=== PATIENT | male | born 1935 | race Caucasian/White ===

== ENCOUNTER 2016-12-05 08:15 | Observation (INO) | payer MEDICARE ==
[2016-12-05] MEDS ORDERED: ceFAZolin 2 GM in SODIUM CHLORIDE 0.9% 100 ML IVPB ONE (16:30)
[2016-12-05 16:47] LABS: INR 1.2 (<1.1); Prothrombin Time 11.8 sec (9.0-12.0)
[2016-12-05 17:03] LABS: Aty Lym Flag Slight; Basophils % (A) 0 %; CH 30.3; CHCM 33.4; Eosinophils # (A) 0.2 k/uL (0-0.7); Eosinophils % (A) 3 %; HCT 35.3 % (39.0-53.0); HDW 2.52; HGB 11.5 gm/dL (13.0-17.5); Luc # (Auto) 0.46; Luc % (Auto) 6; Lymphocytes # (A) 0.9 k/uL (1.0-4.8); Lymphocytes % (A) 12 %; MCH 29.8 pg (25.0-35.0); MCHC 32.6 g/dL (31.0-37.0); MCV 91.3 fL (80.0-100.0); Mean Platelet Volume 7.4; Monocytes # (A) 1.2 k/uL (0-1.0); Monocytes % (A) 16 %; Neutrophils # (A) 4.7 k/uL (1.3-7.7); Neutrophils % (A) 63 %; RBC 3.86 m/uL (4.30-5.90); RDW 13.5 % (11.5-15.5); WBC 7.4 k/uL (3.8-10.6); WBC (Perox) 7.64
[2016-12-05] MEDS ORDERED: IV FLUID CONTINUATION 950 ML IV ONE (17:07)
--- NOTE | 2016-12-05 17:28 | P.HPOR ---
History of Present Illness H&P Date: 12/05/16 The patient is an 81-year-old male with multiple medical problems including coronary artery disease, peripheral vascular disease, and neuropathy who presented to my office earlier today with been wounds under the fourth and fifth toes, cellulitis, and purulent discharge. 8 days ago the patient kicked a piece of furniture at home. Due to neuropathy he did not note the severity of the injury. He was seen in the office today by Dr. Parrish who noted open wounds under his fourth and fifth toe with exposed tendon. He was referred to my office and I saw him this afternoon. At the time of my examination the patient had obvious cellulitis involving the fourth and fifth toes, radial and drainage from open wounds and exposed tendon. Due to the injury occurring 8 days ago, extent of infection, and multiple medical problems as well as the patient's age my recommendation was to send him over to the hospital as direct admission to perform amputations of the fourth and fifth toe. Past Medical History Past Medical History: Heart Failure, CVA/TIA, Deep Vein Thrombosis (DVT), GI Bleed, Hyperlipidemia, Hypertension, Myocardial Infarction ([place]), Mitral Valve Prolapse (MVP), Musculoskeletal Disorder, Renal Disease Additional Past Medical History / Comment(s): per old hx cva in -2009 lt sided weakness( stated that improved but pt has balance issues and mild memory problems since),2014 had stroke that affected his rt side of mouth and speech.blistering to lle(sharif went to [facility] [place] don[place] hearing aid,peptic ulcer disease.gastritis, hx of hep C, chronic back pain, n/t donna shoulders, fx of left hand, mumps, ANEMIA, AORTIC STENOSIS, PSORIASIS.fx lt metatarsal.parkinsons , FALLS, constipation-last bm 12-04-16, per pmh-hx of afib Last Myocardial Infarction Date:: 03/2011 History of Any Multi-Drug Resistant Organisms: None Reported Past Surgical History: Bowel Resection, Heart Catheterization With Stent Additional Past Surgical History / Comment(s): hand sx right thumb partial amputation d/t work injury, cataract sx, hemorrhoidectomy x3, egd,colonoscopy 4- 5 years ago. Gastric surgery in 1965 for peptic ulcer disease, RT BRACHIAL ARTERIAL OCCLUSION HAD THROMBECTOMY, heart valve replacement/ (TVAR PROCEDURE), donna cataracts Past Anesthesia/Blood Transfusion Reactions: No Reported Reaction Date of Last Stent Placement:: 2010 Past Psychological History: No Psychological Hx Reported Additional Psychological History / Comment(s): PT LIVES WITH OF 56 YRS in single level home that has 2 steps to enter. no pets. no home care services recieved . HE USES A WALKER MOST TIMES. HE IS SOMEWHAT LIMITED IN HIS ACTIVITY -has balance issues and hx of falls.. HE NO LONGER DRIVES. in past served in the [employer]. 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 Pt states "I used to drink one beer a day, but I don't anymore." Past Drug Use History: None Reported - Past Family History Father History Unknown: Yes Family Medical History: Cancer Additional Family Medical History / Comment(s): FATHER AT AGE 60 OF COLON CANCER Mother History Unknown: Yes Family Medical History: Coronary Artery Disease (CAD), Hypertension Additional Family Medical History / Comment(s): Patient states "none that I know of" regarding family history Medications and Allergies Home Medications Medication Instructions Recorded Confirmed Type Lisinopril [Zestril] 5 mg PO DAILY 11/20/13 12/05/16 History Apixaban [Eliquis] 2.5 mg PO DAILY 11/02/15 12/05/16 History LORazepam [Ativan] 1 mg PO BID PRN 11/02/15 12/05/16 History Lidocaine HCl [Aspercreme] 1 applic TOPICAL DAILY 11/02/15 12/05/16 History Triamcinolone 0.1% Cream [Kenalog] 1 applic TOPICAL DAILY 11/02/15 12/05/16 History Atorvastatin [Lipitor] 40 mg PO DAILY 12/05/16 12/05/16 History Carbidopa-Levodopa 25-100 mg 1 tab PO QID 12/05/16 12/05/16 History [Sinemet 25-100] Divalproex Sodium [Depakote] 500 mg PO HS 12/05/16 12/05/16 History Furosemide [Lasix] 40 mg PO BID 12/05/16 12/05/16 History Latanoprost [Xalatan 0.005%] 1 drop BOTH EYES HS 12/05/16 12/05/16 History Metolazone [Zaroxolyn] 2.5 mg PO Q48H 12/05/16 12/05/16 History Metoprolol Tartrate [Lopressor] 50 mg PO QAM 12/05/16 12/05/16 History Metoprolol Tartrate [Lopressor] 100 mg PO HS 12/05/16 12/05/16 History Omeprazole 20 mg PO DAILY 12/05/16 12/05/16 History Allergies Allergy/AdvReac Type Severity Reaction Status Date / Time acetaminophen [From [place]] Allergy Confusion Verified 12/05/16 16:56 gentamicin [Gentamicin] Allergy numbness Verified 11/02/15 10:17 hydrocodone [From [place]] Allergy Confusion Verified 12/05/16 16:56 Physical Examination The patient is in no apparent distress and is alert and oriented. His head is normocephalic and atraumatic. He demonstrates nonlabored breathing with symmetric chest expansion. On examination of the lower extremities there is bilateral swelling and erythema throughout the pretibial area consistent with chronic cellulitis. A focused examination of the left foot was conducted. On inspection there is erythema and warmth over the fourth and fifth toe extending to the dorsal aspect of the lateral forefoot. There are open wounds under the plantar aspect of the fourth and fifth toe. The flexor tendons are visible under the fourth toe. The open wound at the base of the fifth toe has a large amount of malodorous, purulent drainage. Results - Labs Labs: Abnormal Lab Results - Last 24 Hours (Table) 12/05/16 Range/Units 16:15 RBC 3.86 L (4.30-5.90) m/uL Hgb 11.5 L (13.0-17.5) gm/dL Hct 35.3 L (39.0-53.0) % Plt Count 127 L (150-450) k/uL H & H 12/05/16 Range/Units 16:15 Hgb 11.5 L (13.0-17.5) gm/dL Hct 35.3 L (39.0-53.0) % Coagulation 12/05/16 Range/Units 16:15 INR 1.2 (<1.1) Result Diagrams: 12/05/16 16:15 Assessment and Plan (1) Cellulitis and abscess of foot Status: Acute Plan: Due to the patient's age, multiple medical problems, peripheral vascular disease , neuropathy and since his injury occurred 8 days ago my recommendation was to perform amputation of the fourth and fifth toe. The patient and his agree with this plan. The patient has been sent overs direct admission from my office. We'll plan on taking him to the operating room for amputation of the fourth and fifth toe. We discussed potential risks and complications of surgery including but not limited to risk of anesthesia, risk of superficial infection, risk of deep infection, risk of delayed wound healing, risk of need for further amputation, risk of need for below-knee amputation, and postoperative medical complication. The patient will be admitted overnight for IV antibiotics. We will consult Dr. Parrish for perioperative medical management. I would also like to consult Dr. Carballo for antibiotic recommendations including choice of antibiotic, route of administration, and duration of treatment.
[2016-12-05 17:30] LABS: Manual Review Performed
[2016-12-05] MEDS ORDERED: ePHEDrine 50 MG/ML 1 ML AMP ONE (17:47)
[2016-12-05] MEDS ORDERED: fentaNYL (PF) 50 MCG/ML 2 ML AMP ONE (17:47)
[2016-12-05] MEDS ORDERED: PROPOFOL 10 MG/ML 20 ML VIAL IV ONE (17:47)
[2016-12-05] MEDS ORDERED: LIDOCAINE 1% INJ 10MG/ML (20 ML MDV) ONE (17:47)
[2016-12-05] MEDS ORDERED: BUPIVACAINE (PF) 0.5% 30 ML VIAL SQ ONE (18:02)
[2016-12-05] MEDS ORDERED: ceFAZolin 1,000 MG in SODIUM CHLORIDE 0.9% 1,000 ML IRRIGATION ONE (18:07)
--- NOTE | 2016-12-05 18:52 | P.OP ---
Date of Procedure: 12/05/16 Preoperative Diagnosis: 1. Left fourth toe open wound with exposed flexor tendon, cellulitis and early wet gangrene 2. Left fifth toe open wound, cellulitis and early wet gangrene 3. Coronary artery disease 4. Peripheral neuropathy 5. Peripheral vascular disease Postoperative Diagnosis: 1. Left fourth toe open wound with exposed flexor tendon, cellulitis and early wet gangrene 2. Left fifth toe open PIP dislocation with exposed bone, cellulitis, purulence , and early wet gangrene 3. Coronary artery disease 4. Peripheral neuropathy 5. Peripheral vascular disease Procedure(s) Performed: 1. Left fourth toe amputation at the MTP joint 2. Left fifth toe amputation at the MTP joint Implants: [place] [facility] Surgeon: Holger Quiros Estimated Blood Loss (ml): 10 IV fluids (ml): 850 Pathology: other (Toes sent to microbiology and pathology) Condition: stable Disposition: PACU Indications for Procedure: The patient is an 81-year-old male smoker medical problems. 8 days ago he kicked his left foot Furniture resulting in open wounds to his left fourth and fifth toe. His family provided local wound care. He was seen by his primary care doctor, Dr. Parrish today in the office who noted open wounds with exposed tendons. He was sent over to my office. Upon my examination earlier today the patient had open wounds at the base of his fourth and fifth toe. There are exposed flexor tendons at the base of his fourth toe and an open wound with exposed bone at the fifth toe. There was purulence with a malodorous drainage from both wounds. Both toes were diffusely cellulitic and had signs of early wet gangrene. Due to the patient's age and multiple medical problems as well as his injury occurring 8 days ago with exposed tendon and bone I recommended amputation of the fourth and fifth toe. I discussed potential risks and complications with the patient and his including but not limited to risk of anesthesia, risk of superficial infection, risk of deep infection, risk of damage to local blood vessels or nerves, risk of delayed wound healing, risk of wound necrosis, risk of need for more proximal amputation including a transmetatarsal or [id number] amputation and possibly loss of life. The patient and his understand these risks and provided consent to go forward with surgery. Operative Findings: The wound under the plantar aspect of the fourth toe had exposed flexor tendons. The wound in the fourth webspace and base of the fifth toe communicated with the PIP joint and there was exposed proximal phalanx of the fifth toe. There was malodorous drainage and purulence from both wounds. Description of Procedure: The patient identified in preoperative holding and the correct left foot was marked with my initials. I reviewed the consent form with the patient and his and all their questions were answered. The patient was then brought back to the operating room. Preoperative antibiotics were administered. The patient was positioned on the operating room table and all bony prominences were well-padded. A tourniquet was applied to the proximal aspect of the left thigh. The patient's left leg was then prepped and draped in the standard sterile fashion. Prior to starting surgery timeout was performed identifying the correct patient, operative extremity, and procedure. The patient's leg was then elevated for 2 minutes and the tourniquet was inflated to 250 mmHg I began by outlining an incision at the base of the fourth and fifth toe, taking care to excise all nonviable skin while at the same time allowing flaps for closure. A 10 mL's of half percent Marcaine was injected at the base of the fourth and fifth toe Skin incision was made a 15 blade scalpel in both the fourth and fifth toe were circumferentially exposed and amputated at the MTP joint level. Both toes were passed off to the past table and sent to pathology and microbiology. The wound was then copiously irrigated with 1 L of sterile saline using cystoscopy tubing. The tourniquet was let down for total tourniquet time of 8 minutes. All bleeders were controlled with electrocautery. The deep subcu was reapproximated using 2-0 Vicryl. The skin was closed with 3-0 nylon horizontal mattress stitches. I verified that all instrument sponge and sharp counts were correct. A sterile dressing consisting of Betadine soaked Adaptic, 4 x 4, and web roll was applied. The drapes were taken down and an Ashwin wrap was placed. The patient was then brought to PACU having tolerated the procedure well. Plan: The patient will be admitted overnight for IV antibiotics. He can heel weight-bear in a cam boot. Dr. Parrish has been consulted for perioperative medical management. I would also like to consult Dr. Carballo for antibiotic recommendations as well as wound care going forward due to his high risk of having a wound complication.
[2016-12-05] MEDS ORDERED: METOLAZONE 2.5 MG TAB PO ONE (19:45)
[2016-12-05 19:48] LABS: Anion Gap 12 mmol/L; Blood Urea Nitrogen 29 mg/dL (9-20); Calcium 8.6 mg/dL (8.4-10.2); Carbon Dioxide 25 mmol/L (22-30); Chloride 105 mmol/L (98-107); Glucose 93 mg/dL (74-99); Non-African American GFR(MDRD) >60 (>60 ml/min/1.73 sqM); Sodium 142 mmol/L (137-145)
[2016-12-05] MEDS: FUROSEMIDE 40 MG TAB PO SCH (21:54)
[2016-12-05] MEDS: DIVALPROEX 500 MG TABLET.DR PO SCH (21:54)
[2016-12-05] MEDS: PANTOPRAZOLE 40 MG TABLET PO SCH (21:55)
[2016-12-05] MEDS: LATANOPROST 0.005% OPHTH DROPS 2.5 ML BTL BOTH EYES SCH (21:55)
[2016-12-05] MEDS: METOPROLOL TARTRATE 50 MG TAB PO SCH (21:55)
[2016-12-05] MEDS: ATORVASTATIN 40 MG TAB PO SCH (21:55)
[2016-12-05] MEDS: LISINOPRIL 5 MG TAB PO SCH (21:55)
[2016-12-05] MEDS: CARBIDOPA-LEVODOPA 25-100 MG 1 EACH TAB PO SCH (21:55)
[2016-12-05] MEDS: LORazepam 1 MG TAB PO PRN (22:01)
[2016-12-06] MEDS: Acetaminophen-Codeine 300-30mg TAB PO PRN ×3 (03:38→22:05)
[2016-12-06] MEDS ORDERED: HYDROcodone/APAP 7.5-325MG 1 EACH TAB PO PRN (05:13)
[2016-12-06] MEDS: PANTOPRAZOLE 40 MG TABLET PO SCH (07:39)
[2016-12-06] MEDS: FUROSEMIDE 40 MG TAB PO SCH ×2 (07:39→22:06)
[2016-12-06] MEDS: LISINOPRIL 5 MG TAB PO SCH (07:39)
[2016-12-06] MEDS: CARBIDOPA-LEVODOPA 25-100 MG 1 EACH TAB PO SCH ×4 (07:39→22:06)
[2016-12-06] MEDS: ATORVASTATIN 40 MG TAB PO SCH (07:40)
[2016-12-06] MEDS: METOPROLOL TARTRATE 50 MG TAB PO SCH ×2 (07:40→22:06)
[2016-12-06] MEDS ORDERED: ONDANSETRON 4 MG/2 ML VIAL IVP PRN (08:50)
[2016-12-06] MEDS ORDERED: HYDROmorphone 1 MG/ML 1 ML SYRINGE IVP PRN ×3 (08:50)
[2016-12-06] MEDS ORDERED: TEMAZEPAM 15 MG CAP PO PRN (08:50)
[2016-12-06] MEDS ORDERED: NALOXONE 0.4 MG/ML 1 ML VIAL IV PRN (08:50)
[2016-12-06] MEDS ORDERED: MAGNESIUM HYDROXIDE 2,400 MG/10 ML CUP PO PRN (08:50)
[2016-12-06] MEDS ORDERED: APIXABAN 2.5 MG TABLET PO SCH (09:00)
--- NOTE | 2016-12-06 09:21 | P.CONS ---
History of Present Illness - Reason for Consult Consult date: 12/06/16 Infected toes - History of Present Illness This is an 81-year-old male. He gives history that he was on his scooter within his home and he ended up turning a corner and fell out of his scooter. He apparently injured his left foot at that time but did not realize it due to peripheral neuropathy. This was at least 8 days ago. He then presented to Dr. Parrish and found to have open wounds to the fourth and fifth toes on the plantar surface with exposed tendon. Patient was then sent to Dr. Quiros and patient has subsequently undergone a fourth and fifth toe amputation at the [facility] done on December 05. Patient states he is expecting to go home today. Patient was on during the perioperative time period patient is complaining of significant pain to the left foot but otherwise no new complaints. He has difficulty with balance and gait dysfunction since his stroke. Physical therapy consult in place. He has been ordered for heel weightbearing on the left only with Cam boot to be ordered. Review of Systems All systems: negative Constitutional: Denies chills, Denies fever Eyes: denies blurred vision, denies pain Ears, nose, mouth and throat: Denies headache, Denies sore throat Cardiovascular: Reports decreased exercise tolerance, Reports dyspnea on exertion, Denies chest pain, Denies shortness of breath Respiratory: Denies cough Gastrointestinal: Denies abdominal pain, Denies diarrhea, Denies nausea, Denies vomiting Musculoskeletal: Reports gait dysfunction, Denies myalgias Musculoskeletal: right: foot pain Integumentary: Denies pruritus, Denies rash Neurological: Denies numbness, Denies weakness Psychiatric: Denies anxiety, Denies depression Endocrine: Denies fatigue, Denies weight change Past Medical History Past Medical History: Heart Failure, CVA/TIA, Deep Vein Thrombosis (DVT), GI Bleed, Hyperlipidemia, Hypertension, Myocardial Infarction ([place]), Mitral Valve Prolapse (MVP), Musculoskeletal Disorder, Renal Disease Additional Past Medical History / Comment(s): per old hx cva in 2-2009 lt sided weakness( stated that improved but pt has balance issues and mild memory problems since),2014 had stroke that affected his rt side of mouth and speech.blistering to lle(sharif went to [facility]) [place] donna hearing aid,peptic ulcer disease.gastritis, hx of hep C, chronic back pain, n/t donna shoulders, fx of left hand, mumps, ANEMIA, AORTIC STENOSIS, PSORIASIS.fx lt metatarsal.parkinsons , FALLS, constipation-last bm 5--17, per pmh-hx of afib Last Myocardial Infarction Date:: 03/2011 History of Any Multi-Drug Resistant Organisms: None Reported Past Surgical History: Bowel Resection, Heart Catheterization With Stent Additional Past Surgical History / Comment(s): hand sx right thumb partial amputation d/t work injury, cataract sx, hemorrhoidectomy x3, egd,colonoscopy 4- 5 years ago. Gastric surgery in 1965 for peptic ulcer disease, RT BRACHIAL ARTERIAL OCCLUSION HAD THROMBECTOMY, heart valve replacement/ (TVAR PROCEDURE), donna cataracts Past Anesthesia/Blood Transfusion Reactions: No Reported Reaction Date of Last Stent Placement:: 2010 Past Psychological History: No Psychological Hx Reported Additional Psychological History / Comment(s): PT LIVES WITH OF 56 YRS in single level home that has 2 steps to enter. no pets. no home care services recieved . HE USES A WALKER MOST TIMES. HE IS SOMEWHAT LIMITED IN HIS ACTIVITY -has balance issues and hx of falls.. HE NO LONGER DRIVES. 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 Pt states "I used to drink one beer a day, but I don't anymore." Past Drug Use History: None Reported - Past Family History Father History Unknown: Yes Family Medical History: Cancer Additional Family Medical History / Comment(s): FATHER AT AGE 60 OF COLON CANCER Mother History Unknown: Yes Family Medical History: Coronary Artery Disease (CAD), Hypertension Additional Family Medical History / Comment(s): Patient states "none that I know of" regarding family history Medications and Allergies Home Medications Medication Instructions Recorded Confirmed Type Lisinopril [Zestril] 5 mg PO DAILY 11/20/13 12/05/16 History Apixaban [Eliquis] 2.5 mg PO DAILY 11/02/15 12/05/16 History LORazepam [Ativan] 1 mg PO BID PRN 11/02/15 12/05/16 History Lidocaine HCl [Aspercreme] 1 applic TOPICAL DAILY 11/02/15 12/05/16 History Triamcinolone 0.1% Cream [Kenalog] 1 applic TOPICAL DAILY 11/02/15 12/05/16 History Atorvastatin [Lipitor] 40 mg PO DAILY 12/05/16 12/05/16 History Carbidopa-Levodopa 25-100 mg 1 tab PO QID 12/05/16 12/05/16 History [Sinemet 25-100 mg] Divalproex Sodium [Depakote] 500 mg PO HS 12/05/16 12/05/16 History Furosemide [Lasix] 40 mg PO BID 12/05/16 12/05/16 History Latanoprost [Xalatan 0.005%] 1 drop BOTH EYES HS 12/05/16 12/05/16 History Metolazone [Zaroxolyn] 2.5 mg PO Q48H 12/05/16 12/05/16 History Metoprolol Tartrate [Lopressor] 50 mg PO QAM 12/05/16 12/05/16 History Metoprolol Tartrate [Lopressor] 100 mg PO HS 12/05/16 12/05/16 History Omeprazole 20 mg PO DAILY 12/05/16 12/05/16 History Allergies Allergy/AdvReac Type Severity Reaction Status Date / Time gentamicin [Gentamicin] Allergy numbness Verified 11/02/15 10:17 hydrocodone [From [place]] Allergy Confusion Verified 12/05/16 16:56 Physical Exam Vitals: Vital Signs Temp Pulse Resp BP BP Pulse Ox 12/06/16 07:00 97.3 F L 80 16 142/76 97 12/06/16 00:00 18 12/05/16 23:00 97.9 F 89 18 94/65 98 12/05/16 19:40 97.3 F L 75 14 128/72 99 12/05/16 19:00 83 18 155/67 99 12/05/16 18:51 87 18 131/83 99 12/05/16 18:45 83 16 175/75 98 12/05/16 18:37 97.2 F L 76 20 167/80 98 12/05/16 17:14 98.1 F 81 18 133/72 100 12/05/16 16:28 97.4 F L 55 L 19 148/69 97 12/05/16 14:40 98.2 F 70 18 138/68 98 Intake and Output 12/05/16 12/06/16 12/06/16 22:59 06:59 14:59 Intake Total 1790 Output Total 10 Balance 1780 Intake: IV 1550 Oral 240 Output: Estimated Blood Loss 10 Other: Voiding Method Urinal # Voids 1 3 2 Weight 90.718 kg Gen: This is an 81-year-old male. He is sitting up in bed and appears to be in no acute distress. HEENT: Head is atraumatic, normocephalic. Pupils equal, round. Sclerae is anicteric. NECK: Supple. No JVD. No lymphadenopathy. No thyromegaly. LUNGS: Clear to auscultation. No wheezes or rhonchi. No intercostal retractions. HEART: Irregular rate and rhythm. Systolic murmur. ABDOMEN: Soft. Bowel sounds are present. No masses. No tenderness. EXTREMITIES: No pedal edema. Large dressing in place to the left foot and lower extremity which was not removed. NEUROLOGICAL: Patient is awake, alert and oriented x3. Cranial nerves 2 through 12 are grossly intact. Results Results: Laboratory Results WBC 7.4 k/uL (3.8-10.6) 12/05/16 16:15 RBC 3.86 m/uL (4.30-5.90) L 12/05/16 16:15 Hgb 11.5 gm/dL (13.0-17.5) L 12/05/16 16:15 Hct 35.3 % (39.0-53.0) L 12/05/16 16:15 MCV 91.3 fL (80.0-100.0) 12/05/16 16:15 MCH 29.8 pg (25.0-35.0) 12/05/16 16:15 MCHC 32.6 g/dL (31.0-37.0) 12/05/16 16:15 RDW 13.5 % (11.5-15.5) 12/05/16 16:15 Plt Count 127 k/uL (150-450) L 12/05/16 16:15 Neutrophils % 63 % 12/05/16 16:15 Lymphocytes % 12 % 12/05/16 16:15 Monocytes % 16 % 12/05/16 16:15 Eosinophils % 3 % 12/05/16 16:15 Basophils % 0 % 12/05/16 16:15 Neutrophils # 4.7 k/uL (1.3-7.7) 12/05/16 16:15 Lymphocytes # 0.9 k/uL (1.0-4.8) L 12/05/16 16:15 Monocytes # 1.2 k/uL (0-1.0) H 12/05/16 16:15 Eosinophils # 0.2 k/uL (0-0.7) 12/05/16 16:15 Basophils # 0.0 k/uL (0-0.2) 12/05/16 16:15 Manual Slide Review Performed 12/05/16 16:15 Poikilocytosis (manual Present 12/05/16 16:15 PT 11.8 sec (9.0-12.0) 12/05/16 16:15 INR 1.2 (<1.1) 12/05/16 16:15 Sodium 142 mmol/L (137-145) 12/05/16 19:30 Potassium 4.0 mmol/L (3.5-5.1) 12/05/16 19:30 Chloride 105 mmol/L (98-107) 12/05/16 19:30 Carbon Dioxide 25 mmol/L (22-30) 12/05/16 19:30 Anion Gap 12 mmol/L 12/05/16 19:30 BUN 29 mg/dL (9-20) H 12/05/16 19:30 Creatinine 0.96 mg/dL (0.66-1.25) 12/05/16 19:30 Est GFR (MDRD) Af Amer >60 (>60 ml/min/1.73 sqM) 12/05/16 19:30 Est GFR (MDRD) Non-Af >60 (>60 ml/min/1.73 sqM) 12/05/16 19:30 Glucose 93 mg/dL (74-99) 12/05/16 19:30 Calcium 8.6 mg/dL (8.4-10.2) 12/05/16 19:30 CBC & Chem 7: 12/08/16 08:28 12/05/16 19:30 Labs: Abnormal Lab Results - Last 24 Hours (Table) 12/05/16 12/05/16 Range/Units 16: 19:30 RBC 3.86 L (4.30-5.90) m/uL Hgb 11.5 L (13.0-17.5) gm/dL Hct 35.3 L (39.0-53.0) % Plt Count 127 L (150-450) k/uL Lymphocytes # 0.9 L (1.0-4.8) k/uL Monocytes # 1.2 H (0-1.0) k/uL BUN 29 H (9-20) mg/dL Assessment and Plan Plan: This is an 81-year-old male who presented to the hospital for amputation of the fourth and fifth toes on the left foot for infection and cellulitis with exposed tendon. He received Kefzol during the perioperative period. Antibiotics will be addressed. No need for long-term IV antibiotics. Continue local wound care Continue supportive care. Further recommendations as patient progresses. The above dictated assessment and findings were discussed with Dr. Carballo. The impression and plan of care have been directed as dictated. Basia Hill nurse practitioner acting as scribe for Dr. Carballo.
[2016-12-06] MEDS: ASPIRIN 325 MG TAB PO SCH ×2 (11:38→22:06)
[2016-12-06] MEDS: MULTIVITAMINS, THERA 1 EACH TAB PO SCH (11:38)
[2016-12-06 12:16] LABS: Aty Lym Flag Slight; CHCM 32.9; HCT 33.6 % (39.0-53.0); HGB 11.3 gm/dL (13.0-17.5); MCH 30.8 pg (25.0-35.0); MCHC 33.6 g/dL (31.0-37.0); MCV 91.5 fL (80.0-100.0); Mean Platelet Volume 7.3; RBC 3.67 m/uL (4.30-5.90); RDW 13.4 % (11.5-15.5); WBC 7.2 k/uL (3.8-10.6); WBC (Perox) 7.04
--- NOTE | 2016-12-06 12:21 | P.PN ---
Subjective Principal diagnosis: S/P Left 4th and 5th toe amputation Patient is POD#1 from left 4th and 5th toe amputation per Dr. Quiros. His pain is controlled this morning. He has no new complaints. He denies numbness or tingling. He has no calf pain. Objective - Vital Signs Vital signs: Vital Signs Temp 97.3 F L 12/06/16 07:00 Pulse 80 12/06/16 08:00 Resp 16 12/06/16 08:00 BP 142/76 12/06/16 07:00 Pulse Ox 97 12/06/16 07:00 Intake & Output 12/05/16 12/06/16 12/06/16 18:59 06:59 18:59 Intake Total 1550 240 Output Total 10 Balance 1540 240 Weight 90.718 kg Intake: IV 1550 Oral 0 240 Output: Estimated Blood Loss 10 Other: Voiding Method Urinal Urinal # Voids 3 2 - Exam GEN: NAD MAA Left lower extremity shows bandage in place and appropriate fit. There is no active bleeding or drainage. He has chronic peripheral neuropathy and loss of sensation to touch. Flexion and extension of the digits intact. Less than 2 sec cap refill present. Calf is soft and nontender - Constitutional General appearance: Present: no acute distress - Psychiatric Psychiatric: Present: A&O x's 3, appropriate affect, intact judgment & insight - Labs CBC & Chem 7: 12/05/16 16:15 12/05/16 19:30 Labs: Abnormal Lab Results - Last 24 Hours (Table) 12/05/16 12/05/16 Range/Units 16:15 19:30 RBC 3.86 L (4.30-5.90) m/uL Hgb 11.5 L (13.0-17.5) gm/dL Hct 35.3 L (39.0-53.0) % Plt Count 127 L (150-450) k/uL Lymphocytes # 0.9 L (1.0-4.8) k/uL Monocytes # 1.2 H (0-1.0) k/uL BUN 29 H (9-20) mg/dL Assessment and Plan (1) Cellulitis and abscess of foot Narrative/Plan: We will continue with pain management, wound care, elevation and empiric antibiotics. He is nonweightbearing or heel weightbearing with cam boot. ID and IM have been consulted. Will continue to monitor and await their recommendations as well. Status: Acute Time with Patient: Less than 30
[2016-12-06 13:29] LABS: Add Differential Manual Differential
[2016-12-06 13:32] LABS: Nucleated Red Blood Cells 0 /100 WBC (0-0); Total Cells Counted 100
[2016-12-06 14:26] VITALS: BMI 29.5
[2016-12-06] MEDS: ceFAZolin 2 GM in SODIUM CHLORIDE 0.9% 100 ML IVPB SCH (15:34)
--- NOTE | 2016-12-06 19:11 | CONS ---
DATE OF CONSULTATION: 12/06/2016 CHIEF COMPLAINT: Consultation regarding medical management. HISTORY OF PRESENT ILLNESS: This 81-year-old gentleman was seen in the office by me yesterday. The patient's had called saying that the patient had some drainage and bleeding from a cut on the left foot. He had gone to a physical therapist who suggested that the patient see a physician. We saw the patient in the morning. At the time of evaluation, the patient's story was that he does not know how he injured his left foot, but he did fall. The patient does have a history of repeated falls. He has a history of chronic ataxia. He has no features of Parkinson's but his Neurologist suspects that he may be coming down with that. The patient has been on Sinemet without much change. The patient at the time of my evaluation is noted to have significantly swollen left fourth and fifth finger. A slightly ( ) bluish and cool to touch. There is some foul odor, however, I could not extract any pus and it bled very easily. The cuts were in the fourth and fifth web at the crease where the toes attach to the foot. On the bottom of the fourth toe there was a clear exposure of the tendon but the tendon did not appear to be ruptured. At this point the wound was cleaned. Patient had no crepitus on his foot and no suggestion of an increased warmth or cellulitis of the foot and no lymphangitic streaks. The patient did not appear septic. The patient was afebrile. I contacted Dr. Quiros who was kind enough to see the patient right away and after his evaluation he did contact me and told me that the patient was going to be admitted to the hospital and undergo amputation of the fourth and fifth toe as he felt there was significant infection along the tendon and the foot. He was able to extract some purulent material. The patient is seen this morning. Past medical history is significant for the patient having chronic atrial fibrillation with previous embolic phenomenon including a stroke and ( ) to the right brachial artery. He has a history of coronary artery disease, ( ) this time I believe the ( ). The patient also has a history of chronic cardiac failure, which is improved. Previous history of dilated cardiomyopathy secondary to alcohol dependency as well as hypertension, coronary artery disease and chronic atrial fibrillation. 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 The patient has no history of any lung disease, liver disease, kidney disease. No history of any ulcers, TB, hepatitis, rheumatic fever. No history of myocardial infarction, previous history of CVA. He has chronic venostasis lower legs and chronic kidney disease stage III. He does have some peripheral arterial disease and peripheral neuropathy as mentioned above. Past surgical history included previous cardiac surgery, brachial artery surgery. PERSONAL HISTORY: Nonsmoker. Alcohol a couple of drinks a day. ALLERGIES: None known; however, he did have ataxia related to aminoglycosides. MEDICATIONS INCLUDE: 1. Lisinopril 5 mg daily. 2. Eliquis 2.5 mg daily. 3. Metalazone 2.5 mg q.48 hours. 4. Lasix 40 mg b.i.d. 5. Sinemet 10-100, 1 q.i.d. 6. Metoprolol tartrate 100 mg half tablet in the morning and one in the evening. 7. Lipitor 20 mg at bedtime. 8. Omeprazole 20 mg daily. 9. Lorazepam 1 mg b.i.d. SOCIAL HISTORY: Patient is and lives with her spouse. FAMILY MEDICAL HISTORY: Significant for one son with a pancreatic transplant for type 1 diabetes mellitus with multiple complications. REVIEW OF SYSTEMS: NEURO: Denies any headaches, dizziness. No double vision, blurred vision. No symptoms of TIA, syncope, seizures. He does have chronic ataxia. PSYCH: No anxiety, depression. CARDIAC: Denies chest pain, angina, palpitations, history of chronic atrial fibrillation. RESPIRATORY: Denies shortness of breath, cough, hemoptysis. GI: No nausea, vomiting, abdominal pain, diarrhea, constipation, hematochezia, melena. : No symptoms of dysuria or hematuria does have some frequency. EXTREMITIES: Present symptoms of left foot injury. Injury at least 8 to 9 days old. The patient is status post amputation of the fourth and fifth toe. SKIN: No rashes. HEMATOLOGICAL: Anticoagulated on Eliquis on 2.5 mg daily. PHYSICAL EXAMINATION: Pleasant gentleman in no distress. Vital signs revealed temperature 97.3, pulse 80, respirations 16, blood pressure 142/76, pulse ox 97% on room air. HEENT: Normocephalic. NECK: No JVD. Pupils are reactive. Nostrils are clear. Oral cavity is moist. Chest is clear to auscultation with mild generalized decreased air flow. CARDIAC: Distant heart sounds. S1, S2 with no gallops. Systolic murmur 2/6 left sternal border. Irregular rhythm. ABDOMEN: Soft. Bowel sounds positive. No organomegaly. No abdominal bruits. Extremities reveal no edema. Left foot has a dressing. Neurologically awake, alert, oriented to place and person. Moves both upper and lower extremities. The patient, however, has a known history of ataxia. Laboratory assessment: CBC showed a white count of 7.2, hemoglobin 11.3, platelets 114, INR was 1.2 yesterday. Electrolytes are normal. BUN 29, creatinine 0.96. ASSESSMENT: 1. Traumatic injury left fourth and fifth toe with vascular compromise and possible early infection. 2. History of mild peripheral arterial disease. 3. History of peripheral neuropathy. 4. Chronic atrial fibrillation. 5. Coronary artery disease. 6. History of mild chronic obstructive pulmonary disease. 7. Thrombocytopenia 8. Mild chronic anemia. PLAN: The patient is stable. Continue present medical regimen. The patient's Eliquis will be resumed. Patient's condition guarded. Prognosis guarded. The patient's condition discussed with the patient.
[2016-12-06] MEDS: SENNOSIDES-DOCUSATE SODIUM 1 EACH TAB PO SCH (22:05)
[2016-12-06] MEDS: LATANOPROST 0.005% OPHTH DROPS 2.5 ML BTL BOTH EYES SCH (22:06)
[2016-12-06] MEDS: DIVALPROEX 500 MG TABLET.DR PO SCH (22:06)
[2016-12-06] MEDS: SODIUM CHLORIDE 0.9% 1,000 ML IV SCH (22:07)
[2016-12-06] MEDS: LORazepam 1 MG TAB PO PRN (22:10)
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
[2016-12-07] MEDS ORDERED: ceFAZolin 2 GM in SODIUM CHLORIDE 0.9% 100 ML IVPB SCH ×2
[2016-12-07] MEDS: ceFAZolin 2 GM in SODIUM CHLORIDE 0.9% 100 ML IVPB SCH (00:35)
[2016-12-07] MEDS ORDERED: HALOPERIDOL 2 MG TAB PO STA (02:07)
[2016-12-07] MEDS: FUROSEMIDE 40 MG TAB PO SCH ×2 (08:10→21:35)
[2016-12-07] MEDS: ATORVASTATIN 40 MG TAB PO SCH (08:10)
[2016-12-07] MEDS: PANTOPRAZOLE 40 MG TABLET PO SCH (08:10)
[2016-12-07] MEDS: CARBIDOPA-LEVODOPA 25-100 MG 1 EACH TAB PO SCH ×4 (08:10→21:36)
[2016-12-07] MEDS: ASPIRIN 325 MG TAB PO SCH ×2 (08:10→21:35)
[2016-12-07] MEDS: LISINOPRIL 5 MG TAB PO SCH (08:11)
[2016-12-07] MEDS: METOPROLOL TARTRATE 50 MG TAB PO SCH ×2 (08:11→21:36)
[2016-12-07] MEDS ORDERED: METOLAZONE 2.5 MG TAB PO SCH (09:00)
[2016-12-07] MEDS: Acetaminophen-Codeine 300-30mg TAB PO PRN ×4 (09:31→21:35)
--- NOTE | 2016-12-07 09:35 | P.PN ---
Subjective Principal diagnosis: S/P Left 4th and 5th toe amputation Patient is POD#2 from left 4th and 5th toe amputation per Dr. Quiros. His pain is controlled this morning. He has no new complaints. He denies numbness or tingling. He has no calf pain. ROS is negative for fever, chills, chest pain or shortness of breath. Objective - Vital Signs Vital signs: Vital Signs Temp 98 F 12/07/16 08:10 Pulse 66 12/07/16 08:10 Resp 20 12/07/16 08:10 BP 119/70 12/07/16 08:10 Pulse Ox 100 12/07/16 08:10 Intake & Output 12/06/16 12/07/16 12/07/16 18:59 06:59 18:59 Intake Total 120 770 240 Output Total 400 Balance 120 370 240 Weight 90.718 kg 91 kg Intake: IV 180 Sodium Chloride 0.9% 1, 80 000 ml @ 20 mls/hr IV . Q24H JUAQUIN Rx#:[id number] ceFAZolin 2 gm In Sodium 100 Chloride 0.9% 100 ml @ 100 mls/hr IVPB Q8HR JUAQUIN Rx#:[id number] Oral 120 590 240 Output: Urine 400 Other: Voiding Method Urinal Bedside Commode Bedside Commode Urinal Urinal # Voids 3 4 - Exam GEN: NAD MAA Left lower extremity shows new bandage in place and appropriate fit. There is no active bleeding or drainage. He has chronic peripheral neuropathy and loss of sensation to touch. Flexion and extension of the digits intact. Less than 2 sec cap refill present. Calf is soft and nontender. No heel ulcer present - Constitutional General appearance: Present: no acute distress - Psychiatric Psychiatric: Present: A&O x's 3, appropriate affect, intact judgment & insight - Labs CBC & Chem 7: 12/06/16 10:36 12/05/16 19:30 Labs: Abnormal Lab Results - Last 24 Hours (Table) 12/06/16 Range/Units 10:36 RBC 3.67 L (4.30-5.90) m/uL Hgb 11.3 L (13.0-17.5) gm/dL Hct 33.6 L (39.0-53.0) % Plt Count 114 L (150-450) k/uL Assessment and Plan (1) Cellulitis and abscess of foot Narrative/Plan: We will continue with pain management, wound care, elevation and empiric antibiotics. He is heel weightbearing with cam boot. Dr. Parrish and Dr. Carballo are following as well. Awaiting CAM boot delivery. He may discharge to home with home health services after receiving boot and when ok with Dr Parrish And Dr. Carballo. Status: Acute Time with Patient: Less than 30
[2016-12-07] MEDS: MULTIVITAMINS, THERA 1 EACH TAB PO SCH (13:27)
--- NOTE | 2016-12-07 15:59 | XR ---
EXAMINATION TYPE: XR chest 2V DATE OF EXAM: 12/07/2016 12:18 PM COMPARISON: 03/04/2015 HISTORY: 81-year-old male ECF placement TECHNIQUE: Frontal and lateral views FINDINGS: Endovascular aortic valve replacement is noted. Lung volumes low with crowded vascular markings. Hear t is borderline to mildly enlarged. Diffuse interstitial prominence is chronic appearance. Some patch y right basilar opacity probably represents atelectasis. No pleural effusion. Old healed left-sided r ib fracture deformities. IMPRESSION: Borderline to mild cardiomegaly with chronic appearing changes. Some patchy right basilar opacity lik lilly represents atelectasis.
[2016-12-07] MEDS: LATANOPROST 0.005% OPHTH DROPS 2.5 ML BTL BOTH EYES SCH (21:35)
[2016-12-07] MEDS: DIVALPROEX 500 MG TABLET.DR PO SCH (21:36)
[2016-12-07] MEDS: SENNOSIDES-DOCUSATE SODIUM 1 EACH TAB PO SCH (21:36)
[2016-12-07 22:40] VITALS: TEMP 97.4
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
[2016-12-08] MEDS: SODIUM CHLORIDE 0.9% 1,000 ML IV SCH (03:27)
--- NOTE | 2016-12-08 06:08 | PN ---
CHIEF COMPLAINT: Re-evaluation. HISTORY OF PRESENT ILLNESS: This is an 81-year-old gentleman who is status post amputation of the left fourth and fifth toe had an injury to that area with exposure of tendons and suspected early infection. The patient also had early changes of ischemia in those toes. Patient otherwise is actually doing well. He did have some agitation during the night. The patient feels better this morning. He is basically alert and oriented. The patient was re-evaluated at lunch time too today. REVIEW OF SYSTEMS: NEURO: Denies any headaches, dizziness. PSYCH: No anxiety. CARDIAC: No chest pain, angina, palpitation. RESPIRATORY: Denies shortness of breath, cough. GI: No nausea, vomiting, abdominal pain, diarrhea. : No symptoms of dysuria, hematuria. EXTREMITIES: Denies any pain. CONSTITUTIONAL: No fever or chills. PHYSICAL EXAMINATION: Vital signs reveal temperature 98, pulse 66, respirations 20, blood pressure 119/70, pulse ox 100% on room air. HEENT: Normocephalic. NECK: No JVD. CHEST EXAMINATION: Mild generalized decreased air flow. CARDIAC: Distant heart sounds. S1, S2 with no gallops. Irregularly irregular rhythm. Systolic murmur 2/6 left sternal border. ABDOMEN: Soft. Bowel sounds present. Extremities reveal no edema. Good pulses upper extremities. Decreased pedal pulses. NEUROLOGIC: Awake, alert, oriented with well coordinated movements upper extremities. LABORATORY ASSESSMENT: None new. ASSESSMENT: 1. Chronic atrial fibrillation, controlled. 2. Status post left foot fourth and fifth toe amputation. 3. Stable coronary artery disease. 4. Previous history of aortic valve repair. 5. Peripheral neuritis. 6. Chronic ataxia. 7. Chronic anemia. 8. Chronic thrombocytopenia. PLAN: The patient is stable. Continue present medical regimen. The patient's condition discussed with the patient. Prognosis guarded. Patient has difficulty in ambulating. The patient is going to be referred to rehab. Prognosis guarded. Patient's condition discussed with the patient.
[2016-12-08 07:48] VITALS: BP 112/74; PULSE 78; RESP 16
[2016-12-08] MEDS: PANTOPRAZOLE 40 MG TABLET PO SCH (08:55)
[2016-12-08] MEDS: ASPIRIN 325 MG TAB PO SCH (08:55)
[2016-12-08] MEDS: ATORVASTATIN 40 MG TAB PO SCH (08:56)
[2016-12-08] MEDS: FUROSEMIDE 40 MG TAB PO SCH (08:56)
[2016-12-08] MEDS: METOPROLOL TARTRATE 50 MG TAB PO SCH (08:56)
[2016-12-08] MEDS: LISINOPRIL 5 MG TAB PO SCH (08:56)
[2016-12-08] MEDS: CARBIDOPA-LEVODOPA 25-100 MG 1 EACH TAB PO SCH ×2 (08:56→12:18)
[2016-12-08] MEDS: Acetaminophen-Codeine 300-30mg TAB PO PRN ×2 (09:05→13:02)
[2016-12-08 09:11] LABS: Aty Lym Flag Slight; CH 30.4; CHCM 34.6; HDW 2.67; HGB 11.8 gm/dL (13.0-17.5); MCH 30.6 pg (25.0-35.0); MCHC 34.7 g/dL (31.0-37.0); MCV 88.3 fL (80.0-100.0); Mean Platelet Volume 7.2; RBC 3.85 m/uL (4.30-5.90); RDW 13.1 % (11.5-15.5); WBC 6.2 k/uL (3.8-10.6); WBC (Perox) 5.79
[2016-12-08 10:20] LABS: Add Differential Manual Differential
[2016-12-08 10:30] LABS: Nucleated Red Blood Cells 0 /100 WBC (0-0); Total Cells Counted 100
[2016-12-08] MEDS: MULTIVITAMINS, THERA 1 EACH TAB PO SCH (12:17)
--- NOTE | 2016-12-08 14:28 | P.DS ---
Providers Date of admission: 12/05/16 15:59 Expected date of discharge: 12/08/16 Attending physician: Holger Quiros Consults: 12/05/16 14:41 Consult Physician Routine Consulting Provider: Ed Parrish Consult Reason/Comments: medical management Do you want consulting provider notified?: Yes 12/05/16 14:49 Consult Physician Routine Consulting Provider: Durga Carballo Consult Reason/Comments: infected left 4th and 5th toes Do you want consulting provider notified?: Yes Primary care physician: Stated None - Discharge Diagnosis(es) (1) Cellulitis and abscess of foot Patient is an 81-year-old male that was a direct admission from our office on for cellulitis, osteomyelitis and open wounds of the left foot, fourth and fifth digits. He underwent amputation of the fourth and fifth toes on 12/[address] Quiros. He tolerated the procedure well without complication. His postoperative hospital course has remained without complication. On day of discharge he is afebrile, vital signs stable, labs within acceptable ranges, wound is benign, neurovascular status is intact, calf is soft nontender. He is denying new complaints, pain is controlled, tolerating by mouth meds and diet, voiding without difficulty, positive flatus. Review of systems is negative for fever, chills, chest pain, shortness breath, nausea, vomiting, dizziness, headaches, slurred speech, new numbness or tingling, calf pain, abdominal pain or other. Current Visit: Yes Status: Acute Priority: Medium Procedures: Amputation left fourth and fifth toes Patient Condition at Discharge: Stable Plan - Discharge Summary Discharge Medication List Lisinopril [Zestril] 5 mg PO DAILY 11/20/13 [History] Acetaminophen-Codeine 300-30mg [Tylenol w/codeine #3] 1 tab PO Q4H PRN #15 tablet 11/02/15 [Rx] Apixaban [Eliquis] 2.5 mg PO DAILY 11/02/15 [History] LORazepam [Ativan] 1 mg PO BID PRN 11/02/15 [History] Lidocaine HCl [Aspercreme] 1 applic TOPICAL DAILY 11/02/15 [History] Triamcinolone 0.1% Cream [Kenalog] 1 applic TOPICAL DAILY 11/02/15 [History] Atorvastatin [Lipitor] 40 mg PO DAILY 12/05/16 [History] Carbidopa-Levodopa 25-100 mg [Sinemet 25-100 mg] 1 tab PO QID 12/05/16 [History] Divalproex Sodium [Depakote] 500 mg PO HS 12/05/16 [History] Furosemide [Lasix] 40 mg PO BID 12/05/16 [History] Latanoprost [Xalatan 0.005%] 1 drop BOTH EYES HS 12/05/16 [History] Metolazone [Zaroxolyn] 2.5 mg PO Q48H 12/05/16 [History] Metoprolol Tartrate [Lopressor] 50 mg PO QAM 12/05/16 [History] Metoprolol Tartrate [Lopressor] 100 mg PO HS 12/05/16 [History] Omeprazole 20 mg PO DAILY 12/05/16 [History] Follow up Appointment(s)/Referral(s): [facility], [NON-STAFF] - 1 Week Holger Quiros MD [Medical Doctor] - 1 Week Activity/Diet/Wound Care/Special Instructions: Heel weightbearing in cam boot Take meds as directed Follow-up with Dr. Quiros in office, [phone] Keep wound clean and dry Continue wound care with dressing changes. Discharge Disposition: TRANSFER TO SNF/ECF
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
--- NOTE | 2016-12-09 07:38 | PN ---
CHIEF COMPLAINT: Re-evaluation. HISTORY OF PRESENT ILLNESS: This gentleman is status post left foot fourth and fifth toe amputations because of injury and some infection and exposure of tendons. The patient does have some degree of peripheral arterial disease and peripheral neuritis. REVIEW OF SYSTEMS: NEURO: Denies any headaches, dizziness. PSYCH: No anxiety. CARDIAC: No chest pain, angina, palpitation. RESPIRATORY: No shortness of breath, cough, hemoptysis. GI: No nausea, vomiting, abdominal pain, diarrhea. : No symptoms of dysuria, hematuria. EXTREMITIES: Some pain, but controlled. CONSTITUTIONAL: No fever or chills. PHYSICAL EXAMINATION: Pleasant gentleman in no distress. Vital signs revealed temperature 97.4, pulse 78, respirations 16, blood pressure 112/74, pulse ox of 92% on room air. HEENT: Normocephalic. NECK: No JVD. Chest is clear to auscultation with mild generalized decreased air flow. CARDIAC: Distant heart sounds. S1, S2 with no gallops. Irregularly irregular rhythm. Systolic murmur 2/6 left sternal border. ABDOMEN: Soft, no palpable masses. Bowel sounds normal. EXTREMITIES: Reveal no edema left foot dressed. NEUROLOGICALLY: Awake, alert, oriented to place and person. Moves both upper extremities fairly well. LABORATORY ASSESSMENT: CBC which revealed a hemoglobin 11.8, platelet count 143. ASSESSMENT: 1. Chronic atrial fibrillation. 2. Coronary artery disease, stable. 3. History of chronic ataxia. 4. 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 5. History of peripheral neuritis. PLAN: The patient is stable. Continue present medical regimen. The patient's condition discussed with the patient. The patient is planned for transfer to a nursing facility for rehabilitation. Prognosis remains guarded.
== END 2016-12-08 15:56 ==
LOC: 5MS5E 15:59
PROVIDERS: ADMIT Orthopaedic Surgery; ATTEND Orthopaedic Surgery
DX: I70.262 Atherosclerosis of native arteries of extremities with gangrene, left leg (principal); L97.523 Non-pressure chronic ulcer of other part of left foot with necrosis of muscle; M86.172 Other acute osteomyelitis, left ankle and foot; I25.10 Atherosclerotic heart disease of native coronary artery without angina pectoris; G62.9 Polyneuropathy, unspecified; I50.9 Heart failure, unspecified; I13.0 Hypertensive heart and chronic kidney disease with heart failure and stage 1 through stage 4 chronic kidney disease, or unspecified chronic kidney disease; I25.2 Old myocardial infarction; N18.3 Chronic kidney disease, stage 3 (moderate); E78.5 Hyperlipidemia, unspecified; I69.354 Hemiplegia and hemiparesis following cerebral infarction affecting left non-dominant side; G20 Parkinson's disease; M54.9 Dorsalgia, unspecified; L40.9 Psoriasis, unspecified; G89.29 Other chronic pain; I69.393 Ataxia following cerebral infarction; I69.392 Facial weakness following cerebral infarction; I69.311 Memory deficit following cerebral infarction; I69.328 Other speech and language deficits following cerebral infarction; R29.6 Repeated falls; F10.21 Alcohol dependence, in remission; J44.9 Chronic obstructive pulmonary disease, unspecified; D64.9 Anemia, unspecified; D69.6 Thrombocytopenia, unspecified; I48.2 Chronic atrial fibrillation; F17.200 Nicotine dependence, unspecified, uncomplicated; Z87.11 Personal history of peptic ulcer disease; Z86.19 Personal history of other infectious and parasitic diseases; Z91.81 History of falling; Z95.5 Presence of coronary angioplasty implant and graft; Z82.49 Family history of ischemic heart disease and other diseases of the circulatory system; Z79.899 Other long term (current) drug therapy; Z79.01 Long term (current) use of anticoagulants; Z88.6 Allergy status to analgesic agent; Z88.1 Allergy status to other antibiotic agents; Z88.5 Allergy status to narcotic agent; L03.116 Cellulitis of left lower limb
CPT/HCPCS: 28820 ×2; 97161; 97166; 88305; 80048; 85025 ×3; 85610; 88311; 71020; G0378 ×4; G0379; J0690 ×4; J2001; J3010; J2704

== ENCOUNTER → 2017-01-26 | Outpatient (CLI) | payer MEDICARE ==
--- NOTE | 2017-01-26 11:26 | FL ---
MODIFIED SWALLOW / DEGLUTITION STUDY DATE OF EXAM: 01/26/2017 CLINICAL HISTORY: 81-year-old male with a dysphagia, history of multiple strokes, progressive trouble swallowing and food sticking. TECHNIQUE: Deglutition study is performed utilizing thin liquid barium, honey and nectar thick liqui d barium, barium thick applesauce, and barium coated cracker. Total fluoroscopy time: 1 minute 32 seconds. COMPARISON: None. FINDINGS: The oral and pharyngeal phases show satisfactory initiation and propagation with all modalities teste d. Normal mastication is seen with solid modalities tested though the patient is partially edentulou s. There is persistent penetration to the level of the false cords with thin liquids. This resolves w ith throat clearing. Otherwise, there is no evidence of penetration or aspiration with any other moda lity tested. There is some density seen along the posterior margin of the epiglottis probably some ca lcification or adherent debris. Additional calcifications projecting at the hypopharynx likely caroti d vessel calcifications. IMPRESSION: Penetration with thin liquids to the level of the false cords. The cough reflex is absent. The penetr ation resolves with prompted throat clearing. No aspiration seen. Please refer to speech therapist no lopez for further details if necessary.
== END | disposition home or self-care (01) ==
LOC: RADFLMAIN 10:29
PROVIDERS: ATTEND Internal Medicine Infectious Disease
DX: R13.10 Dysphagia, unspecified (principal)
CPT/HCPCS: 74230

== ENCOUNTER 2017-02-09 10:45 | Day surgery (SDC) | payer MEDICARE ==
[2017-02-08 08:53] VITALS: BMI 28.0
--- NOTE | 2017-02-08 10:40 | CONS ---
REASON FOR CONSULTATION: Preop evaluation. ATTENDING PHYSICIAN: Dr. Quiros. HISTORY OF PRESENT ILLNESS: This elderly gentleman 81 years of age is scheduled to undergo left foot third toe amputation. He has had previous fourth and fifth toe amputated about a couple of months ago. He has had a previous injury and subsequent infection. He has some peripheral neuropathy, decreased sensations. The patient has had significant non-healing ulcerations, infection and has been followed by orthopedic physician and ID physician Dr. Carballo. The patient has been advised to undergo this amputation. The patient does have history of peripheral arterial disease and has been evaluated and noted to have adequate blood flow for healing. PAST MEDICAL HISTORY: Significant for chronic atrial fibrillation with anticoagulation. He has had previous stroke. His anticoagulation is stopped due to significant GI bleeding. The patient does have previous history of major GI bleeding with triple anticoagulation which included Coumadin, Plavix and aspirin. The patient has had previous stents placed for coronary artery disease. He has had a history of chronic atrial fibrillation as mentioned above. He also has a history of peripheral arterial disease. He has had a history of aortic stenosis for which he had TAVR. History of BPH, history of degenerative arthritis and history of chronic ataxia following prolonged use of Gentamicin. No history of any TB, hepatitis, rheumatic fever, no history of any myocardial infarction. Did have CVA with no residual effects. Does have some mild chronic dysphagia for which he had a swallow evaluation but did not reveal any significant penetration. History of mild COPD. PAST SURGICAL HISTORY: Significant for amputation of the left fourth and fifth toe. Previous right brachial artery embolectomy. History of TAVR. PERSONAL HISTORY: Ex-smoker, alcohol, the patient used to have significant heavy consumption of alcohol in the past but none lately. SOCIAL HISTORY: The patient is and lives with the spouse. Medications include: 1. Metformin 1000 mg daily. 2. Vitamin E. 3. Vitamin B. 4. ( ). 5. Omeprazole 40 mg daily. 6. Levothyroxine 88 mcg daily. 7. Cinnamon. 8. Acromion. 9. Vitamin D3. 10. Calcium. 11. Magnesium. 12. Ascorbic acid. 13. ( ). FAMILY MEDICAL HISTORY: One son was a diabetic type 1, with history of pancreatic and renal transplant. REVIEW OF SYSTEMS: NEURO: Denies any headaches. Dizziness. No double vision, blurred vision, symptoms of TIA, syncope or seizures. PSYCH: No history of anxiety or depression. CARDIAC: Denies chest pain, angina or palpitations. RESPIRATORY: Denies shortness of breath. Does have some dyspnea on exertion with usual activity. No cough. No hemoptysis. GI: Denies any nausea, vomiting, abdominal pain or diarrhea. : No symptoms of dysuria or hematuria. Does have frequency and nocturia. EXTREMITIES: Denies pain or edema. CONSTITUTIONAL: No fever or chills. HEMATOLOGICAL: No anemia or bleeding disorder. ENDOCRINE: no history of diabetes mellitus. SKIN: Ulceration left third toe base. PHYSICAL EXAMINATION: Pleasant gentleman in no distress. Vital signs reveals blood pressure 110/60, pulse 76, with intermittent irregularity. The patient has a pacemaker. Afebrile. Respiratory rate 20. HEENT: Normocephalic. NECK: Supple. No JVD or carotid bruits. No thyromegaly. No supraclavicular lymph nodes. CHEST: Clear to auscultation and percussion with mild generalized weakness air flow. CARDIAC: Distant heart sounds, S1, S2 with no gallops. Regular rhythm. Systolic murmur 2/6 left sternal border. Regular rhythm with irregular beats. Abdomen is soft. No palpable masses. Bowel sounds normal. No organomegaly. No abdominal bruits. Extremities reveals trace edema. Left leg in immobilizer. Neurologically awake, alert and oriented to place and person. Moves both upper extremities and lower extremities adequately. He does walk with a walker. Laboratory assessment: Recent BMP which was in acceptable range. ASSESSMENT: 1. Chronic atrial fibrillation, rate controlled. 2. History of hypertension. 3. History of coronary artery disease, stable with no angina. 4. History of TAVR with improved cardiac function. 5. Peripheral neuropathy. 6. Ulcerated left third toe base. PLAN: The patient is stable. Continue present medical regimen. The patient's condition discussed with the patient. The patient is stable to undergo the planned surgical procedure. He has moderate risk due to multiple comorbid conditions. Prognosis remains guarded. MTDD
[~2017-02-09 10:45] MED LIST: ceFAZolin 2 GM in SODIUM CHLORIDE 0.9% 100 ML IVPB ONE
[2017-02-09] MEDS ORDERED: fentaNYL (PF) 50 MCG/ML 2 ML AMP IV PRN (10:56)
[2017-02-09] MEDS ORDERED: ONDANSETRON 4 MG/2 ML VIAL IVP ONE (10:56)
[2017-02-09] MEDS ORDERED: LIDOCAINE 1% 20 ML VIAL (10MG/ML) FOR IV START INTRADERMA PRN (10:56)
[2017-02-09] MEDS ORDERED: LACTATED RINGERS 1,000 ML IV SCH (11:00)
[2017-02-09] MEDS ORDERED: PROPOFOL 10 MG/ML 20 ML VIAL IV ONE (12:50)
[2017-02-09] MEDS ORDERED: fentaNYL (PF) 50 MCG/ML 2 ML AMP ONE (12:50)
[2017-02-09] MEDS ORDERED: BUPIVACAINE (PF) 0.25% 30 ML VIAL SQ ONE (13:14)
--- NOTE | 2017-02-09 13:34 | P.OP ---
Date of Procedure: 02/09/17 Preoperative Diagnosis: Nonhealing third toe wound with prior fourth and fifth toe amputations for acute gangrenous necrosis Postoperative Diagnosis: Same Procedure(s) Performed: Left third toe amputation Implants: Anesthesia: MAC Surgeon: Holger Quiros Audiovisual Lead Technician #1: Hosea Mejias Estimated Blood Loss (ml): 5 IV fluids (ml): 50 Pathology: other (left 3rd toe to pathology) Condition: stable Disposition: PACU Indications for Procedure: The patient is an 81-year-old male with multiple medical problems. Earlier this year he sustained an isolated injury to his left foot resulting in open wounds at the base of the fourth and fifth left toes. He did not seek medical treatment for 10 days following this injury. He was seen by his primary care physician who then sent him to my office with open, draining wounds at the base of the fourth and fifth toe. He was taken to the operating room acutely that day for hip rotations of the fourth and fifth toe. Following surgery he had delayed wound healing and superficial infection. He was sent to the wound center who helped resolve his wounds. He developed an open wound on the third toe. He had noninvasive vascular studies which showed good flow to his remaining forefoot. I spoke with Dr. Carballo from the wound care center who recommended a third toe amputation. I met with the patient and his in the office discussed options. They were adamant that they did not want a transmetatarsal or more proximal amputation and requested that I only removed the third toe. We discussed the potential risks and complications of the third toe indication including delayed wound healing, wound necrosis, superficial infection, deep infection, phantom toe pain, need for more proximal amputation, and possibly postoperative medical complications. They understand the possibility of wound healing problems and possibly the need for more proximal agitation. They provided their consent to go forward with surgery. Operative Findings: Description of Procedure: The patient was identified in preoperative holding and the correct left third toe was marked with my initials. I reviewed the consent form with the patient and his family. All their questions were answered. The patient was then brought back to the operating room. He was positioned on a gurney all bony prominences were well-padded. A Mac anesthetic was administered. The left leg had a tourniquet applied to the proximal aspect of the thigh. The left leg was then prepped and draped in the standard sterile fashion. Prior to starting surgery timeout was performed identifying the correct patient, operative extremity, and procedure. The leg was then elevated for 2 minutes and the tourniquet was inflated to 250 mmHg. I began by outlining equal dorsal and plantar fishmouth type incisions over the base of the third toe. Skin incision was made a 15 blade scalpel through the skin and skin cutaneous tissue down to the proximal phalanx. The proximal phalanx was circumferentially exposed and amputated at the [facility] joint. The toe was handed off to the back table to be sent as a specimen. The wound was copiously irrigated. The tourniquet was let down and there were no significant bleeders. The long flexor and extensor tendons were drawn up into the wound and sharply resected and allowed to retract proximally into the wound. The deep subcutaneous tissue was reapproximated using 3-0 Prolene. The skin was closed with interrupted 3-0 nylon horizontal mattress stitches. I verified that all instrument sponge and sharp counts were correct. The patient then had a sterile dressing consisting of Betadine to the Adaptic, 4 x 4, web roll and an Ashwin wrap applied. He was taken to the PACU without the procedure well. Hosea Mejias PA-C was required a skilled physician assistant certified for patient positioning, surgical exposure, wound closure, and application of dressing. Plan: The patient will discharge home as an outpatient. He can heel weight- bear in a postoperative shoe. He will resume wound care as prescribed by Dr. Carballo in the wound Center. We will plan on seeing him in the office in 1 week for a wound check.
[2017-02-09 13:44] VITALS: TEMP 97.1
[2017-02-09 14:01] VITALS: RESP 16
[2017-02-09 15:10] VITALS: BP 146/79; PULSE 67
== END 2017-02-09 15:25 | disposition home or self-care (01) ==
LOC: OR 10:45
PROVIDERS: ATTEND Orthopaedic Surgery
DX: L97.529 Non-pressure chronic ulcer of other part of left foot with unspecified severity (principal); L08.9 Local infection of the skin and subcutaneous tissue, unspecified; Z89.422 Acquired absence of other left toe(s); I48.2 Chronic atrial fibrillation; I25.10 Atherosclerotic heart disease of native coronary artery without angina pectoris; Z95.5 Presence of coronary angioplasty implant and graft; G62.9 Polyneuropathy, unspecified; I50.9 Heart failure, unspecified; I11.0 Hypertensive heart disease with heart failure; E78.5 Hyperlipidemia, unspecified; I35.0 Nonrheumatic aortic (valve) stenosis; Z79.84 Long term (current) use of oral hypoglycemic drugs; Z79.01 Long term (current) use of anticoagulants; Z79.899 Other long term (current) drug therapy; Z87.891 Personal history of nicotine dependence; Z88.1 Allergy status to other antibiotic agents; Z88.5 Allergy status to narcotic agent
CPT/HCPCS: 28820; 93005; 88305; 88311; J0690; J2405; J3010; J2704

== ENCOUNTER → 2017-07-09 | Outpatient (CLI) | payer MEDICARE ==
--- NOTE | 2017-07-09 16:34 | XR ---
EXAMINATION TYPE: XR chest 2V DATE OF EXAM: 07/09/2017 COMPARISON: 06/13/2017 HISTORY: 82-year-old male unspecified injury of the thorax, initial encounter. Lower left lateral rib pain after fall today TECHNIQUE: Frontal and lateral views FINDINGS: Heart is borderline enlarged. Endovascular aortic stent graft is present. Atherosclerotic arch calcif ications. No consolidation, pneumothorax, or pleural effusion seen. Old healed fracture deformities of the left lateral fourth, fifth, and sixth ribs. Left anterior chest wall pacemaker generator with right ventricular leads. IMPRESSION: Borderline cardiomegaly and chronic parenchymal changes. No acute process seen. Left rib series repor kailey separately.
--- NOTE | 2017-07-09 16:42 | XR ---
EXAMINATION TYPE: XR ribs LT DATE OF EXAM: 07/09/2017 COMPARISON: Chest radiograph same day HISTORY: 82-year-old male lower left lateral rib pain after fall today TECHNIQUE: 4 views FINDINGS: Old healed rib fracture deformities of the left lateral third through sixth ribs. Minimal cortical st ep-offs along the anterolateral left ninth and 10th ribs only on one image. IMPRESSION: 1. Suspect subtle nondisplaced fractures of the left anterolateral ninth and 10th ribs seen only on o ne image. 2. Old healed left lateral rib fracture deformities of the third through sixth ribs.
== END | disposition home or self-care (01) ==
LOC: RADXRMAIN 14:47
PROVIDERS: ATTEND Internal Medicine
DX: S29.9XXA Unspecified injury of thorax, initial encounter (principal); J98.4 Other disorders of lung; Z87.81 Personal history of (healed) traumatic fracture
CPT/HCPCS: 71020

== ENCOUNTER 2017-08-11 10:59 | Emergency (ER) | payer MEDICARE ==
[2017-08-11 11:41] VITALS: RESP 16; TEMP 98.2
--- NOTE | 2017-08-11 12:19 | XR ---
EXAMINATION TYPE: XR finger RT , 3 VIEWS DATE OF EXAM ORDERED: 08/11/2017 HISTORY: Pain. COMPARISON: None. FINDINGS: There is a linear lucency through the distal metaphysis of the proximal phalanx of the righ t long finger. This is seen in all 3 planes. I cannot exclude an undisplaced fracture.. IMPRESSION: I CANNOT EXCLUDE AN UNDISPLACED FRACTURE THROUGH THE DISTAL METAPHYSIS OF THE PROXIMAL PHALANX OF THE RIGHT LONG FINGER.
--- NOTE | 2017-08-11 12:37 | ED ---
Upper Extremity HPI - General Chief Complaint: Extremity Injury, Upper Stated Complaint: FALL, RT HAND INJURY Time Seen by Provider: 08/11/17 12:10 Source: patient, family Mode of arrival: wheelchair Limitations: no limitations - History of Present Illness Initial Comments: 82-year-old male patient presents to the emergency department today for evaluation of pain to the right middle finger. Patient states that he tripped and fell in the garage yesterday. States that he did hit his head however states that the blow was not that hard. He states he has some mild tenderness to the posterior scalp. Denies any loss of consciousness, headache, blurred vision, double vision, nausea, vomiting, dizziness, weakness, or confusion. also denies any altered mental status or confusion. Patient states that his main concern is his finger in that it kept him awake throughout the night last night. He denies any numbness or tingling to the hand. Denies any other injuries. Patient denies any neck pain, back pain, chest pain, shortness of breath, dizziness, weakness, abdominal pain, nausea, vomiting, or difficulties with bowel movements or urination. - Related Data Home Medications Medication Instructions Recorded Confirmed Apixaban [Eliquis] 2.5 mg PO BID 11/02/15 08/11/17 Divalproex Sodium [Depakote] 500 mg PO HS 12/05/16 08/11/17 Latanoprost [Xalatan 0.005%] 1 drop BOTH EYES HS 12/05/16 08/11/17 Omeprazole [PriLOSEC] 20 mg PO Q48H 02/08/17 08/11/17 Vitamin B Complex 1 cap PO DAILY@1700 02/08/17 08/11/17 Furosemide [Lasix] 80 mg PO QAM 07/05/17 08/11/17 Lisinopril [Zestril] 5 mg PO DAILY 07/05/17 08/11/17 Metoprolol Tartrate [Lopressor] 50 mg PO DAILY 07/05/17 08/11/17 Acetaminophen Tab [Tylenol] 650 mg PO Q8H PRN 08/11/17 08/11/17 Atorvastatin [Lipitor] 40 mg PO DAILY 08/11/17 08/11/17 Carbidopa/Levodopa 1 tab PO QID 01/20/18 01/20/18 [Carbidopa-Levodopa 10-100 Tab] Furosemide [Lasix] 40 mg PO HS 08/11/17 08/11/17 Metolazone [Zaroxolyn] 2.5 mg PO Q48H 08/11/17 08/11/17 Previous Rx's Medication Instructions Recorded LORazepam [Ativan] 1 mg PO HS #30 tab 06/15/17 Allergies Allergy/AdvReac Type Severity Reaction Status Date / Time gentamicin [Gentamicin] Allergy loss of Verified 08/11/17 12:55 balance/numbness hydrocodone [From [place]] Allergy Confusion Verified 08/11/17 12:55 Review of Systems ROS Statement: Those systems with pertinent positive or pertinent negative responses have been documented in the HPI. ROS Other: All systems not noted in ROS Statement are negative. Past Medical History Past Medical History: CVA/TIA, GI Bleed, Hyperlipidemia, Myocardial Infarction ( [place]), Prostate Disorder, Myocardial Infarction ([place]), Renal Disease Additional Past Medical History / Comment(s): early dementia, irregular heart beat, stroke per - wheelchair due to balance problems, swelling donna lower legs, poor circulation, fell November 2016 and injured toes on left foot-got gangrene in 3 toes, hx ulcers, parkinson's Last Myocardial Infarction Date:: 03/2011 History of Any Multi-Drug Resistant Organisms: None Reported Past Surgical History: Bowel Resection, Cardiac Valve Replacement, Heart Catheterization With Stent, Orthopedic Surgery Additional Past Surgical History / Comment(s): hand sx right thumb partial amputation d/t work injury, donna cataracts, hemorrhoidectomy x3, gastric surgery in 1965 for peptic ulcer disease, 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 amputation 3rd toe left foot Past Anesthesia/Blood Transfusion Reactions: No Reported Reaction Date of Last Stent Placement:: 2010 Past Psychological History: No Psychological Hx Reported Smoking Status: Never smoker Past Alcohol Use History: Occasional Past Drug Use History: None Reported - Past Family History Father History Unknown: Yes Family Medical History: Unable to Obtain Additional Family Medical History / Comment(s): FATHER AT AGE 60 OF COLON CANCER Mother History Unknown: Yes Family Medical History: Unable to Obtain Additional Family Medical History / Comment(s): Patient states "none that I know of" regarding family history General Exam Limitations: no limitations General appearance: alert, in no apparent distress, other (Physical well- developed, well-nourished elderly male patient in no acute distress. Vital signs upon presentation were temperature 98.2F, pulse 60, respirations 16, blood pressure 124/56, pulse ox 98% on room air.) Head exam: Present: atraumatic, normocephalic, normal inspection, other (Mild posterior scalp tenderness, no evidence of hematoma, abrasion, or laceration.) Eye exam: Present: normal appearance, PERRL, EOMI. Absent: scleral icterus, conjunctival injection, periorbital swelling ENT exam: Present: normal exam, mucous membranes moist Neck exam: Present: normal inspection, full ROM, other (Nontender, no step-off, no deformity to firm midline palpation of the posterior cervical spine. Full range of motion without pain or limitation.). Absent: tenderness, meningismus, lymphadenopathy Respiratory exam: Present: normal lung sounds bilaterally. Absent: respiratory distress, wheezes, rales, rhonchi, stridor Cardiovascular Exam: Present: regular rate, normal rhythm, normal heart sounds. Absent: systolic murmur, diastolic murmur, rubs, gallop, clicks GI/Abdominal exam: Present: soft, normal bowel sounds. Absent: distended, tenderness, guarding, rebound, rigid Extremities exam: Present: full ROM, tenderness (Tenderness over the third digit on the right hand), normal capillary refill, other (Swelling and ecchymosis noted over the third digit of the right hand. Patient does have full range of motion however reports increased pain with movement. Remainder of the hand is pink, warm, and dry. Cap refills less than 3 seconds.). Absent : normal inspection, pedal edema, joint swelling, calf tenderness Neurological exam: Present: alert, oriented X3, CN II-XII intact Psychiatric exam: Present: normal affect, normal mood Skin exam: Present: warm, dry, intact, normal color. Absent: rash Course Vital Signs 08/11/17 08/11/17 11:37 13:01 Temperature 98.2 F 98.2 F Pulse Rate 60 74 Respiratory 16 16 Rate Blood Pressure 124/56 169/72 O2 Sat by Pulse 98 98 Oximetry Medical Decision Making - Medical Decision Making 82-year-old male patient presents to the emergency department today with complaints of right middle finger pain and swelling. Physical examination did reveal swelling, ecchymosis to the right middle finger. X-ray was obtained and did show a linear lucency through the proximal phalanx were patient is having the most of his pain. This is consistent with a possible nondisplaced fracture. Patient was placed in a splint. His physical exam was otherwise unremarkable. No neck or back tenderness, neurologic status is intact. reports he is behaving normally. He does take a blood thinner and did strike his head however states that the blow was very minor, he denied any headache, vomiting, or dizziness. They are educated regarding signs or symptoms of worsening head injury. They're instructed to return here immediate admission anything change, worsening, or if he develops any new symptoms. They're instructed to follow-up with the primary care physician for recheck in 1-2 days. They verbalize understanding and agree with this plan. - Radiology Data Radiology results: report reviewed, image reviewed 3 views of the right finger shows linear lucency through the distal metaphysis of the proximal phalanx of the right long finger. This is seen in all 3 planes. I cannot exclude nondisplaced fracture. Impression by Dr. Briones shows possible nondisplaced fracture through the distal metaphysis of the proximal phalanx of the right long finger. Disposition Clinical Impression: Fracture of phalanx of right middle finger Disposition: HOME SELF-CARE Condition: Good Instructions: Finger Fracture (ED) Additional Instructions: Keep splint in place for comfort. Continue taking Tylenol for pain control. Keep the hand elevated. Follow-up with your primary care physician for recheck in 1-2 days. Return here immediately for any new, worsening, or concerning symptoms. Referrals: Ed Parrish MD [Primary Care Provider] - 1-2 days Time of Disposition: 12:39
[2017-08-11 13:02] VITALS: BP 169/72; PULSE 74
== END 2017-08-11 13:05 | disposition home or self-care (01) ==
LOC: EC 10:59
DX: S62.602A Fracture of unspecified phalanx of right middle finger, initial encounter for closed fracture (principal); E78.5 Hyperlipidemia, unspecified; G20 Parkinson's disease; N28.9 Disorder of kidney and ureter, unspecified; I25.2 Old myocardial infarction; Z79.01 Long term (current) use of anticoagulants; Z79.899 Other long term (current) drug therapy; Z88.1 Allergy status to other antibiotic agents; Z88.5 Allergy status to narcotic agent; Z86.79 Personal history of other diseases of the circulatory system; Z87.19 Personal history of other diseases of the digestive system; W01.10XA Fall on same level from slipping, tripping and stumbling with subsequent striking against unspecified object, initial encounter; Y92.59 Other trade areas as the place of occurrence of the external cause
CPT/HCPCS: 99283

== ENCOUNTER 2017-08-13 09:34 | Emergency (ER) | payer MEDICARE ==
[2017-08-13 09:53] VITALS: RESP 18
--- NOTE | 2017-08-13 10:27 | ED ---
Fall HPI - General Chief Complaint: Fall Stated Complaint: Fall Time Seen by Provider: 08/13/17 10:00 Source: patient, family Mode of arrival: wheelchair - History of Present Illness Initial Comments: This is a 82-year-old male history of Parkinson's disease CVA who fell this morning when he tripped over a rug in his bathroom. Thinks she's on the floor he had no head neck or back pain he complains some left anterior mid chest pain below his left breast that increases with movement and deep breathing also complains of some pain over his left middle finger. He had fallen several days ago and broke a finger on the right hand. He denied any dizziness palpitations loss of function to his upper or lower extremities. No other complaints MD Complaint: fall - Related Data Home Medications Medication Instructions Recorded Confirmed Apixaban [Eliquis] 2.5 mg PO BID 11/02/15 08/13/17 Divalproex Sodium [Depakote] 500 mg PO HS 12/05/16 08/13/17 Latanoprost [Xalatan 0.005%] 1 drop BOTH EYES HS 12/05/16 08/13/17 Omeprazole [PriLOSEC] 20 mg PO Q48H 02/08/17 08/13/17 Vitamin B Complex 1 cap PO DAILY@1700 02/08/17 08/13/17 Furosemide [Lasix] 80 mg PO QAM 07/05/17 08/13/17 Lisinopril [Zestril] 5 mg PO DAILY 07/05/17 08/13/17 Metoprolol Tartrate [Lopressor] 50 mg PO DAILY 07/05/17 08/13/17 Acetaminophen Tab [Tylenol] 650 mg PO Q8H PRN 08/11/17 08/13/17 Atorvastatin [Lipitor] 40 mg PO DAILY 08/11/17 08/13/17 Furosemide [Lasix] 40 mg PO HS 08/11/17 08/13/17 Metolazone [Zaroxolyn] 2.5 mg PO Q48H 08/11/17 08/13/17 Carbidopa-Levodopa 25-100 mg 1 tab PO QID 08/13/17 08/13/17 [Sinemet 25-100] Previous Rx's Medication Instructions Recorded LORazepam [Ativan] 1 mg PO HS #30 tab 06/15/17 Allergies Allergy/AdvReac Type Severity Reaction Status Date / Time gentamicin [Gentamicin] Allergy loss of Verified 08/13/17 10:06 balance/numbness hydrocodone [From [place]] Allergy Confusion Verified 08/13/17 10:06 Review of Systems ROS Statement: Those systems with pertinent positive or pertinent negative responses have been documented in the HPI. ROS Other: All systems not noted in ROS Statement are negative. Past Medical History Past Medical History: CVA/TIA, GI Bleed, Hyperlipidemia, Myocardial Infarction ( [place]), Prostate Disorder, Myocardial Infarction ([place]), Renal Disease Additional Past Medical History / Comment(s): early dementia, irregular heart beat, stroke per - wheelchair due to balance problems, swelling donna lower legs, poor circulation, fell November 2016 and injured toes on left foot-got gangrene in 3 toes, hx ulcers, parkinson's Last Myocardial Infarction Date:: 03/2011 History of Any Multi-Drug Resistant Organisms: None Reported Past Surgical History: Bowel Resection, Cardiac Valve Replacement, Heart Catheterization With Stent, Orthopedic Surgery Additional Past Surgical History / Comment(s): hand sx right thumb partial amputation d/t work injury, donna cataracts, hemorrhoidectomy x3, gastric surgery in 1964 for peptic ulcer disease, 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 amputation 3rd toe left foot Past Anesthesia/Blood Transfusion Reactions: No Reported Reaction Date of Last Stent Placement:: 2010 Past Psychological History: No Psychological Hx Reported Smoking Status: Never smoker Past Alcohol Use History: Occasional Past Drug Use History: None Reported - Past Family History Father History Unknown: Yes Family Medical History: Unable to Obtain Additional Family Medical History / Comment(s): FATHER AT AGE 60 OF COLON CANCER Mother History Unknown: Yes Family Medical History: Unable to Obtain Additional Family Medical History / Comment(s): Patient states "none that I know of" regarding family history General Exam - General Exam Comments Initial Comments: This is a well-developed well-nourished awake alert oriented 3 male he does demonstrate a [place] Coma Scale of 15 Limitations: no limitations General appearance: alert, in no apparent distress Head exam: Present: atraumatic, normocephalic, normal inspection Eye exam: Present: normal appearance, PERRL, EOMI. Absent: scleral icterus, conjunctival injection, periorbital swelling ENT exam: Present: normal exam, mucous membranes moist Neck exam: Present: normal inspection. Absent: tenderness, meningismus, lymphadenopathy Respiratory exam: Present: normal lung sounds bilaterally, chest wall tenderness , other (No bruising no step-off no crepitation). Absent: respiratory distress , wheezes, rales, rhonchi, stridor Cardiovascular Exam: Present: regular rate, normal rhythm, normal heart sounds. Absent: systolic murmur, diastolic murmur, rubs, gallop, clicks GI/Abdominal exam: Present: soft, normal bowel sounds. Absent: distended, tenderness, guarding, rebound, rigid Extremities exam: Present: full ROM, normal capillary refill, other (The finger splint was noted on the right middle finger). Absent: tenderness, pedal edema, joint swelling, calf tenderness Back exam: Present: normal inspection Neurological exam: Present: alert, oriented X3, CN II-XII intact Psychiatric exam: Present: normal affect, normal mood Skin exam: Present: warm, dry, intact, normal color. Absent: rash Course Vital Signs 08/13/17 09:47 Temperature 97.4 F L Pulse Rate 59 L Respiratory 18 Rate Blood Pressure 125/62 O2 Sat by Pulse 100 Oximetry Procedures - Orthopedic Splinting/Casting Injury #1 Side: left Upper Extremity Injury Location: hand Upper Extremity Immobilizer: volar splint (Volar splint on the left hand and keeping the thumb multiple pain-free. This is a short arm splint. There was good neurovascular examination after the application. The patient did tolerate it well.) Medical Decision Making - Radiology Data Radiology results: report reviewed (I did review the imaging and reports which demonstrated a closed mid left fourth metacarpal fracture.), image reviewed Disposition Clinical Impression: Fracture of metacarpal of left hand, closed, Fall Disposition: HOME SELF-CARE Condition: Good Instructions: Hand Fracture (ED), Fall Prevention for Older Adults (ED) Additional Instructions: Usual Tylenol for pain control, elevate the left hand, apply ice for 20 minutes 3-4 times a day when necessary. Referrals: Ed Parrish MD [Primary Care Provider] - 1-2 days Holger Quiros MD [Medical Doctor] - 1-2 days
--- NOTE | 2017-08-13 10:49 | XR ---
EXAMINATION TYPE: XR hand limited LT DATE OF EXAM: 08/13/2017 CLINICAL HISTORY: pain TECHNIQUE: Frontal, lateral images of the left hand are obtained. COMPARISON: 11/09/2013 FINDINGS: Fracture at the same location as prior study of 11/09/2013 with a mildly displaced fracture noted involving the middle one third of the left fourth metacarpal. Additional component overlying th e fourth metacarpal head is difficult to exclude. Moderate degenerative changes throughout various PI P and DIP joints. Severe degenerative narrowing first carpometacarpal joint with bony collapse. Vascu lar calcifications noted. Healed fracture first metacarpal. IMPRESSION: There appears to be a refracture involving the fourth metacarpal. Additional fracture involving the f ourth metacarpal head not excluded. ICD 10 closed FRACTURE, INITIAL EVALUATION
--- NOTE | 2017-08-13 10:50 | XR ---
EXAMINATION TYPE: XR ribs LT w pa chest xray DATE OF EXAM: 08/13/2017 COMPARISON: 07/09/2017 HISTORY: Pain TECHNIQUE: Single view of the chest four views of the ribs are submitted. FINDINGS: The lungs are clear. No Evidence for pneumothorax. No evidence for focal contusion. Cardi omegaly again noted. Scattered senescent parenchymal change. Mediastinal structures are midline. Jackie luation of the ribs fails to demonstrate evidence for acute displaced rib fracture or secondary sign of rib fracture. Multiple healed left-sided rib fracture seen. IMPRESSION: 1. No evidence for acute displaced left-sided rib fracture. Multiple healed fracture seen.
[2017-08-13 11:41] VITALS: BP 145/63; PULSE 62; TEMP 97
== END 2017-08-13 12:03 | disposition home or self-care (01) ==
LOC: EC 09:34
DX: S62.303A Unspecified fracture of third metacarpal bone, left hand, initial encounter for closed fracture (principal); R07.89 Other chest pain; E78.5 Hyperlipidemia, unspecified; I25.2 Old myocardial infarction; G20 Parkinson's disease; R40.2412 Glasgow coma scale score 13-15, at arrival to emergency department; Z86.73 Personal history of transient ischemic attack (TIA), and cerebral infarction without residual deficits; Z79.01 Long term (current) use of anticoagulants; Z79.899 Other long term (current) drug therapy; Z88.5 Allergy status to narcotic agent; Z88.0 Allergy status to penicillin; W18.09XA Striking against other object with subsequent fall, initial encounter; Y92.091 Bathroom in other non-institutional residence as the place of occurrence of the external cause
CPT/HCPCS: 29125; 99283

== ENCOUNTER 2017-09-01 05:06 | Emergency (ER) | payer MEDICARE ==
[2017-09-01 05:20] VITALS: TEMP 97
[2017-09-01] MEDS ORDERED: traMADol 50 MG TAB PO STA (05:48)
--- NOTE | 2017-09-01 06:21 | CT ---
EXAM: CT Head Without Intravenous Contrast CLINICAL HISTORY: Pain. Reason: Pain TECHNIQUE: Axial computed tomography images of the head/brain without intravenous contrast. CTDI is 60.3 mGy and DLP is 1199.0 mGy-cm. This CT exam was performed using one or more of the following dose reduction techniques: automated exposure control, adjustment of the mA and/or kV according to patient size, and/or use of iterative reconstruction technique. COMPARISON: CT head dated 12/20/2013. 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 Unchanged small chronic infarcts in both cerebellar hemispheres. Unchanged mild to moderate global volume loss. No evidence of acute intracranial hemorrhage. No mass effect or herniation. Ventricles: Unremarkable. No ventriculomegaly. Bones/joints: No acute fracture. Soft tissues: Unremarkable. Vasculature: Calcification of the distal internal carotid arteries and vertebrobasilar system. Sinuses: Unremarkable as visualized. Mastoid air cells: Unremarkable as visualized. IMPRESSION: No evidence of acute intra-hemorrhage or skull fracture. EXAM: CT Head Without Intravenous Contrast CLINICAL HISTORY: Pain. Reason: Pain TECHNIQUE: Axial computed tomography images of the cervical spine without intravenous contrast. CTDI is 20.2 mGy and DLP is 332.9 mGy-cm. This CT exam was performed using one or more of the following dose reduction techniques: automated exposure control, adjustment of the mA and/or kV according to patient size, and/or use of iterative reconstruction technique. COMPARISON: None. FINDINGS: Vertebrae: Os odontoideum. Moderate degenerative changes at the C5-C7 levels, with loss of disc height, and endplate sclerosis. No acute fracture. Normal alignment. Discs/spinal canal/neural foramina: No acute findings. No significant bony spinal canal stenosis. Soft tissues: Unremarkable. Vasculature: Marked calcification in both carotid bulbs, otherwise normal characterized on this non-dedicated exam. IMPRESSION: No acute findings.
--- NOTE | 2017-09-01 07:20 | ED ---
Back Pain HPI - General Source: food service associate Limitations: physical limitation - History of Present Illness Complaint: back pain, fall -: minutes(s) Place: home Radiation: none Severity: moderate Consistency: constant Improves With: none Worsens With: none Context: fall Associated Symptoms: denies other symptoms <Javon Dorsey - Last Filed: 09/01/17 07:18> <Po Duarte - Last Filed: 09/01/17 07:49> - General Chief Complaint: Back Pain/Injury Stated Complaint: Fall Time Seen by Provider: 09/01/17 05:26 - History of Present Illness Initial Comments: This patient is an 82-year-old man who reportedly had gotten up to use the bathroom and then had a fall at home. The patient is indicating low back pain. He also complained of some left knee pain but states that it is not severe as his back is. The patient denies head or neck injury. No loss of consciousness. He did not have a prolonged time on the floor. There was no syncopal episode. He is not having chest pain or dyspnea. (Javon Dorsey) - Related Data Home Medications Medication Instructions Recorded Confirmed Apixaban [Eliquis] 2.5 mg PO BID 11/02/15 08/13/17 Divalproex Sodium [Depakote] 500 mg PO HS 12/05/16 08/13/17 Latanoprost [Xalatan 0.005%] 1 drop BOTH EYES HS 12/05/16 08/13/17 Omeprazole [PriLOSEC] 20 mg PO Q48H 02/08/17 08/13/17 Vitamin B Complex 1 cap PO DAILY@1700 02/08/17 08/13/17 Furosemide [Lasix] 80 mg PO QAM 07/05/17 08/13/17 Lisinopril [Zestril] 5 mg PO DAILY 07/05/17 08/13/17 Metoprolol Tartrate [Lopressor] 50 mg PO DAILY 07/05/17 08/13/17 Acetaminophen Tab [Tylenol] 650 mg PO Q8H PRN 08/11/17 08/13/17 Atorvastatin [Lipitor] 40 mg PO DAILY 08/11/17 08/13/17 Furosemide [Lasix] 40 mg PO HS 08/11/17 08/13/17 Metolazone [Zaroxolyn] 2.5 mg PO Q48H 08/11/17 08/13/17 Carbidopa-Levodopa 25-100 mg 1 tab PO QID 08/13/17 08/13/17 [Sinemet 25-100] Previous Rx's Medication Instructions Recorded LORazepam [Ativan] 1 mg PO HS #30 tab 06/15/17 Allergies Allergy/AdvReac Type Severity Reaction Status Date / Time gentamicin [Gentamicin] Allergy loss of Verified 08/13/17 10:06 balance/numbness hydrocodone [From [place]] Allergy Confusion Verified 08/13/17 10:06 Review of Systems ROS Other: All systems not noted in ROS Statement are negative. Constitutional: Denies: fever, chills, weakness Respiratory: Denies: cough, dyspnea Cardiovascular: Denies: chest pain, palpitations, syncope Gastrointestinal: Denies: abdominal pain, vomiting, diarrhea Musculoskeletal: Reports: as per HPI, back pain Neurological: Denies: headache, weakness, numbness <Javon Dorsey - Last Filed: 09/01/17 07:18> ROS Other: All systems not noted in ROS Statement are negative. <Po Duarte - Last Filed: 09/01/17 07:49> ROS Statement: Those systems with pertinent positive or pertinent negative responses have been documented in the HPI. Past Medical History Past Medical History: CVA/TIA, GI Bleed, Hyperlipidemia, Myocardial Infarction ( [place]), Prostate Disorder, Myocardial Infarction ([place]), Renal Disease Additional Past Medical History / Comment(s): early dementia, irregular heart beat, stroke per - wheelchair due to balance problems, swelling donna lower legs, poor circulation, fell November 2016 and injured toes on left foot-got gangrene in 3 toes, hx ulcers, parkinson's Last Myocardial Infarction Date:: 03/2011 History of Any Multi-Drug Resistant Organisms: None Reported Past Surgical History: Bowel Resection, Cardiac Valve Replacement, Heart Catheterization With Stent, Orthopedic Surgery Additional Past Surgical History / Comment(s): hand sx right thumb partial amputation d/t work injury, donna cataracts, hemorrhoidectomy x3, gastric surgery in 1965 for peptic ulcer disease, 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 amputation 3rd toe left foot Past Anesthesia/Blood Transfusion Reactions: No Reported Reaction Date of Last Stent Placement:: 2010 Past Psychological History: No Psychological Hx Reported Smoking Status: Never smoker Past Alcohol Use History: Occasional Past Drug Use History: None Reported - Past Family History Father History Unknown: Yes Family Medical History: Unable to Obtain Additional Family Medical History / Comment(s): FATHER AT AGE 60 OF COLON CANCER Mother History Unknown: Yes Family Medical History: Unable to Obtain Additional Family Medical History / Comment(s): Patient states "none that I know of" regarding family history <SunitaJavon - Last Filed: 09/01/17 07:18> General Exam Limitations: physical limitation General appearance: alert, in no apparent distress Head exam: Present: atraumatic, normocephalic Eye exam: Present: normal appearance. Absent: scleral icterus, conjunctival injection Respiratory exam: Present: normal lung sounds bilaterally. Absent: respiratory distress, wheezes, rales, rhonchi, stridor Cardiovascular Exam: Present: regular rate, normal rhythm, normal heart sounds. Absent: systolic murmur, diastolic murmur, rubs, gallop GI/Abdominal exam: Present: soft. Absent: distended, tenderness, guarding, rebound, mass Extremities exam: Present: normal inspection, normal capillary refill. Absent: pedal edema, calf tenderness Back exam: Present: normal inspection, CVA tenderness (L). Absent: vertebral tenderness Neurological exam: Present: alert Skin exam: Present: warm, dry, intact, normal color. Absent: rash <SunitaJavon - Last Filed: 09/01/17 07:18> Vital Signs 09/01/17 05:11 Temperature 97.0 F L Pulse Rate 60 Respiratory 18 Rate Blood Pressure 165/77 O2 Sat by Pulse 99 Oximetry Medical Decision Making <FrankgregJavon - Last Filed: 09/01/17 07:18> - Radiology Data Radiology results: report reviewed (I did review the imaging and reports no acute findings evidence otherwise deformities at L1 and L3 age-indeterminate. No definite acute findings.), image reviewed <GeraldPo - Last Filed: 09/01/17 07:49> - Medical Decision Making The patient was endorsed to me by Dr. Dorsey at the end of his shift. X-ray show evidence of wedge deformities at L1 and L3 age undetermined Dr. Dorsey did discuss the findings the patient family patient was able ambulate without difficulty with his walker as usual will be discharged with a prescription supplied by Dr. Dorsey. (Po Duarte) Disposition <Javon Dorsey - Last Filed: 09/01/17 07:18> <Po Duarte - Last Filed: 09/01/17 07:49> Clinical Impression: Mechanical back pain, Fall Disposition: HOME SELF-CARE Condition: Good Instructions: Acute Low Back Pain (ED), Fall Prevention for Older Adults (ED) Additional Instructions: Tramadol as per Dr. Dorsey Referrals: Ed Parrish MD [Primary Care Provider] - 1-2 days
--- NOTE | 2017-09-01 07:24 | XR ---
EXAMINATION TYPE: XR lumbar spine 2 or 3V , 3 VIEWS DATE OF EXAM ORDERED: 09/01/2017 HISTORY: fall. COMPARISON: Previous study dated 11/02/2015. FINDINGS: There are multiple wedge compression fractures involving the L1 and L3 vertebral bodies. T he lesion at L1 is progressed. There is a superior endplate infraction of L2. There is minor wedging of T11 and T12. Alignment remains normal. The pedicles are intact. The bones are generally osteopenic. There is exten sive atheromatous calcification of the douglas aorta. IMPRESSION: MULTIPLE WEDGE COMPRESSION AND SUPERIOR ENDPLATE INFRACTIONS INVOLVING THE LOWER THORACIC AND LUMBAR SPINES. THE AGE OF THESE ARE NOT DETERMINED.
[2017-09-01 08:17] VITALS: BP 156/74; PULSE 82; RESP 16
== END 2017-09-01 08:00 | disposition home or self-care (01) ==
LOC: EC 05:06
DX: M54.5 Low back pain (principal); M25.562 Pain in left knee; E78.5 Hyperlipidemia, unspecified; I25.2 Old myocardial infarction; N42.9 Disorder of prostate, unspecified; G20 Parkinson's disease; F02.80 Dementia in other diseases classified elsewhere, unspecified severity, without behavioral disturbance, psychotic disturbance, mood disturbance, and anxiety; Z79.01 Long term (current) use of anticoagulants; Z86.73 Personal history of transient ischemic attack (TIA), and cerebral infarction without residual deficits; Z79.899 Other long term (current) drug therapy; Z88.0 Allergy status to penicillin; Z88.5 Allergy status to narcotic agent; W19.XXXA Unspecified fall, initial encounter; Y92.002 Bathroom of unspecified non-institutional (private) residence as the place of occurrence of the external cause; Z98.890 Other specified postprocedural states
CPT/HCPCS: 70450; 72100; 72125; 99284

== ENCOUNTER 2017-09-17 15:15 | Emergency (ER) | payer MEDICARE ==
[2017-09-17] MEDS ORDERED: SODIUM CHLORIDE 0.9% 500 ML IV ONE (15:35)
--- NOTE | 2017-09-17 15:41 | ED ---
General Adult HPI - General Chief complaint: Recheck/Abnormal Lab/Rx Stated complaint: poss infection-sent by Dr. Banks Time Seen by Provider: 09/17/17 15:24 Source: patient Mode of arrival: wheelchair Limitations: no limitations - History of Present Illness Initial comments: 82-year-old male patient with multiple medical problems presents to the emergency department today at the request of Dr. Banks his neurologist for evaluation for possible infection. provides history as patient does have dementia and Parkinson's disease and is a poor historian. reports that they were in to see Dr. Banks today who was concerned for possible infection as patient has been having increase in his shuffling gait and falls. reports that patient has not been eating as much, is complaining of shortness of breath , and has been coughing up a lot of phlegm. Patient states that whenever he performs activities he becomes short of breath. States he is having some chest discomfort and sharp pains in his upper abdomen. Patient reports that he has had some diarrhea. He denies any headache or dizziness. He denies any fever or chills. Denies any burning with urination. Patient does have frequency of urination but this is not unusual for him per . He denies any wounds or rashes. Patient denies any recent nausea, vomiting, constipation, back pain, numbness, tingling, hematuria, headache, visual changes, or any other complaints. - Related Data Home Medications Medication Instructions Recorded Confirmed Apixaban [Eliquis] 2.5 mg PO BID 11/02/15 09/17/17 Divalproex Sodium [Depakote] 500 mg PO HS 12/05/16 09/17/17 Omeprazole [PriLOSEC] 20 mg PO DAILY 02/08/17 09/17/17 Lisinopril [Zestril] 5 mg PO BID 07/05/17 09/17/17 Metoprolol Tartrate [Lopressor] 50 mg PO QAM 07/05/17 09/17/17 Acetaminophen Tab [Tylenol] 650 mg PO Q8H PRN 08/11/17 09/17/17 Furosemide [Lasix] 40 mg PO BID 08/11/17 09/17/17 Metolazone [Zaroxolyn] 2.5 mg PO Q48H 08/11/17 09/17/17 Atorvastatin Calcium [Lipitor] 20 mg PO DAILY 09/17/17 09/17/17 Carbidopa-Levodopa 10-100 mg 1 tab PO TID 09/17/17 09/17/17 [Sinemet 10-100] LORazepam [Ativan] 1 mg PO BID PRN 09/17/17 09/17/17 Metoprolol Tartrate [Lopressor] 100 mg PO HS 09/17/17 09/17/17 Triamcinolone 0.1% Ointment 1 applic TOPICAL DAILY 09/17/17 09/17/17 [Kenalog 0.1% Ointment] Allergies Allergy/AdvReac Type Severity Reaction Status Date / Time gentamicin [Gentamicin] AdvReac loss of Verified 09/17/17 16:25 balance/numbness hydrocodone [From [place]] AdvReac Confusion Verified 09/17/17 16:25 Review of Systems ROS Statement: Those systems with pertinent positive or pertinent negative responses have been documented in the HPI. ROS Other: All systems not noted in ROS Statement are negative. Past Medical History Past Medical History: CVA/TIA, GI Bleed, Hyperlipidemia, Myocardial Infarction ( [place]), Prostate Disorder, Myocardial Infarction ([place]), Renal Disease Additional Past Medical History / Comment(s): early dementia, irregular heart beat, stroke per - wheelchair due to balance problems, swelling donna lower legs, poor circulation, fell November 2016 and injured toes on left foot-got gangrene in 3 toes, hx ulcers, parkinson's Last Myocardial Infarction Date:: 03/2011 History of Any Multi-Drug Resistant Organisms: None Reported Past Surgical History: Bowel Resection, Cardiac Valve Replacement, Heart Catheterization With Stent, Orthopedic Surgery Additional Past Surgical History / Comment(s): hand sx right thumb partial amputation d/t work injury, donna cataracts, hemorrhoidectomy x3, gastric surgery in 1965 for peptic ulcer disease, 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 amputation 3rd toe left foot Past Anesthesia/Blood Transfusion Reactions: No Reported Reaction Date of Last Stent Placement:: 2010 Past Psychological History: No Psychological Hx Reported Smoking Status: Never smoker Past Alcohol Use History: Occasional Past Drug Use History: None Reported - Past Family History Father History Unknown: Yes Family Medical History: Unable to Obtain Additional Family Medical History / Comment(s): FATHER AT AGE 60 OF COLON CANCER Mother History Unknown: Yes Family Medical History: Unable to Obtain Additional Family Medical History / Comment(s): Patient states "none that I know of" regarding family history General Exam Limitations: no limitations General appearance: alert, in no apparent distress, other (This is a pleasant elderly male patient in no acute distress. Vital signs upon presentation are temperature 96.7F, pulse 62, respirations 17, blood pressure 120/56, pulse ox 94% on room air.) Head exam: Present: atraumatic, normocephalic, normal inspection Eye exam: Present: normal appearance, PERRL, EOMI. Absent: scleral icterus, conjunctival injection, periorbital swelling ENT exam: Present: normal exam, normal oropharynx, mucous membranes moist Respiratory exam: Present: normal lung sounds bilaterally. Absent: respiratory distress, wheezes, rales, rhonchi, stridor Cardiovascular Exam: Present: regular rate, normal rhythm, normal heart sounds. Absent: systolic murmur, diastolic murmur, rubs, gallop, clicks GI/Abdominal exam: Present: soft, normal bowel sounds. Absent: distended, tenderness, guarding, rebound, rigid Neurological exam: Present: alert, oriented X3, CN II-XII intact Psychiatric exam: Present: normal affect, normal mood Skin exam: Present: warm, dry, intact, normal color. Absent: rash Course Vital Signs 09/17/17 09/17/17 09/17/17 15:18 16:22 18:14 Temperature 96.7 F L 99.0 F Pulse Rate 62 59 L 60 Respiratory 17 18 18 Rate Blood Pressure 120/56 144/73 140/68 O2 Sat by Pulse 94 L 100 97 Oximetry Medical Decision Making - Medical Decision Making 82-year-old male patient percents to the emergency department today for complaints of soreness of breath, chest discomfort, shuffling gait, and decreased appetite. Physical examination was unremarkable. Labs reviewed and did reveal a hemoglobin of 12.1 which is improved from previous numbers. Patient also had a d-dimer of 1.12, sodium 146, BUN 65, creatinine 2.01, BNP of 3660. I did discuss the findings with my attending Dr. Jackson who spoke to the patient's primary care physician Dr. Parrish. There is decreased concerned for pulmonary embolism as patient does take Eliquis on a daily basis. Dr. Parrish gave instructions to hold the patient's Lasix for 2 days. He states that he will follow-up with him in the office in the next couple of days. I did discuss findings and results with the patient and his . I discussed the plan with them and they're in agreement. We will discharge at this time. They' re instructed to return here immediate for any new, worsening, or concerning symptoms. They verbalize understanding and agree with this plan. - Lab Data Result diagrams: 09/17/17 15:57 09/17/17 15:57 Lab Results 09/17/17 09/17/17 09/17/17 Range/Units 15:57 15:57 15:57 WBC 7.6 (3.8-10.6) k/uL RBC 4.25 L (4.30-5.90) m/uL Hgb 12.1 L (13.0-17.5) gm/dL Hct 38.4 L (39.0-53.0) % MCV 90.5 (80.0-100.0) fL MCH 28.5 (25.0-35.0) pg MCHC 31.5 (31.0-37.0) g/dL RDW 13.7 (11.5-15.5) % Plt Count 162 (150-450) k/uL Neutrophils % (Manual) 69 % Band Neutrophils % 1 % Lymphocytes % (Manual) 22 % Monocytes % (Manual) 3 % Eosinophils % (Manual) 5 % Metamyelocytes % 2 % Neutrophils # (Manual) 5.30 (1.3-7.7) k/uL Lymphocytes # (Manual) 1.67 (1.0-4.8) k/uL Monocytes # (Manual) 0.23 (0-1.0) k/uL Eosinophils # (Manual) 0.38 (0-0.7) k/uL Metamyelocytes # (Man) 0.15 H (0) k/uL Nucleated RBCs 0 (0-0) /100 WBC Manual Slide Review Performed Toxic Granulation Present Poikilocytosis (manual Present D-Dimer (<0.60) mg/L FEU Sodium 146 H (137-145) mmol/L Potassium 4.9 (3.5-5.1) mmol/L Chloride 104 (98-107) mmol/L Carbon Dioxide 26 (22-30) mmol/L Anion Gap 16 mmol/L BUN 65 H (9-20) mg/dL Creatinine 2.01 H (0.66-1.25) mg/dL Est GFR (MDRD) Af Amer 39 (>60 ml/min/1.73 sqM) Est GFR (MDRD) Non-Af 32 (>60 ml/min/1.73 sqM) Glucose 114 H (74-99) mg/dL Calcium 9.3 (8.4-10.2) mg/dL Total Bilirubin 0.4 (0.2-1.3) mg/dL AST 25 (17-59) U/L ALT 14 L (21-72) U/L Alkaline Phosphatase 151 H (38-126) U/L Total Creatine Kinase 29 L (55-170) U/L CK-MB (CK-2) 0.8 (0.0-2.4) ng/mL CK-MB (CK-2) Rel Index 2.8 Troponin I <0.012 (0.000-0.034) ng/mL NT-Pro-B Natriuret Pep pg/mL Total Protein 7.7 (6.3-8.2) g/dL Albumin 4.1 (3.5-5.0) g/dL Amylase 38 (30-110) U/L Lipase 61 (23-300) U/L Urine Color Urine Appearance (Clear) Urine pH (5.0-8.0) Ur Specific [place] (1.001-1.035) Urine Protein (Negative) Urine Glucose (UA) (Negative) Urine Ketones (Negative) Urine Blood (Negative) Urine Nitrite (Negative) Urine Bilirubin (Negative) Urine Urobilinogen (<2.0) mg/dL Ur Leukocyte Esterase (Negative) 09/17/17 09/17/17 09/17/17 Range/Units 15:57 15:57 17:17 WBC (3.8-10.6) k/uL RBC (4.30-5.90) m/uL Hgb (13.0-17.5) gm/dL Hct (39.0-53.0) % MCV (80.0-100.0) fL MCH (25.0-35.0) pg MCHC (31.0-37.0) g/dL RDW (11.5-15.5) % Plt Count (150-450) k/uL Neutrophils % (Manual) % Band Neutrophils % % Lymphocytes % (Manual) % Monocytes % (Manual) % Eosinophils % (Manual) % Metamyelocytes % % Neutrophils # (Manual) (1.3-7.7) k/uL Lymphocytes # (Manual) (1.0-4.8) k/uL Monocytes # (Manual) (0-1.0) k/uL Eosinophils # (Manual) (0-0.7) k/uL Metamyelocytes # (Man) (0) k/uL Nucleated RBCs (0-0) /100 WBC Manual Slide Review Toxic Granulation Poikilocytosis (manual D-Dimer 1.12 H (<0.60) mg/L FEU Sodium (137-145) mmol/L Potassium (3.5-5.1) mmol/L Chloride (98-107) mmol/L Carbon Dioxide (22-30) mmol/L Anion Gap mmol/L BUN (9-20) mg/dL Creatinine (0.66-1.25) mg/dL Est GFR (MDRD) Af Amer (>60 ml/min/1.73 sqM) Est GFR (MDRD) Non-Af (>60 ml/min/1.73 sqM) Glucose (74-99) mg/dL Calcium (8.4-10.2) mg/dL Total Bilirubin (0.2-1.3) mg/dL AST (17-59) U/L ALT (21-72) U/L Alkaline Phosphatase (38-126) U/L Total Creatine Kinase (55-170) U/L CK-MB (CK-2) (0.0-2.4) ng/mL CK-MB (CK-2) Rel Index Troponin I (0.000-0.034) ng/mL NT-Pro-B Natriuret Pep 3660 pg/mL Total Protein (6.3-8.2) g/dL Albumin (3.5-5.0) g/dL Amylase (30-110) U/L Lipase (23-300) U/L Urine Color Yellow Urine Appearance Clear (Clear) Urine pH 5.0 (5.0-8.0) Ur Specific [place] 1.010 (1.001-1.035) Urine Protein Negative (Negative) Urine Glucose (UA) Negative (Negative) Urine Ketones Negative (Negative) Urine Blood Negative (Negative) Urine Nitrite Negative (Negative) Urine Bilirubin Negative (Negative) Urine Urobilinogen <2.0 (<2.0) mg/dL Ur Leukocyte Esterase Negative (Negative) - Radiology Data Radiology results: report reviewed, image reviewed Two-view x-ray of the chest shows a heart is enlarged. There is aortic stent involving ascending aorta. Thoracic aorta is from this. There is no heart failure. There is mild linear density at the lung bases. There is no pleural effusion. Impression by Dr. Knight shows cardiomegaly. Mild scarring or subsegmental atelectasis at the lung bases. No gross heart failure. No significant change compared to last exam. Disposition Clinical Impression: Acute kidney injury, Shuffling gait, Shortness of breath Disposition: HOME SELF-CARE Condition: Good Instructions: Dyspnea (ED), Impaired Kidney Function (ED) Additional Instructions: Hold Lasix for [address] Parrish's office in the morning for a follow-up appointment. Return here immediately for any new, worsening, or concerning symptoms. Referrals: Ed Parrish MD [Primary Care Provider] - 1-2 days Time of Disposition: 17:57
[2017-09-17 16:05] LABS: HCT 38.4 % (39.0-53.0); HGB 12.1 gm/dL (13.0-17.5); MCH 28.5 pg (25.0-35.0); MCHC 31.5 g/dL (31.0-37.0); MCV 90.5 fL (80.0-100.0); Mean Platelet Volume 7.6; Platelet Count 162 k/uL (150-450); RBC 4.25 m/uL (4.30-5.90); RDW 13.7 % (11.5-15.5); WBC 7.6 k/uL (3.8-10.6)
[2017-09-17 16:30] LABS: Albumin 4.1 g/dL (3.5-5.0); Calcium 9.3 mg/dL (8.4-10.2); Potassium 4.9 mmol/L (3.5-5.1); Total Bilirubin 0.4 mg/dL (0.2-1.3); Total Protein 7.7 g/dL (6.3-8.2)
[2017-09-17 16:33] LABS: Creatine Kinase 29 U/L (55-170)
[2017-09-17 16:45] LABS: Creatine Kinase MB 0.8 ng/mL (0.0-2.4); Troponin I <0.012 ng/mL (0.000-0.034)
--- NOTE | 2017-09-17 16:46 | XR ---
EXAMINATION TYPE: XR chest 2V DATE OF EXAM: 09/17/2017 COMPARISON: 07/09/2017 HISTORY: Chest pain. Infection. TECHNIQUE: Frontal and lateral views of the chest are obtained. FINDINGS: Heart is enlarged. There is aortic stent involving ascending aorta. Thoracic aorta is athe romatous. There is no heart failure. There is mild linear density at the lung bases. There is no pleu ral effusion. IMPRESSION: Cardiomegaly. Mild scarring or subsegmental atelectasis at the lung bases. No gross hear t failure. No significant change compared to last exam.
[2017-09-17 16:49] LABS: Band Neutrophils % 1 %; Eosinophils # (M) 0.38 k/uL (0-0.7); Lymphocytes # (M) 1.67 k/uL (1.0-4.8); Metamyelocytes # (M) 0.15 k/uL (0); Metamyelocytes % 2 %; Monocytes # (M) 0.23 k/uL (0-1.0); Neutrophils % (M) 69 %; Nucleated Red Blood Cells 0 /100 WBC (0-0); Total Cells Counted 200
[2017-09-17 16:56] LABS: Poikilocytosis (M) Present; Toxic Granulation Present
[2017-09-17 17:01] VITALS: RESP 18
[2017-09-17 17:30] LABS: Appearance,Urine Clear (Clear); Bilirubin,Urine Negative (Negative); Blood,Urine Negative (Negative); Color,Urine Yellow; Glucose,Urine (UA) Negative (Negative); Ketones,Urine Negative (Negative); Leukocyte Esterase,Urine Negative (Negative); Nitrite,Urine Negative (Negative); Protein,Urine Negative (Negative); Urobilinogen,Urine <2.0 mg/dL (<2.0)
[2017-09-17 18:16] VITALS: BP 140/68; PULSE 60; TEMP 99
== END 2017-09-17 18:16 | disposition home or self-care (01) ==
LOC: EC 15:15
DX: N17.9 Acute kidney failure, unspecified (principal); R26.9 Unspecified abnormalities of gait and mobility; R06.02 Shortness of breath; E78.5 Hyperlipidemia, unspecified; I25.2 Old myocardial infarction; F03.90 Unspecified dementia, unspecified severity, without behavioral disturbance, psychotic disturbance, mood disturbance, and anxiety; Z95.4 Presence of other heart-valve replacement; Z95.5 Presence of coronary angioplasty implant and graft; Z86.73 Personal history of transient ischemic attack (TIA), and cerebral infarction without residual deficits; Z79.01 Long term (current) use of anticoagulants; Z79.899 Other long term (current) drug therapy; Z88.1 Allergy status to other antibiotic agents; Z88.5 Allergy status to narcotic agent
CPT/HCPCS: 36415; 71046; 80053; 81003; 82150; 82550; 82553; 83690; 83880; 84484; 85025; 85379; 93005; 96360; 99285

== ENCOUNTER 2017-09-29 10:30 | Emergency (ER) | payer MEDICARE ==
--- NOTE | 2017-09-29 11:01 | ED ---
General Adult HPI - General Chief complaint: Fall Stated complaint: Fall Time Seen by Provider: 09/29/17 10:53 Source: patient, family, RN notes reviewed Mode of arrival: wheelchair Limitations: no limitations - History of Present Illness Initial comments: Patient is a pleasant 82-year-old male presenting to the emergency department after fall last night. Incident occurred yesterday evening. Patient uses a walker and has poor balance. helps provide history. Patient was bending over and fell down. Patient landed on his right shoulder. Patient has discomfort of his right shoulder that increases with movement. Patient also has some mild discomfort right anterior chest. No dyspnea. No head injury or loss of consciousness. No abdominal pain. Patient is ambulatory this morning. - Related Data Home Medications Medication Instructions Recorded Confirmed Apixaban [Eliquis] 2.5 mg PO HS 11/02/15 09/29/17 Divalproex Sodium [Depakote] 500 mg PO HS 12/05/16 09/29/17 Omeprazole [PriLOSEC] 20 mg PO DAILY 02/08/17 09/29/17 Lisinopril [Zestril] 5 mg PO BID 07/05/17 09/29/17 Acetaminophen Tab [Tylenol] 650 mg PO Q8H PRN 08/11/17 09/29/17 Furosemide [Lasix] 40 mg PO BID 08/11/17 09/29/17 Metolazone [Zaroxolyn] 2.5 mg PO Q48H 08/11/17 09/29/17 Atorvastatin Calcium [Lipitor] 20 mg PO DAILY 09/17/17 09/29/17 Carbidopa-Levodopa 10-100 mg 1 tab PO QID 09/17/17 09/29/17 [Sinemet 10-100] LORazepam [Ativan] 1 mg PO HS PRN 09/17/17 09/29/17 Metoprolol Tartrate [Lopressor] 100 mg PO HS 09/17/17 09/29/17 Metoprolol Tartrate [Lopressor] 50 mg PO DAILY 09/29/17 09/29/17 Vitamin B Complex 1 cap PO DAILY 09/29/17 09/29/17 traMADol HCL [Ultram] 50 mg PO Q4HR PRN 09/29/17 09/29/17 Allergies Allergy/AdvReac Type Severity Reaction Status Date / Time gentamicin [Gentamicin] AdvReac loss of Verified 09/29/17 11:42 balance/numbness hydrocodone [From [place]] AdvReac Confusion Verified 09/29/17 11:42 Review of Systems ROS Statement: Those systems with pertinent positive or pertinent negative responses have been documented in the HPI. ROS Other: All systems not noted in ROS Statement are negative. Constitutional: Denies: fever Eyes: Denies: eye pain ENT: Denies: ear pain Respiratory: Denies: cough Cardiovascular: Denies: chest pain Endocrine: Denies: fatigue Gastrointestinal: Denies: abdominal pain Genitourinary: Denies: dysuria Musculoskeletal: Denies: back pain Skin: Denies: rash Neurological: Denies: headache, weakness Past Medical History Past Medical History: CVA/TIA, GI Bleed, Hyperlipidemia, Myocardial Infarction ( [place]), Prostate Disorder, Myocardial Infarction ([place]), Renal Disease Additional Past Medical History / Comment(s): early dementia, irregular heart beat, stroke per - wheelchair due to balance problems, swelling donna lower legs, poor circulation, fell November 2016 and injured toes on left foot-got gangrene in 3 toes, hx ulcers, parkinson's Last Myocardial Infarction Date:: 03/2011 History of Any Multi-Drug Resistant Organisms: None Reported Past Surgical History: Bowel Resection, Cardiac Valve Replacement, Heart Catheterization With Stent, Orthopedic Surgery Additional Past Surgical History / Comment(s): hand sx right thumb partial amputation d/t work injury, donna cataracts, hemorrhoidectomy x3, gastric surgery in 1965 for peptic ulcer disease, 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 amputation 3rd toe left foot Past Anesthesia/Blood Transfusion Reactions: No Reported Reaction Date of Last Stent Placement:: 2010 Past Psychological History: No Psychological Hx Reported Smoking Status: Never smoker Past Alcohol Use History: Occasional Past Drug Use History: None Reported - Past Family History Father History Unknown: Yes Family Medical History: Unable to Obtain Additional Family Medical History / Comment(s): FATHER AT AGE 60 OF COLON CANCER Mother History Unknown: Yes Family Medical History: Unable to Obtain Additional Family Medical History / Comment(s): Patient states "none that I know of" regarding family history General Exam Limitations: no limitations General appearance: alert, in no apparent distress Head exam: Present: atraumatic, normocephalic Eye exam: Present: normal appearance, PERRL ENT exam: Present: normal exam Neck exam: Present: normal inspection. Absent: tenderness Respiratory exam: Present: normal lung sounds bilaterally, chest wall tenderness (Right-sided) Cardiovascular Exam: Present: regular rate, normal rhythm Expanded Peripheral pulses: 2+: Radial (R) GI/Abdominal exam: Present: soft. Absent: distended, tenderness Extremities exam: Present: tenderness (Mild tenderness right shoulder. Distally his neurovascular intact.) Back exam: Present: normal inspection. Absent: tenderness, vertebral tenderness Neurological exam: Present: alert. Absent: motor sensory deficit Psychiatric exam: Present: normal affect, normal mood Skin exam: Present: normal color Course Vital Signs 09/29/17 10:36 Temperature 97.5 F L Pulse Rate 70 Respiratory 20 Rate Blood Pressure 117/70 O2 Sat by Pulse 92 L Oximetry Medical Decision Making - Medical Decision Making Patient reevaluated. Patient and family updated on results and need for follow- up. - Radiology Data Radiology results: image reviewed (Chest x-ray shows no acute process except clavicle fracture. X-ray right shoulder shows a distal clavicle fracture.) Disposition Clinical Impression: Fall, Clavicle fracture Disposition: HOME SELF-CARE Condition: Stable Instructions: Fall Prevention for Older Adults (ED), Clavicle Fracture (ED) Additional Instructions: Please follow-up with Dr. Parrish in the next day or 2 for recheck. Also consider orthopedic follow-up. Use sling or figure 8 device. Return for weakness, difficulty in breathing, unable to take care of self at home, worsening symptoms or other concerns. Referrals: Ed Parrish MD [Primary Care Provider] - 1-2 days Time of Disposition: 11:57
--- NOTE | 2017-09-29 11:20 | XR ---
EXAMINATION TYPE: XR chest 2V DATE OF EXAM: 09/29/2017 COMPARISON: Prior chest x-ray September 17, 2017 HISTORY: Chest pain. TECHNIQUE: Frontal and lateral views of the chest are obtained. FINDINGS: There is chronic parenchymal change without suspicious focal air space opacity, pleural ef fusion, or pneumothorax seen. The cardiac silhouette size remains enlarged with single lead pacemake r and atherosclerotic thoracic aorta. There is metallic stent graft aortic root level redemonstrated . Old bilateral rib fractures are again seen. There are mild compression type fracture deformities in the lower thoracic spine redemonstrated. New distal right clavicular fracture. IMPRESSION: Chronic changes and cardiomegaly without acute pulmonary process. New distal right clavic ular fracture noted.
--- NOTE | 2017-09-29 11:21 | XR ---
EXAMINATION TYPE: XR shoulder complete RT DATE OF EXAM: 09/29/2017 CLINICAL HISTORY: Fall injury with right shoulder pain. TECHNIQUE: Three views of the right shoulder are obtained. COMPARISON: None. FINDINGS: Osseous structures are demineralized. Acute minimally displaced or distracted fracture dist al right clavicle. Acromioclavicular joint is maintained. Glenohumeral joint shows joint space loss a nd mild spurring inferiorly. There are old posterior lateral right sixth and seventh rib fractures no kailey. IMPRESSION: There is acute minimally displaced fracture distal right clavicle. (Initial encounter closed type post traumatic fracture).
[2017-09-29] MEDS ORDERED: traMADol 50 MG TAB PO STA (11:57)
[2017-09-29 12:31] VITALS: BP 153/69; PULSE 60; RESP 18; TEMP 97.6
== END 2017-09-29 12:30 | disposition home or self-care (01) ==
LOC: EC 10:30
DX: S42.031A Displaced fracture of lateral end of right clavicle, initial encounter for closed fracture (principal); E78.5 Hyperlipidemia, unspecified; G20 Parkinson's disease; I25.2 Old myocardial infarction; Z79.01 Long term (current) use of anticoagulants; Z79.899 Other long term (current) drug therapy; Z88.1 Allergy status to other antibiotic agents; Z88.5 Allergy status to narcotic agent; Z86.73 Personal history of transient ischemic attack (TIA), and cerebral infarction without residual deficits; Z87.19 Personal history of other diseases of the digestive system; W01.0XXA Fall on same level from slipping, tripping and stumbling without subsequent striking against object, initial encounter; Y93.01 Activity, walking, marching and hiking; Y92.008 Other place in unspecified non-institutional (private) residence as the place of occurrence of the external cause
CPT/HCPCS: 71046; 99283

== ENCOUNTER 2017-10-24 04:20 | Emergency (ER) | payer MEDICARE ==
--- NOTE | 2017-10-24 04:45 | ED ---
General Adult HPI - General Chief complaint: Fall Stated complaint: Fall Time Seen by Provider: 10/24/17 04:40 Source: patient, family, RN notes reviewed, old records reviewed Mode of arrival: wheelchair Limitations: no limitations - History of Present Illness Initial comments: This is an 82-year-old male the ER for evaluation. Presents today for evaluation regards to fall. Patient is standing. Fell backwards hitting head. No loss. Patient is on blood thinners, [place]. Patient denies headache complaining of some neck pain and shoulder pain and some back pain. No difficulty breathing, follows mechanical in nature, patient was ambulatory after fall - Related Data Home Medications Medication Instructions Recorded Confirmed Apixaban [Eliquis] 2.5 mg PO HS 11/02/15 09/29/17 Divalproex Sodium [Depakote] 500 mg PO HS 12/05/16 09/29/17 Omeprazole [PriLOSEC] 20 mg PO DAILY 02/08/17 09/29/17 Lisinopril [Zestril] 5 mg PO BID 07/05/17 09/29/17 Acetaminophen Tab [Tylenol] 650 mg PO Q8H PRN 08/11/17 09/29/17 Furosemide [Lasix] 40 mg PO BID 08/11/17 09/29/17 Metolazone [Zaroxolyn] 2.5 mg PO Q48H 08/11/17 09/29/17 Atorvastatin Calcium [Lipitor] 20 mg PO DAILY 09/17/17 09/29/17 Carbidopa-Levodopa 10-100 mg 1 tab PO QID 09/17/17 09/29/17 [Sinemet 10-100] LORazepam [Ativan] 1 mg PO HS PRN 09/17/17 09/29/17 Metoprolol Tartrate [Lopressor] 100 mg PO HS 09/17/17 09/29/17 Metoprolol Tartrate [Lopressor] 50 mg PO DAILY 09/29/17 09/29/17 Vitamin B Complex 1 cap PO DAILY 09/29/17 09/29/17 traMADol HCL [Ultram] 50 mg PO Q4HR PRN 09/29/17 09/29/17 Allergies Allergy/AdvReac Type Severity Reaction Status Date / Time gentamicin [Gentamicin] AdvReac loss of Verified 09/29/17 11:42 balance/numbness hydrocodone [From [place]] AdvReac Confusion Verified 09/29/17 11:42 Review of Systems ROS Statement: Those systems with pertinent positive or pertinent negative responses have been documented in the HPI. ROS Other: All systems not noted in ROS Statement are negative. Past Medical History Past Medical History: CVA/TIA, GI Bleed, Hyperlipidemia, Myocardial Infarction ( [place]), Prostate Disorder, Myocardial Infarction ([place]), Renal Disease Additional Past Medical History / Comment(s): early dementia, irregular heart beat, stroke per - wheelchair due to balance problems, slurred speech, swelling donna lower legs, poor circulation, fell November 2016 and injured toes on left foot-got gangrene in 3 toes, hx ulcers, parkinson's Last Myocardial Infarction Date:: 03/2011 History of Any Multi-Drug Resistant Organisms: None Reported Past Surgical History: Bowel Resection, Cardiac Valve Replacement, Heart Catheterization With Stent, Orthopedic Surgery Additional Past Surgical History / Comment(s): hand sx right thumb partial amputation d/t work injury, donna cataracts, hemorrhoidectomy x3, gastric surgery in 1965 for peptic ulcer disease, 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 amputation 3rd toe left foot Past Anesthesia/Blood Transfusion Reactions: No Reported Reaction Date of Last Stent Placement:: 2010 Past Psychological History: No Psychological Hx Reported Smoking Status: Never smoker Past Alcohol Use History: Occasional Past Drug Use History: None Reported - Past Family History Father History Unknown: Yes Family Medical History: Unable to Obtain Additional Family Medical History / Comment(s): FATHER AT AGE 60 OF COLON CANCER Mother History Unknown: Yes Family Medical History: Unable to Obtain Additional Family Medical History / Comment(s): Patient states "none that I know of" regarding family history General Exam Limitations: no limitations General appearance: alert, in no apparent distress Head exam: Present: atraumatic, normocephalic, normal inspection Eye exam: Present: normal appearance, PERRL, EOMI. Absent: scleral icterus, conjunctival injection, periorbital swelling ENT exam: Present: normal exam, mucous membranes moist Neck exam: Present: normal inspection. Absent: tenderness, meningismus, lymphadenopathy Respiratory exam: Present: normal lung sounds bilaterally. Absent: respiratory distress, wheezes, rales, rhonchi, stridor Cardiovascular Exam: Present: regular rate, normal rhythm, normal heart sounds. Absent: systolic murmur, diastolic murmur, rubs, gallop, clicks GI/Abdominal exam: Present: soft, normal bowel sounds. Absent: distended, tenderness, guarding, rebound, rigid Extremities exam: Present: normal inspection, full ROM, normal capillary refill. Absent: tenderness, pedal edema, joint swelling, calf tenderness Back exam: Present: normal inspection Neurological exam: Present: alert, oriented X3, CN II-XII intact Psychiatric exam: Present: normal affect, normal mood Skin exam: Present: warm, dry, intact, normal color. Absent: rash Course Vital Signs 10/24/17 04:23 Temperature 98.0 F Pulse Rate 61 Respiratory 16 Rate Blood Pressure 153/68 O2 Sat by Pulse 97 Oximetry - Reevaluation(s) Reevaluation #1: 10/24/17 06:58 Patient's no acute distress EKG Findings - EKG Comments: EKG Findings:: EKG shows paced rhythm rate of 60, QRS 174, QTC 500 Medical Decision Making - Medical Decision Making 79 female the ER for evaluation status post fall. No traumatic injury noted. Patient can be discharged home - Radiology Data Radiology results: report reviewed (CT brain C-spine, chest x-ray spine x-ray negative for traumatic injury, pelvis x-rays negative), image reviewed Disposition Clinical Impression: Fall, Back contusion Disposition: HOME SELF-CARE Condition: Good Instructions: Fall Prevention for Older Adults (ED) Referrals: Ed Parrish MD [Primary Care Provider] - 1-2 days
--- NOTE | 2017-10-24 05:39 | XR ---
EXAM: XR Pelvis, 1 or 2 Views CLINICAL HISTORY: Status post trauma with pain. TECHNIQUE: Frontal view of the pelvis. COMPARISON: No relevant prior studies available. FINDINGS: Bones/joints: Mild/moderate osteoarthropathy involving both hips. Osteopenia is suggested. No acute fracture. No dislocation. Soft tissues: Unremarkable. Vasculature: Vascular calcifications are seen. IMPRESSION: 1. No radiographic evidence of acute osseous injury. 2. Mild/moderate osteoarthropathy of both hips.
--- NOTE | 2017-10-24 05:44 | XR ---
EXAM: XR Chest, 1 View CLINICAL HISTORY: Pain TECHNIQUE: Frontal view of the chest. COMPARISON: 09/29/2017. FINDINGS: Lungs: The heart is again noted to be enlarged, mild interval worsening since prior study, with evidence of pulmonary vascular congestion/pulmonary edema, interval worsening since prior study. Superimposed infection cannot be definitively excluded. Pleural space: No definitive pleural effusions. No pneumothorax. Heart: As above. Mediastinum: See below. Bones/joints: No definitive evidence of an acute displaced rib fracture on this single frontal view. Vasculature: Aortic metallic stent graft is again seen. Calcified aortic arch again noted. The mediastinum is unchanged. Tubes, lines and devices: Left-sided pacemaker is again seen with single lead tip over the right ventricle. IMPRESSION: 1. Cardiomegaly again noted, mild interval worsening since prior study, with evidence of pulmonary vascular congestion/pulmonary edema, interval worsening since prior study. Superimposed infection cannot be definitively excluded. 2. No definitive evidence of an acute displaced rib fracture on this single frontal view. Dedicated rib series recommended if rib fracture is suspected.
--- NOTE | 2017-10-24 05:56 | CT ---
EXAM: CT Head Without Intravenous Contrast CLINICAL HISTORY: Status post posterior head trauma with pain. TECHNIQUE: Axial computed tomography images of the head/brain without intravenous contrast. DLP is 1301.70 mGy-cm. This CT exam was performed using one or more of the following dose reduction techniques: automated exposure control, adjustment of the mA and/or kV according to patient size, and/or use of iterative reconstruction technique. COMPARISON: 09/01/2017 FINDINGS: Brain: Moderately sized chronic right HAND ALTERATIONS SEAMSTRESS distribution infarct. Unchanged small chronic infarcts in both cerebellar hemispheres. Unchanged mild to moderate global volume loss. No evidence of acute intracranial hemorrhage. No evidence of acute transcortical infarct. Ventricles: Unremarkable. No ventriculomegaly. Bones/joints: Unremarkable. No acute fracture. Soft tissues: Unremarkable. Vasculature: Calcification of the distal internal carotid arteries and vertebrobasilar system is again seen. Sinuses: Minimal mucosal thickening is seen involving the bilateral ethmoid air cells, similar to prior study. Mastoid air cells: Unremarkable as visualized. No mastoid effusion. IMPRESSION: No ICH, mass effect or edema. No skull fracture. No significant interval change, as above. EXAM: CT Cervical Spine Without Intravenous Contrast CLINICAL HISTORY: As above. TECHNIQUE: Axial computed tomography images of the cervical spine without intravenous contrast. DLP is 454.30 mGy-cm. This CT exam was performed using one or more of the following dose reduction techniques: automated exposure control, adjustment of the mA and/or kV according to patient size, and/or use of iterative reconstruction technique. COMPARISON: 09/01/2017 FINDINGS: Vertebrae: Note is made of multilevel cervical spondylosis with varying degrees of central canal and foramina stenoses, most notable at C5-C7 levels. Os odontoideum. No acute fracture. Discs/spinal canal/neural foramina: See above. Soft tissues: No evidence of prevertebral soft tissue swelling.. Vasculature: Marked calcification in both carotid bulbs. Lung apices: Unremarkable as visualized. IMPRESSION: 1. No evidence of acute fracture or traumatic malalignment. 2. Cervical spondylosis with varying degrees of central canal and foramina stenoses, most notable at C5-C7. [employer] 10/24/17 05:37 Call Doctor Regarding Trauma, called Dr. Davis on 10/24 05:36 (-04:00)
--- NOTE | 2017-10-24 06:13 | XR ---
EXAM: XR Cervical Spine, 2 or 3 Views CLINICAL HISTORY: Pain post trauma TECHNIQUE: Frontal and lateral views of the cervical spine. COMPARISON: Cervical CT performed the same day FINDINGS: Vertebrae: Unremarkable. No definite fracture. Normal alignment. Disc spaces: Multilevel degenerative changes are again seen, better evaluated on the comparison study performed the same day. Soft tissues: Unremarkable. IMPRESSION: Multilevel degenerative changes are again seen, better evaluated on the comparison study performed the same day. No evidence of acute fracture or traumatic malalignment. EXAM: XR Thoracic Spine, 3 Views CLINICAL HISTORY: Pain post trauma TECHNIQUE: Frontal, lateral and swimmer's views of the thoracic spine. COMPARISON: 09/14/2015 FINDINGS: Vertebrae: Osteopenia suggested, limiting evaluation. Compression fracture involving a mid/lower thoracic vertebral body, not definitively seen on the prior study. This may be acute. Correlate clinically. Normal alignment. Disc spaces: No acute findings. No significant narrowing. Soft tissues: Unremarkable. IMPRESSION: Compression fracture involving a mid/lower thoracic vertebral body, not definitively seen on the prior study. Finding may be acute. Correlate with point tenderness. MRI versus CT of the thoracic spine be obtained for further evaluation. EXAM: XR Lumbar Spine, 2 or 3 Views CLINICAL HISTORY: Pain post trauma TECHNIQUE: Frontal and lateral views of the lumbar spine. COMPARISON: 09/01/2017 FINDINGS: Vertebrae: Osteopenia suggested, limiting evaluation. Compression fractures are again seen involving L1, L3, and L5, slightly more conspicuous on this study than the prior. . Minimal dextroscoliosis of the lumbar spine Normal alignment. Disc spaces: No acute findings. Soft tissues: Unremarkable. Vasculature: Severe vascular calcifications of the aorta are again seen. IMPRESSION: Compression fractures are again seen involving L1, L3, and L5, slightly more conspicuous on this study than the prior. CT versus MRI of the lumbar spine may be obtained for further evaluation, if clinically indicated.
[2017-10-24 07:24] VITALS: RESP 18
[2017-10-24 07:26] VITALS: BP 148/65; PULSE 60; TEMP 97.2
== END 2017-10-24 07:25 | disposition home or self-care (01) ==
LOC: EC 04:20
DX: S30.0XXA Contusion of lower back and pelvis, initial encounter (principal); M54.2 Cervicalgia; M25.519 Pain in unspecified shoulder; E78.5 Hyperlipidemia, unspecified; I25.2 Old myocardial infarction; F03.90 Unspecified dementia, unspecified severity, without behavioral disturbance, psychotic disturbance, mood disturbance, and anxiety; G20 Parkinson's disease; Z86.73 Personal history of transient ischemic attack (TIA), and cerebral infarction without residual deficits; Z79.01 Long term (current) use of anticoagulants; Z79.899 Other long term (current) drug therapy; Z88.0 Allergy status to penicillin; Z88.5 Allergy status to narcotic agent; W18.00XA Striking against unspecified object with subsequent fall, initial encounter; Y92.009 Unspecified place in unspecified non-institutional (private) residence as the place of occurrence of the external cause
CPT/HCPCS: 70450; 71045; 72082; 72125; 72170; 99284

== ENCOUNTER 2017-10-28 13:47 | Emergency (ER) | payer MEDICARE ==
[2017-10-28] MEDS ORDERED: GLUCAGON 1 MG/ML VIAL IVP STA (14:03)
[2017-10-28] MEDS ORDERED: NITROGLYCERIN SL TABS 0.4 MG TAB SUBLINGUAL STA (14:03)
[2017-10-28] MEDS ORDERED: METOCLOPRAMIDE 5 MG/ML 2 ML VIAL IVP STA (14:03)
--- NOTE | 2017-10-28 14:07 | ED ---
General Adult HPI - General Source: patient, RN notes reviewed Mode of arrival: ambulatory Limitations: no limitations <Zeus Vasques - Last Filed: 10/28/17 15:15> <Po Mason - Last Filed: 10/28/17 18:07> - General Chief complaint: ENT Stated complaint: choking on food Time Seen by Provider: 10/28/17 13:57 - History of Present Illness Initial comments: Patient is a pleasant 82-year-old male presenting in the emergency department for difficulty swallowing his food. Patient was eating a ham sandwich around 12 :30. Patient states it does not feel like it is passing. Patient has had similar symptoms previously however usually is able to clear it himself. Patient is unable to tolerate his secretions without vomiting afterwards. Symptoms have been persistent. No dyspnea. (Zeus Vasques) - Related Data Home Medications Medication Instructions Recorded Confirmed Apixaban [Eliquis] 2.5 mg PO HS 11/02/15 09/29/17 Divalproex Sodium [Depakote] 500 mg PO HS 12/05/16 09/29/17 Omeprazole [PriLOSEC] 20 mg PO DAILY 02/08/17 09/29/17 Lisinopril [Zestril] 5 mg PO BID 07/05/17 09/29/17 Acetaminophen Tab [Tylenol] 650 mg PO Q8H PRN 08/11/17 09/29/17 Furosemide [Lasix] 40 mg PO BID 08/11/17 09/29/17 Metolazone [Zaroxolyn] 2.5 mg PO Q48H 08/11/17 09/29/17 Atorvastatin Calcium [Lipitor] 20 mg PO DAILY 09/17/17 09/29/17 Carbidopa-Levodopa 10-100 mg 1 tab PO QID 09/17/17 09/29/17 [Sinemet 10-100] LORazepam [Ativan] 1 mg PO HS PRN 09/17/17 09/29/17 Metoprolol Tartrate [Lopressor] 100 mg PO HS 09/17/17 09/29/17 Metoprolol Tartrate [Lopressor] 50 mg PO DAILY 09/29/17 09/29/17 Vitamin B Complex 1 cap PO DAILY 09/29/17 09/29/17 traMADol HCL [Ultram] 50 mg PO Q4HR PRN 09/29/17 09/29/17 Allergies Allergy/AdvReac Type Severity Reaction Status Date / Time gentamicin [Gentamicin] AdvReac loss of Verified 10/28/17 13:52 balance/numbness hydrocodone [From [place]] AdvReac Confusion Verified 10/28/17 13:52 Review of Systems ROS Other: All systems not noted in ROS Statement are negative. Constitutional: Denies: fever Eyes: Denies: eye pain ENT: Denies: ear pain Respiratory: Denies: cough, dyspnea Cardiovascular: Denies: chest pain Endocrine: Denies: fatigue Gastrointestinal: Denies: abdominal pain Genitourinary: Denies: dysuria Musculoskeletal: Denies: back pain Skin: Denies: rash Neurological: Denies: weakness <Zeus Vasques - Last Filed: 10/28/17 15:15> ROS Other: All systems not noted in ROS Statement are negative. <Po Mason - Last Filed: 10/28/17 18:07> ROS Statement: Those systems with pertinent positive or pertinent negative responses have been documented in the HPI. Past Medical History Past Medical History: CVA/TIA, GI Bleed, Hyperlipidemia, Myocardial Infarction ( [place]), Prostate Disorder, Myocardial Infarction ([place]), Renal Disease Additional Past Medical History / Comment(s): early dementia, irregular heart beat, stroke per - wheelchair due to balance problems, slurred speech, swelling donna lower legs, poor circulation, fell November 2016 and injured toes on left foot-got gangrene in 3 toes, hx ulcers, parkinson's Last Myocardial Infarction Date:: 03/2011 History of Any Multi-Drug Resistant Organisms: None Reported Past Surgical History: Bowel Resection, Cardiac Valve Replacement, Heart Catheterization With Stent, Orthopedic Surgery Additional Past Surgical History / Comment(s): hand sx right thumb partial amputation d/t work injury, donna cataracts, hemorrhoidectomy x3, gastric surgery in 1965 for peptic ulcer disease, 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 amputation 3rd toe left foot Past Anesthesia/Blood Transfusion Reactions: No Reported Reaction Date of Last Stent Placement:: 2010 Past Psychological History: No Psychological Hx Reported Smoking Status: Never smoker Past Alcohol Use History: Occasional Past Drug Use History: None Reported - Past Family History Father History Unknown: Yes Family Medical History: Unable to Obtain Additional Family Medical History / Comment(s): FATHER AT AGE 60 OF COLON CANCER Mother History Unknown: Yes Family Medical History: Unable to Obtain Additional Family Medical History / Comment(s): Patient states "none that I know of" regarding family history <Zeus Vasques - Last Filed: 10/28/17 15:15> General Exam Limitations: no limitations General appearance: alert, in no apparent distress Head exam: Present: atraumatic Eye exam: Present: normal appearance, PERRL ENT exam: Present: normal oropharynx Neck exam: Present: normal inspection Respiratory exam: Present: normal lung sounds bilaterally Cardiovascular Exam: Present: regular rate, normal rhythm GI/Abdominal exam: Present: soft. Absent: distended, tenderness Extremities exam: Present: normal inspection Neurological exam: Present: alert Psychiatric exam: Present: normal affect, normal mood Skin exam: Present: normal color <Zeus Vasques - Last Filed: 10/28/17 15:15> Course <Zeus Vasques - Last Filed: 10/28/17 15:15> <Po Mason N - Last Filed: 10/28/17 18:07> Vital Signs 10/28/17 10/28/17 10/28/17 13:49 14:27 15:35 Temperature 97.6 F Pulse Rate 57 L 62 66 Respiratory 20 24 18 Rate Blood Pressure 135/60 131/62 102/63 O2 Sat by Pulse 96 94 L 95 Oximetry - Reevaluation(s) Reevaluation #1: 10/28/17 15:15 Patient unable to tolerate fluids following glucagon. Case was discussed with Dr. Manrique, who will come and for endoscopy. (Zeus Vasques) Medical Decision Making <Zeus Vasques - Last Filed: 10/28/17 15:15> <Po Mason N - Last Filed: 10/28/17 18:07> - Medical Decision Making Patient's care signed out awaiting endoscopy by gastroenterology. Patient is seen by Dr. Sigala, scope reveals no esophageal foreign body. Patient's symptoms likely related to Parkinson's and some degree of dysphagia. Recommends discharge home. Patient was observed after conscious sedation. On reevaluation, he states his symptoms have completely resolved. He is feeling quite well. He is awake and alert. Symptoms were likely related to esophageal foreign body detected passed spontaneously prior to endoscopy. (Po Mason) Disposition <Zeus Vasques - Last Filed: 10/28/17 15:15> Time of Disposition: 17:07 <Po Mason - Last Filed: 10/28/17 18:07> Clinical Impression: Esophageal dysmotility, Esophageal foreign body Disposition: HOME SELF-CARE Condition: Fair Instructions: Esophageal Foreign Body (ED), Dysphagia (ED) Referrals: Ed Parrish MD [Primary Care Provider] - 1-2 days Janet Sigala MD [STAFF PHYSICIAN] - 1-2 days
[2017-10-28 15:36] VITALS: RESP 18
[2017-10-28] MEDS ORDERED: IV FLUID CONTINUATION 1,000 ML IV ONE (16:35)
[2017-10-28] MEDS ORDERED: PROPOFOL 10 MG/ML 20 ML VIAL IV ONE (16:35)
--- NOTE | 2017-10-28 17:28 | PCN ---
PROCEDURE NOTE DATE OF SERVICE: 10/28/17 REQUESTING PHYSICIAN: Dr. Parirsh. BRIEF HISTORY: The patient is an 82-year-old pleasant white male with history of Parkinson disease, came to the emergency room with acute food dysphagia. He was eating ham sandwich this afternoon and could not swallow any further. His brought him the emergency room. He is scheduled for an emergency upper endoscopy at the bedside in the emergency room. PROCEDURE PERFORMED: EGD. PREOPERATIVE DIAGNOSIS: Acute food dysphagia. SEDATION: IV sedation by anesthesia. DESCRIPTION OF PROCEDURE: After informed consent was obtained from the patient, the procedure was done in the emergency room. The Olympus CF 190 video endoscope was inserted into the mouth and esophagus intubated without any difficulty and was gradually advanced to the distal esophagus. There was no evidence of esophageal foreign body noted. The scope was advanced in the stomach and duodenum. The bulb and the 2nd part of the duodenum appeared normal. The scope was then withdrawn to the stomach, adequately insufflated with air and upon careful examination, there was mild gastritis in the antrum, body of the stomach appeared normal and on retroflexion cardia and fundus appeared normal. The scope was then withdrawn into the esophagus. The GE junction was located at 43 cm from the incisors. It appeared regular. There was no evidence of esophagitis or esophageal stricture. The entire length of the esophagus appeared normal. The patient tolerated the procedure well. IMPRESSION: 1. Normal-appearing esophagus with no evidence of esophagitis or esophageal stricture. 2. No evidence of esophageal foreign body. 3. Mild gastritis. RECOMMENDATION: Findings of this examination were discussed with the patient as well as his family. According to his , he has been having dysphagia for the last couple of months, which probably could be related to oropharyngeal dysphagia and if he continues to remain symptomatic, modified barium swallow on an outpatient basis may be indicated. He was advised to follow up with Dr. Parrish in 1-2 weeks. MMODL / IJN: [id number] /
[2017-10-28 18:24] VITALS: BP 163/70; PULSE 60; TEMP 97.2
== END 2017-10-28 18:30 | disposition home or self-care (01) ==
LOC: EC 13:47
DX: T18.128A Food in esophagus causing other injury, initial encounter (principal); K22.4 Dyskinesia of esophagus; E78.5 Hyperlipidemia, unspecified; I25.2 Old myocardial infarction; G31.83 Neurocognitive disorder with Lewy bodies; Z86.73 Personal history of transient ischemic attack (TIA), and cerebral infarction without residual deficits; Z95.2 Presence of prosthetic heart valve; Z95.5 Presence of coronary angioplasty implant and graft; Z79.01 Long term (current) use of anticoagulants; Z79.899 Other long term (current) drug therapy; Z88.1 Allergy status to other antibiotic agents; Z88.5 Allergy status to narcotic agent
CPT/HCPCS: 43235; 99284; 96374; 96375; J1610; J2765; J2704; 96360

== ENCOUNTER 2017-11-08 22:19 | Emergency (ER) | payer MEDICARE ==
[2017-11-08 22:30] VITALS: BP 138/73; PULSE 79; RESP 18; TEMP 97
--- NOTE | 2017-11-08 22:53 | ED ---
General Adult HPI - General Source: patient, RN notes reviewed, old records reviewed Mode of arrival: wheelchair Limitations: no limitations <Storm Donnelly - Last Filed: 11/08/17 23:37> <Zeus Vasques - Last Filed: 11/09/17 00:32> - General Chief complaint: Fall Stated complaint: fall/head lac Time Seen by Provider: 11/08/17 22:37 - History of Present Illness Initial comments: 82-year-old male presents to the emergency department for a chief complaint of head injury about one hour ago. Patient states he was just discharged from this emergency department and walking through the garage when she slipped and fell backwards and hit his head on the concrete floor. Patient denies any loss of consciousness. Patient denies any headache, confusion, nausea or vomiting, or visual changes. Family members state he is acting like his normal self. Patient admits to being on blood thinners. Patient also admits to tenderness in his right elbow. Patient states he hit his right elbow in the fall as well. Patient denies any other injuries at this time or pain in any other areas of his body. Patient states his breathing has improved since he was discharged from the emergency department as well. He denies shortness of breath at this time. Patient denies any other complaints such as chest pain or abdominal pain. (Storm Donnelly) - Related Data Home Medications Medication Instructions Recorded Confirmed Apixaban [Eliquis] 2.5 mg PO HS 11/02/15 11/08/17 Omeprazole [PriLOSEC] 20 mg PO DAILY 02/08/17 11/08/17 Lisinopril [Zestril] 5 mg PO BID 07/05/17 11/08/17 Furosemide [Lasix] 20 mg PO DAILY 08/11/17 11/08/17 Metolazone [Zaroxolyn] 2.5 mg PO Q48H 08/11/17 11/08/17 Atorvastatin Calcium [Lipitor] 20 mg PO DAILY 09/17/17 11/08/17 LORazepam [Ativan] 1 mg PO BID PRN 09/17/17 11/08/17 Metoprolol Tartrate [Lopressor] 100 mg PO HS 09/17/17 11/08/17 Metoprolol Tartrate [Lopressor] 50 mg PO DAILY 09/29/17 11/08/17 traMADol HCL [Ultram] 50 mg PO Q4HR PRN 09/29/17 11/08/17 Carbidopa-Levodopa 25-100 mg 1 tab PO TID 11/08/17 11/08/17 [Sinemet 25-100] Mirabegron [Myrbetriq] 50 mg PO DAILY 11/08/17 11/08/17 Tamsulosin HCl [Flomax] 0.4 mg PO DAILY 11/08/17 11/08/17 Triamcinolone 0.1% Cream [Kenalog] 1 applic TOPICAL DAILY 11/08/17 11/08/17 Allergies Allergy/AdvReac Type Severity Reaction Status Date / Time gentamicin [Gentamicin] AdvReac loss of Verified 11/08/17 22:47 balance/numbness hydrocodone [From [place]] AdvReac Confusion Verified 11/08/17 22:47 Review of Systems ROS Other: All systems not noted in ROS Statement are negative. <Storm Donnelly - Last Filed: 11/08/17 23:37> ROS Other: All systems not noted in ROS Statement are negative. <Zeus Vasques - Last Filed: 11/09/17 00:32> ROS Statement: Those systems with pertinent positive or pertinent negative responses have been documented in the HPI. Past Medical History Past Medical History: CVA/TIA, GI Bleed, Hyperlipidemia, Myocardial Infarction ( [place]), Prostate Disorder, Myocardial Infarction ([place]), Renal Disease Additional Past Medical History / Comment(s): early dementia, irregular heart beat, stroke per - wheelchair due to balance problems, slurred speech, swelling donna lower legs, poor circulation, fell November 2016 and injured toes on left foot-got gangrene in 3 toes, hx ulcers, parkinson's Last Myocardial Infarction Date:: 03/2011 History of Any Multi-Drug Resistant Organisms: None Reported Past Surgical History: Bowel Resection, Cardiac Valve Replacement, Heart Catheterization With Stent, Orthopedic Surgery Additional Past Surgical History / Comment(s): hand sx right thumb partial amputation d/t work injury, donna cataracts, hemorrhoidectomy x3, gastric surgery in 1965 for peptic ulcer disease, 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 amputation 3rd toe left foot Past Anesthesia/Blood Transfusion Reactions: No Reported Reaction Date of Last Stent Placement:: 2010 Past Psychological History: No Psychological Hx Reported Smoking Status: Never smoker Past Alcohol Use History: Occasional Past Drug Use History: None Reported - Past Family History Father History Unknown: Yes Family Medical History: Unable to Obtain Additional Family Medical History / Comment(s): FATHER AT AGE 60 OF COLON CANCER Mother History Unknown: Yes Family Medical History: Unable to Obtain Additional Family Medical History / Comment(s): Patient states "none that I know of" regarding family history <tSorm Donnelly P - Last Filed: 11/08/17 23:37> General Exam Limitations: no limitations General appearance: alert, in no apparent distress Head exam: Present: normocephalic, other (There is a 3 cm laceration on the right parietal bone. No occult fractures palpated.) Eye exam: Present: normal appearance, PERRL, EOMI. Absent: scleral icterus, conjunctival injection, periorbital swelling ENT exam: Present: normal exam, normal oropharynx, mucous membranes moist, TM's normal bilaterally Neck exam: Present: normal inspection, full ROM. Absent: tenderness, meningismus, lymphadenopathy Respiratory exam: Present: normal lung sounds bilaterally. Absent: respiratory distress, wheezes, rales, rhonchi, stridor Cardiovascular Exam: Present: regular rate, normal rhythm, normal heart sounds. Absent: systolic murmur, diastolic murmur, rubs, gallop, clicks GI/Abdominal exam: Present: soft, normal bowel sounds. Absent: distended, tenderness, guarding, rebound, rigid Extremities exam: Present: other (Patient has some ecchymosis on the right elbow. Patient has full range of motion of the right elbow. Patient has some tenderness to the olecranon of the right elbow. No pain in the wrist and hand or shoulder of the right upper extremity. Patient has full range of motion of the right wrist. Cap refill less than 2 seconds and radial pulse 2+ in the right upper extremity. Patient also complains of pain in his left lower leg. Patient is tender to palpation of the left anterior lower leg. He has full range of motion of the left knee and left ankle. There is a small 1 cm x 1 cm hematoma of the left tibia as well. Capillary refill less than 2 seconds in the left lower extremity. ) Back exam: Present: normal inspection. Absent: tenderness Neurological exam: Present: alert, oriented X3, CN II-XII intact, other (GCS 15) <Storm Donnelly - Last Filed: 11/08/17 23:37> Vital Signs 11/08/17 22:25 Temperature 97.0 F L Pulse Rate 79 Respiratory 18 Rate Blood Pressure 138/73 O2 Sat by Pulse 99 Oximetry Procedures <Storm Donnelly - Last Filed: 11/08/17 23:37> <Zeus Vasques - Last Filed: 11/09/17 00:32> - Procedures Initial comment: Body area: Right parietal scalp Laceration length: 3 cm Foreign bodies: no foreign bodies Tendon involvement: none Nerve involvement: none Vascular damage: none Anesthesia: local infiltration Local anesthetic: 1% lidocaine Anesthetic total: 3 ml Preparation: Patient was prepped and draped in the usual sterile fashion. Irrigation solution: Saline Irrigation method: Saline jet lavage Skin closure: [place] Number of yola: 7 Technique: simple Approximation: close Approximation difficulty: simple Dressing: antibiotic ointment and gauze Patient tolerance: Patient tolerated the procedure well with no immediate complications. (Storm Donnelly) Medical Decision Making <Storm Donnelly - Last Filed: 11/08/17 23:37> - Radiology Data Radiology results: report reviewed (Computed tomography scan of the brain cervical spine reveal no acute process), image reviewed (X-ray of the right elbow and left tib-fib show no acute fracture.) <Zeus Vasques - Last Filed: 11/09/17 00:32> - Medical Decision Making 82-year-old male presents the emergency department for a chief complaint of fall and head injury about one hour ago. Patient states he was just discharged from this hospital for phlegm in the throat and shortness of breath. He states he was getting out of the car and walking into his house when he slipped in his garage and fell backwards hitting his head and right elbow on the concrete. Patient does take blood thinners. On exam there is a 3 cm laceration to the right parietal bone. No focal neuro deficits. GCS 15. Patient is acting his normal self according to his and son who are in the room with him. Right elbow is slightly tender although patient has full range of motion. He states he did hit his right elbow on the concrete floor as well. Neurovascular intact in the right upper extremity. The rest of exam was unremarkable. CT noncontrast brain and C-spine were ordered along with x-ray of the right elbow. Patient's head wound was cleaned and stapled. Upon reexamination patient complained of left sharif pain. On exam is a small 1 x 1 cm hematoma of the left tibia. Neurovascular intact in the left lower leg. X-rays were ordered of the left tib-fib. Pain medication was offered and patient declined. (Storm Donnelly) reevaluated and resting comfortably in bed. Patient and family are updated on results and need for follow-up. Unclear last tetanus and therefore this will be ordered. They're advised to hold Eliquis for the next 2 days. ( Zeus Vasques) Disposition <Storm Donnelly - Last Filed: 11/08/17 23:37> Is patient prescribed a controlled substance at d/c from ED?: No Time of Disposition: 00:32 <Zeus Vasques - Last Filed: 11/09/17 00:32> Clinical Impression: Fall, Laceration of scalp Disposition: HOME SELF-CARE Condition: Stable Instructions: Fall Prevention for Older Adults (ED), Head Injury (ED), Laceration (ED) Additional Instructions: Please hold eliquis for the next 2-3 days. Following that to be determined by primary care physician. Please follow-up with primary care physician in the next day or 2 for recheck. Please also discuss with primary care physician regarding frequent falls and possible need for assisted living. Staple removal in 7-10 days. [id number] Tylenol if needed. Return for increased falls, weakness, confusion, worsening or change in symptoms or other concerns. Referrals: Ed Parrish MD [Primary Care Provider] - 1-2 days
--- NOTE | 2017-11-08 23:34 | CT ---
EXAMINATION TYPE: CT brain [facility] DATE OF EXAM: 11/08/2017 COMPARISON: 10/24/2017 HISTORY: fall headache. Neck pain. CT DLP: 1481.80 mGycm Automated exposure control for dose reduction was used. TECHNIQUE: CT scan of the head and cervical spine are performed without contrast. FINDINGS: There is diffuse cerebral cortical atrophy. There is enlargement of the ventricles. There is old right occipital lobe cortical infarct. There is no mass effect nor midline shift. There is no sign of intracranial hemorrhage. The calvarium is intact. Cervical vertebra have normal alignment. There is narrowing at C5-6 C6-7 disc spaces with some spur f ormation. Facet joints are intact. There is mild hypertrophic facet arthropathy. Skull base is intact . There is no sign of a fracture. There is some ankylotic change at C5-6 C6-7. IMPRESSION: Cerebral atrophy. 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 No acute intracranial abnormality. No ch adenike. Spondylosis in the lower cervical spine. No fracture. No change.
--- NOTE | 2017-11-08 23:41 | XR ---
EXAMINATION TYPE: XR elbow complete RT DATE OF EXAM: 11/08/2017 COMPARISON: NONE HISTORY: Elbow pain TECHNIQUE: 3 views FINDINGS: I see no fracture nor dislocation. There is vascular calcification. There is no sign of elb ow joint effusion. IMPRESSION: No acute abnormality of the right elbow.
--- NOTE | 2017-11-09 00:15 | XR ---
EXAMINATION TYPE: XR tibia fibula LT DATE OF EXAM: 11/08/2017 COMPARISON: NONE HISTORY: Pain TECHNIQUE: 4 views FINDINGS: There is vascular calcification. The knee joint and ankle joint appear intact. I see no fra cture nor dislocation. IMPRESSION: No acute abnormality of the left tibia and fibula.
[2017-11-09] MEDS ORDERED: DIPH,PERTUS(ACELL)TETVAC-LF 0.5 ML VIAL IM ONE (00:30)
== END 2017-11-09 01:17 | disposition home or self-care (01) ==
LOC: EC 22:19
DX: S01.01XA Laceration without foreign body of scalp, initial encounter (principal); R40.2410 Glasgow coma scale score 13-15, unspecified time; E78.5 Hyperlipidemia, unspecified; I25.2 Old myocardial infarction; F03.90 Unspecified dementia, unspecified severity, without behavioral disturbance, psychotic disturbance, mood disturbance, and anxiety; G20 Parkinson's disease; N42.9 Disorder of prostate, unspecified; Z23 Encounter for immunization; Z86.73 Personal history of transient ischemic attack (TIA), and cerebral infarction without residual deficits; Z79.01 Long term (current) use of anticoagulants; Z79.899 Other long term (current) drug therapy; Z88.1 Allergy status to other antibiotic agents; Z88.5 Allergy status to narcotic agent; W01.10XA Fall on same level from slipping, tripping and stumbling with subsequent striking against unspecified object, initial encounter
CPT/HCPCS: 12002; 36415; 70450; 72125; 80053; 82550; 82553; 83880; 84484; 85025; 85610; 85730; 90471; 90715; 93005; 99284; 99285

== ENCOUNTER 2018-01-12 09:12 | Observation (INO) | payer MEDICARE ==
--- NOTE | 2018-01-12 09:34 | ED ---
General Adult HPI - General Chief complaint: Chest Pain Stated complaint: Fall Time Seen by Provider: 01/12/18 09:25 Source: patient, family, RN notes reviewed, old records reviewed Mode of arrival: wheelchair Limitations: no limitations - History of Present Illness Initial comments: 82-year-old male presents emergency Department chief complaint fall yesterday at 12:30 in the morning. He thought it was time to get up and get ready. Does have history of dementia and stroke. Patient fell and landed on his left ribs and is complaining of left rib pain with taking a deep breath. Denies any head injury or other injury related to this fall. He did sleep last night and the ground this morning was complaining of increased pain so his brought him here.Patient denies any recent fever, chills, shortness of breath, chest pain, back pain, abdominal pain, nausea vomiting, numbness or tingling, dysuria or hematuria, constipation or diarrhea, headaches or visual changes, or any other current symptoms - Related Data Home Medications Medication Instructions Recorded Confirmed Apixaban [Eliquis] 2.5 mg PO HS 11/02/15 01/12/18 Omeprazole [PriLOSEC] 20 mg PO DAILY 02/08/17 01/12/18 Lisinopril [Zestril] 5 mg PO BID 07/05/17 01/12/18 Furosemide [Lasix] 20 mg PO DAILY 08/11/17 01/12/18 Metolazone [Zaroxolyn] 2.5 mg PO Q48H 08/11/17 01/12/18 Atorvastatin Calcium [Lipitor] 20 mg PO DAILY 09/17/17 01/12/18 LORazepam [Ativan] 1 mg PO BID PRN 09/17/17 01/12/18 Metoprolol Tartrate [Lopressor] 100 mg PO HS 09/17/17 01/12/18 Metoprolol Tartrate [Lopressor] 50 mg PO DAILY 09/29/17 01/12/18 traMADol HCL [Ultram] 50 mg PO Q4HR PRN 09/29/17 01/12/18 Carbidopa-Levodopa 25-100 mg 1 tab PO TID 11/08/17 01/12/18 [Sinemet 25-100] Mirabegron [Myrbetriq] 50 mg PO DAILY 11/08/17 01/12/18 Tamsulosin HCl [Flomax] 0.4 mg PO DAILY 11/08/17 01/12/18 Triamcinolone 0.1% Cream [Kenalog] 1 applic TOPICAL DAILY 11/08/17 01/12/18 Allergies Allergy/AdvReac Type Severity Reaction Status Date / Time gentamicin [Gentamicin] AdvReac loss of Verified 01/12/18 09:22 balance/numbness hydrocodone [From [place]] AdvReac Confusion Verified 01/12/18 09:22 Review of Systems ROS Statement: Those systems with pertinent positive or pertinent negative responses have been documented in the HPI. ROS Other: All systems not noted in ROS Statement are negative. Past Medical History Past Medical History: CVA/TIA, GI Bleed, Hyperlipidemia, Myocardial Infarction ( [place]), Prostate Disorder, Myocardial Infarction ([place]), Renal Disease Additional Past Medical History / Comment(s): early dementia, irregular heart beat, stroke per - wheelchair due to balance problems, slurred speech, swelling donna lower legs, poor circulation, fell November 2016 and injured toes on left foot-got gangrene in 3 toes, hx ulcers, parkinson's Last Myocardial Infarction Date:: 03/2011 History of Any Multi-Drug Resistant Organisms: None Reported Past Surgical History: Bowel Resection, Cardiac Valve Replacement, Heart Catheterization With Stent, Orthopedic Surgery Additional Past Surgical History / Comment(s): hand sx right thumb partial amputation d/t work injury, donna cataracts, hemorrhoidectomy x3, gastric surgery in 1965 for peptic ulcer disease, 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 amputation 3rd toe left foot Past Anesthesia/Blood Transfusion Reactions: No Reported Reaction Date of Last Stent Placement:: 2010 Past Psychological History: No Psychological Hx Reported Smoking Status: Never smoker Past Alcohol Use History: Occasional Past Drug Use History: None Reported - Past Family History Father History Unknown: Yes Family Medical History: Unable to Obtain Additional Family Medical History / Comment(s): FATHER AT AGE 60 OF COLON CANCER Mother History Unknown: Yes Family Medical History: Unable to Obtain Additional Family Medical History / Comment(s): Patient states "none that I know of" regarding family history General Exam - General Exam Comments Initial Comments: 82-year-old male. Alert and oriented. No significant distress. Limitations: no limitations General appearance: alert, in no apparent distress Head exam: Present: atraumatic, normocephalic, normal inspection Eye exam: Present: normal appearance, PERRL, EOMI. Absent: scleral icterus, conjunctival injection, periorbital swelling ENT exam: Present: normal exam, mucous membranes moist Neck exam: Present: normal inspection. Absent: tenderness, meningismus, lymphadenopathy Respiratory exam: Present: normal lung sounds bilaterally, chest wall tenderness (Patient has tenderness over the left ribs.), other (No bruising noted.). Absent: respiratory distress, wheezes, rales, rhonchi, stridor Cardiovascular Exam: Present: regular rate, normal rhythm, normal heart sounds. Absent: systolic murmur, diastolic murmur, rubs, gallop, clicks GI/Abdominal exam: Present: soft, normal bowel sounds. Absent: distended, tenderness, guarding, rebound, rigid Back exam: Present: normal inspection Neurological exam: Present: alert, oriented X3, CN II-XII intact Psychiatric exam: Present: normal affect, normal mood Skin exam: Present: warm, dry, intact, normal color. Absent: rash Course Vital Signs 01/12/18 01/12/18 09:19 11:38 Temperature 97.6 F Pulse Rate 67 66 Respiratory 18 16 Rate Blood Pressure 133/81 121/86 O2 Sat by Pulse 99 100 Oximetry - Reevaluation(s) Reevaluation #1: 01/12/18 09:54 At this time I did speak with the while the Patient was getting x-ray. I discussed that I signed has a history of frequent falls. She does report these been having progressive dementia. I discussed if she is searching for help for taking care of him. She states that she feels like she is managing well although it is difficult. She states that she wants to bring the Patient home. I discussed that that is appropriate and after x-ray and findings taken discharge the Patient from there. Patient agrees. I did discuss with her that he has any severe dementia or worsening symptoms she is welcome to bring him here for further evaluation and possibility of placement to an extended care facility. She does not want to go that route at this time. Reevaluation #2: 01/12/18 13:22 In approximately 11:00 I discussed the findings of multiple rib fractures. Discussed the concerns with this and wanting to make sure the Patient does not develop a pneumonia 10 spirometry and further evaluation. Patient actually agrees to be admitted at this time. The does agree to. With the trauma of the fall Patient will be admitted to trauma. Dr. Wise was informed of this at this time and accepts admission with consult to Dr. Parrish. EKG Findings - EKG Comments: EKG Findings:: EKG shows A. fib with frequent ventricular paced complexes.) A branch block. Abnormal EKG noted. Ventricular rate of 65 bpm. Detected. QRS duration 146 most seconds. QT QTc is 450/476 ms. Medical Decision Making - Medical Decision Making 82-year-old male presents emergency Department with a chief complaint of a fall this morning at 12:30 AM in the bathroom. He fell and his left ribs hit the edge of the bathtub. He has no other complaints. No head injuries. He arrives here with his . 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 The takes care of him by herself. Patient x-ray shows evidence of rib fractures 7 through 10. I discussed the concern for developing a pneumonia. Patient then agrees that he seems as if his is having a difficult time probably taking care of him and he has an increased risk for falls. He's been to the emergency department multiple times within the past few months for history of falls. I discussed case with Dr. Gramajo and we feel more comfortable making the Patient. We'll admit the Patient to trauma services due to the rib fracture and a history of fall. Consult the patient's primary care physician for the frequent falls, weakness. Does show an elevated BUN/creatinine. Patient's given IV hydration. Patient does not complain of any major pain at this time. We'll put the Patient on IV pain medication as needed. - Lab Data Result diagrams: 01/12/18 11:45 01/12/18 11:45 Lab Results 01/12/18 01/12/18 01/12/18 Range/Units 11:45 11:45 11:45 WBC 6.6 (3.8-10.6) k/uL RBC 3.65 L (4.30-5.90) m/uL Hgb 11.1 L (13.0-17.5) gm/dL Hct 33.5 L (39.0-53.0) % MCV 91.8 (80.0-100.0) fL MCH 30.3 (25.0-35.0) pg MCHC 33.0 (31.0-37.0) g/dL RDW 13.6 (11.5-15.5) % Plt Count 101 L (150-450) k/uL Neutrophils % (Manual) 70 % Lymphocytes % (Manual) 21 % Monocytes % (Manual) 6 % Eosinophils % (Manual) 3 % Neutrophils # (Manual) 4.62 (1.3-7.7) k/uL Lymphocytes # (Manual) 1.39 (1.0-4.8) k/uL Monocytes # (Manual) 0.40 (0-1.0) k/uL Eosinophils # (Manual) 0.20 (0-0.7) k/uL Nucleated RBCs 0 (0-0) /100 WBC Polychromasia Present PT (9.0-12.0) sec INR (<1.2) APTT (22.0-30.0) sec Sodium 139 (137-145) mmol/L Potassium 5.4 H (3.5-5.1) mmol/L Chloride 103 (98-107) mmol/L Carbon Dioxide 27 (22-30) mmol/L Anion Gap 9 mmol/L BUN 48 H (9-20) mg/dL Creatinine 1.30 H (0.66-1.25) mg/dL Est GFR (CKD-EPI)AfAm 59 (>60 ml/min/1.73 sqM) Est GFR (CKD-EPI)NonAf 51 (>60 ml/min/1.73 sqM) Glucose 90 (74-99) mg/dL Calcium 8.9 (8.4-10.2) mg/dL Magnesium 2.7 H (1.6-2.3) mg/dL Total Bilirubin 0.6 (0.2-1.3) mg/dL AST 34 (17-59) U/L ALT 16 L (21-72) U/L Alkaline Phosphatase 72 (38-126) U/L Total Creatine Kinase 78 (55-170) U/L CK-MB (CK-2) 1.2 (0.0-2.4) ng/mL CK-MB (CK-2) Rel Index 1.5 Troponin I <0.012 (0.000-0.034) ng/mL Total Protein 7.0 (6.3-8.2) g/dL Albumin 3.9 (3.5-5.0) g/dL Urine Color Urine Appearance (Clear) Urine pH (5.0-8.0) Ur Specific [place] (1.001-1.035) Urine Protein (Negative) Urine Glucose (UA) (Negative) Urine Ketones (Negative) Urine Blood (Negative) Urine Nitrite (Negative) Urine Bilirubin (Negative) Urine Urobilinogen (<2.0) mg/dL Ur Leukocyte Esterase (Negative) 01/12/18 01/12/18 Range/Units 11:45 11:45 WBC (3.8-10.6) k/uL RBC (4.30-5.90) m/uL Hgb (13.0-17.5) gm/dL Hct (39.0-53.0) % MCV (80.0-100.0) fL MCH (25.0-35.0) pg MCHC (31.0-37.0) g/dL RDW (11.5-15.5) % Plt Count (150-450) k/uL Neutrophils % (Manual) % Lymphocytes % (Manual) % Monocytes % (Manual) % Eosinophils % (Manual) % Neutrophils # (Manual) (1.3-7.7) k/uL Lymphocytes # (Manual) (1.0-4.8) k/uL Monocytes # (Manual) (0-1.0) k/uL Eosinophils # (Manual) (0-0.7) k/uL Nucleated RBCs (0-0) /100 WBC Polychromasia PT 11.2 (9.0-12.0) sec INR 1.2 H (<1.2) APTT 22.6 (22.0-30.0) sec Sodium (137-145) mmol/L Potassium (3.5-5.1) mmol/L Chloride (98-107) mmol/L Carbon Dioxide (22-30) mmol/L Anion Gap mmol/L BUN (9-20) mg/dL Creatinine (0.66-1.25) mg/dL Est GFR (CKD-EPI)AfAm (>60 ml/min/1.73 sqM) Est GFR (CKD-EPI)NonAf (>60 ml/min/1.73 sqM) Glucose (74-99) mg/dL Calcium (8.4-10.2) mg/dL Magnesium (1.6-2.3) mg/dL Total Bilirubin (0.2-1.3) mg/dL AST (17-59) U/L ALT (21-72) U/L Alkaline Phosphatase (38-126) U/L Total Creatine Kinase (55-170) U/L CK-MB (CK-2) (0.0-2.4) ng/mL CK-MB (CK-2) Rel Index Troponin I (0.000-0.034) ng/mL Total Protein (6.3-8.2) g/dL Albumin (3.5-5.0) g/dL Urine Color Yellow Urine Appearance Clear (Clear) Urine pH 5.0 (5.0-8.0) Ur Specific [place] 1.012 (1.001-1.035) Urine Protein Negative (Negative) Urine Glucose (UA) Negative (Negative) Urine Ketones Negative (Negative) Urine Blood Negative (Negative) Urine Nitrite Negative (Negative) Urine Bilirubin Negative (Negative) Urine Urobilinogen <2.0 (<2.0) mg/dL Ur Leukocyte Esterase Negative (Negative) - Radiology Data Radiology results: report reviewed Minimally displaced fractures of the left anterior lateral seventh through 10th ribs are suggested old healed rib fracture the left lateral second ribs through 6 ribs. Chronic changes in the chest without acute process. Disposition Clinical Impression: Ribs, multiple fractures, Weakness, Frequent falls Disposition: ADMITTED IP TO THIS [facility] Condition: Stable Is patient prescribed a controlled substance at d/c from ED?: No When asked, does pt state using other controlled substances?: No If prescribed controlled substance>3 days was MAPS reviewed?: No If opioid is for acute pain is fill amount 7 days or less?: No If Rx opioid, was Start Talking consent form obtained?: No Referrals: Ed Parrish MD [Primary Care Provider] - 1-2 days Time of Disposition: 13:25
--- NOTE | 2018-01-12 10:13 | XR ---
EXAMINATION TYPE: PA chest and left rib series DATE OF EXAM: 01/12/2018 COMPARISON: 11/08/2017 HISTORY: 82-year-old male left-sided rib pain from fall TECHNIQUE: 5 views FINDINGS: Left anterior chest wall pacemaker generator with right ventricular lead. Endovascular aortic valve r eplacement. Heart upper limits of normal in size. Atherosclerotic arch calcifications. Mild diffuse i nterstitial prominence of the chronic appearance. No consolidation, pneumothorax, or pleural effusion . Old healed rib fracture deformities of the left lateral second through sixth ribs. However, there are acute mildly displaced rib fractures involving the a left anterolateral seventh through 10th ribs jean baptiste ggested. IMPRESSION: Minimally displaced fractures of the left anterolateral seventh through 10th ribs are suggested. Old healed rib fractures left lateral second through sixth ribs. Chronic changes in the chest without acute process seen.
[2018-01-12] MEDS ORDERED: SODIUM CHLORIDE 0.9% 1,000 ML IV STA ×2 (10:59)
[2018-01-12 12:07] LABS: HCT 33.5 % (39.0-53.0); HGB 11.1 gm/dL (13.0-17.5); MCH 30.3 pg (25.0-35.0); MCV 91.8 fL (80.0-100.0); Mean Platelet Volume 7.1; Platelet Count 101 k/uL (150-450); RBC 3.65 m/uL (4.30-5.90); RDW 13.6 % (11.5-15.5); WBC 6.6 k/uL (3.8-10.6)
[2018-01-12 12:09] LABS: Appearance,Urine Clear (Clear); Bilirubin,Urine Negative (Negative); Blood,Urine Negative (Negative); Color,Urine Yellow; Glucose,Urine (UA) Negative (Negative); Ketones,Urine Negative (Negative); Leukocyte Esterase,Urine Negative (Negative); Nitrite,Urine Negative (Negative); Protein,Urine Negative (Negative); Specific Gravity,Urine 1.012 (1.001-1.035); Urobilinogen,Urine <2.0 mg/dL (<2.0)
[2018-01-12 12:16] LABS: Albumin 3.9 g/dL (3.5-5.0); Calcium 8.9 mg/dL (8.4-10.2); Total Bilirubin 0.6 mg/dL (0.2-1.3)
[2018-01-12 12:21] LABS: INR 1.2 (<1.2); Partial Thromboplastin Time 22.6 sec (22.0-30.0); Prothrombin Time 11.2 sec (9.0-12.0)
[2018-01-12 12:24] LABS: Potassium 5.4 mmol/L (3.5-5.1)
[2018-01-12 12:25] LABS: Magnesium 2.7 mg/dL (1.6-2.3)
[2018-01-12 12:29] LABS: Lymphocytes # (M) 1.39 k/uL (1.0-4.8); Neutrophils # (M) 4.62 k/uL (1.3-7.7); Neutrophils % (M) 70 %; Nucleated Red Blood Cells 0 /100 WBC (0-0); Polychromasia Present; Total Cells Counted 100
[2018-01-12 12:30] LABS: Creatine Kinase 78 U/L (55-170)
[2018-01-12 12:43] LABS: Creatine Kinase MB 1.2 ng/mL (0.0-2.4); Troponin I <0.012 ng/mL (0.000-0.034)
[2018-01-12] MEDS ORDERED: Acetaminophen-Codeine 300-30mg TAB PO PRN (13:26)
[2018-01-12] MEDS ORDERED: ACETAMINOPHEN TAB 325 MG TAB PO PRN (13:26)
[2018-01-12] MEDS ORDERED: MORPHINE SULFATE 2 MG/ML SYRINGE IV PRN ×2 (13:26→17:34)
[2018-01-12] MEDS ORDERED: ONDANSETRON 4 MG/2 ML VIAL IVP PRN (13:26)
[2018-01-12] MEDS ORDERED: ALPRAZolam 0.25 MG TAB PO PRN (13:26)
[2018-01-12] MEDS ORDERED: IBUPROFEN 400 MG TAB PO PRN (13:26)
[2018-01-12] MEDS ORDERED: NALOXONE 0.4 MG/ML 1 ML VIAL IV PRN (13:26)
[2018-01-12] MEDS ORDERED: LORazepam 1 MG TAB PO PRN (13:29)
[2018-01-12] MEDS ORDERED: traMADol 50 MG TAB PO PRN (13:29)
[2018-01-12] MEDS ORDERED: SODIUM CHLORIDE 0.9% 1,000 ML IV SCH (13:30)
[2018-01-12 15:47] VITALS: RESP 16
[2018-01-12 17:37] VITALS: BMI 25.2
--- NOTE | 2018-01-12 17:43 | P.GSHP ---
History of Present Illness H&P Date: 01/12/18 82-year-old male presents to the emergency department after a recent fall. He has a history of baseline dementia and his states that he woke up at 12:30 in the morning and was attempting to get ready for the day in the bathroom. She states that he does wake up occasionally throughout the night and is unaware of what he is doing. He apparently fell outside of his bathtub and hit the left side of his chest. He was having pain at that site and was unable to return to sleep. He denied any nausea vomiting. He denies hitting his head. He does not have any obvious trauma to his head. He states that he does have chest pain with coughing along the site of trauma. Chest and rib x-rays were performed in the emergency department and findings of left-sided rib fractures were noted from ribs 7 through 10. He denies any shortness of breath or difficulty with breathing. He has no additional complaints at this time. His is with him at bedside. - Review of Systems All systems: negative Past Medical History Past Medical History: CVA/TIA, GI Bleed, Hyperlipidemia, Myocardial Infarction ( [place]), Prostate Disorder, Myocardial Infarction ([place]), Renal Disease Additional Past Medical History / Comment(s): early dementia, irregular heart beat, stroke per - wheelchair due to balance problems, slurred speech, swelling donna lower legs, poor circulation, fell November 2016 and injured toes on left foot-got gangrene in 3 toes, hx ulcers, parkinson's Last Myocardial Infarction Date:: 03/2011 History of Any Multi-Drug Resistant Organisms: None Reported Past Surgical History: Bowel Resection, Cardiac Valve Replacement, Heart Catheterization With Stent, Orthopedic Surgery Additional Past Surgical History / Comment(s): hand sx right thumb partial amputation d/t work injury, donna cataracts, hemorrhoidectomy x3, gastric surgery in 1965 for peptic ulcer disease, 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 amputation 3rd toe left foot Past Anesthesia/Blood Transfusion Reactions: No Reported Reaction Date of Last Stent Placement:: 2010 Past Psychological History: No Psychological Hx Reported Smoking Status: Never smoker Past Alcohol Use History: Occasional Past Drug Use History: None Reported - Past Family History Father History Unknown: Yes Family Medical History: Unable to Obtain Additional Family Medical History / Comment(s): FATHER AT AGE 60 OF COLON CANCER Mother History Unknown: Yes Family Medical History: Unable to Obtain Additional Family Medical History / Comment(s): Patient states "none that I know of" regarding family history Medications and Allergies Home Medications Medication Instructions Recorded Confirmed Type Apixaban [Eliquis] 2.5 mg PO HS 11/02/15 01/12/18 History Omeprazole [PriLOSEC] 20 mg PO Q48H 02/08/17 01/12/18 History Lisinopril [Zestril] 5 mg PO BID 07/05/17 01/12/18 History Metolazone [Zaroxolyn] 2.5 mg PO Q48H 08/11/17 01/12/18 History Atorvastatin Calcium [Lipitor] 20 mg PO DAILY 09/17/17 01/12/18 History LORazepam [Ativan] 1 mg PO HS PRN 09/17/17 01/12/18 History Metoprolol Tartrate [Lopressor] 100 mg PO HS 09/17/17 01/12/18 History Metoprolol Tartrate [Lopressor] 50 mg PO DAILY 09/29/17 01/12/18 History Acetaminophen Tab [Tylenol Tab] 650 mg PO Q8HR PRN 01/12/18 01/12/18 History Carbidopa-Levodopa 10-100 mg 1 tab PO QID 01/12/18 01/12/18 History [Sinemet 10-100] Divalproex Sodium [Depakote] 500 mg PO HS 01/12/18 01/12/18 History Furosemide [Lasix] 40 mg PO BID 01/12/18 01/12/18 History Vitamin B Complex 1 cap PO DAILY 01/12/18 01/12/18 History Allergies Allergy/AdvReac Type Severity Reaction Status Date / Time gentamicin [Gentamicin] AdvReac loss of Verified 01/12/18 14:16 balance/numbness hydrocodone [From [place]] AdvReac Confusion Verified 01/12/18 14:16 Surgical - Exam Osteopathic Statement: *. No significant issues noted on an osteopathic structural exam other than those noted in the History and Physical/Consult. Vital Signs Temp Pulse Resp BP Pulse Ox 97.6 F 67 18 133/81 99 01/12/18 09:19 01/12/18 09:19 01/12/18 09:19 01/12/18 09:19 01/12/18 09:19 - General no distress - Eyes normal ocular movement - ENT normal mucosa, decreased hearing - Neck trachea midline - Respiratory Normal expansion, no difficulty with respiration - Abdomen Soft, nontender, nondistended, no rebound, no guarding - Neurologic Generalized weakness - Psychiatric oriented to person, oriented to place Results - Labs 01/12/18 11:45 01/12/18 11:45 Abnormal Lab Results - Last 24 Hours (Table) 01/12/18 01/12/18 01/12/18 Range/Units 11:45 11:45 11:45 RBC 3.65 L (4.30-5.90) m/uL Hgb 11.1 L (13.0-17.5) gm/dL Hct 33.5 L (39.0-53.0) % Plt Count 101 L (150-450) k/uL INR 1.2 H (<1.2) Potassium 5.4 H (3.5-5.1) mmol/L BUN 48 H (9-20) mg/dL Creatinine 1.30 H (0.66-1.25) mg/dL Magnesium 2.7 H (1.6-2.3) mg/dL ALT 16 L (21-72) U/L Diabetes panel 01/12/18 Range/Units 11:45 Sodium 139 (137-145) mmol/L Potassium 5.4 H (3.5-5.1) mmol/L Chloride 103 (98-107) mmol/L Carbon Dioxide 27 (22-30) mmol/L BUN 48 H (9-20) mg/dL Creatinine 1.30 H (0.66-1.25) mg/dL Glucose 90 (74-99) mg/dL Calcium 8.9 (8.4-10.2) mg/dL AST 34 (17-59) U/L ALT 16 L (21-72) U/L Alkaline Phosphatase 72 (38-126) U/L Total Protein 7.0 (6.3-8.2) g/dL Albumin 3.9 (3.5-5.0) g/dL Calcium panel 01/12/18 Range/Units 11:45 Calcium 8.9 (8.4-10.2) mg/dL Albumin 3.9 (3.5-5.0) g/dL Pituitary panel 01/12/18 Range/Units 11:45 Sodium 139 (137-145) mmol/L Potassium 5.4 H (3.5-5.1) mmol/L Chloride 103 (98-107) mmol/L Carbon Dioxide 27 (22-30) mmol/L BUN 48 H (9-20) mg/dL Creatinine 1.30 H (0.66-1.25) mg/dL Glucose 90 (74-99) mg/dL Calcium 8.9 (8.4-10.2) mg/dL Adrenal panel 01/12/18 Range/Units 11:45 Sodium 139 (137-145) mmol/L Potassium 5.4 H (3.5-5.1) mmol/L Chloride 103 (98-107) mmol/L Carbon Dioxide 27 (22-30) mmol/L BUN 48 H (9-20) mg/dL Creatinine 1.30 H (0.66-1.25) mg/dL Glucose 90 (74-99) mg/dL Calcium 8.9 (8.4-10.2) mg/dL Total Bilirubin 0.6 (0.2-1.3) mg/dL AST 34 (17-59) U/L ALT 16 L (21-72) U/L Alkaline Phosphatase 72 (38-126) U/L Total Protein 7.0 (6.3-8.2) g/dL Albumin 3.9 (3.5-5.0) g/dL Assessment and Plan (1) Ribs, multiple fractures Narrative/Plan: 82-year-old male status post fall from standing, multiple left-sided rib fracture - Aggressive pulmonary toilet, incentive spirometer is at bedside, I did explain used to the patient and nursing is aware to have patient perform every hour. The patient and the patient's are aware that this is to prevent any pneumonia. - Pain control with Lidoderm patch to the affected area, muscle relaxer, narcotic pain medication - Regular diet - Medical consultation is placed, appreciate recommendations for patient's chronic comorbidities - Will discuss with medical team about placement due to patient's ongoing dementia and possible inability for to take care of patient at home. Current Visit: Yes Status: Acute Code(s): S22.49XA - MULTIPLE FRACTURES OF RIBS, UNSP SIDE, INIT FOR CLOS FX SNOMED Code(s): 1937819
[2018-01-12] MEDS: METHOCARBAMOL 500 MG TAB PO SCH ×2 (19:12→23:55)
[2018-01-12] MEDS: CARBIDOPA-LEVODOPA 25-100 MG 1 EACH TAB PO SCH ×2 (19:12→23:55)
[2018-01-12] MEDS: LIDOCAINE 5% PATCH TOPICAL SCH (19:14)
[2018-01-12] MEDS: LISINOPRIL 5 MG TAB PO SCH (20:19)
[2018-01-12] MEDS ORDERED: APIXABAN 2.5 MG TABLET PO SCH (21:00)
[2018-01-12] MEDS ORDERED: METOPROLOL TARTRATE 50 MG TAB PO SCH (21:00)
[2018-01-13] MEDS ORDERED: PANTOPRAZOLE 40 MG TABLET PO SCH (07:30)
[2018-01-13] MEDS ORDERED: PANTOPRAZOLE 40 MG/10 ML VIAL IV SCH (09:00)
[2018-01-13] MEDS ORDERED: TAMSULOSIN 0.4 MG CAP.ER.24H PO SCH (09:00)
[2018-01-13] MEDS ORDERED: METOPROLOL TARTRATE 50 MG TAB PO SCH (09:00)
[2018-01-13] MEDS ORDERED: FUROSEMIDE 20 MG TAB PO SCH (09:00)
[2018-01-13] MEDS ORDERED: ATORVASTATIN 20 MG TAB PO SCH (09:00)
[2018-01-13 09:39] VITALS: BP 170/87; PULSE 100; TEMP 98.3
[2018-01-13] MEDS: LISINOPRIL 5 MG TAB PO SCH (09:49)
[2018-01-13] MEDS: CARBIDOPA-LEVODOPA 25-100 MG 1 EACH TAB PO SCH (09:50)
[2018-01-13] MEDS: METHOCARBAMOL 500 MG TAB PO SCH (09:51)
--- NOTE | 2018-01-13 10:36 | P.DS ---
Providers Date of admission: 01/12/18 13:26 Attending physician: Jovanny Wise DO Consults: 01/12/18 13:26 Consult Physician Stat Consulting Provider: Ed Parrish Reason/Comments: Frequent falls, rib fracture Do you want consulting provider notified?: Yes Primary care physician: Ed Parrish - Discharge Diagnosis(es) (1) Ribs, multiple fractures Current Visit: Yes Status: Acute Hospital Course: 81-year-old male presented to the emergency department due to a recent fall. He was having left-sided chest pain and on workup was found to have multiple rib fractures. He was admitted as a trauma evaluation and for observation due to weakness after fall. On admission, the patient was started on aggressive pulmonary toilet with incentive spirometry. He continued to perform with the incentive spirometry multiple times every hour. He states that his first day after admission that his pain is improved. He is continued on Lidoderm patches and Robaxin as necessary. I did discuss the case with the patient's primary care physician and the family is not interested in any nursing facility at this time. He is to be discharged home with . If any additional falls occur, the patient is to return to the emergency department. Patient Condition at Discharge: Stable Plan - Discharge Summary New Discharge Prescriptions: New Ibuprofen [Motrin] 400 mg PO Q6HR PRN #20 tab PRN Reason: Pain Lidocaine 5% Patch [Lidoderm 5% Patch] 1 patch TOPICAL DAILY #5 patch Methocarbamol [Robaxin] 500 mg PO QID #20 tab Continue Apixaban [Eliquis] 2.5 mg PO HS Omeprazole [PriLOSEC] 20 mg PO Q48H Lisinopril [Zestril] 5 mg PO BID Metolazone [Zaroxolyn] 2.5 mg PO Q48H Atorvastatin Calcium [Lipitor] 20 mg PO DAILY Metoprolol Tartrate [Lopressor] 100 mg PO HS LORazepam [Ativan] 1 mg PO HS PRN PRN Reason: Anxiety Metoprolol Tartrate [Lopressor] 50 mg PO DAILY Vitamin B Complex 1 cap PO DAILY Furosemide [Lasix] 40 mg PO BID Divalproex Sodium [Depakote] 500 mg PO HS Carbidopa-Levodopa 10-100 mg [Sinemet 10-100 mg] 1 tab PO QID Acetaminophen Tab [Tylenol] 650 mg PO Q8HR PRN PRN Reason: Pain Discharge Medication List Apixaban [Eliquis] 2.5 mg PO HS 11/02/15 [History] Omeprazole [PriLOSEC] 20 mg PO Q48H 02/08/17 [History] Lisinopril [Zestril] 5 mg PO BID 07/05/17 [History] Metolazone [Zaroxolyn] 2.5 mg PO Q48H 08/11/17 [History] Atorvastatin Calcium [Lipitor] 20 mg PO DAILY 09/17/17 [History] LORazepam [Ativan] 1 mg PO HS PRN 09/17/17 [History] Metoprolol Tartrate [Lopressor] 100 mg PO HS 09/17/17 [History] Metoprolol Tartrate [Lopressor] 50 mg PO DAILY 09/29/17 [History] Acetaminophen Tab [Tylenol] 650 mg PO Q8HR PRN 01/12/18 [History] Carbidopa-Levodopa 10-100 mg [Sinemet 10-100 mg] 1 tab PO QID 01/12/18 [History] Divalproex Sodium [Depakote] 500 mg PO HS 01/12/18 [History] Furosemide [Lasix] 40 mg PO BID 01/12/18 [History] Vitamin B Complex 1 cap PO DAILY 01/12/18 [History] Ibuprofen [Motrin] 400 mg PO Q6HR PRN #20 tab 01/13/18 [Rx] Lidocaine 5% Patch [Lidoderm 5% Patch] 1 patch TOPICAL DAILY #5 patch 01/13/18 [ Rx] Methocarbamol [Robaxin] 500 mg PO QID #20 tab 01/13/18 [Rx] Follow up Appointment(s)/Referral(s): Ed Parrish MD [Primary Care Provider] - 1-2 days Activity/Diet/Wound Care/Special Instructions: Continue regular activity Continue with incentive spirometry every hour Take pain medication as necessary. Place lidocaine patches over the affected area as necessary If patient has continued episodes of falling, please return to the emergency department Discharge Disposition: HOME SELF-CARE
--- NOTE | 2018-01-13 11:49 | CONS ---
CONSULTATION DATE OF SERVICE: 01/12/2018. CHIEF COMPLAINT: Consultation requested by Dr. Wise for medical management. HISTORY OF PRESENT ILLNESS: This is an 82-year-old gentleman was admitted to the hospital after being brought to the emergency room for having some chest pain. The pain is on the left lower anterior chest. The patient apparently fell about 12:30 in the night. He got up to get ready for breakfast. He did not realize it was 12:30 in the night. He tripped and fell. The patient hurt his chest area. Denied any hitting of the head. The patient was evaluated in the emergency room including x-rays of the chest. The patient has a history of multiple falls. He has a chronic ataxia. He has had numerous falls over the past couple years. He has been advised to not do any walking and to use an electrified mobile wheelchair. However, he declines using any of those. He does use a walker at home. The patient has some degree of dementia. He has ataxia related to previous significant vestibular damage from aminoglycosides many years ago. The patient has a history of chronic atrial fibrillation on anticoagulation. He has had previous strokes. He has had congestive cardiac failure. He has had a previous aortic valve replacement by TAVR. The patient has a history of episodes of congestive cardiac failure. None at present. He is doing fairly well at this time. He is his usual mental status. PAST MEDICAL HISTORY: Significant for as mentioned above. History of chronic atrial fibrillation. Coronary artery disease. Aortic stenosis post surgery. 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 History of BPH with urinary frequency. Degenerative arthritis, chronic ataxia, mild COPD, oropharyngeal dysphagia, previous CVA. Also had an infection of the left foot. PAST SURGICAL HISTORY: Significant for amputation of the left 3rd, 4th toes and metatarsal area. Right brachial artery embolectomy, TAVR. PERSONAL HISTORY: Ex-smoker. Alcohol heavy in the past. ALLERGIES: SENSITIVE TO [place], CAUSES HIM TO FEEL CONFUSED. MEDICATIONS: Medications at home include metoprolol tartrate 100 mg at bedtime. Vitamin B complex 1 daily. Omeprazole 20 mg daily. Metoprolol 50 mg in the morning. Zaroxolyn 2.5 mg every other day, Zestril 5 mg b.i.d., Lasix 40 mg b.i.d., q.h.s., carbidopa levodopa 1 q.i.d., atorvastatin 20 mg daily, Eliquis 2.5 mg daily, Tylenol p.r.n., Flomax 0.4 daily, Myrbetriq 50 mg daily. SOCIAL HISTORY: Patient is , lives with his spouse. FAMILY MEDICAL HISTORY: One son who has a history of type 1 diabetes mellitus and has had pancreatic transplant. REVIEW OF SYSTEMS: NEURO: Denies any headaches, dizziness. No double vision or blurred vision. No symptoms of TIA, syncope or seizures. Does have a history of chronic ataxia. PSYCH: Cognitive impairment. CARDIAC: No chest pain, angina, palpitations. RESPIRATORY: Denies shortness of breath, cough. Present complaint of chest pain left chest with coughing. GI no nausea, vomiting, abdominal pain, diarrhea, constipation, hematochezia, melena. no symptoms of dysuria, hematuria. Does have frequency, urgency. EXTREMITIES no pain. Does have mild chronic edema. CONSTITUTIONAL: No fever or chills. SKIN: Chronic venous stasis changes lower extremities. MUSCULOSKELETAL: No significant arthritic symptoms. PHYSICAL EXAMINATION: GENERAL: Elderly gentleman who appears in no distress. VITAL SIGNS: Vital signs revealed: Temperature 97.6 6, pulse 70, respirations 18, blood pressure 120/56, pulse ox 96% 2 L. HEENT: Normocephalic. Neck no JVD. Pupils are reactive. Nostrils clear. Oral cavity is moist. NECK: Supple. Chest examination is clear to auscultation percussion. Mild generalized decreased air flow. Tenderness in the left lower ribs. CARDIAC: Normal S1, S2 with no gallops. Irregularly, irregular rhythm. Systolic murmur 2/6 left sternal border. ABDOMEN: Soft. No palpable masses. Bowel sounds normal. No organomegaly. No abdominal bruits. EXTREMITIES: Mild trace chronic edema with chronic venous stasis changes both lower extremities. NEUROLOGIC: Awake, alert, oriented to place, person. Moves both upper and lower extremities. However, has generalized increased bradykinesia, increased tone. No tremors. LABORATORY ASSESSMENT: CBC revealed a hemoglobin of 11.1, INR is 1.2. Potassium was 5.4, BUN 48, creatinine 1.3, magnesium 2.7. Electrolytes are normal. Urinalysis is unremarkable. ASSESSMENT: 1. Fall at home with left rib fractures. 2. Chronic atrial fibrillation. 3. Chronic ataxia. 4. Possible Parkinson's. 5. Coronary artery disease, stable. 6. History of aortic valve replacement. 7. Chronic kidney disease stage 3. PLAN: Continue present medical regimen. Patient's condition discussed with the patient and spouse. The patient is going to be admitted under the trauma surgeon. The patient has been pretty much stable. Continue home medications. MMODL / IJN: [id number] /
[2018-01-13] MEDS: TRIAMCINOLONE 0.1% CREAM 80 GM TUBE TOPICAL SCH ×2 (12:07→13:31)
[2018-01-13 12:13] LABS: Calcium 8.6 mg/dL (8.4-10.2); Magnesium 2.2 mg/dL (1.6-2.3)
--- NOTE | 2018-01-13 12:46 | P.PN ---
Subjective Progress Note Date: 01/13/18 Chief complaint reevaluation. History present illness: This 82-year-old gentleman was admitted to the hospital with 3 to fractures nondisplaced on the left side. The patient was admitted to the trauma physician. He has underlying history of chronic ataxia and frequent falls. The patient also has some mention. At the time of admission patient was in no distress. There was no evidence of any pneumothorax or hemothorax. The patient's pain is adequately controlled and is planned for discharge. His laboratory evaluation did reveal some dehydration with mild hyperkalemia and elevated magnesium. This morning they've been rechecked and the upper back into normal range. Patient is feeling fairly well. He is able to sit up in the bed without any pain. Patient patient has been using the inspiratory spirometer. REVIEW OF SYSTEMS: Neuro: Denies any headaches dizziness. Psych: History of mild cognitive impairment Cardiac: Denies any angina or palpitations. Has a history of chronic atrial fibrillation. Patient also has a history of pain from the chest injury controlled Respiratory: Denies shortness of breath cough. GI: Denies nausea vomiting or abdominal pain. No diarrhea or constipation, no bowel movement yet. : Positive frequency no dysuria Extremities: Denies pain. No edema Constitutional: No fever, chills. Objective - Vital Signs Vital signs: Vital Signs Temp 98.3 F 01/13/18 07:00 Pulse 100 01/13/18 07:00 Resp 16 01/13/18 07:00 BP 170/87 01/13/18 07:00 Pulse Ox 100 01/13/18 07:00 Intake & Output 01/12/18 01/13/18 01/13/18 18:59 06:59 18:59 Intake Total 120 700 Output Total 200 Balance 120 700 -200 Weight 77.564 kg Intake: Intake, IV Titration 200 Amount Sodium Chloride 0.9% 1, 200 000 ml @ 100 mls/hr IV . Q10H STA Rx#:[id number] Oral 120 500 Output: Urine 200 Other: # Voids 1 1 PHYSICAL EXAMINATION: Cooperative, at present in no acute distress. HEENT: [Neck supple. No JVD.] Chest: Clear to auscultation with generalized decreased airflow symmetrical percussion note bilaterally. Tenderness left lower ribs Cardiac: Irregularly irregular heart rate controlled [no gallops] systolic murmur 2/6 left sternal border. Abdomen:[ Soft ][bowel sounds present.] Extremities: [No edema] [no tenderness ] Neurologically: [Awake, alert, oriented to person and place with well- coordinated movements. Has generalized increase instiffness] - Labs CBC & Chem 7: 01/12/18 11:45 01/13/18 11:40 Labs: Abnormal Lab Results - Last 24 Hours (Table) 01/13/18 Range/Units 11:40 BUN 33 H (9-20) mg/dL Assessment and Plan Assessment: ASSESSMENT: 1. Chronic atrial fibrillation stable. 2. Hyperkalemia resolved. 3. Hypermagnesemia resolved. 4. Dehydration improved. 5. Acute on chronic renal failure. 6. CKD2. 7. Chronic ataxia. 8. History of frequent falls. PLAN: Continue present medical regimen patient's condition is discussed with the patient and spouse. Patient will be discharged home on Tylenol with codeine. Cautioned regarding risk of constipation. Patient will not take Motrin as is on eliquis. Patient is stable to be discharged home have discussed with the patient spouse regarding the risks of fall and prevention of falls. Had discussed with Dr. Wise regarding okay to discharge.
[2018-01-13] MEDS: LIDOCAINE 5% PATCH TOPICAL SCH (13:31)
[2018-01-14] MEDS ORDERED: METOLAZONE 2.5 MG TAB PO SCH (09:00)
== END 2018-01-13 13:29 | disposition home or self-care (01) ==
LOC: EC 09:12 → 3SUR 13:26
PROVIDERS: ADMIT Surgery; ATTEND Surgery
DX: S22.42XA Multiple fractures of ribs, left side, initial encounter for closed fracture (principal); E86.0 Dehydration; E87.5 Hyperkalemia; R29.6 Repeated falls; I48.2 Chronic atrial fibrillation; E83.41 Hypermagnesemia; N18.3 Chronic kidney disease, stage 3 (moderate); N17.9 Acute kidney failure, unspecified; F03.90 Unspecified dementia, unspecified severity, without behavioral disturbance, psychotic disturbance, mood disturbance, and anxiety; E78.5 Hyperlipidemia, unspecified; I25.2 Old myocardial infarction; G20 Parkinson's disease; F02.80 Dementia in other diseases classified elsewhere, unspecified severity, without behavioral disturbance, psychotic disturbance, mood disturbance, and anxiety; R27.0 Ataxia, unspecified; I50.9 Heart failure, unspecified; I35.0 Nonrheumatic aortic (valve) stenosis; M19.90 Unspecified osteoarthritis, unspecified site; R35.0 Frequency of micturition; J44.9 Chronic obstructive pulmonary disease, unspecified; Z87.891 Personal history of nicotine dependence; R13.12 Dysphagia, oropharyngeal phase; N40.0 Benign prostatic hyperplasia without lower urinary tract symptoms; Z91.81 History of falling; Y92.002 Bathroom of unspecified non-institutional (private) residence as the place of occurrence of the external cause; I25.10 Atherosclerotic heart disease of native coronary artery without angina pectoris; Z79.01 Long term (current) use of anticoagulants; Z86.73 Personal history of transient ischemic attack (TIA), and cerebral infarction without residual deficits; Z87.11 Personal history of peptic ulcer disease; Z88.1 Allergy status to other antibiotic agents; Z79.899 Other long term (current) drug therapy; Z88.5 Allergy status to narcotic agent; Z98.0 Intestinal bypass and anastomosis status; Z89.422 Acquired absence of other left toe(s); Z89.011 Acquired absence of right thumb; Z95.2 Presence of prosthetic heart valve; Z95.5 Presence of coronary angioplasty implant and graft; Z83.3 Family history of diabetes mellitus; Z80.0 Family history of malignant neoplasm of digestive organs; W01.0XXA Fall on same level from slipping, tripping and stumbling without subsequent striking against object, initial encounter
CPT/HCPCS: 99285 ×2; 96360 ×2; 96361 ×2; 36415; 93005; 80053; 80048; 82550; 82553; 83735 ×2; 84484; 85025; 85610; 85730; 81003; 71101; G0378 ×2

== ENCOUNTER 2018-01-24 11:35 | Inpatient (IN) | payer MEDICARE ==
[2018-01-24] MEDS ORDERED: NALOXONE 0.4 MG/ML 1 ML VIAL IV PRN (12:28)
[2018-01-24] MEDS ORDERED: NA PHOS,M-B/NA PHOS,DI-BA 133 ML ENEMA RECTAL PRN (12:40)
[2018-01-24] MEDS ORDERED: MAGNESIUM HYDROXIDE 2,400 MG/10 ML CUP PO PRN (12:40)
[2018-01-24] MEDS ORDERED: ONDANSETRON 4 MG/2 ML VIAL IVP PRN (12:40)
[2018-01-24] MEDS ORDERED: LACTATED RINGERS 1,000 ML IV SCH (12:45)
[2018-01-24 14:43] LABS: Calcium 8.6 mg/dL (8.4-10.2); Potassium 5.7 mmol/L (3.5-5.1)
[2018-01-24 14:46] LABS: HCT 33.6 % (39.0-53.0); HGB 10.6 gm/dL (13.0-17.5); MCH 29.6 pg (25.0-35.0); MCHC 31.7 g/dL (31.0-37.0); MCV 93.5 fL (80.0-100.0); Mean Platelet Volume 6.8; RBC 3.59 m/uL (4.30-5.90); RDW 13.5 % (11.5-15.5); WBC 6.8 k/uL (3.8-10.6)
[2018-01-24 14:49] LABS: Platelet Count 189 k/uL (150-450)
[2018-01-24 14:51] LABS: INR 1.2 (<1.2); Prothrombin Time 11.4 sec (9.0-12.0)
[2018-01-24 15:10] LABS: Eosinophils # (M) 0.14 k/uL (0-0.7); Lymphocytes # (M) 1.09 k/uL (1.0-4.8); Neutrophils # (M) 5.37 k/uL (1.3-7.7); Neutrophils % (M) 79 %; Nucleated Red Blood Cells 0 /100 WBC (0-0); Total Cells Counted 100
[2018-01-24] MEDS ORDERED: IV FLUID CONTINUATION 1,000 ML IV ONE (17:01)
--- NOTE | 2018-01-24 17:01 | P.HPOR ---
History of Present Illness H&P Date: 01/24/18 The patient is an 82-year-old male with multiple medical problems who is had ongoing problems with bilateral lower extremity infections. He is previously had amputations of the left third through fifth toes. The patient has been managed previously by myself and Dr. Carballo in the wound Center. The patient presented to see me over a week ago with worsening cellulitis in both of his legs and swelling and an open wound over the left second toe. I recommended oral antibiotics and follow-up in the wound Center. The patient returned to my office today for follow-up. The left toe had open drainage and surrounding erythema. Past Medical History Past Medical History: CVA/TIA, GI Bleed, Hyperlipidemia, Myocardial Infarction ( [place]), Prostate Disorder, Myocardial Infarction ([place]), Renal Disease Additional Past Medical History / Comment(s): early dementia, irregular heart beat, stroke per - wheelchair due to balance problems, slurred speech, swelling donna lower legs, poor circulation, fell November 2016 and injured toes on left foot-got gangrene in 3 toes, hx ulcers, parkinson's Last Myocardial Infarction Date:: 03/2011 History of Any Multi-Drug Resistant Organisms: None Reported Past Surgical History: Bowel Resection, Cardiac Valve Replacement, Heart Catheterization With Stent, Orthopedic Surgery Additional Past Surgical History / Comment(s): hand sx right thumb partial amputation d/t work injury, donna cataracts, hemorrhoidectomy x3, gastric surgery in 1964 for peptic ulcer disease, 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 amputation 3rd toe left foot Past Anesthesia/Blood Transfusion Reactions: No Reported Reaction Date of Last Stent Placement:: 2010 Past Psychological History: No Psychological Hx Reported Additional Psychological History / Comment(s): severe dementia Smoking Status: Never smoker Past Alcohol Use History: Occasional Additional Past Alcohol Use History / Comment(s): 2 beers daily Past Drug Use History: None Reported - Past Family History Father History Unknown: Yes Family Medical History: Unable to Obtain Additional Family Medical History / Comment(s): FATHER AT AGE 60 OF COLON CANCER Mother History Unknown: Yes Family Medical History: Unable to Obtain Additional Family Medical History / Comment(s): Patient states "none that I know of" regarding family history Medications and Allergies Home Medications Medication Instructions Recorded Confirmed Type Apixaban [Eliquis] 2.5 mg PO HS 11/02/15 01/24/18 History Omeprazole [PriLOSEC] 20 mg PO Q48H 02/08/17 01/24/18 History Lisinopril [Zestril] 5 mg PO BID 07/05/17 01/24/18 History Metolazone [Zaroxolyn] 2.5 mg PO Q48H 08/11/17 01/24/18 History Atorvastatin Calcium [Lipitor] 20 mg PO DAILY 09/17/17 01/24/18 History Metoprolol Tartrate [Lopressor] 100 mg PO HS 09/17/17 01/24/18 History Metoprolol Tartrate [Lopressor] 50 mg PO DAILY 09/29/17 01/24/18 History Acetaminophen Tab [Tylenol] 650 mg PO Q8HR PRN 01/12/18 01/24/18 History Divalproex Sodium [Depakote] 500 mg PO HS 01/12/18 01/24/18 History Vitamin B Complex 1 cap PO DAILY 01/12/18 01/24/18 History Furosemide [Lasix] 20 mg PO DAILY tab 01/13/18 01/24/18 Rx Lidocaine 5% Patch [Lidoderm 5% 1 patch TOPICAL DAILY #5 patch 01/13/18 Rx Patch] Mirabegron [Myrbetriq] 50 mg PO DAILY 01/13/18 01/24/18 Rx Tamsulosin [Flomax] 0.4 mg PO DAILY cap.er.24h 01/13/18 01/24/18 Rx Acetaminophen-Codeine 300-30mg 1 tab PO Q4HR PRN 01/24/18 01/24/18 History [Tylenol w/codeine #3] Carbidopa-Levodopa 25-100 mg 1 tab PO TID 01/24/18 01/24/18 History [Sinemet 25-100 mg] Allergies Allergy/AdvReac Type Severity Reaction Status Date / Time gentamicin [Gentamicin] AdvReac loss of Verified 01/24/18 14:25 balance/numbness hydrocodone [From [place]] AdvReac Confusion Verified 01/24/18 14:25 Physical Examination Focused exam of the lower extremities show bilateral chronic cellulitis in both legs and a diffusely swollen and erythematous left second toe with purulent drainage. Amputation sites have otherwise healed. Results - Labs Labs: Abnormal Lab Results - Last 24 Hours (Table) 01/24/18 01/24/18 01/24/18 Range/Units 13:56 13:56 13:56 RBC 3.59 L (4.30-5.90) m/uL Hgb 10.6 L (13.0-17.5) gm/dL Hct 33.6 L (39.0-53.0) % INR 1.2 H (<1.2) Sodium 148 H (137-145) mmol/L Potassium 5.7 H (3.5-5.1) mmol/L Chloride 113 H (98-107) mmol/L BUN 74 H (9-20) mg/dL Creatinine 1.52 H (0.66-1.25) mg/dL H & H 01/24/18 Range/Units 13:56 Hgb 10.6 L (13.0-17.5) gm/dL Hct 33.6 L (39.0-53.0) % Coagulation 01/24/18 Range/Units 13:56 INR 1.2 H (<1.2) Result Diagrams: 01/24/18 13:56 01/24/18 13:56 Assessment and Plan (1) Cellulitis and abscess of foot Current Visit: No Status: Acute Priority: Medium Code(s): L03.119 - CELLULITIS OF UNSPECIFIED PART OF LIMB; L02.619 - CUTANEOUS ABSCESS OF UNSPECIFIED FOOT SNOMED Code(s): 632630597 Plan: The patient is an 82-year-old male presenting with bilateral lower extremity cellulitis and an infected left second toe with purulent drainage. I recommended amputation of the second toe and admission to the hospital for IV antibiotics and follow-up with Dr. Carballo and the wound care team. Having previously undergone amputations the patient and his family understand the potential risks and complications of surgery. They provided their consent to go forward with a left second toe amputation.
--- NOTE | 2018-01-24 17:11 | P.PN ---
Progress Note - Text I spoke with Estelle Gonzales the patient's at approximately 1500 hrs. in the [facility] postop area. She understands that Mr. Gonzales will be considered a full code for the immediate perioperative period since most of the maneuvers we might undertake during anesthesia are very similar to those taken during CPR and that most of the reasons for taking those measures are readily reversible in the perioperative period.
[2018-01-24] MEDS ORDERED: PROPOFOL 10 MG/ML 20 ML VIAL IV ONE (17:28)
[2018-01-24] MEDS ORDERED: PHENYLEPHRINE-0.9% NACL SYG 1 MG/10 ML SYRINGE ONE (17:28)
[2018-01-24] MEDS ORDERED: ceFAZolin IN SWFI 2 GM/20 ML SYRINGE IVP ONE (17:30)
[2018-01-24] MEDS ORDERED: BUPIVACAINE (PF) 0.5% 30 ML VIAL SQ ONE ×2 (17:46)
--- NOTE | 2018-01-24 18:07 | P.OP ---
Date of Procedure: 01/24/18 Preoperative Diagnosis: Left second toe cellulitis and gangrenous necrosis Postoperative Diagnosis: Same Procedure(s) Performed: Left second toe invitation Anesthesia: MAC Surgeon: Holger Quiros Estimated Blood Loss (ml): 2 IV fluids (ml): 300 Pathology: none sent (left 2nd toe) Condition: stable Disposition: PACU Indications for Procedure: The patient is an 82-year-old male multiple medical problems. His previous undergone amputations for necrotic left toes. He has developed bilateral lower extremity cellulitis and gangrenous necrosis and cellulitis the left second toe. He failed to respond to oral antibiotics and I recommended an amputation of the left second toe. Having previously undergone toe amputations the family is well aware of the potential risks and complication. They provided their consent to go forward with surgery. Description of Procedure: The patient was identified and prepped holding and the correct left leg was marked with my initials. I reviewed the consent form with the patient's family and all their questions were answered. The patient was then brought back to the operating room. He was left on his gurney and a right sedation was provided. A tourniquet was applied to the proximal aspect the left leg. The left leg was then prepped and draped in standard sterile fashion. Prior to starting surgery timeout was performed identifying the correct patient, operative extremity, and procedure. The patient's leg was then elevated for 2 minutes and the tourniquet was inflated to 250 mmHg. [place] incision was marked out over the base the second toe. Skin incision was made sharply down to the skin and subcu tennis tissue. The flexor and extensor tendons were cut. The base of the proximal phalanx was circumferentially released and the toe was amputated the level of the MTP joint. The tendons were retracted, cut and allowed to retract within the wound. The wound appeared clean. The wound was copiously irrigated. The deep subcu was reapproximated using 3-0 Monocryl. The skin was closed using 3-0 nylon horizontal mattress stitches. The tourniquet was let down for total tourniquet time of 3 minutes. A sterile dressing consisting of Betadine soaked Adaptic, 4 x 4, and web roll was applied. The patient was then awoken from his sedation and brought to PACU having to the procedure well. Plan: The patient is going to be admitted overnight for IV antibiotics, infectious disease and wound consultation, and discharge planning. In the morning the patient will be transferred to internal medicine service. He can have a dressing change on postoperative day #1. Wound care and antibiotics going forward will be under the direction of Dr. Carballo and the wound care team.
[2018-01-24] MEDS ORDERED: ACETAMINOPHEN TAB 325 MG TAB PO PRN (18:51)
[2018-01-24] MEDS: SODIUM CHLORIDE 0.9% 1,000 ML IV SCH (19:14)
[2018-01-24] MEDS: KETOROLAC 30 MG/ML 1 ML VIAL IVP SCH (20:18)
[2018-01-24] MEDS: APIXABAN 2.5 MG TABLET PO SCH (20:21)
[2018-01-25] MEDS ORDERED: ceFAZolin IN SWFI 2 GM/20 ML SYRINGE IVP SCH
[2018-01-25] MEDS ORDERED: ceFAZolin 1,000 MG in DEXTROSE/WATER 1 50ML.BAG IVPB SCH
[2018-01-25] MEDS ORDERED: ceFAZolin 2,000 MG in DEXTROSE/WATER 1 50ML.BAG IVPB SCH
[2018-01-25] MEDS: KETOROLAC 30 MG/ML 1 ML VIAL IVP SCH ×4 (00:46→18:08)
--- NOTE | 2018-01-25 07:00 | CONS ---
CONSULTATION DATE OF SERVICE: 01/24/2018. REASON FOR CONSULTATION: Left second toe infection. HISTORY OF PRESENT ILLNESS: The patient is an 82 -year-old male who apparently did have a problem with his left 2nd toe wound cellulitis in a patient who did have a previous history of amputation of his left 3rd, 4th and 5th toe. There is no clear history of any trauma. The patient has been managed in outpatient setting by Dr. Quiros and Dr. Carballo in the wound care center and was seen by Dr. Quiros in his office about a week ago with worsening cellulitis in the legs and wound to the second toe. Apparently the patient has been treated with oral antibiotic therapy. However the patient as well as his were not sure about the name of the antibiotics. The patient was seen in the office today and he was noticed to have worsening with open end drainage. The patient was advised amputation of his left second toe. Subsequently the patient has been admitted to the hospital. Infectious disease was consulted for further recommendation regarding antibiotic therapy. The patient is currently afebrile. He denies significant pain to the left foot area with minimal drainage. Denies any chest pain or shortness of breath, cough, abdominal pain, diarrhea. REVIEW OF SYSTEMS: CONSTITUTIONAL: Positive for weakness. No high-grade fever. Eyes: No complaint. ENT no complaint. Respiratory no complaint. Cardiovascular no complaint. Genitourinary no complaint. Gastrointestinal: No complaint. Musculoskeletal as per HPI. Integumentary as per HPI. PSYCHOLOGICAL: No complaint. Endocrine: No complaint. Neurologic no complaint. 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 PAST SURGICAL HISTORY: Bowel resection, heart catheterization with stent. He did have amputation of his left 3rd, 4th and 5th toes. SOCIAL HISTORY: No history of smoking. Occasionally drinks. No drug use. FAMILY HISTORY: Father of colon cancer. ALLERGIES: CLINDAMYCIN, HYDROCODONE. MEDICATIONS: The patient is currently on Tylenol, Eliquis, Lipitor, cefazolin 1 g q.8 hours, folic acid, Lasix, Toradol, Lopressor, Narcan, Zofran, Protonix, Flomax. EXAMINATION: Blood pressure is 113/61 with a pulse of 90, temperature 97. He is 97% on room air. General description is an elderly male lying in bed in no distress. No tachypnea or accessory muscle of respiration use. HEENT: Shows slight pallor. No scleral icterus. Oral mucosal membranes are dry. No significant erythema or thrush. Neck trachea central. No thyromegaly. Lungs unlabored breathing, clear to auscultation anteriorly. No wheeze or crackles. Heart S1, S2. Regular rate and rhythm. ABDOMEN: Soft, no tenderness. No rigidity. Extremities: legs with minimal swelling and did have some erythema mostly in the left leg 2nd toe with swelling. No open wound. No significant drainage. Neurological: The patient is awake, alert, and oriented times three. Mood and affect normal. LABS: Hemoglobin is 10.2, white count 6.8 with a BUN of 74, creatinine 1.52. DIAGNOSTIC IMPRESSION AND PLAN: 1. Patient with left 2nd toe wound with significant cellulitis involving the left leg area failing outpatient oral antibiotic therapy. However the patient is not clear about the antibiotic he was taking at home now with worsening cellulitis, being admitted to the hospital for left second toe amputation. Will need to cover for the gram-positive skin thelma with likely pathogen responsible for this infection. 2. Patient who does have a venous insufficiency high risk of nephrotoxicity from medications such as vancomycin. PLAN: 1. Recommending OR cultures at the time of the patient's surgical debridement both aerobic and anaerobic. 2. Cefazolin dose to be adjusted up to 2 g q.8 hours. 3. Depending upon his clinical response as well as cultures to adjust the medication further if needed. Thank you for this consultation. We will follow this patient along with you. MMODL / IJN: [id number] /
[2018-01-25] MEDS: ceFAZolin IN SWFI 2 GM/20 ML SYRINGE IVP SCH ×2 (08:23→15:09)
[2018-01-25] MEDS: CYANOCOBALAMIN-FA-PYRIDOXINE 1 EACH TAB PO SCH (08:24)
[2018-01-25] MEDS: SODIUM CHLORIDE 0.9% 1,000 ML IV SCH (08:24)
[2018-01-25] MEDS: METOPROLOL TARTRATE 50 MG TAB PO SCH ×2 (08:24→20:49)
[2018-01-25] MEDS: ATORVASTATIN 20 MG TAB PO SCH (08:24)
[2018-01-25] MEDS: TAMSULOSIN 0.4 MG CAP.ER.24H PO SCH (08:24)
[2018-01-25] MEDS: PANTOPRAZOLE 40 MG TABLET PO SCH (08:24)
[2018-01-25] MEDS: FUROSEMIDE 40 MG TAB PO SCH (08:24)
[2018-01-25 10:56] VITALS: BMI 22.8
[2018-01-25] MEDS ORDERED: traMADol 50 MG TAB PO PRN ×2 (11:33)
[2018-01-25] MEDS: DOCUSATE 100 MG CAP PO SCH ×2 (11:38→20:03)
[2018-01-25 11:51] LABS: HGB 9.2 gm/dL (13.0-17.5); MCH 29.8 pg (25.0-35.0); MCHC 31.8 g/dL (31.0-37.0); MCV 93.7 fL (80.0-100.0); Platelet Count 154 k/uL (150-450); RBC 3.09 m/uL (4.30-5.90); RDW 13.6 % (11.5-15.5); WBC 5.2 k/uL (3.8-10.6)
[2018-01-25 11:56] LABS: Albumin 2.8 g/dL (3.5-5.0); Calcium 8.4 mg/dL (8.4-10.2); Potassium 5.3 mmol/L (3.5-5.1); Total Bilirubin 0.2 mg/dL (0.2-1.3); Total Protein 5.5 g/dL (6.3-8.2)
[2018-01-25 12:21] LABS: Eosinophils # (M) 0.26 k/uL (0-0.7); Lymphocytes # (M) 0.42 k/uL (1.0-4.8); Monocytes # (M) 0.47 k/uL (0-1.0); Neutrophils # (M) 4.06 k/uL (1.3-7.7); Neutrophils % (M) 78 %; Nucleated Red Blood Cells 0 /100 WBC (0-0); Total Cells Counted 100
[2018-01-25 12:22] LABS: Poikilocytosis (M) Present
[2018-01-25] MEDS: Acetaminophen-Codeine 300-30mg TAB PO PRN (14:20)
[2018-01-25] MEDS: APIXABAN 2.5 MG TABLET PO SCH (20:49)
--- NOTE | 2018-01-25 21:14 | PN ---
PROGRESS NOTE DATE OF SERVICE: 01/25/2018. REASON FOR FOLLOWUP: Left second toe cellulitis, gangrene. INTERVAL HISTORY: The patient is status post left second toe amputation by Dr. Quiros. Patient tolerated the procedure. The patient has been afebrile. The patient denies significant pain to the left foot area. No chest pain, shortness of breath or cough. No abdominal pain. EXAMINATION: Blood pressure 102/62 with a pulse of 80, temperature 97.1. He is 100% on room air. General description is an elderly male up in the chair in no distress. RESPIRATORY SYSTEM: Unlabored breathing. Clear to auscultation anteriorly. HEART: S1, S2. Regular rate and rhythm. ABDOMEN: Soft. No tenderness. LEFT LEG: Swelling, tenderness slightly decreased. LABS: Hemoglobin 9.8, white count 5.2. BUN of 50, creatinine is 1.41. Blood culture has been positive for gram-positive cocci in chains. DIAGNOSTIC IMPRESSION AND PLAN: Patient with left second toe cellulitis and gangrene, now with gram-positive cocci in chains in the blood. Unfortunately, no blood cultures were done. Likely representing a Staphylococcal infection. The patient will be continued on the cefazolin 2 g q.8h. Blood cultures will be repeated to document clearance of his bacteremia. Continue supportive care. MMODL / IJN: [id number] /
--- NOTE | 2018-01-26 00:03 | PN ---
PROGRESS NOTE ATTENDING PHYSICIAN: Dr. Quiros. CHIEF COMPLAINT: Re-evaluation. CONSULTING PHYSICIAN: Dr. Gerard Parrish. HISTORY OF PRESENT ILLNESS: An 82-year-old was admitted to the hospital and underwent a left foot 2nd toe amputation. He has had previous 3rd, 4th and 5th toe amputations, left leg. The patient had some infection. REVIEW OF SYSTEMS: NEURO: Denies any headaches, dizziness. PSYCH: No anxiety. CARDIAC: No chest pain, angina, palpitations. RESPIRATORY: Denies shortness of breath. Does have some cough. No hemoptysis. GI: No nausea, vomiting, abdominal pain, diarrhea. : No symptoms of dysuria, hematuria. Does have frequency. Has an external catheter. EXTREMITIES: Pain in the left foot. CONSTITUTIONAL: No fever, chills. PHYSICAL EXAMINATION: Pleasant gentleman in no distress. VITAL SIGNS: Temperature 97.9, pulse 84, respirations 20, blood pressure 140/74, pulse ox 97% on room air. HEENT: Normocephalic. NECK: Decreased range of motion. No JVD. CHEST: Generalized mild decreased air flow. CARDIAC: Distant heart sounds. S1, S2 with no gallop. Systolic murmur 2/6 left sternal border. ABDOMEN: Soft. Bowel sounds present. Extremities reveal trace edema. Right leg: The patient has superficial ulcerations. Left leg at present has a dressing at the site of the amputation. Neurologically, awake, alert, oriented to person, place. Moves both upper and lower extremities with a restricted range of motion. In general has increased muscle tone. LABORATORY ASSESSMENT: CBC which revealed hemoglobin 9.2. Sodium 149, potassium 5.3, chloride 114, BUN 60, creatinine 1.41. ASSESSMENT: 1. Hypertensive cardiovascular disease. 2. Chronic atrial fibrillation. 3. Status post amputation 2nd toe secondary to infection. 4. History of frequent falls. 5. Anemia of chronic disease and acute blood loss. PLAN: The patient is stable. Continue present medical regimen. Patient's condition discussed with the patient. Prognosis guarded. The patient will be placed on some Tylenol No. 3 to control pain. He is going to require transfer to rehab. I will change the patient's IV fluids from normal saline to D5 and a half. Prognosis remains guarded. MMODL / IJN: [id number] /
[2018-01-26] MEDS: SODIUM CHLORIDE 0.9% 1,000 ML IV SCH (00:10)
[2018-01-26] MEDS: DEXTROSE 5%-0.45% NACL 1,000 ML IV SCH ×2 (00:16→13:06)
[2018-01-26] MEDS: ceFAZolin IN SWFI 2 GM/20 ML SYRINGE IVP SCH ×3 (00:45→17:12)
[2018-01-26] MEDS: KETOROLAC 30 MG/ML 1 ML VIAL IVP SCH ×4 (00:45→18:29)
--- NOTE | 2018-01-26 01:27 | CONS ---
CONSULTATION ATTENDING PHYSICIAN: Dr. Quiros. CONSULTING PHYSICIAN: Dr. Paulette Parrish. CONSULTATION DATE: 01/24/2018. DATE OF SERVICE: 01/24/2018. CHIEF COMPLAINT: Left foot infection. HISTORY OF PRESENT ILLNESS: This is an 82-year-old gentleman who was admitted to the hospital by Dr. Quiros and the patient was taken immediately for amputation of toe on his left foot. The patient has had previous 3rd, 4th and 5th toe amputated, at the present time 2nd toe was amputated. I have seen the patient in the recovery room postoperatively. The patient does have a history of trauma to the left foot. The patient has had history of falls and at other times he bangs his legs around while walking. The patient has chronic ataxia. The patient had a small superficial ulceration about a week ago, which was evaluated by Dr. Quiros. I had also seen the patient for other medical issues. The patient had recently been discharged from the hospital with fractured ribs. The patient's respiratory status has remained stable. The patient, however, BUN was elevated at 70 range and recommended increased fluid intake and decrease in diuretics. PAST MEDICAL HISTORY: Past medical history significant for coronary artery disease. Chronic atrial fibrillation. Previous TAVR. History of congestive cardiac failure. The patient also has a history of hypertension. The patient has a history of chronic ataxia with history of multiple falls, mild dementia, chronic kidney disease stage 2 and history of degenerative arthritis. He also has had a previous stroke from embolization. PAST SURGICAL HISTORY: Surgical history significant for right brachial artery thrombectomy and TAVR. PERSONAL HISTORY: Nonsmoker. Alcohol ex heavy drinker. SOCIAL HISTORY: The patient is , patient lives with family. FAMILY MEDICAL HISTORY: 2 sons, 1 son has had a history of diabetes mellitus type 1 with pancreatic transplant. He has some other consequent sequelae. REVIEW OF SYSTEMS: The patient review of systems: Neuro: Denies any headaches, dizziness. No double vision, blurred vision. No symptoms of TIA, syncope or seizures. Psych: No anxiety. Cardiac: No chest pain, angina or palpitations. Respiratory: Denies shortness of breath. Does have some cough. No hemoptysis. GI: No nausea, vomiting, chronic mild oropharyngeal dysphagia. No aspirations. No nausea, vomiting, abdominal pain, diarrhea, constipation, hematochezia, melena. : No symptoms of dysuria, hematuria. Does have frequency, urgency. Extremities: Present left foot symptoms. No symptoms of pain and infection. Constitutional: No fever or chills. PHYSICAL EXAMINATION: Pleasant gentleman at present in no distress. VITAL SIGNS: Blood pressure 110/70, heart rate of 70 and regular, afebrile, respiratory rate 20. HEENT: Normocephalic. Neck: Decreased range of motion. Pupils reactive. Nostrils are clear. Oral cavity is dry. Ears reveal no drainage. Neck reveals no JVD, carotid bruits or thyromegaly. CHEST: Clear to auscultation. Cardiac: Normal S1, S2 with no gallops. Irregular rhythm. Systolic murmur 2/6 left sternal border. ABDOMEN: Soft. Bowel sounds present. Extremities reveal chronic edema. The patient does have chronic venous stasis changes to the skin. Superficial ulcerations right lower leg. Left leg status post amputation 2nd toe, wound not inspected. NEUROLOGIC: Awake, alert, oriented to place, person. Moves both upper and lower extremities. Has some generalized stiffness. LABORATORY ASSESSMENT: CBC which revealed a hemoglobin of 10.6, white count 6.8, INR 1.2. Sodium 148, potassium 5.7, chloride 113, CO2 content 25, BUN 74, creatinine 1.52. ASSESSMENT: 1. Chronic atrial fibrillation. 2. Chronic congestive cardiac failure secondary to systolic dysfunction. 3. History of TAVR. 4. Acute on chronic renal failure. 5. Hyperkalemia. 6. Left foot infection. 7. Status post amputation 2nd toe. PLAN: The patient is stable. Continue present medical regimen. Patient's condition is discussed with the patient. Medications reviewed and reconciled. The patient's lisinopril was discontinued in view of the hyperkalemia. The patient will be continued on pain medication only if the patient needed with some Toradol. Meanwhile use some Tylenol with codeine. Patient's prognosis remains guarded. He is going to require placement at least temporarily. MMODL / IJN: [id number] /
[2018-01-26 06:25] LABS: HCT 31.1 % (39.0-53.0); HGB 10.1 gm/dL (13.0-17.5); MCH 30.1 pg (25.0-35.0); MCHC 32.5 g/dL (31.0-37.0); MCV 92.7 fL (80.0-100.0); Mean Platelet Volume 7.2; Platelet Count 162 k/uL (150-450); RBC 3.35 m/uL (4.30-5.90); RDW 13.4 % (11.5-15.5); WBC 5.8 k/uL (3.8-10.6)
[2018-01-26 06:36] LABS: Albumin 2.9 g/dL (3.5-5.0); Calcium 8.5 mg/dL (8.4-10.2); Total Bilirubin 0.2 mg/dL (0.2-1.3); Total Protein 5.9 g/dL (6.3-8.2)
[2018-01-26 06:48] LABS: Nucleated Red Blood Cells 0 /100 WBC (0-0)
[2018-01-26 06:50] LABS: Eosinophils # (M) 0.12 k/uL (0-0.7); Lymphocytes # (M) 0.87 k/uL (1.0-4.8); Monocytes # (M) 0.35 k/uL (0-1.0); Neutrophils # (M) 4.52 k/uL (1.3-7.7); Neutrophils % (M) 78 %; Total Cells Counted 200
[2018-01-26] MEDS: CYANOCOBALAMIN-FA-PYRIDOXINE 1 EACH TAB PO SCH (09:09)
[2018-01-26] MEDS: ATORVASTATIN 20 MG TAB PO SCH (09:09)
[2018-01-26] MEDS: TAMSULOSIN 0.4 MG CAP.ER.24H PO SCH (09:10)
[2018-01-26] MEDS: DOCUSATE 100 MG CAP PO SCH ×2 (09:10→21:20)
[2018-01-26] MEDS: METOPROLOL TARTRATE 50 MG TAB PO SCH ×2 (09:11→21:22)
[2018-01-26] MEDS: FUROSEMIDE 40 MG TAB PO SCH (09:11)
[2018-01-26] MEDS: Acetaminophen-Codeine 300-30mg TAB PO PRN (09:28)
--- NOTE | 2018-01-26 11:36 | P.PN ---
Subjective Progress Note Date: 01/26/18 Principal diagnosis: Infection left second toe. Status post amputation left second toe. This is an 82-year-old male who is status post amputation of the left second toe. He is stable from an orthopedic standpoint. He has no new complaints or concerns today. Vital signs are stable. Objective - Vital Signs Vital signs: Vital Signs Temp 97.0 F L 01/26/18 06:08 Pulse 95 01/26/18 06:08 Resp 16 01/26/18 06:08 BP 138/74 01/26/18 06:08 Pulse Ox 100 01/26/18 06:08 Intake & Output 01/25/18 01/26/18 01/26/18 18:59 06:59 18:59 Intake Total 240 Balance 240 Weight 70 kg Intake: Oral 240 Other: Voiding Method Incontinent Incontinent # Voids 2 2 # Bowel Movements 4 1 - Exam This is a pleasant 82-year-old male in no acute distress. His is present at bedside. Exam of the left lower extremity reveals that his incision looks good. There is no erythema. There is mild ecchymosis. There is minimal drainage on the dressing and no active drainage. New sterile dressing is applied. - Labs CBC & Chem 7: 01/26/18 06:03 01/26/18 06:03 Labs: Abnormal Lab Results - Last 24 Hours (Table) 01/25/18 01/25/18 01/26/18 Range/Units 10:57 10:57 06:03 RBC 3.09 L 3.35 L (4.30-5.90) m/uL Hgb 9.2 L 10.1 L (13.0-17.5) gm/dL Hct 29.0 L 31.1 L (39.0-53.0) % Lymphocytes # (Manual) 0.42 L 0.87 L (1.0-4.8) k/uL Sodium 149 H (137-145) mmol/L Potassium 5.3 H (3.5-5.1) mmol/L Chloride 114 H (98-107) mmol/L BUN 60 H (9-20) mg/dL Creatinine 1.41 H (0.66-1.25) mg/dL Glucose 115 H (74-99) mg/dL Total Protein 5.5 L (6.3-8.2) g/dL Albumin 2.8 L (3.5-5.0) g/dL 01/26/18 Range/Units 06:03 RBC (4.30-5.90) m/uL Hgb (13.0-17.5) gm/dL Hct (39.0-53.0) % Lymphocytes # (Manual) (1.0-4.8) k/uL Sodium 148 H (137-145) mmol/L Potassium (3.5-5.1) mmol/L Chloride 114 H (98-107) mmol/L BUN 59 H (9-20) mg/dL Creatinine 1.40 H (0.66-1.25) mg/dL Glucose (74-99) mg/dL Total Protein 5.9 L (6.3-8.2) g/dL Albumin 2.9 L (3.5-5.0) g/dL Microbiology - Last 24 Hours (Table) 01/24/18 15:35 Blood Culture Gram Stain - Preliminary Blood Blood Culture - Preliminary Alpha Hemolytic Streptococcus Assessment and Plan (1) Status post amputation of toe of left foot Current Visit: Yes Status: Acute Code(s): Z89.422 - ACQUIRED ABSENCE OF OTHER LEFT TOE(S) SNOMED Code(s): 764510764 (2) Left foot infection Current Visit: Yes Status: Acute Code(s): L08.9 - LOCAL INFECTION OF THE SKIN AND SUBCUTANEOUS TISSUE, UNSP SNOMED Code(s): 167093909 Plan: The clinical findings are discussed the patient and his . New dressing is applied today. We will transfer tending to internal medicine. We'll continue to follow peripherally.
--- NOTE | 2018-01-26 21:10 | PN ---
PROGRESS NOTE ATTENDING PHYSICIAN: Dr. Quiros. CONSULTING PHYSICIAN: Dr. Paulette Parrish. HISTORY OF PRESENT ILLNESS: This 82-year-old gentleman was admitted to the hospital with generalized debility and infection left foot. He has undergone an emergent left 2nd toe amputation. The patient is feeling better. Today is more alert. There has been no fever or chills. REVIEW OF SYSTEMS: Neuro denies any headaches or dizziness. Psych no anxiety. Cardiovascular: No chest pain, angina, palpitations. Respiratory: Denies shortness of breath, cough. GI no nausea, vomiting, abdominal pain, diarrhea. no symptoms of dysuria or hematuria. Extremities denies pain except in the left foot. The pain is better controlled. Constitutional: No fever chills. PHYSICAL EXAMINATION: Pleasant gentleman in no distress. Vital signs reveals temperature 97, pulse 95, respirations 16, blood pressure 138/74, pulse ox 100% on room air. HEENT: Normocephalic. NECK: Supple. No JVD. Decreased range of motion. CHEST: Clear to auscultation. Cardiac: Normal S1, S2 with no gallop. Irregular rhythm. Systolic murmur 2/6 at apex. ABDOMEN: Soft. Bowel sounds present. Extremities reveal no edema. Superficial ulcerations, right lower leg, left leg status post amputation of the 2nd toe and previous amputation of the 3rd, 4th, and 5th toe. Neurologically: Awake, alert, oriented to place, person. Moves both upper extremities adequately. LABORATORY ASSESSMENT: CBC which reveals hemoglobin 10.1, white count is normal. Sodium 148, chloride 114, BUN 59, creatinine 1.4 0.9. ASSESSMENT: 1. Anemia, chronic and secondary to acute blood loss. 2. Acute on chronic renal failure. 3. Chronic kidney disease 2. 4. Status post amputation left 2nd toe secondary to recent infection. 5. Chronic atrial fibrillation. 6. ASHD. 7. Previous history of TAVR. PLAN: The patient is stable. Continue present medical regimen. Patient's condition is discussed with the patient. Prognosis remains guarded. Condition discussed with the spouse. The patient is going to require nursing facility rehab. MMODL / IJN: [id number] /
[2018-01-26] MEDS: APIXABAN 2.5 MG TABLET PO SCH (21:21)
[2018-01-27] MEDS: ceFAZolin IN SWFI 2 GM/20 ML SYRINGE IVP SCH ×2 (00:20→09:19)
[2018-01-27] MEDS: KETOROLAC 30 MG/ML 1 ML VIAL IVP SCH ×4 (00:20→18:42)
[2018-01-27] MEDS: DEXTROSE 5%-0.45% NACL 1,000 ML IV SCH ×2 (03:06→10:31)
--- NOTE | 2018-01-27 03:34 | PN ---
PROGRESS NOTE DATE OF SERVICE: 01/26/2018. REASON FOR FOLLOWUP: Left second toe wound cellulitis. INTERVAL HISTORY: The patient is afebrile, has been breathing comfortably. Denies having any chest pain or cough. No abdominal pain and no diarrhea. EXAMINATION: Blood pressure 101/58 with a pulse of 78, temperature 97.5. He is 97% on room air. General description is an elderly male lying in bed in no distress. Respiratory system: Unlabored breathing, clear to auscultation anteriorly. Heart S1, S2. Regular rate and rhythm. Abdomen soft, no tenderness. LABS: Hemoglobin is 10.1, white count 5.8, BUN 15 and creatinine 1.40. Blood culture with Enterococcus. DIAGNOSTIC IMPRESSION AND PLAN: Patient with left second toe wound with cellulitis status post amputation. Blood culture with currently covered with Cefazolin. Follow up blood culture has been ordered. Continue supportive care. MMODL / IJN: [id number] /
[2018-01-27] MEDS: DOCUSATE 100 MG CAP PO SCH ×2 (09:20→23:14)
[2018-01-27] MEDS: PANTOPRAZOLE 40 MG TABLET PO SCH (09:20)
[2018-01-27] MEDS: METOPROLOL TARTRATE 50 MG TAB PO SCH ×2 (09:20→23:12)
[2018-01-27] MEDS: FUROSEMIDE 40 MG TAB PO SCH (09:20)
[2018-01-27] MEDS: ATORVASTATIN 20 MG TAB PO SCH (09:20)
[2018-01-27] MEDS: TAMSULOSIN 0.4 MG CAP.ER.24H PO SCH (09:21)
[2018-01-27] MEDS: CYANOCOBALAMIN-FA-PYRIDOXINE 1 EACH TAB PO SCH (09:21)
--- NOTE | 2018-01-27 10:48 | P.PN ---
Subjective Progress Note Date: 01/27/18 Principal diagnosis: Infection left second toe. Status post amputation left second toe. This is an 82-year-old male who is status post amputation of the left second toe. He is stable from an orthopedic standpoint. He has no new complaints or concerns today. Vital signs are stable. Objective - Vital Signs Vital signs: Vital Signs Temp 98.2 F 01/27/18 05:56 Pulse 85 01/27/18 05:56 Resp 14 01/27/18 05:56 BP 134/79 01/27/18 05:56 Pulse Ox 99 01/27/18 05:56 Intake & Output 01/26/18 01/27/18 01/27/18 18:59 06:59 18:59 Intake Total 240 Output Total 100 Balance 140 Intake: Oral 240 Output: Urine 100 Other: Voiding Method Incontinent Incontinent # Voids 2 # Bowel Movements 2 - Exam This is a pleasant 82-year-old male in no acute distress. Exam of the left lower extremity reveals that his dressing is intact. No drainage noted on the dressing. He is able to wiggle his great toe without difficulty. - Labs CBC & Chem 7: 01/26/18 06:03 01/26/18 06:03 Labs: Microbiology - Last 24 Hours (Table) 01/25/18 20:52 Blood Culture - Preliminary Blood No Growth after 24 hours 01/24/18 15:35 Blood Culture Gram Stain - Final Blood Blood Culture - Final Viridans streptococcus group Assessment and Plan (1) Status post amputation of toe of left foot Current Visit: Yes Status: Acute Code(s): Z89.422 - ACQUIRED ABSENCE OF OTHER LEFT TOE(S) SNOMED Code(s): 588009047 (2) Left foot infection Current Visit: Yes Status: Acute Code(s): L08.9 - LOCAL INFECTION OF THE SKIN AND SUBCUTANEOUS TISSUE, UNSP SNOMED Code(s): 074684073 Plan: The clinical findings are discussed the patient. Attending has been transferred to internal medicine. We'll continue to follow peripherally.
[2018-01-27 11:01] LABS: Calcium 8.4 mg/dL (8.4-10.2); Potassium 5.1 mmol/L (3.5-5.1)
[2018-01-27] MEDS ORDERED: VANCOMYCIN IV PER PHARMACY 1 EACH MISC MISCELLANE PRN (13:46)
[2018-01-27] MEDS: VANCOMYCIN 1,250 MG in SODIUM CHLORIDE 0.9% 250 ML IVPB SCH (15:14)
--- NOTE | 2018-01-27 18:29 | PN ---
PROGRESS NOTE DATE OF SERVICE: 01/27/2018. REASON FOR FOLLOWUP: 1. Left second toe gangrene cellulitis and leg cellulitis. 2. Positive blood culture. INTERVAL HISTORY: The patient is afebrile, has been breathing comfortably. Denies having any chest pain. No cough. No abdominal pain or any pain to the left foot or leg area. Overall, redness has improved. EXAMINATION: Blood pressure 134/79 with a pulse of 85, temperature 98.2. He is 99% on room air. General description is an elderly male lying in bed in no distress. RESPIRATORY SYSTEM: Unlabored breathing. Clear to auscultation anteriorly. HEART: S1, S2. Regular rate and rhythm. ABDOMEN: Soft. No tenderness. Left leg redness is improved. The amputated site is currently dressed, no drainage. LABS: BUN of 53, creatinine 1.30. Blood culture finalized with strep viridans. DIAGNOSTIC IMPRESSION AND PLAN: Patient with left second toe cellulitis and nonhealing wound status post amputation of the same toe. Unfortunately no local cultures were done and the patient has shown clinical improvement on cefazolin with resolution of his cellulitis. The patient is afebrile. White count normal and repeat blood cultures 01/25 has been negative so far. The patient now showing strep viridans in the blood, which is showing resistant pattern, which I think is more likely a contamination rather than true infection. Blood cultures will be repeated again and was started on vancomycin pharmacy to dose watching kidney function closely. As the patient is known to Dr. Carballo, he will resume the care as of tomorrow. MMODL / IJN: [id number] /
--- NOTE | 2018-01-27 22:17 | PN ---
PROGRESS NOTE DATE OF SERVICE: 01/27/2018. CHIEF COMPLAINT: Re-evaluation. HISTORY OF PRESENT ILLNESS: This is an 82-year-old who was admitted to the hospital under Dr. Quiros service, has undergone amputation of the left second toe. he patient had no evidence of infection. REVIEW OF SYSTEMS: NEURO: Denies any headaches dizziness. PSYCH: No anxiety. CARDIAC: No chest pain, angina, palpitations. RESPIRATORY: No shortness of breath, cough, hemoptysis. GI: No nausea, vomiting, abdominal pain, diarrhea. : No symptoms of dysuria or hematuria. EXTREMITIES: No pain of the left foot CONSTITUTIONAL: No fevers or chills. PHYSICAL EXAMINATION: Pleasant gentleman at present, in no distress. Vital signs reveals temperature 97, pulse 95, respirations 16, blood pressure 138/74, pulse ox 100% on room air. HEENT: Normocephalic. NECK: No JVD. Decreased range of motion. CHEST: Clear to auscultation and percussion with mild generalized decreased air flow. CARDIAC: Distant heart sounds. S1, S2 with no gallop. Systolic murmur 2/6 left sternal border. Irregular rhythm. ABDOMEN: Soft. Bowel sounds present. EXTREMITIES: No edema. Drying up superficial ulcerations of the right leg. Left foot dressing, post amputation 2nd toe. He has had a previous 3rd, 4th and 5th toe amputation. NEUROLOGIC: Awake, alert, oriented to place, person. Moves both upper and lower extremities, but no tremors. Does have generalized stiffness. LABS: Sodium 147, potassium 5.1, chloride 114, BUN 53, creatinine 1.3. ASSESSMENT: 1. Infection, left foot status post amputation 2nd toe. 2. Coronary artery disease. 3. Chronic atrial fibrillation. 4. Mild dementia. 5. Acute on chronic renal failure, improving. PLAN: Continue present medical regimen. Patient's condition discussed with the patient. Prognosis remains guarded. The patient does have some chronic issues with dysphagia and decreased oral intake. The patient does exhibit mild water dehydration. Continue with IV with D5 and half to get rate up to 75. MMODL / IJN: [id number] /
[2018-01-27] MEDS: APIXABAN 2.5 MG TABLET PO SCH (23:13)
[2018-01-28] MEDS: KETOROLAC 30 MG/ML 1 ML VIAL IVP SCH ×4 (00:25→18:40)
[2018-01-28] MEDS: VANCOMYCIN 1,250 MG in SODIUM CHLORIDE 0.9% 250 ML IVPB SCH ×2 (05:17→21:33)
[2018-01-28] MEDS: DEXTROSE 5%-0.45% NACL 1,000 ML IV SCH (05:33)
[2018-01-28] MEDS: METOPROLOL TARTRATE 50 MG TAB PO SCH ×2 (08:52→21:34)
[2018-01-28] MEDS: TAMSULOSIN 0.4 MG CAP.ER.24H PO SCH (08:53)
[2018-01-28] MEDS: ATORVASTATIN 20 MG TAB PO SCH (08:53)
[2018-01-28] MEDS: DOCUSATE 100 MG CAP PO SCH ×3 (08:53→22:29)
[2018-01-28] MEDS: CYANOCOBALAMIN-FA-PYRIDOXINE 1 EACH TAB PO SCH (08:53)
--- NOTE | 2018-01-28 09:44 | P.PN ---
Subjective Progress Note Date: 01/25/18 Principal diagnosis: S/P left second toe amputation Patient is post op Day #1 from left second toe amputation. He has pain at the surgical site as expected but denies any new complaints. He denies new numbness , tingling or calf pain. Review of systems is negative for fever, chills, chest pain, shortness of breath or other Objective - Vital Signs Vital signs: Vital Signs Temp 97.8 F 01/28/18 06:05 Pulse 73 01/28/18 06:05 Resp 17 01/28/18 06:05 BP 152/93 01/28/18 06:05 Pulse Ox 98 01/28/18 06:05 Intake & Output 01/27/18 01/28/18 01/28/18 18:59 06:59 18:59 Intake Total 1080 Output Total 0 Balance 1080 0 Intake: Oral 1080 Output: Urine 0 Other: Voiding Method Diaper Diaper # Voids 1 2 # Bowel Movements 2 0 - Exam Inspection reveals a benign surgical wound. There is no active bleeding or drainage. Neurovascular status is intact throughout the lower extremity with motor and sensation. Calf is soft and nontender. 1+ dorsalis pedis pulse and less than 2 second cap refill is present - Constitutional General appearance: Present: no acute distress - Labs CBC & Chem 7: 01/26/18 06:03 01/27/18 10:27 Labs: Abnormal Lab Results - Last 24 Hours (Table) 01/27/18 Range/Units 10:27 Sodium 147 H (137-145) mmol/L Chloride 114 H (98-107) mmol/L BUN 53 H (9-20) mg/dL Creatinine 1.30 H (0.66-1.25) mg/dL Glucose 128 H (74-99) mg/dL Microbiology - Last 24 Hours (Table) 01/25/18 20:52 Blood Culture - Preliminary Blood No Growth after 48 hours Assessment and Plan (1) Left foot infection Narrative/Plan: He will continue with routine postop orthopedic protocol including pain management, wound care, physical therapy, DVT prophylaxis and medical management. His care may be transferred to IM/ID at this point and we will continue to follow peripherally. Current Visit: Yes Status: Acute Code(s): L08.9 - LOCAL INFECTION OF THE SKIN AND SUBCUTANEOUS TISSUE, UNSP SNOMED Code(s): 860123521 (2) Status post amputation of toe of left foot Current Visit: Yes Status: Acute Code(s): Z89.422 - ACQUIRED ABSENCE OF OTHER LEFT TOE(S) SNOMED Code(s): 780987889 Time with Patient: Less than 30
[2018-01-28 10:01] LABS: Calcium 8.4 mg/dL (8.4-10.2); Potassium 5.2 mmol/L (3.5-5.1)
[2018-01-28] MEDS: APIXABAN 2.5 MG TABLET PO SCH (21:34)
[2018-01-28 21:42] LABS: Glucose,Whole Blood 121 mg/dL (75-99)
--- NOTE | 2018-01-29 00:33 | PN ---
PROGRESS NOTE ATTENDING PHYSICIAN: Dr. Quiros. CONSULTING PHYSICIAN: Dr. Paulette Parrish CHIEF COMPLAINT: Reevaluation. HISTORY OF PRESENT ILLNESS: This is an 82-year-old who was admitted to the hospital with infection, left foot. The patient has undergone left foot amputation of the 2nd toe. The patient has had previous 3rd, 4th and 5th toe amputation, left foot. The patient is actually doing fairly well. REVIEW OF SYSTEMS: Neuro: Denies any headaches, dizziness. Psych: No anxiety. Cardiac: No chest pain, angina, palpitation. Respiratory: Denies shortness of breath, cough. GI no nausea, vomiting, abdominal pain, diarrhea. no symptoms of dysuria or hematuria. Extremities: Denies pain, edema. Constitutional: No fever or chills. PHYSICAL EXAMINATION: Pleasant gentleman in no distress. Vitals reveal temperature 97.8, pulse 73, respirations 17, blood pressure 152/93, pulse ox 98% on room air. HEENT: Normocephalic. Neck: No JVD. Decreased range of motion of the neck. CHEST: Clear to auscultation. Cardiac: Normal S1, S2 with no gallops. Systolic murmur 2/6 left sternal border. Irregular rhythm. ABDOMEN: Soft. Bowel sounds active. Extremities: Reveal no edema: Neurological awake, alert, oriented with well-coordinated movements. LABORATORY ASSESSMENT: Sodium 145, potassium 5.2, chloride 113, CO2 content 25, anion gap 7, BUN 45, creatinine 1.2. ASSESSMENT: 1. Left foot infection with strep viridans resistant to penicillin. 2. Acute on chronic renal failure. 3. Chronic kidney disease, stage III. 4. Chronic atrial fibrillation. 5. Coronary artery disease. 6. Mild dementia. 7. Chronic venous stasis with ulcer ulcerations right superficial ulcerations, right lower leg. PLAN: The patient is stable. Continue present medical regimen. Patient's condition discussed with the patient. Prognosis guarded. The patient potentially will be discharged to a nursing facility for rehab. MMODL / IJN: [id number] /
[2018-01-29] MEDS: DEXTROSE 5%-0.45% NACL 1,000 ML IV SCH ×2 (04:43→21:27)
[2018-01-29] MEDS: TAMSULOSIN 0.4 MG CAP.ER.24H PO SCH (08:09)
[2018-01-29] MEDS: PANTOPRAZOLE 40 MG TABLET PO SCH (08:09)
[2018-01-29] MEDS: CYANOCOBALAMIN-FA-PYRIDOXINE 1 EACH TAB PO SCH (08:09)
[2018-01-29] MEDS: ATORVASTATIN 20 MG TAB PO SCH (08:09)
[2018-01-29] MEDS: METOPROLOL TARTRATE 50 MG TAB PO SCH ×2 (08:09→21:26)
[2018-01-29] MEDS: DOCUSATE 100 MG CAP PO SCH ×2 (08:09→21:27)
--- NOTE | 2018-01-29 09:57 | P.PN ---
Subjective Progress Note Date: 01/29/18 Principal diagnosis: S/P left second toe amputation Patient is post op Day #5 from left second toe amputation. His pain at the surgical site is improved. He denies any new complaints. He denies new numbness , tingling or calf pain. Review of systems is negative for fever, chills, chest pain, shortness of breath or other Objective - Vital Signs Vital signs: Vital Signs Temp 97.2 F L 01/29/18 05:35 Pulse 72 01/29/18 05:35 Resp 15 01/29/18 05:35 BP 122/82 01/29/18 05:35 Pulse Ox 97 01/29/18 05:35 Intake & Output 01/28/18 01/29/18 01/29/18 18:59 06:59 18:59 Intake Total 1320 160 Output Total 300 Balance 1320 -140 Intake: Oral 1320 160 Output: Urine 300 Other: Voiding Method Diaper Diaper # Voids 3 1 1 # Bowel Movements 0 1 - Exam Inspection reveals a benign surgical wound. There is no active bleeding or drainage. Neurovascular status is intact throughout the lower extremity with motor and sensation. Calf is soft and nontender. 1+ dorsalis pedis pulse and less than 2 second cap refill is present. - Constitutional General appearance: Present: no acute distress - Labs CBC & Chem 7: 01/26/18 06:03 01/28/18 09:10 Labs: Abnormal Lab Results - Last 24 Hours (Table) 01/28/18 01/28/18 Range/Units 09:10 21:19 Potassium 5.2 H (3.5-5.1) mmol/L Chloride 113 H (98-107) mmol/L BUN 45 H (9-20) mg/dL Glucose 103 H (74-99) mg/dL POC Glucose (mg/dL) 121 H (75-99) mg/dL Microbiology - Last 24 Hours (Table) 01/25/18 20:52 Blood Culture - Preliminary Blood No Growth after 72 hours 01/27/18 14:27 Blood Culture - Preliminary Blood No Growth after 24 hours Assessment and Plan (1) Left foot infection Narrative/Plan: He will continue with routine postop orthopedic protocol including pain management, wound care, physical therapy, DVT prophylaxis and medical management. Cultures were positive for strep viridians. Antibiotics and wound care per ID. He may discharged from an orthopedic standpoint and can follow up with us in office. Current Visit: Yes Status: Acute Priority: Medium Code(s): L08.9 - LOCAL INFECTION OF THE SKIN AND SUBCUTANEOUS TISSUE, UNSP SNOMED Code(s): 705675941 (2) Status post amputation of toe of left foot Current Visit: Yes Status: Acute Code(s): Z89.422 - ACQUIRED ABSENCE OF OTHER LEFT TOE(S) SNOMED Code(s): 701162767
[2018-01-29] MEDS: LINEZOLID 600 MG TAB PO SCH (21:27)
[2018-01-29] MEDS: APIXABAN 2.5 MG TABLET PO SCH (21:27)
--- NOTE | 2018-01-29 22:16 | PN ---
PROGRESS NOTE ATTENDING PHYSICIAN: Dr. Quiros. CONSULTING PHYSICIAN: Dr. Gerard Parrish CHIEF COMPLAINT: Re-evaluation. HISTORY OF PRESENT ILLNESS: This is a gentleman who was admitted to the hospital with an infection of the left foot. The patient's toe was amputated. The patient had Strep viridans and is on vancomycin. He is actually doing fairly well. The patient also had chronic renal failure. His renal status has improved. Patient's intake is poor due to some dysphagia and he does tend to get mildly dehydrated. REVIEW OF SYSTEMS: NEURO: Denies any headaches, dizziness. PSYCH: No anxiety. Does have mild dementia. CARDIAC: No chest pain, angina, palpitation. RESPIRATORY: Denies shortness of breath, cough, hemoptysis. GI: No nausea, vomiting, abdominal pain, diarrhea. : No symptoms of dysuria or hematuria. EXTREMITIES: Denies any pain except for minimal in the left foot. CONSTITUTIONAL: No fever, chills. PHYSICAL EXAMINATION: Pleasant gentleman, at present in no distress. Vital signs reveal temperature was 97.2, pulse 72, respirations 15, blood pressure 122/82, pulse ox of 96% on room air. HEENT: Normocephalic. NECK: No JVD. CHEST: Clear to auscultation and percussion. CARDIAC: Normal S1, S2 with no gallops. Irregular rhythm. Systolic murmur 2/6, left sternal border. ABDOMEN: Soft. Bowel sounds present. Extremities reveal no edema. He has chronic superficial ulcerations, right lower leg, which seem to be healing. The left foot has a dressing, status post amputation of left toe. Previous third, fourth and fifth toe amputations. LABORATORY ASSESSMENT: None new. ASSESSMENT: 1. Infection in left foot, status post amputation of second toe. 2. Chronic atrial fibrillation. 3. Coronary artery disease, stable. 4. Dementia. 5. Anemia. 6. History of hypertension. 7. Acute on chronic renal failure. 8. Chronic kidney disease, stage III. PLAN: Continue present medical regimen. Patient's condition was discussed with the patient. Prognosis guarded. Patient hopefully in 24 hours might be able to be discharged to a nursing facility. MMODL / IJN: [id number] /
--- NOTE | 2018-01-29 22:52 | P.PN ---
Subjective Progress Note Date: 01/29/18 82-year-old male whose modality by the infectious disease service in the past presented hospital with complaints of increasing gangrenous changes of the left foot second toe. The patient has progressive dementia and is cared for by the and the home setting. His multiple injuries to the lower extremities and many healing abrasions are seen. He apparently cause severe trauma to that second toe became gangrenous and constantly was admitted to hospital and this has now been amputated. There was evidence of a gangrenous change and admission blood cultures were obtained and viridans strep has been isolated. Ongoing infectious disease evaluation was requested. Patient has profound dementia and really does not add anything to the current history, patient's relates that he seems to be comfortable. There is no evidence of any fevers or chills no other new acute complaints. Objective - Vital Signs Vital signs: Vital Signs Temp 97.5 F L 01/29/18 15:00 Pulse 60 01/29/18 15:00 Resp 17 01/29/18 15:00 BP 133/58 01/29/18 15:00 Pulse Ox 99 01/29/18 15:00 Intake & Output 01/29/18 01/29/18 01/30/18 06:59 18:59 06:59 Intake Total 160 250 Output Total 300 Balance -140 250 Intake: Intake, IV Titration 250 Amount Vancomycin 1,250 mg In 250 Sodium Chloride 0.9% 250 ml @ 125 mls/hr IVPB Q16H [facility] Rx#:[id number] Oral 160 Output: Urine 300 Other: Voiding Method Diaper Diaper Diaper # Voids 1 1 # Bowel Movements 1 - Exam 82-year-old male who has profound dementia seems to be comfortable at this time HEENT: Anicteric conjunctiva are pink and moist nasal mucosa grossly intact without significant lesions, there is no thrush. Dentures in place Neck: The neck is supple without significant lymphadenopathy or thyromegaly. Lungs: Good bilateral air entry without significant crackles or wheezing. There is no significant bronchial sounds. There is no egophony or dullness. Heart: Regular rate and rhythm with an audible S1-S2, no S3 no S4. There is no significant murmur click or rub, PMI was nondisplaced. Abdomen: Positive bowel sounds soft and nontender without palpable masses or organomegaly. There was no guarding or rebound. Extremities: The upper extremities have excellent pulses they are symmetric, no significant petechiae or telangiectasia. No splinter hemorrhages were noted. Right lower extremity without acute abnormalities except he has multiple healing abrasions which the relates comes from him navigating through the house and banging into objects. The left foot shows evidence the recent amputation to the second toe and has a well-healing amputation site. There is no expressible purulence or erythema. Neuro: The patient is arousable he is oriented only to person, unclear if he recognizes he was is. Is not able to follow any commands. - Labs CBC & Chem 7: 01/26/18 06:03 01/28/18 09:10 Labs: Microbiology - Last 24 Hours (Table) 01/27/18 14:27 Blood Culture - Preliminary Blood No Growth after 48 hours 01/25/18 20:52 Blood Culture - Preliminary Blood No Growth after 72 hours Laboratory Results WBC 5.8 k/uL (3.8-10.6) 01/26/18 06:03 RBC 3.35 m/uL (4.30-5.90) L 01/26/18 06:03 Hgb 10.1 gm/dL (13.0-17.5) L 01/26/18 06:03 Hct 31.1 % (39.0-53.0) L 01/26/18 06:03 MCV 92.7 fL (80.0-100.0) 01/26/18 06:03 MCH 30.1 pg (25.0-35.0) 01/26/18 06:03 MCHC 32.5 g/dL (31.0-37.0) 01/26/18 06:03 RDW 13.4 % (11.5-15.5) 01/26/18 06:03 Plt Count 162 k/uL (150-450) 01/26/18 06:03 Neutrophils % (Manual) 78 % 01/26/18 06:03 Lymphocytes % (Manual) 15 % 01/26/18 06:03 Monocytes % (Manual) 6 % 01/26/18 06:03 Eosinophils % (Manual) 2 % 01/26/18 06:03 Neutrophils # (Manual) 4.52 k/uL (1.3-7.7) 01/26/18 06:03 Lymphocytes # (Manual) 0.87 k/uL (1.0-4.8) L 01/26/18 06:03 Monocytes # (Manual) 0.35 k/uL (0-1.0) 01/26/18 06:03 Eosinophils # (Manual) 0.12 k/uL (0-0.7) 01/26/18 06:03 Nucleated RBCs 0 /100 WBC (0-0) 01/26/18 06:03 Manual Slide Review Performed 01/26/18 06:03 Poikilocytosis (manual Present 01/25/18 10:57 PT 11.4 sec (9.0-12.0) 01/24/18 13:56 INR 1.2 (<1.2) H 01/24/18 13:56 Sodium 145 mmol/L (137-145) 01/28/18 09:10 Potassium 5.2 mmol/L (3.5-5.1) H 01/28/18 09:10 Chloride 113 mmol/L (98-107) H 01/28/18 09:10 Carbon Dioxide 25 mmol/L (22-30) 01/28/18 09:10 Anion Gap 7 mmol/L 01/28/18 09:10 BUN 45 mg/dL (9-20) H 01/28/18 09:10 Creatinine 1.20 mg/dL (0.66-1.25) 01/28/18 09:10 Est GFR (CKD-EPI)AfAm 64 (>60 ml/min/1.73 sqM) 01/28/18 09:10 Est GFR (CKD-EPI)NonAf 56 (>60 ml/min/1.73 sqM) 01/28/18 09:10 Glucose 103 mg/dL (74-99) H 01/28/18 09:10 POC Glucose (mg/dL) 121 mg/dL (75-99) H 01/28/18 21:19 POC Glu Lead Assistant Manager Tamara Lara 01/28/18 21:19 Calcium 8.4 mg/dL (8.4-10.2) 01/28/18 09:10 Total Bilirubin 0.2 mg/dL (0.2-1.3) 01/26/18 06:03 AST 27 U/L (17-59) 01/26/18 06:03 ALT 23 U/L (21-72) 01/26/18 06:03 Alkaline Phosphatase 90 U/L (38-126) 01/26/18 06:03 Total Protein 5.9 g/dL (6.3-8.2) L 01/26/18 06:03 Albumin 2.9 g/dL (3.5-5.0) L 01/26/18 06:03 Microbiology 01/27/18 14:27 Blood Blood Culture - Preliminary No Growth after 48 hours 01/25/18 20:52 Blood Blood Culture - Preliminary No Growth after 72 hours 01/24/18 15:35 Blood Blood Culture Gram Stain - Final 01/24/18 15:35 Blood Blood Culture - Final Viridans streptococcus group 01/24/18 15:35 Blood Blood Culture - Final Assessment and Plan (1) Status post amputation of toe of left foot Current Visit: Yes Status: Acute Code(s): Z89.422 - ACQUIRED ABSENCE OF OTHER LEFT TOE(S) SNOMED Code(s): 544533529 (2) Viridans streptococci infection Narrative/Plan: 82 year old male with advanced dementia presents to Hospital of gangrenous changes to his left foot second toe. This has now been amputated and he had some improvements, however blood culture shows evidence of the Streptococcus viridans in both cultures from admission. Given the active infection to the foot with gangrene the positive blood culture is more likely than not the real infection and would plan on treatment. The patient has been vancomycin therapy and would plan on 10 further days of oral linezolide. This is communicated to the case managers to help with the plans for discharge to the extended care facility. The wound is healing well and should be monitored for any drainage when he is at the extended care facility receiving therapy. Current Visit: Yes Status: Acute Code(s): A49.1 - STREPTOCOCCAL INFECTION, UNSPECIFIED SITE SNOMED Code(s): 01954966
[2018-01-30] MEDS ORDERED: VANCOMYCIN TROUGH DUE 1 EACH MISC MISCELLANE ONE (05:00)
[2018-01-30 06:03] LABS: Calcium 8.1 mg/dL (8.4-10.2); Potassium 5.1 mmol/L (3.5-5.1)
[2018-01-30 06:22] VITALS: RESP 18
[2018-01-30] MEDS: DOCUSATE 100 MG CAP PO SCH (07:33)
[2018-01-30] MEDS: CYANOCOBALAMIN-FA-PYRIDOXINE 1 EACH TAB PO SCH (07:43)
[2018-01-30] MEDS: METOPROLOL TARTRATE 50 MG TAB PO SCH (07:43)
[2018-01-30] MEDS: TAMSULOSIN 0.4 MG CAP.ER.24H PO SCH (07:43)
[2018-01-30] MEDS: ATORVASTATIN 20 MG TAB PO SCH (07:43)
[2018-01-30] MEDS: LINEZOLID 600 MG TAB PO SCH (07:43)
--- NOTE | 2018-01-30 08:20 | P.DS ---
Providers Date of admission: 01/24/18 12:15 Expected date of discharge: 01/30/18 Attending physician: Ed Parrish Consults: 01/24/18 12:42 Consult Physician Routine Consulting Provider: Ed Parrish Consult Reason/Comments: Medical management Do you want consulting provider notified?: Yes Consult Physician Routine Consulting Provider: Tejinder Manuel Consult Reason/Comments: infectious disease management left foot Do you want consulting provider notified?: Yes 01/29/18 10:46 Consult Physician Routine Consulting Provider: Durga Carballo Consult Reason/Comments: antibiotic treatment, positive blood culture x1 Do you want consulting provider notified?: Yes Primary care physician: Holger Ramos [facility] Course: This 82-year-old gentleman was admitted to the orthopedic service directly from the office and and the surgeon did an emergent left second toe amputation. He said a previous third fourth and fifth toe amputation. The patient is foot was not inspected by me at the time of admission. Patient's management medically for his multiple medical ailments subsequently. The patient's switched over to my service without my knowledge or any communication from the orthopedic service. 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 Her damage from gentamicin use. The patient also has had history of multiple falls previous CVA embolization secondary to atrial fibrillation. Episodes of GI bleed in significant bleeding from use of anticoagulants. The patient is only on a small dose of Eliquis with adequate help. Patient has no other symptoms of bleeding. He did have significant acute on chronic renal failure. The patient's renal status is improved. His fluid intake is limited due to his oropharyngeal dysphagia related to her previous stroke. The patient otherwise has history of hypertension adequately controlled history of chronic congestive cardiac failure secondary to systolic and diastolic dysfunction adequately controlled. The patient had strep viridans resistant to usual medicines and cephalosporins. Agent was given vancomycin and is being discharged on oral antibiotics for 12 days. Patient's general condition is guarded prognosis guarded. He has chronic superficial ulcerations right lower leg secondary to chronic venous stasis and venous hypertension. Diet regular with pured meals or chopped meals and thickened liquids. The dietitian/speech therapist to evaluate and the nursing facility. Patient received physical therapy for ambulation and safety. Final diagnosis to include 1. Cellulitis left foot 2. Amputation left second toe 3. Previous amputation third fourth and fifth toe left foot 4. Chronic atrial fibrillation rate controlled 5. Coronary artery disease stable. 6. 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 History of aortic valve replacement 8. Acute on chronic renal failure 9. Chronic kidney disease stage III 10. Chronic ataxia 11. Mild dementia 13. Chronic venous stasis with chronic venous ulcerations right lower leg, subcutaneous tissue exposure 14. Debility 15. Essential hypertension 16. Anemia chronic disease Plan - Discharge Summary New Discharge Prescriptions: New Linezolid [Zyvox] 600 mg PO Q12H #20 tab Docusate [Colace] 100 mg PO BID cap Linezolid [Zyvox] 600 mg PO Q12HR tab Continue Apixaban [Eliquis] 2.5 mg PO HS Omeprazole [PriLOSEC] 20 mg PO Q48H Atorvastatin Calcium [Lipitor] 20 mg PO DAILY Metoprolol Tartrate [Lopressor] 100 mg PO HS Metoprolol Tartrate [Lopressor] 50 mg PO DAILY Vitamin B Complex 1 cap PO DAILY Acetaminophen Tab [Tylenol] 650 mg PO Q8HR PRN PRN Reason: Pain Furosemide [Lasix] 20 mg PO DAILY tab Mirabegron [Myrbetriq] 50 mg PO DAILY Tamsulosin [Flomax] 0.4 mg PO DAILY cap.er.24h Discontinued Lisinopril [Zestril] 5 mg PO BID Metolazone [Zaroxolyn] 2.5 mg PO Q48H Divalproex Sodium [Depakote] 500 mg PO HS Lidocaine 5% Patch [Lidoderm 5% Patch] 1 patch TOPICAL DAILY #5 patch Carbidopa-Levodopa 25-100 mg [Sinemet 25-100 mg] 1 tab PO TID No Action Acetaminophen-Codeine 300-30mg [Tylenol w/codeine #3] 1 tab PO Q4HR PRN PRN Reason: Moderate Pain Discharge Medication List Apixaban [Eliquis] 2.5 mg PO HS 11/02/15 [History] Omeprazole [PriLOSEC] 20 mg PO Q48H 02/08/17 [History] Atorvastatin Calcium [Lipitor] 20 mg PO DAILY 09/17/17 [History] Metoprolol Tartrate [Lopressor] 100 mg PO HS 09/17/17 [History] Metoprolol Tartrate [Lopressor] 50 mg PO DAILY 09/29/17 [History] Acetaminophen Tab [Tylenol] 650 mg PO Q8HR PRN 01/12/18 [History] Vitamin B Complex 1 cap PO DAILY 01/12/18 [History] Furosemide [Lasix] 20 mg PO DAILY tab 01/13/18 [Rx] Mirabegron [Myrbetriq] 50 mg PO DAILY 01/13/18 [Rx] Tamsulosin [Flomax] 0.4 mg PO DAILY cap.er.24h 01/13/18 [Rx] Acetaminophen-Codeine 300-30mg [Tylenol w/codeine #3] 1 tab PO Q4HR PRN [History] Linezolid [Zyvox] 600 mg PO Q12H #20 tab 01/29/18 [Rx] Docusate [Colace] 100 mg PO BID cap 01/30/18 [Rx] Linezolid [Zyvox] 600 mg PO Q12HR tab 01/30/18 [Rx] Follow up Appointment(s)/Referral(s): Ed Parrish MD [STAFF PHYSICIAN] - 1 Week Holger Quiros MD [Primary Care Provider] - 1 Week Patient Instructions/Handouts: Toe Amputation (DC) Activity/Diet/Wound Care/Special Instructions: Non weight bearing to left toe. Fall precautions. Elevate foot at rest. Cardiac diet. Discharge Disposition: TRANSFER TO SNF/ECF
[2018-01-30] MEDS: DEXTROSE 5%-0.45% NACL 1,000 ML IV SCH (13:35)
[2018-01-30 15:56] VITALS: BP 119/60; PULSE 62; TEMP 97.8
== END 2018-01-30 17:08 | disposition home health service (06) | DRG 580 ==
LOC: 2ORMAIN 12:10 → UNDOADMIN 12:10 → 4MS4W 12:15
PROVIDERS: ADMIT Internal Medicine; ATTEND Internal Medicine
PROC: 0Y6S0Z1 Detachment at Left 2nd Toe, High, Open Approach (ICD-10-PCS; principal; 2018-01-24 14:20)
DX: L03.032 Cellulitis of left toe (principal); L03.116 Cellulitis of left lower limb; I96 Gangrene, not elsewhere classified; D62 Acute posthemorrhagic anemia; I13.0 Hypertensive heart and chronic kidney disease with heart failure and stage 1 through stage 4 chronic kidney disease, or unspecified chronic kidney disease; I50.22 Chronic systolic (congestive) heart failure; L02.612 Cutaneous abscess of left foot; L97.919 Non-pressure chronic ulcer of unspecified part of right lower leg with unspecified severity; N17.9 Acute kidney failure, unspecified; R78.81 Bacteremia; L03.115 Cellulitis of right lower limb; I87.2 Venous insufficiency (chronic) (peripheral); L97.529 Non-pressure chronic ulcer of other part of left foot with unspecified severity; D63.8 Anemia in other chronic diseases classified elsewhere; E78.5 Hyperlipidemia, unspecified; E86.0 Dehydration; E87.5 Hyperkalemia; F03.90 Unspecified dementia, unspecified severity, without behavioral disturbance, psychotic disturbance, mood disturbance, and anxiety; G20 Parkinson's disease; I25.10 Atherosclerotic heart disease of native coronary artery without angina pectoris; I25.2 Old myocardial infarction; I48.2 Chronic atrial fibrillation; N18.3 Chronic kidney disease, stage 3 (moderate); M19.90 Unspecified osteoarthritis, unspecified site; N42.9 Disorder of prostate, unspecified; R27.0 Ataxia, unspecified; R32 Unspecified urinary incontinence; I69.891 Dysphagia following other cerebrovascular disease; I69.828 Other speech and language deficits following other cerebrovascular disease; I69.898 Other sequelae of other cerebrovascular disease; R13.12 Dysphagia, oropharyngeal phase; Z79.01 Long term (current) use of anticoagulants; Z79.899 Other long term (current) drug therapy; Z95.5 Presence of coronary angioplasty implant and graft; Z95.2 Presence of prosthetic heart valve; Z91.81 History of falling; Z89.422 Acquired absence of other left toe(s); Z89.011 Acquired absence of right thumb; Z87.11 Personal history of peptic ulcer disease; Z98.42 Cataract extraction status, left eye; Z98.41 Cataract extraction status, right eye; Z96.1 Presence of intraocular lens; Z83.3 Family history of diabetes mellitus; Z80.0 Family history of malignant neoplasm of digestive organs
CPT/HCPCS: 80048; 80053; 80202; 85025; 85610; 87040; 87077; 87186; 88305; 88311; 93005

== ENCOUNTER 2018-02-15 10:14 | Day surgery (SDC) | payer MEDICARE ==
[2018-02-13 16:10] VITALS: BMI 27.4
--- NOTE | 2018-02-15 10:13 | P.GSHP ---
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 - Review of Systems Comment: Please see recent H&P from the wound center Past Medical History Past Medical History: CVA/TIA, GI Bleed, Hyperlipidemia, Myocardial Infarction ( [place]), Prostate Disorder, Myocardial Infarction ([place]), Renal Disease Additional Past Medical History / Comment(s): early dementia, irregular heart beat, stroke per - wheelchair due to balance problems, slurred speech, swelling donna lower legs, poor circulation, fell November 2016 and injured toes on left foot-got gangrene in 4 toes, hx ulcers, parkinson's Last Myocardial Infarction Date:: 03/2011 History of Any Multi-Drug Resistant Organisms: None Reported Past Surgical History: Bowel Resection, Cardiac Valve Replacement, Heart Catheterization With Stent, Orthopedic Surgery Additional Past Surgical History / Comment(s): hand sx right thumb partial amputation d/t work injury, donna cataracts, hemorrhoidectomy x3, gastric surgery in 1965 for peptic ulcer disease, 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 amputation 3rd toe left foot Past Anesthesia/Blood Transfusion Reactions: No Reported Reaction Date of Last Stent Placement:: 2010 Smoking Status: Never smoker - Past Family History Father History Unknown: Yes Family Medical History: No Reported History Additional Family Medical History / Comment(s): FATHER AT AGE 60 OF COLON CANCER Mother History Unknown: Yes Family Medical History: No Reported History Additional Family Medical History / Comment(s): Patient states "none that I know of" regarding family history Medications and Allergies Home Medications Medication Instructions Recorded Confirmed Type Apixaban [Eliquis] 2.5 mg PO HS 11/02/15 02/13/18 History Omeprazole [PriLOSEC] 20 mg PO Q48H 02/08/17 02/13/18 History Atorvastatin Calcium [Lipitor] 20 mg PO DAILY 09/17/17 02/13/18 History Metoprolol Tartrate [Lopressor] 100 mg PO QAM 09/17/17 02/13/18 History Vitamin B Complex 1 cap PO DAILY 01/12/18 02/13/18 History Tamsulosin [Flomax] 0.4 mg PO DAILY cap.er.24h 01/13/18 02/13/18 Rx Acetaminophen-Codeine 300-30mg 1 tab PO Q8H PRN 01/24/18 02/13/18 History [Tylenol w/codeine #3] Furosemide [Lasix] 20 mg PO BID 02/04/18 02/13/18 History Acetaminophen [Tylenol] 325 mg PO Q4H PRN 02/13/18 02/13/18 History Mirabegron [Myrbetriq] 50 mg PO QAM 02/13/18 02/13/18 History Allergies Allergy/AdvReac Type Severity Reaction Status Date / Time gentamicin [Gentamicin] AdvReac loss of Verified 02/13/18 15:13 balance/numbness hydrocodone [From [place]] AdvReac Confusion Verified 02/13/18 15:13 Surgical - Exam Osteopathic Statement: *. No significant issues noted on an osteopathic structural exam other than those noted in the History and Physical/Consult. - General well developed, well nourished, no distress - Eyes normal ocular movement, no icteric - ENT no hearing loss, no congestion - Neck no masses, no bruits, trachea midline - Respiratory normal expansion, normal respiratory effort, clear to auscultation - Cardiovascular Rhythm: regular - Abdomen Abdomen: soft, non tender, no guarding, no rigid, no rebound - Integumentary no rash, no abnormal pigmentation - Neurologic no disoriented, no combative - Musculoskeletal Patient is rather frail and weak in his gait and requires assistance There is a small ulcer on the dorsum of the right second toe from which extrudes a cheesy like material consistent with chronic bony involvement and the bone is palpable through this opening. - Psychiatric oriented to time, oriented to person, oriented to place, speech is normal, memory intact Assessment and Plan (1) Ulcer of right foot with necrosis of bone Status: Acute Code(s): L97.514 - NON-PRS CHRONIC ULCER OTH PRT RIGHT FOOT W NECROSIS OF BONE SNOMED Code(s): 40073331 Plan: The patient is admitted for amputation of the right second toe. We discussed the risks and options. HEENT his family appear to understand and agree.
[~2018-02-15 10:14] MED LIST changes: +DEXAMETHASONE SOD PHOSPHATE 10 MG/ML 1 ML VIAL IV ONE; +LACTATED RINGERS 1,000 ML IV SCH; +LIDOCAINE 1% 20 ML VIAL (10MG/ML) FOR IV START INTRADERMA PRN; +MIDAZOLAM 2 MG/2 ML VIAL IV PRN; +ONDANSETRON 4 MG/2 ML VIAL IVP ONE; -ceFAZolin 2 GM in SODIUM CHLORIDE 0.9% 100 ML IVPB ONE; +ceFAZolin IN SWFI 2 GM/20 ML SYRINGE IVP ONE; +fentaNYL (PF) 50 MCG/ML 2 ML AMP IV PRN
[2018-02-15 10:53] LABS: Glucose,Whole Blood 89 mg/dL (75-99)
[2018-02-15] MEDS ORDERED: diphenhydrAMINE 50 MG/ML 1 ML VIAL ONE (11:41)
[2018-02-15] MEDS ORDERED: LIDOCAINE 1% INJ 10MG/ML (20 ML MDV) ONE (11:41)
[2018-02-15] MEDS ORDERED: PROPOFOL 10 MG/ML 20 ML VIAL IV ONE (11:41)
[2018-02-15] MEDS ORDERED: fentaNYL (PF) 50 MCG/ML 2 ML AMP ONE (11:41)
--- NOTE | 2018-02-15 12:12 | P.PCN ---
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 Operative Findings: Proximal tissues appeared healthy. Bleeding from skin edges was only fair Description of Procedure: With the patient spine position, under benefit of IV anesthesia, we prepped and draped in standard fashion. We made a fishmouth incision about the level of the proximal interphalangeal joint. We removed the distal aspect of the toe sharply at this point. We then took the bone down to above the soft tissue With the rongeur. We irrigated with saline and closed with interrupted nylon. Sterile dressings were applied. The patient tolerated the procedure well and was taken recovery area in stable condition.
[2018-02-15 12:19] VITALS: RESP 18; TEMP 97.5
[2018-02-15 14:54] VITALS: BP 121/65; PULSE 60
== END 2018-02-15 15:37 | disposition home or self-care (01) ==
LOC: OR 10:14
PROVIDERS: ATTEND Thoracic Surgery (Cardiothoracic Vascular Surgery)
DX: E11.621 Type 2 diabetes mellitus with foot ulcer (principal); L97.514 Non-pressure chronic ulcer of other part of right foot with necrosis of bone; E78.5 Hyperlipidemia, unspecified; I69.322 Dysarthria following cerebral infarction; I69.398 Other sequelae of cerebral infarction; I25.2 Old myocardial infarction; G20 Parkinson's disease; Z95.2 Presence of prosthetic heart valve; Z79.01 Long term (current) use of anticoagulants; Z79.899 Other long term (current) drug therapy; Z95.5 Presence of coronary angioplasty implant and graft; Z88.1 Allergy status to other antibiotic agents; Z88.5 Allergy status to narcotic agent
CPT/HCPCS: 28160; J1200; J1100; J2405; J2001; J3010; J2704; J0690

== ENCOUNTER → 2018-02-27 | Outpatient (CLI) | payer MEDICARE ==
[~2018-02-27] MED LIST changes: -DEXAMETHASONE SOD PHOSPHATE 10 MG/ML 1 ML VIAL IV ONE; -LACTATED RINGERS 1,000 ML IV SCH; -LIDOCAINE 1% 20 ML VIAL (10MG/ML) FOR IV START INTRADERMA PRN; -MIDAZOLAM 2 MG/2 ML VIAL IV PRN; -ONDANSETRON 4 MG/2 ML VIAL IVP ONE; +ONDANSETRON 4 MG/2 ML VIAL ONE; -ceFAZolin IN SWFI 2 GM/20 ML SYRINGE IVP ONE; -fentaNYL (PF) 50 MCG/ML 2 ML AMP IV PRN
--- NOTE | 2018-03-06 09:17 | P.ARTDOP ---
Arterial Doppler LOWER EXTREMITY ARTERIAL DOPPLER: DATE OF SERVICE: 02/27/2018 Reason for study: Right foot ulcers. Doppler waveforms: Multiphasic at both femorals and the left popliteal. Atypical at the right popliteal and below and the left popliteal and posterior tibial. Monophasic at the left dorsalis pedis and digital.. Pulse volume recording: []. Pressure gradients: None registered. Ankle-brachial indices: Cannot be accurately assessed due to nonoccluded ability. Toe pressures: [] on the right, [] on the left Impression: At least moderate right fem-pop disease. Suspect distal disease on the left. Digital waveforms on the right appear adequate. Limitations of the study make it difficult to assess wound healing capacity. Clinical correlation recommended..
== END | disposition home or self-care (01) ==
LOC: RADUSWWP 02-20 12:47
PROVIDERS: ATTEND Thoracic Surgery (Cardiothoracic Vascular Surgery)
DX: I77.89 Other specified disorders of arteries and arterioles (principal)
CPT/HCPCS: 93922

== ENCOUNTER 2018-04-15 22:27 | Inpatient (IN) | payer MEDICARE ==
[2018-04-15] MEDS ORDERED: SODIUM CHLORIDE 0.9% 1,000 ML IV STA (22:49)
--- NOTE | 2018-04-15 22:51 | ED ---
General Adult HPI - General Chief complaint: Fall Stated complaint: Fall Time Seen by Provider: 04/15/18 22:49 Source: patient, EMS Mode of arrival: EMS Limitations: altered mental status - History of Present Illness Initial comments: Ricardo is an 82-year-old gentleman who presents the emergency department today for evaluation of altered mental status and a fall at home. reports that he was in his usual state of health earlier in the day, she took them on a drive this afternoon and upon getting home she was attempting to help him out of the vehicle when he fell backwards landing on his buttocks and striking his head on a trashcan. The neighbor was able to come over and help get him into the home. reports that since that time she's noticed that he is become progressively more somnolent and confused, she noticed some weakness that was worse on his right side than his usual baseline which prompted her to call 911 for transport to the hospital. - Related Data Home Medications Medication Instructions Recorded Confirmed Apixaban [Eliquis] 2.5 mg PO HS 11/02/15 04/15/18 Omeprazole [PriLOSEC] 20 mg PO Q48H 02/08/17 04/15/18 Atorvastatin Calcium [Lipitor] 20 mg PO DAILY 09/17/17 04/15/18 Metoprolol Tartrate [Lopressor] 100 mg PO QAM 09/17/17 04/15/18 Vitamin B Complex 1 cap PO DAILY 01/12/18 04/15/18 Acetaminophen-Codeine 300-30mg 1 tab PO Q8H PRN 01/24/18 04/15/18 [Tylenol w/codeine #3] Furosemide [Lasix] 20 mg PO BID 02/04/18 04/15/18 Acetaminophen [Tylenol] 325 mg PO Q4H PRN 02/13/18 04/15/18 Metoprolol Tartrate [Lopressor] 50 mg PO HS 04/15/18 04/15/18 Mirabegron [Myrbetriq] 50 mg PO DAILY 04/15/18 04/15/18 Previous Rx's Medication Instructions Recorded Tamsulosin [Flomax] 0.4 mg PO DAILY cap.er.24h 01/13/18 Allergies Allergy/AdvReac Type Severity Reaction Status Date / Time gentamicin [Gentamicin] AdvReac loss of Verified 04/15/18 23:06 balance/numbness hydrocodone [From [place]] AdvReac Confusion Verified 04/15/18 23:06 Review of Systems ROS Statement: Those systems with pertinent positive or pertinent negative responses have been documented in the HPI. ROS Other: All systems not noted in ROS Statement are negative. Limitations: ROS unobtainable due to patients medical condition Past Medical History Past Medical History: CVA/TIA, GI Bleed, Hyperlipidemia, Myocardial Infarction ( [place]), Prostate Disorder, Myocardial Infarction ([place]), Renal Disease Additional Past Medical History / Comment(s): early dementia, irregular heart beat, stroke per - wheelchair due to balance problems, slurred speech, swelling donna lower legs, poor circulation, fell November 2016 and injured toes on left foot-got gangrene in 4 toes, hx ulcers, parkinson's Last Myocardial Infarction Date:: 03/2011 History of Any Multi-Drug Resistant Organisms: None Reported Past Surgical History: Bowel Resection, Cardiac Valve Replacement, Heart Catheterization With Stent, Orthopedic Surgery Additional Past Surgical History / Comment(s): hand sx right thumb partial amputation d/t work injury, donna cataracts, hemorrhoidectomy x3, gastric surgery in 1965 for peptic ulcer disease, 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 amputation 3rd toe left foot Past Anesthesia/Blood Transfusion Reactions: No Reported Reaction Date of Last Stent Placement:: 2010 Past Psychological History: No Psychological Hx Reported Smoking Status: Never smoker Past Alcohol Use History: Occasional Past Drug Use History: None Reported - Past Family History Father History Unknown: Yes Family Medical History: No Reported History Additional Family Medical History / Comment(s): FATHER AT AGE 60 OF COLON CANCER Mother History Unknown: Yes Family Medical History: No Reported History Additional Family Medical History / Comment(s): Patient states "none that I know of" regarding family history General Exam - General Exam Comments Initial Comments: GENERAL: Chronically ill-appearing HENT: No obvious head trauma Normocephalic, Atraumatic. No cervical spine tenderness EYES: The sclera were anicteric and conjunctiva were pink and moist. Extraocular movements were intact and pupils were equal round and reactive to light. Eyelids were unremarkable. PULMONARY: Unlabored respirations. Good breath sounds bilaterally. No audible rales rhonchi or wheezing was noted. CARDIOVASCULAR: There is a regular rate and rhythm without any murmurs gallops or rubs. ABDOMEN: Soft and nontender with normal bowel sounds. SKIN: Skin is clear with no lesions or rashes and otherwise unremarkable. NEUROLOGIC: Patient is minimally verbal Weakness Right Greater Than Left MUSCULOSKELETAL: Generalized atrophy LYMPHATICS: No significant lymphadenopathy is noted PSYCHIATRIC: Minimally verbal Limitations: no limitations Limitations: altered mental status Course Vital Signs 04/15/18 04/15/18 04/15/18 22:32 22:55 23:10 Temperature 99.1 F Pulse Rate 60 60 60 Respiratory 18 22 22 Rate Blood Pressure 144/67 130/63 132/58 O2 Sat by Pulse 100 97 Oximetry 04/16/18 00:00 Temperature Pulse Rate 60 Respiratory 16 Rate Blood Pressure 131/65 O2 Sat by Pulse 96 Oximetry EKG Findings - EKG Comments: EKG Findings:: EKG obtained at 2234, rate is 60, ventricularly paced, no acute ST elevations or depressions no evidence of acute ischemia or infarction Medical Decision Making - Medical Decision Making Level II trauma activation - fall from standing, struck head on trashcan, now has mental status changes, on L Maria Guadalupe Patient noted to have right-sided deficits, believes these are worse than baseline Confused, mumbling speech Labs and imaging were ordered Imaging with no acute findings Labs with leukocytosis with neutrophilia Multiple times were made for a straight cath urine, was a delay in obtaining urinalysis however it was finally obtained and noted to have very tract infection Urine culture, blood culture and IV Rocephin were ordered Patient care was discussed with the patient's primary care physician Dr. Parrish who is very familiar with the patient. He accepts the admission for UTI with confusion he is aware that the patient has worsening neuro deficits with right- sided weakness in association with this UTI. Uncertain of the time of onset of the symptoms. Not a candidate for TPA. - Lab Data Result diagrams: 04/15/18 22:54 04/15/18 22:54 Lab Results 04/15/18 04/15/18 04/15/18 Range/Units 22:54 22:54 22:54 WBC 14.1 H (3.8-10.6) k/uL RBC 4.07 L (4.30-5.90) m/uL Hgb 11.5 L (13.0-17.5) gm/dL Hct 35.9 L (39.0-53.0) % MCV 88.1 (80.0-100.0) fL MCH 28.3 (25.0-35.0) pg MCHC 32.1 (31.0-37.0) g/dL RDW 14.8 (11.5-15.5) % Plt Count 123 L (150-450) k/uL Neutrophils % (Manual) 85 % Band Neutrophils % 2 % Lymphocytes % (Manual) 5 % Monocytes % (Manual) 8 % Neutrophils # (Manual) 12.20 H (1.3-7.7) k/uL Lymphocytes # (Manual) 0.71 L (1.0-4.8) k/uL Monocytes # (Manual) 1.13 H (0-1.0) k/uL Nucleated RBCs 0 (0-0) /100 WBC Manual Slide Review Performed Poikilocytosis (manual Present Anisocytosis (manual) Present PT (9.0-12.0) sec INR (<1.2) APTT (22.0-30.0) sec Sodium 140 (137-145) mmol/L Potassium 4.3 (3.5-5.1) mmol/L Chloride 102 (98-107) mmol/L Carbon Dioxide 27 (22-30) mmol/L Anion Gap 11 mmol/L BUN 45 H (9-20) mg/dL Creatinine 1.20 (0.66-1.25) mg/dL Est GFR (CKD-EPI)AfAm 64 (>60 ml/min/1.73 sqM) Est GFR (CKD-EPI)NonAf 56 (>60 ml/min/1.73 sqM) Glucose 108 H (74-99) mg/dL POC Glucose (mg/dL) (75-99) mg/dL POC Glu Advocacy Director ID Plasma Lactic Acid Isma (0.7-2.0) mmol/L Calcium 9.1 (8.4-10.2) mg/dL Total Bilirubin 0.9 (0.2-1.3) mg/dL AST 40 (17-59) U/L ALT 37 (21-72) U/L Alkaline Phosphatase 109 (38-126) U/L Total Creatine Kinase 162 (55-170) U/L CK-MB (CK-2) 1.9 (0.0-2.4) ng/mL CK-MB (CK-2) Rel Index 1.2 Troponin I 0.029 (0.000-0.034) ng/mL Total Protein 7.1 (6.3-8.2) g/dL Albumin 3.7 (3.5-5.0) g/dL Amylase 33 (30-110) U/L Lipase 23 (23-300) U/L Urine Color Urine Appearance (Clear) Urine pH (5.0-8.0) Ur Specific [place] (1.001-1.035) Urine Protein (Negative) Urine Glucose (UA) (Negative) Urine Ketones (Negative) Urine Blood (Negative) Urine Nitrite (Negative) Urine Bilirubin (Negative) Urine Urobilinogen (<2.0) mg/dL Ur Leukocyte Esterase (Negative) Urine RBC (0-5) /hpf Urine WBC (0-5) /hpf Urine WBC Clumps (None) /hpf Ur Squamous Epith Cells (0-4) /hpf Urine Bacteria (None) /hpf Urine Mucus (None) /hpf Serum Alcohol <10 mg/dL Blood Type Blood Type Recheck Antibody Screen Spec Expiration Date 04/15/18 04/15/18 04/15/18 Range/Units 22:54 22:54 22:54 WBC (3.8-10.6) k/uL RBC (4.30-5.90) m/uL Hgb (13.0-17.5) gm/dL Hct (39.0-53.0) % MCV (80.0-100.0) fL MCH (25.0-35.0) pg MCHC (31.0-37.0) g/dL RDW (11.5-15.5) % Plt Count (150-450) k/uL Neutrophils % (Manual) % Band Neutrophils % % Lymphocytes % (Manual) % Monocytes % (Manual) % Neutrophils # (Manual) (1.3-7.7) k/uL Lymphocytes # (Manual) (1.0-4.8) k/uL Monocytes # (Manual) (0-1.0) k/uL Nucleated RBCs (0-0) /100 WBC Manual Slide Review Poikilocytosis (manual Anisocytosis (manual) PT 11.4 (9.0-12.0) sec INR 1.2 H (<1.2) APTT 25.9 (22.0-30.0) sec Sodium (137-145) mmol/L Potassium (3.5-5.1) mmol/L Chloride (98-107) mmol/L Carbon Dioxide (22-30) mmol/L Anion Gap mmol/L BUN (9-20) mg/dL Creatinine (0.66-1.25) mg/dL Est GFR (CKD-EPI)AfAm (>60 ml/min/1.73 sqM) Est GFR (CKD-EPI)NonAf (>60 ml/min/1.73 sqM) Glucose (74-99) mg/dL POC Glucose (mg/dL) (75-99) mg/dL POC Glu Advocacy Director ID Plasma Lactic Acid Isma 1.2 (0.7-2.0) mmol/L Calcium (8.4-10.2) mg/dL Total Bilirubin (0.2-1.3) mg/dL AST (17-59) U/L ALT (21-72) U/L Alkaline Phosphatase (38-126) U/L Total Creatine Kinase (55-170) U/L CK-MB (CK-2) (0.0-2.4) ng/mL CK-MB (CK-2) Rel Index Troponin I (0.000-0.034) ng/mL Total Protein (6.3-8.2) g/dL Albumin (3.5-5.0) g/dL Amylase (30-110) U/L Lipase (23-300) U/L Urine Color Urine Appearance (Clear) Urine pH (5.0-8.0) Ur Specific [place] (1.001-1.035) Urine Protein (Negative) Urine Glucose (UA) (Negative) Urine Ketones (Negative) Urine Blood (Negative) Urine Nitrite (Negative) Urine Bilirubin (Negative) Urine Urobilinogen (<2.0) mg/dL Ur Leukocyte Esterase (Negative) Urine RBC (0-5) /hpf Urine WBC (0-5) /hpf Urine WBC Clumps (None) /hpf Ur Squamous Epith Cells (0-4) /hpf Urine Bacteria (None) /hpf Urine Mucus (None) /hpf Serum Alcohol mg/dL Blood Type O Negative Blood Type Recheck No Antibody Screen NEGATIVE Spec Expiration Date 04/18/2018 - 235304/15/18 04/16/18 Range/Units 23:18 01:27 WBC (3.8-10.6) k/uL RBC (4.30-5.90) m/uL Hgb (13.0-17.5) gm/dL Hct (39.0-53.0) % MCV (80.0-100.0) fL MCH (25.0-35.0) pg MCHC (31.0-37.0) g/dL RDW (11.5-15.5) % Plt Count (150-450) k/uL Neutrophils % (Manual) % Band Neutrophils % % Lymphocytes % (Manual) % Monocytes % (Manual) % Neutrophils # (Manual) (1.3-7.7) k/uL Lymphocytes # (Manual) (1.0-4.8) k/uL Monocytes # (Manual) (0-1.0) k/uL Nucleated RBCs (0-0) /100 WBC Manual Slide Review Poikilocytosis (manual Anisocytosis (manual) PT (9.0-12.0) sec INR (<1.2) APTT (22.0-30.0) sec Sodium (137-145) mmol/L Potassium (3.5-5.1) mmol/L Chloride (98-107) mmol/L Carbon Dioxide (22-30) mmol/L Anion Gap mmol/L BUN (9-20) mg/dL Creatinine (0.66-1.25) mg/dL Est GFR (CKD-EPI)AfAm (>60 ml/min/1.73 sqM) Est GFR (CKD-EPI)NonAf (>60 ml/min/1.73 sqM) Glucose (74-99) mg/dL POC Glucose (mg/dL) 121 H (75-99) mg/dL POC Glu Advocacy Director ID Shweta Haynes Plasma Lactic Acid Isma (0.7-2.0) mmol/L Calcium (8.4-10.2) mg/dL Total Bilirubin (0.2-1.3) mg/dL AST (17-59) U/L ALT (21-72) U/L Alkaline Phosphatase (38-126) U/L Total Creatine Kinase (55-170) U/L CK-MB (CK-2) (0.0-2.4) ng/mL CK-MB (CK-2) Rel Index Troponin I (0.000-0.034) ng/mL Total Protein (6.3-8.2) g/dL Albumin (3.5-5.0) g/dL Amylase (30-110) U/L Lipase (23-300) U/L Urine Color Yellow Urine Appearance Cloudy (Clear) Urine pH 8.0 (5.0-8.0) Ur Specific [place] 1.017 (1.001-1.035) Urine Protein 3+ H (Negative) Urine Glucose (UA) Negative (Negative) Urine Ketones Negative (Negative) Urine Blood Large H (Negative) Urine Nitrite Positive (Negative) Urine Bilirubin Negative (Negative) Urine Urobilinogen <2.0 (<2.0) mg/dL Ur Leukocyte Esterase Large H (Negative) Urine RBC 28 H (0-5) /hpf Urine WBC >182 H (0-5) /hpf Urine WBC Clumps Few H (None) /hpf Ur Squamous Epith Cells 1 (0-4) /hpf Urine Bacteria Few H (None) /hpf Urine Mucus Rare H (None) /hpf Serum Alcohol mg/dL Blood Type Blood Type Recheck Antibody Screen Spec Expiration Date Disposition Clinical Impression: Fall, Urinary tract infection, Change in mental status, Confusion, Right sided weakness Disposition: ADMITTED IP TO THIS HOSP Referrals: Ed Parrish MD [Primary Care Provider] - 1-2 days
[2018-04-15 23:08] LABS: HCT 35.9 % (39.0-53.0); HGB 11.5 gm/dL (13.0-17.5); MCH 28.3 pg (25.0-35.0); MCHC 32.1 g/dL (31.0-37.0); MCV 88.1 fL (80.0-100.0); Mean Platelet Volume 7.4; Platelet Count 123 k/uL (150-450); RBC 4.07 m/uL (4.30-5.90); RDW 14.8 % (11.5-15.5); WBC 14.1 k/uL (3.8-10.6)
[2018-04-15 23:10] LABS: ALT 37 U/L (21-72); AST 40 U/L (17-59); Albumin 3.7 g/dL (3.5-5.0); Alcohol <10 mg/dL; Alkaline Phosphatase 109 U/L (38-126); Amylase 33 U/L (30-110); Anion Gap 11 mmol/L; Blood Urea Nitrogen 45 mg/dL (9-20); Calcium 9.1 mg/dL (8.4-10.2); Carbon Dioxide 27 mmol/L (22-30); Chloride 102 mmol/L (98-107); Glucose 108 mg/dL (74-99); Lipase 23 U/L (23-300); Potassium 4.3 mmol/L (3.5-5.1); Sodium 140 mmol/L (137-145); Total Bilirubin 0.9 mg/dL (0.2-1.3); Total Protein 7.1 g/dL (6.3-8.2)
[2018-04-15 23:13] LABS: INR 1.2 (<1.2); Partial Thromboplastin Time 25.9 sec (22.0-30.0); Prothrombin Time 11.4 sec (9.0-12.0)
[2018-04-15] MEDS ORDERED: SODIUM CHLORIDE 0.9% 500 ML IV ONE (23:14)
[2018-04-15 23:21] LABS: Creatine Kinase MB 1.9 ng/mL (0.0-2.4); Troponin I 0.029 ng/mL (0.000-0.034)
[2018-04-15 23:22] LABS: Glucose,Whole Blood 121 mg/dL (75-99)
--- NOTE | 2018-04-15 23:42 | CT ---
EXAMINATION TYPE: CT brain ministerio walton DATE OF EXAM: 04/15/2018 COMPARISON: 11/08/2017 HISTORY: Prior on synapse, AMS after fall at 3pm today headache. Neck pain. CT DLP: 1417 mGycm Automated exposure control for dose reduction was used. TECHNIQUE: CT scan of the head and cervical spine are performed without contrast. FINDINGS: There is cerebral cortical atrophy. There is no mass effect nor midline shift. There is n o sign of intracranial hemorrhage. The calvarium is intact. There is incomplete pneumatization of the mastoid sinuses. There is some hypodensity in the right occipital lobe cortex. Cervical vertebra have normal alignment. There is some narrowing of disc spaces from C5 to T1. Bicycle [employer]i [employer] ior elements are intact. Skull base is intact. There is mild hypertrophic facet arthropathy. There is no evidence of cervical spine fracture. IMPRESSION: Mild spondylosis in the lower cervical spine. No fracture. No change. Cerebral atrophy. Mild hydrocephalus. Small old right occipital cortical infarct. Changes of chronic mastoiditis. No acute intracranial abnormality and no change compared to old exam.
--- NOTE | 2018-04-15 23:54 | XR ---
EXAMINATION TYPE: XR chest 1V portable DATE OF EXAM: 04/15/2018 COMPARISON: 10/24/2017 HISTORY: Dementia TECHNIQUE: Single frontal view of the chest is obtained. FINDINGS: There is some coarsening of interstitial pulmonary markings. There is no heart failure. Th ere is left axillary pacemaker with the lead tip in the right ventricle. There are old right and left healed rib fractures. Thoracic aorta is atheromatous. Costophrenic angles are clear. IMPRESSION: Mild pulmonary fibrotic changes. Cardiomegaly. No heart failure seen there is clearing o f mild pulmonary congestion compared to old exam.
--- NOTE | 2018-04-15 23:55 | XR ---
EXAMINATION TYPE: XR pelvis AP view DATE OF EXAM: 04/15/2018 COMPARISON: NONE HISTORY: Fall. TECHNIQUE: Single view FINDINGS: Pelvic ring is intact. Proximal femurs are intact. There is atherosclerotic vascular calcif ication. Sacroiliac joints appear intact. IMPRESSION: No acute abnormality of the pelvis. No fracture.
[2018-04-16 02:35] LABS: Band Neutrophils % 2 %; Lymphocytes # (M) 0.71 k/uL (1.0-4.8); Monocytes # (M) 1.13 k/uL (0-1.0); Neutrophils % (M) 85 %; Nucleated Red Blood Cells 0 /100 WBC (0-0); Total Cells Counted 100
[2018-04-16 02:38] LABS: Anisocytosis (M) Present; Poikilocytosis (M) Present
[2018-04-16 04:43] LABS: Appearance,Urine Cloudy (Clear); Bacteria,Urine Few /hpf; Bilirubin,Urine Negative (Negative); Blood,Urine Large (Negative); Color,Urine Yellow; Glucose,Urine (UA) Negative (Negative); Ketones,Urine Negative (Negative); Leukocyte Esterase,Urine Large (Negative); Mucus,Urine Rare /hpf; Nitrite,Urine Positive (Negative); Protein,Urine 3+ (Negative); RBC,Urine 28 /hpf (0-5); Specific Gravity,Urine 1.017 (1.001-1.035); Squamous Epithelial Cell,Urine 1 /hpf (0-4); Urobilinogen,Urine <2.0 mg/dL (<2.0); WBC,Urine >182 /hpf (0-5)
[2018-04-16] MEDS ORDERED: NALOXONE 0.4 MG/ML 1 ML VIAL IV PRN (05:37)
[2018-04-16] MEDS: SODIUM CHLORIDE 0.9% 1,000 ML IV SCH ×3 (08:48→23:49)
[2018-04-16] MEDS ORDERED: ACETAMINOPHEN TAB 325 MG TAB PO PRN (09:38)
[2018-04-16] MEDS: ATORVASTATIN 20 MG TAB PO SCH (10:54)
[2018-04-16] MEDS: PIPERACILLIN-TAZOBACTAM 3.375 GM in DEXTROSE/WATER 1 50ML.BAG IVPB SCH ×3 (10:54→23:48)
[2018-04-16] MEDS: FUROSEMIDE 20 MG TAB PO SCH ×2 (10:54→15:55)
--- NOTE | 2018-04-16 13:50 | FL ---
EXAMINATION TYPE: FL barium swallow w video DATE OF EXAM: 04/16/2018 MODIFIED SWALLOW / DEGLUTITION STUDY CLINICAL HISTORY: Aspiration pneumonia, abnormal bedside swallow. TECHNIQUE: Deglutition study is performed utilizing thin liquid barium with chin tuck, honey and nec tar thick liquid barium, barium thick applesauce, and barium coated cracker. A total of 3.25 minutes of fluoroscopic time was utilized. Serial spot images are saved to PACS. COMPARISON: None. FINDINGS: The oral and pharyngeal phases show satisfactory initiation with mild delay in propagation with all modalities tested. Satisfactory mastication is seen with solid modalities tested. There is silent aspiration which does not initiate cough reflex with nectar thick liquid barium. Repeat attemp ts with thin liquid barium with chin tuck procedure show no penetration or aspiration. Other more vis cous modalities show no aspiration . No significant pharyngeal residue was appreciated. IMPRESSION: Silent aspiration confirmed with nectar thick liquid barium, improvement with chin tuck p rocedure noted. Please refer to speech therapist notes for further details if necessary.
[2018-04-16 16:02] LABS: Amphetamine Screen,Urine Not Detected (NotDetected); Barbiturate Screen,Urine Not Detected (NotDetected); Benzodiazepines Screen,Urine Detected (NotDetected); Cocaine Screen,Urine Not Detected (NotDetected); Methadone Screen, Urine Not Detected (NotDetected); Opiate Screen,Urine Not Detected (NotDetected); Oxycodone Screen, Urine Not Detected (NotDetected); Phencyclidine Screen,Urine Not Detected (NotDetected); Tricyclic Antidepressant,Urine Not Detected (NotDetected); Urn Cannabinoid Scrn Not Detected (NotDetected)
--- NOTE | 2018-04-16 18:17 | HP ---
HISTORY AND PHYSICAL DATE OF SERVICE: 04/16/2018 DATA: FULL CODE. Height 5 feet 9 inches. Weight 73.028 kg, BSA 1.88 m2, BMI 23.8 kg/m2. ALLERGIES: 1. GENTAMICIN. Adverse reaction loss of balance and numbness. 2. HYDROCODONE. Adverse reaction confusion. The patient presented to the emergency room for evaluation of altered mental status and fall at home. His reported to the ER (I could not get hold of her) that he was in his usual state of health earlier today and she took him for a drive in the afternoon and upon getting home she was attempting to help him out of the vehicle. He fell backward, landing on his buttocks and striking his head on a trash can. A neighbor came over and was able to help him get up into the home. His reported that since that time she noticed that he was becoming progressively sleepy, somnolent, confused, and she noticed some weakness that was worse on his right side than his usual baseline. So she called 911 and transported the patient to the hospital. CURRENT MEDICATION: 1. Apixaban, "Eliquis" 2.5 mg at bedtime. 2. Omeprazole 20 mg every 48 hours. 3. Atorvastatin 20 mg daily. 4. Metoprolol tartrate, Lopressor, 100 mg in the morning. 5. Vitamin B complex 1 capsule daily. 6. Lasix 20 mg twice a day. 7. Tylenol. 8. Metoprolol tartrate 50 mg at bedtime. 9. Myrbetriq 50 mg daily; probably used for incontinence. 10.Flomax 0.4 mg once daily. PAST HISTORY: The patient is . He follows with Dr. Parrish. 1. History of chronic atrial fibrillation. 2. Previous stroke. 3. History of gastrointestinal bleeding with anticoagulation Coumadin, Plavix and aspirin in the past. 4. Previous stenting of the coronary artery. 5. Lower extremity peripheral vascular disease and he had stenting. 6. Aortic stenosis with transarterial valve placement. 7. Benign prostatic hypertrophy. 8. Degenerative joint disease. 9. 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 10.Mild COPD. 11.Chronic dysphagia from old CVA. 12.History of renal disease. SURGICAL HISTORY: 1. Amputation of the left third, fourth and fifth toes from the left foot. 2. Right brachial artery embolectomy. 3. TAVR. He used to be taking other medication, and that is in the previous admission; however, that has been changed. REVIEW OF SYSTEMS: The patient is able to communicate; however, he is confused, disoriented. No clear history can be obtained. He denied any headache or nausea or vomiting or diarrhea or shortness of breath at the time of presence in the hospital. However, he said he is short of breath all the time. He has a history of chronic leg edema, intermittent constipation; no blood. FAMILY HISTORY: His family history from the record indicates that his father at age 60 with colon cancer. He has one son with type 1 diabetes. He had a pancreatic and renal transplant. The patient is and lives with his spouse. Previous history of smoking. Previous history of alcohol intake. PHYSICAL EXAMINATION: VITAL SIGNS: His blood pressure on admission was 147/67, mean arterial pressure was 93. Subsequently it dropped to 113/60. Temperature between 97.7 and 98.9 orally. Pulse rate 74 to 61. Respiratory rate 16. His pulse ox on room air was 99. On the examination, he is conscious and alert but confused and could not answer the straight question. HEENT: The head was normocephalic, atraumatic. Pupils reactive. Oropharynx negative. Neck was supple. The chest was clear to auscultation and percussion. HEART: PMI in the fifth intercostal space. Normal S1, S2 and no gallop appreciated. He has irregular irregularities with atrial fibrillation. He is not in sinus rhythm; he is in atrial fibrillation. He is on apixaban for that. Abdomen is soft. Positive bowel sounds. EXTREMITIES: He has a history of multiple amputations of the toes with peripheral vascular disease and decreased pulses. He has a diaper and pull-ups. He has a history of increased anteroposterior diameter. He has a history of pacemaker and is not symptomatic of bradycardia at this time. He has a history of renal failure with chronic kidney disease, stage III, in the past with glomerular filtration rate of 31. He has a history of hypermagnesemia, old CVA and coronary artery disease and previous stenting and previous transarterial aortic valve replacement for aortic stenosis. Currently in the emergency room he an evaluation that started with the CT scan. Chest x-ray showed mild pulmonary fibrotic changes, cardiomegaly, and no evidence of heart failure. There is a clearing of pulmonary congestion with the underlying history of dementia. The pelvic x-ray because of his fall showed no acute abnormalities and the femur was intact and the pelvis was intact. CT scan of the head and neck showed mild spondylosis in the lower cervical spine and also cerebral atrophy, mild hydrocephalus, small old right occipital cortical infarction and changes of chronic mastoiditis. No acute intracranial abnormalities. He had also at that time an EKG because of the pacemaker. He had ventricular paced rhythm, occasionally premature, with the underlying atrial fibrillation base. He had some swallowing difficulties and had video fluoroscopic that showed the impression of silent aspiration, confirmed with nectar- thick liquid barium; improvement with chin tuck procedure; refer to Speech. We did also an abdominal ultrasound; the report has not been read yet. LABORATORY: Leukocytosis with white count 14.1 and hemoglobin 11.5 with mild anemia. His PT and INR were 11.4 and INR 1.2. His chemistry showed sodium 140, potassium 4.3, BUN of 45 and creatinine 1.2 with the estimated glomerular filtration rate for non- 56 with the indicator that he has underlying chronic kidney disease, stage IIIA. His blood sugar was 108. His plasma lactic acid was 1.2. His liver enzymes are normal. Calcium is normal at 9.1. Alkaline phosphatase is normal. His troponin is 0.029. Amylase and lipase are normal. His urine analysis showed large leukocyte esterase and clumps of WBCs with the RBCs 28 and WBC more than 182 and large blood and 3+ protein. With there findings, the patient received diagnosis of acute urinary tract infection with possible cystitis versus pyelonephritis. We obtained the ultrasound of the kidneys, bladder and ureters and started him on antibiotic. We see if he has any improvement. He continues on the anticoagulation with the apixaban and his home medication added to the antibiotic that was started; he received Rocephin in the ER. However, because of the significant infection, we will start him on Zosyn IV piggyback, Pharmacy to dose. He continues with the underlying history of benign prostatic hypertrophy on the tamsulosin. We are obtaining laboratories in the morning. MMODL / IJN: [id number] /
[2018-04-16] MEDS: METOPROLOL TARTRATE 50 MG TAB PO SCH (22:02)
[2018-04-16] MEDS: APIXABAN 2.5 MG TABLET PO SCH (22:02)
[2018-04-17] MEDS: ATORVASTATIN 20 MG TAB PO SCH (07:17)
[2018-04-17] MEDS: PANTOPRAZOLE 40 MG TABLET PO SCH (07:17)
[2018-04-17] MEDS: SODIUM CHLORIDE 0.9% 1,000 ML IV SCH ×3 (07:17→23:49)
[2018-04-17] MEDS: PIPERACILLIN-TAZOBACTAM 3.375 GM in DEXTROSE/WATER 1 50ML.BAG IVPB SCH ×2 (07:17→15:42)
[2018-04-17] MEDS: METOPROLOL TARTRATE 50 MG TAB PO SCH ×2 (07:18→19:51)
[2018-04-17] MEDS: FUROSEMIDE 20 MG TAB PO SCH ×2 (07:18→15:42)
[2018-04-17] MEDS: TAMSULOSIN 0.4 MG CAP.ER.24H PO SCH (07:18)
[2018-04-17] MEDS: PATIENT'S OWN MED (Mirabegron [Myrbetriq] 50 MG) PO SCH (07:19)
[2018-04-17] MEDS ORDERED: NON-FORMULARY DRUG (Vitamin B Complex [Vitamin B Complex] 1 CAP) PO SCH (09:00)
[2018-04-17 09:12] LABS: HCT 32.5 % (39.0-53.0); HGB 10.6 gm/dL (13.0-17.5); MCHC 32.6 g/dL (31.0-37.0); Mean Platelet Volume 7.7; Platelet Count 104 k/uL (150-450); RBC 3.65 m/uL (4.30-5.90); RDW 14.8 % (11.5-15.5); WBC 6.8 k/uL (3.8-10.6)
[2018-04-17 09:22] LABS: Calcium 8.7 mg/dL (8.4-10.2); Potassium 3.5 mmol/L (3.5-5.1)
[2018-04-17 10:20] LABS: Basophils # (M) 0.07 k/uL (0-0.2); Lymphocytes # (M) 0.27 k/uL (1.0-4.8); Monocytes # (M) 0.27 k/uL (0-1.0); Neutrophils # (M) 6.19 k/uL (1.3-7.7); Neutrophils % (M) 91 %; Nucleated Red Blood Cells 0 /100 WBC (0-0); Total Cells Counted 100
[2018-04-17 10:21] LABS: Poikilocytosis (M) Present
--- NOTE | 2018-04-17 12:32 | CDI ---
Last Revision, June 2017 Documentation Clarification Form Date: 04/17/18 From: La Nena Izaguirre RN, CCDS Admit Date: 04/16/2018 5:37:00 AM Patient Name: Ricardo Gonzales Visit Number: [id number] Discharge Date: ATTENTION: The Clinical Documentation Specialists (CDI) and [facility] Coding Staff appreciate your assistance in clarifying documentation. Please respond to the clarification below the line at the bottom and electronically sign. The CDI & [facility] Coding staff will review the response and follow-up if needed. Please note: Queries are made part of the Legal Health Record. If you have any questions, please contact the author of this message via ITS. Jose Elias Quiles MD Altered mental status was documented in the Emergency department evaluation and in your H/P. Patient history/risk factors: Early Dementia, CVA, CKD Stage 3, Chronic Atrial Fibrillation Clinical Indicators: Present for evaluation of altered mental status and a fall at home. reports that he has become progressively more somnolent and confused; she noticed some weakness that was worse on his right side than his usual baseline. Neurological exam find him minimally verbal. Labs: WBC 14.1, UA: Leukocyte Esterase-Large, WBC >182, Chest x ray: mold pulmonary fibrotic changes. No heart failure, clearing of mild pulmonary congestion compared to old exam. CT Head: Mild hydrocephalus. Small old right occipital cortical infarct. No acute intracranial abnormality. Treatment: Neuro checks per protocol Monitor labs Zosyn IV IV Fluids In your professional opinion, please clarify the etiology of the altered mental status, if known. Encephalopathy (specify Type: Metabolic, Other (specify) and Underlying Medical Illness) Other condition (please specify) Unable to determine Please continue to document in your progress notes and discharge summary in order to capture severity of illness and risk of mortality. Include clinical findings that support your diagnosis. MTDD
--- NOTE | 2018-04-17 15:24 | US ---
EXAMINATION TYPE: US kidneys/renal and bladder DATE OF EXAM: 04/16/2018 COMPARISON: NONE CLINICAL HISTORY: nephrolith,CKD,pyelneph,recurrent uti. Recurrent UTI, CKD EXAM MEASUREMENTS: Right Kidney: 9.8 x 5.7 x 4.9 cm Left Kidney: 10.8 x 5.0 x 3.9 cm Technical limitations due to large amount of overlying bowel content Right Kidney: no evidence of hydronephrosis as visualized Left Kidney: somewhat lobulated, no evidence of hydronephrosis as visualized Bladder: not fully distended, thickened wall = 0.8cm Bilateral Jets seen: no There is no ascites. Kidneys show normal cortical medullary differentiation. IMPRESSION: Thickening of the urinary bladder wall is nonspecific and could be due to lack of distention, correla te for possible chronic bladder outlet obstruction or cystitis. Some limitations to the exam.
[2018-04-17 16:36] LABS: Appearance,Urine Clear (Clear); Bacteria,Urine Rare /hpf; Bilirubin,Urine Negative (Negative); Blood,Urine Negative (Negative); Color,Urine Yellow; Glucose,Urine (UA) Negative (Negative); Hyaline Casts,Urine 3 /lpf (0-2); Ketones,Urine Negative (Negative); Leukocyte Esterase,Urine Moderate (Negative); Mucus,Urine Rare /hpf; Nitrite,Urine Negative (Negative); Protein,Urine Negative (Negative); RBC,Urine 3 /hpf (0-5); Specific Gravity,Urine 1.016 (1.001-1.035); Urobilinogen,Urine <2.0 mg/dL (<2.0)
--- NOTE | 2018-04-17 17:03 | PN ---
PROGRESS NOTE DATE OF SERVICE: 04/17/2018. DATA: FULL CODE. Height is 5 feet 9 inches, weight 73.028 kg, BSA 1.88 m2, BMI 23.8 kg/m2. ALLERGIES: GENTAMICIN and HYDROCODONE. The patient is seen today and evaluated face to face. We discussed his case in detail with his . Patient was admitted initially with urinary tract infection and started on IV antibiotic in the emergency room. However, the emergency room did not order a culture of the urine, and that was new to my knowledge, as the patient started to see them after the emergency room started the antibiotic. I did call today because I found the culture was not received yet. I called the lab and the lab indicated they did not receive a culture order. The patient has already been on antibiotic for the last 2 days, and any culture now would be useless to be done. He has been on Rocephin followed by M[facility]. He has an ALLERGY to GENTAMICIN with loss of balance and numbness and with HYDROCODONE he had confusion. I spoke with his , who stated that he fell at home as he missed a step and and fell backward and hit his back and back of his head. I showed her, as he had a CT scan of the head and cervical spine which showed mild spondylosis of the lower cervical spine. Otherwise, cerebral atrophy and mild hydrocephalus, and there is also a small old right occipital cortical infarct and no acute changes. Subsequently he also had video fluoroscopy for swallowing, and that indicated that he had silent aspiration, confirmed with nectar-thick liquid barium and improved with tucking his neck. He had an abdominal ultrasound showing his right kidney has normal size at 9.8 x 5.7 x 4.9 with the underlying history of chronic kidney disease and UTI and ruling out pyelonephritis. His left kidney measures 10.8 x 5 x 3.9. In the right kidney, no evidence of hydronephrosis. The left kidney is somewhat lobulated, but no evidence of hydronephrosis. The visualized bladder is not fully distended and it has a thickened wall. The jet was not seen and there is no ascites. The kidneys show normal cortical medullary differentiation with the conclusion: thickening of the urinary bladder wall is nonspecific, could be due to lack of distention and correlate for possible chronic bladder outlet obstruction or cystitis. The patient is incontinent of urine. He has no history of prostate check. We will be obtaining the PSA for him. His white count is markedly improved, from WBC 14.1 to WBC to 6.8. Subsequently once we have a bed available in [facility], we will be transferring him to [facility]. I did discuss with his and she stated that he had several strokes in the past and he needs rehabilitation, and that is what the progression is if they accept or not. LABORATORY: Platelet count low 104 with the mild thrombocytopenia but no bleeding. His white count is 6.8, normal. Hemoglobin is 10.6 with mild anemia and mild thrombocytopenia. That does not cause bleeding and he did not have symptoms of bleeding. His chemistry was indicating BUN of 35 and creatinine 1.28 and that is chronic kidney disease, stage IIIA, with the estimated glomerular filtration rate for non- 51. His calcium is 8.7 and was 9.1 prior to that. His urine analysis was extremely infected. However, the culture was not requested by the ER when they did the urine to know exactly what organism was involved. With this information, we will continue the antibiotic IV until we have a bed available, and patient will be subsequently transferred to [facility]. They will let me know when the bed is available. Meanwhile, we will obtain UA tomorrow as well as the PSA. The patient is incontinent and continues to be incontinent. We discussed today the possibility of using the [place] catheter. We are trying to avoid [place] catheter and using bedside commode or urinary bottle. PHYSICAL EXAMINATION: Patient is conscious and alert. No change of mental status at this time. His able to talk to his . His chest was clear with no wheezes or rhonchi. HEART: Regular sinus rhythm. ABDOMEN: Soft. Positive bowel sounds. EXTREMITIES: No edema. Stable general condition and able to ambulate but with assistance. MMODL / IJN: [id number] /
[2018-04-17] MEDS ORDERED: LORazepam 1 MG TAB PO PRN (19:28)
[2018-04-17] MEDS: APIXABAN 2.5 MG TABLET PO SCH (19:51)
[2018-04-18] MEDS: PIPERACILLIN-TAZOBACTAM 3.375 GM in DEXTROSE/WATER 1 50ML.BAG IVPB SCH ×4 (00:07→23:26)
[2018-04-18] MEDS: METOPROLOL TARTRATE 50 MG TAB PO SCH ×2 (09:36→21:01)
[2018-04-18] MEDS: ATORVASTATIN 20 MG TAB PO SCH (09:38)
[2018-04-18] MEDS: FUROSEMIDE 20 MG TAB PO SCH ×2 (09:38→16:14)
[2018-04-18] MEDS: TAMSULOSIN 0.4 MG CAP.ER.24H PO SCH (09:39)
[2018-04-18] MEDS: PATIENT'S OWN MED (Mirabegron [Myrbetriq] 50 MG) PO SCH (09:39)
[2018-04-18] MEDS: SODIUM CHLORIDE 0.9% 1,000 ML IV SCH ×2 (11:29→18:31)
--- NOTE | 2018-04-18 19:46 | PN ---
PROGRESS NOTE DATE OF SERVICE: 04/18/2018. DATA: FULL CODE. Height 5 feet 9 inches. Weight 73.028 kg. BSA 1.88 m2. BMI 23.8 kg/m2. ALLERGIES: GENTAMICIN and HYDROCODONE with gentamicin causing loss of balance and numbness and hydrocodone caused confusion. The patient was seen today on 04/18/2018 with his at bedside. I discussed with the patient and his . Currently on examination his vital signs indicate temperature 99, but he was eating, and his pulse is 71, respiratory rate 17, blood pressure 141/86, pulse rate 100. LABORATORY: The last white count was done on 04/17/2018 and that was normal at 6.8. Hemoglobin was 10.6, hematocrit 32.5. His chemistry on 04/17/2018, yesterday, showed [id number], potassium 3.5, BUN 35 and creatinine 1.28, and his estimated glomerular filtration rate for non- was 51 with the underlying chronic kidney disease. His calcium was 8.7. Liver enzymes on admission were normal and were not repeated. The PSA was 0.94. Troponin was normal on admission. His urine analysis on the 04/17/2018 was a repeat after patient was found to have moderate leukocytic esterase. His white cells went down to 13, which was significant improvement with the current antibiotic. Patient otherwise is stable. Conscious, alert, confused, with underlying history of 3 strokes. His wants to go for rehabilitation at [facility]. He has been taking benzodiazepine at home for comfort and sleep. At this time we will be continuing his current medication. I was called last night because of agitation. His stated that he has taking at home anticoagulation apixaban as well as Ativan, and we started him on his Ativan and apparently there was significant improvement for the patient. The patient is also on Myrbetriq for his incontinent, and he has been taking tamsulosin. He is currently on Zosyn IV piggyback q.8 hours, with significant improvement of that. On the examination, as mentioned, he is able to feed himself and is able to eat. His was at bedside beside him. She was eating as well. CHEST: Clear. No wheezes. No rhonchi. HEART: Regular sinus rhythm. Abdomen was soft, nontender. Positive bowel sounds. EXTREMITIES: No edema and positive pulses. NEUROLOGICAL: No neuro deficit. He has lorazepam 1 mg every 6 hours p.r.n. and he is calm as well with that. ASSESSMENT: The patient is currently in stable general condition. His vital signs are stable. His IV will be decreased. We will continue with antibiotic until tomorrow and subsequently we will be changing it to an oral antibiotic for the custodial. The disposition probably tomorrow if they have the bed and the authorization; we will move him to the [facility]. ADELA / ERIKA: [id number] /
[2018-04-18] MEDS: APIXABAN 2.5 MG TABLET PO SCH (21:01)
[2018-04-19 00:39] VITALS: RESP 18
[2018-04-19 06:07] VITALS: BP 121/63; PULSE 71; TEMP 97.8
[2018-04-19] MEDS: PIPERACILLIN-TAZOBACTAM 3.375 GM in DEXTROSE/WATER 1 50ML.BAG IVPB SCH (08:20)
[2018-04-19] MEDS: ATORVASTATIN 20 MG TAB PO SCH (08:21)
[2018-04-19] MEDS: METOPROLOL TARTRATE 50 MG TAB PO SCH (08:21)
[2018-04-19] MEDS: PANTOPRAZOLE 40 MG TABLET PO SCH (08:21)
[2018-04-19] MEDS: FUROSEMIDE 20 MG TAB PO SCH (08:21)
[2018-04-19] MEDS: TAMSULOSIN 0.4 MG CAP.ER.24H PO SCH (08:22)
[2018-04-19] MEDS: PATIENT'S OWN MED (Mirabegron [Myrbetriq] 50 MG) PO SCH (08:28)
[2018-04-19 08:45] LABS: Calcium 8.4 mg/dL (8.4-10.2); Potassium 3.2 mmol/L (3.5-5.1)
[2018-04-19 08:54] LABS: HCT 32.3 % (39.0-53.0); HGB 10.5 gm/dL (13.0-17.5); MCH 28.5 pg (25.0-35.0); MCHC 32.5 g/dL (31.0-37.0); MCV 87.8 fL (80.0-100.0); Platelet Count 116 k/uL (150-450); RBC 3.68 m/uL (4.30-5.90); RDW 14.2 % (11.5-15.5); WBC 5.2 k/uL (3.8-10.6)
[2018-04-19] MEDS ORDERED: Potassium Replacement Protocol 1 EACH MISC MISCELLANE PRN (10:37)
[2018-04-19 11:14] LABS: Eosinophils # (M) 0.26 k/uL (0-0.7); Lymphocytes # (M) 1.35 k/uL (1.0-4.8); Monocytes # (M) 0.21 k/uL (0-1.0); Neutrophils # (M) 3.38 k/uL (1.3-7.7); Neutrophils % (M) 65 %; Nucleated Red Blood Cells 0 /100 WBC (0-0); Total Cells Counted 100
[2018-04-19] MEDS: POTASSIUM CHLORIDE ER 20 MEQ TAB.ER PO SCH ×2 (12:34→12:35)
--- NOTE | 2018-04-19 14:09 | DS ---
DISCHARGE SUMMARY DATE OF SERVICE: 04/19/2018 ATTENDING PHYSICIAN: Dr. Parrish. Dictating discharge summary by Dr. Malagon. Patient he has an underlying history of admission diagnoses: 1. Acute urinary tract infection. 2. Dementia with a history of cerebrovascular accident in the past x3. 3. Debilitation and need for further rehabilitation. 4. Metabolic acidosis secondary to urinary tract infection and sepsis could not be excluded; however, the culture was not done in the ER before the antibiotic was started. He is also on anticoagulation with the apixaban "Eliquis". Discharged on ciprofloxacin 250 mg twice a day for a total of 7 days. HOSPITAL COURSE: Patient presented to the emergency room on the date of April 15, date of admission and with the change of mental status and patient also has underlying frequent fall with history of previous CVA. He has history of myocardial infarction and CVA, TIA, DC and renal disease with chronic kidney disease. He had history of cardiac valve replacement and cardiac catheterization and a bowel resection in the past and surgical orthopedic. He had also a swallow study and was positive for silent aspiration and the Speech Pathology started him on nectar thick liquid barium and tucked his neck when the chin and neck during the feeding process. He is eating fine at this time and no choking. On the hospital course, patient treated with the IV antibiotic and further laboratory was obtained. In the hospital course, his white count 5.2 at the time of discharge, his hemoglobin 10.5 with underlying anemia. His platelet count 116. His electrolytes indicating sodium 141, potassium 3.2, and he is on potassium supplementation and his estimated glomerular filtration rate was 59 with the chronic kidney disease, stage IIIA. His PSA was normal 0.94, calcium was ranging between 8.4 and 8.6. His repeat urinalysis on 04/17 showed moderate leukocyte esterase and his white count of the urine was more than 182 and currently 13 and the need for further antibiotic orally and we gave him the Cipro 250 mg twice a day. Patient has rehabilitation needed further at the detention. Patient will be stable general condition to be discharged home today. His vital sign on discharge, stable 97.8 temperature and pulse 71, respiratory rate 18, blood pressure 121/64, and pulse ox 96%. HEENT was negative. Neck was supple. Able to eat and swallow without choking. The chest was clear to auscultation and percussion and the heart was compensated and no edema and abdomen is soft, positive bowel sound and no organ enlargement, extremities no edema. ASSESSMENT: Stable and will be transferred to [facility] on the facility for rehabilitation. The patient will be admitted under care Dr. Parrish. At this time if there is any need for contacting, they can contact Dr. Malagon temporary until Dr. Parrish is back. MMODL / IJN: [id number] /
[2018-04-19] MEDS ORDERED: CIPROFLOXACIN HCL 250 MG TAB PO SCH (21:00)
== END 2018-04-19 13:43 | DRG 872 ==
LOC: EC 22:27 → 4MS4W 04-16 05:37
PROVIDERS: ADMIT Internal Medicine; ATTEND Internal Medicine
DX: A41.9 Sepsis, unspecified organism (principal); N39.0 Urinary tract infection, site not specified; G91.9 Hydrocephalus, unspecified; E87.2 Acidosis; G20 Parkinson's disease; I48.2 Chronic atrial fibrillation; D69.6 Thrombocytopenia, unspecified; R13.10 Dysphagia, unspecified; N18.3 Chronic kidney disease, stage 3 (moderate); J44.9 Chronic obstructive pulmonary disease, unspecified; I69.391 Dysphagia following cerebral infarction; F03.90 Unspecified dementia, unspecified severity, without behavioral disturbance, psychotic disturbance, mood disturbance, and anxiety; D64.9 Anemia, unspecified; G31.9 Degenerative disease of nervous system, unspecified; E78.5 Hyperlipidemia, unspecified; N40.1 Benign prostatic hyperplasia with lower urinary tract symptoms; N39.498 Other specified urinary incontinence; M47.812 Spondylosis without myelopathy or radiculopathy, cervical region; I25.2 Old myocardial infarction; Z79.01 Long term (current) use of anticoagulants; Z79.899 Other long term (current) drug therapy; Z95.828 Presence of other vascular implants and grafts; Z95.5 Presence of coronary angioplasty implant and graft; Z95.2 Presence of prosthetic heart valve; Z95.0 Presence of cardiac pacemaker; Z87.11 Personal history of peptic ulcer disease; Z89.422 Acquired absence of other left toe(s); Z89.011 Acquired absence of right thumb; Z98.42 Cataract extraction status, left eye; Z98.41 Cataract extraction status, right eye; Z88.1 Allergy status to other antibiotic agents; Z88.5 Allergy status to narcotic agent; Z80.0 Family history of malignant neoplasm of digestive organs; W18.30XA Fall on same level, unspecified, initial encounter; Y92.009 Unspecified place in unspecified non-institutional (private) residence as the place of occurrence of the external cause
CPT/HCPCS: 36415; 70450; 71045; 72125; 72170; 74230; 76770; 80048; 80053; 80306; 80320; 81001; 82150; 82550; 82553; 83605; 83690; 84484; 85025; 85610; 85730; 86850; 86900; 86901; 87040; 87086; 93005; 96360; 96361; 99285

== ENCOUNTER 2018-10-04 13:50 | Inpatient (IN) | payer MEDICARE ==
[2018-10-04] MEDS ORDERED: FUROSEMIDE 10 MG/ML 4 ML VIAL IV STA (14:51)
--- NOTE | 2018-10-04 15:00 | ED ---
General Adult HPI - General Chief complaint: Shortness of Breath Stated complaint: needs fluid off of his legs-dr mccoy Time Seen by Provider: 10/04/18 14:00 Source: patient, RN notes reviewed Mode of arrival: wheelchair Limitations: no limitations - History of Present Illness Initial comments: This is an 83-year-old male who presents emergency Department complaining of increased swelling to his legs all up to his groin. Patient also does complain of some increased shortness of breath this is occurred over the last week. Patient went to see Dr. Francois Parrish wanted the patient admitted. Patient denies any fever chills or cough per patient denies any palpitations or chest pain. There is been no history of any abdominal pain there's been no history of any vomiting or diarrhea. Patient is not complaining of any syncope or near syncopal episodes. Patient denies any headache. - Related Data Home Medications Medication Instructions Recorded Confirmed Apixaban [Eliquis] 2.5 mg PO HS 11/02/15 10/04/18 Omeprazole [PriLOSEC] 20 mg PO DAILY 02/08/17 10/04/18 Metoprolol Tartrate [Lopressor] 100 mg PO HS 09/17/17 10/04/18 Furosemide [Lasix] 20 mg PO DAILY@1500 02/04/18 10/04/18 Metoprolol Tartrate [Lopressor] 50 mg PO QAM 04/15/18 10/04/18 Mirabegron [Myrbetriq] 50 mg PO DAILY 04/15/18 10/04/18 Atorvastatin [Lipitor] 40 mg PO DAILY 10/04/18 10/04/18 Furosemide [Lasix] 40 mg PO QAM 10/04/18 10/04/18 LORazepam [Ativan] 1 mg PO BID PRN 10/04/18 10/04/18 Metolazone [Zaroxolyn] 2.5 mg PO Q48H 10/04/18 10/04/18 Nitroglycerin Sl Tabs [Nitrostat] 0.4 mg SUBLINGUAL Q5M PRN 10/04/18 10/04/18 Previous Rx's Medication Instructions Recorded Tamsulosin [Flomax] 0.4 mg PO DAILY cap.er.24h 01/13/18 Allergies Allergy/AdvReac Type Severity Reaction Status Date / Time gentamicin [Gentamicin] AdvReac loss of Verified 10/04/18 15:41 balance/numbness hydrocodone [From [place]] AdvReac Confusion Verified 10/04/18 15:41 Review of Systems ROS Statement: Those systems with pertinent positive or pertinent negative responses have been documented in the HPI. ROS Other: All systems not noted in ROS Statement are negative. 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 Past Anesthesia/Blood Transfusion Reactions: No Reported Reaction Date of Last Stent Placement:: 2010 Past Psychological History: No Psychological Hx Reported Smoking Status: Never smoker Past Alcohol Use History: None Reported Past Drug Use History: None Reported - Past Family History Father History Unknown: Yes Family Medical History: No Reported History Additional Family Medical History / Comment(s): Pt never new his father. He was raised by his stepfather. Mother History Unknown: Yes Family Medical History: No Reported History Additional Family Medical History / Comment(s): Mother was healthy and lived to be 89yrs old. General Exam - General Exam Comments Initial Comments: GENERAL: Patient is well-developed and well-nourished. Patient is nontoxic and well-hydrated and is in mild distress. ENT: Neck is soft and supple. No significant lymphadenopathy is noted. Oropharynx is clear. Moist mucous membranes. Neck has full range of motion without eliciting any pain. EYES: The sclera were anicteric and conjunctiva were pink and moist. Extraocular movements were intact and pupils were equal round and reactive to light. Eyelids were unremarkable. PULMONARY: Unlabored respirations. Good breath sounds bilaterally. No audible rales rhonchi or wheezing was noted. CARDIOVASCULAR: There is a regular rate and rhythm without any murmurs gallops or rubs. ABDOMEN: Soft and nontender with normal bowel sounds. SKIN: Skin is clear with no lesions or rashes and otherwise unremarkable. NEUROLOGIC: Patient is alert and oriented x3. Cranial nerves II through XII are grossly intact. Motor and sensory are also intact. Normal speech, volume and content. Symmetrical smile. MUSCULOSKELETAL: Normal extremities with adequate strength and full range of motion. 2+ edema bilaterally. LYMPHATICS: No significant lymphadenopathy is noted PSYCHIATRIC: Normal psychiatric evaluation. Normal interpersonal interactions appears functionally intact in deals appropriately with others. No signs of depression. No signs of anxiety. Limitations: no limitations Course Vital Signs 10/04/18 10/04/18 10/04/18 14:11 14:35 15:00 Temperature 97.7 F Pulse Rate 69 79 73 Respiratory 18 22 23 Rate Blood Pressure 144/76 O2 Sat by Pulse 98 Oximetry 10/04/18 10/04/18 15:14 16:00 Temperature Pulse Rate 84 Respiratory 20 19 Rate Blood Pressure 152/85 O2 Sat by Pulse 88 L Oximetry Medical Decision Making - Medical Decision Making EKG shows atrial fibrillation with occasional PVC at a rate of 76 bpm QRS 136 QT interval 436 QTC is 490. Patient's EKG shows no ST segment elevation or depression. Patient has a right bundle branch block. Chest x-ray shows a pleural effusion that is relatively small. No pulmonary edema noted. Patient has significant cardiomegaly Spoke with Dr. Parrish and he wants the patient admitted admitted the patient and wrote admitting orders. - Lab Data Result diagrams: 10/04/18 15:00 10/04/18 15:00 Lab Results 10/04/18 10/04/18 10/04/18 Range/Units 15:00 15:00 15:00 WBC 5.3 (3.8-10.6) k/uL RBC 3.34 L (4.30-5.90) m/uL Hgb 9.5 L (13.0-17.5) gm/dL Hct 28.8 L (39.0-53.0) % MCV 86.2 (80.0-100.0) fL MCH 28.4 (25.0-35.0) pg MCHC 33.0 (31.0-37.0) g/dL RDW 15.5 (11.5-15.5) % Plt Count 131 L (150-450) k/uL PT 11.5 (9.0-12.0) sec INR 1.1 (<1.2) APTT 25.5 (22.0-30.0) sec Sodium 144 (137-145) mmol/L Potassium 4.4 (3.5-5.1) mmol/L Chloride 114 H (98-107) mmol/L Carbon Dioxide 23 (22-30) mmol/L Anion Gap 7 mmol/L BUN 28 H (9-20) mg/dL Creatinine 1.52 H (0.66-1.25) mg/dL Est GFR (CKD-EPI)AfAm 48 (>60 ml/min/1.73 sqM) Est GFR (CKD-EPI)NonAf 42 (>60 ml/min/1.73 sqM) Glucose 113 H (74-99) mg/dL Calcium 8.6 (8.4-10.2) mg/dL Magnesium 2.5 H (1.6-2.3) mg/dL Total Bilirubin 0.6 (0.2-1.3) mg/dL AST 28 (17-59) U/L ALT 28 (21-72) U/L Alkaline Phosphatase 86 (38-126) U/L Troponin I (0.000-0.034) ng/mL Total Protein 6.5 (6.3-8.2) g/dL Albumin 3.2 L (3.5-5.0) g/dL 10/04/18 Range/Units 15:00 WBC (3.8-10.6) k/uL RBC (4.30-5.90) m/uL Hgb (13.0-17.5) gm/dL Hct (39.0-53.0) % MCV (80.0-100.0) fL MCH (25.0-35.0) pg MCHC (31.0-37.0) g/dL RDW (11.5-15.5) % Plt Count (150-450) k/uL PT (9.0-12.0) sec INR (<1.2) APTT (22.0-30.0) sec Sodium (137-145) mmol/L Potassium (3.5-5.1) mmol/L Chloride (98-107) mmol/L Carbon Dioxide (22-30) mmol/L Anion Gap mmol/L BUN (9-20) mg/dL Creatinine (0.66-1.25) mg/dL Est GFR (CKD-EPI)AfAm (>60 ml/min/1.73 sqM) Est GFR (CKD-EPI)NonAf (>60 ml/min/1.73 sqM) Glucose (74-99) mg/dL Calcium (8.4-10.2) mg/dL Magnesium (1.6-2.3) mg/dL Total Bilirubin (0.2-1.3) mg/dL AST (17-59) U/L ALT (21-72) U/L Alkaline Phosphatase (38-126) U/L Troponin I <0.012 (0.000-0.034) ng/mL Total Protein (6.3-8.2) g/dL Albumin (3.5-5.0) g/dL Disposition Clinical Impression: Anasarca Disposition: ADMITTED IP TO THIS [facility] Referrals: Ed Parrish MD [Primary Care Provider] - 1-2 days Time of Disposition: 16:27
[2018-10-04 15:37] LABS: Albumin 3.2 g/dL (3.5-5.0); Calcium 8.6 mg/dL (8.4-10.2); Magnesium 2.5 mg/dL (1.6-2.3); Potassium 4.4 mmol/L (3.5-5.1); Total Bilirubin 0.6 mg/dL (0.2-1.3); Total Protein 6.5 g/dL (6.3-8.2)
[2018-10-04 15:39] LABS: INR 1.1 (<1.2); Partial Thromboplastin Time 25.5 sec (22.0-30.0); Prothrombin Time 11.5 sec (9.0-12.0)
--- NOTE | 2018-10-04 15:57 | XR ---
EXAMINATION TYPE: XR chest 2V DATE OF EXAM: 10/04/2018 COMPARISON: Prior chest x-ray 04/15/2018 HISTORY: Difficulty breathing TECHNIQUE: Frontal and lateral views of the chest are obtained. FINDINGS: There is postop change, pacemaker is present in the left pectoral region with leads in the right ventricle. Aortic valve stent is in place. The cardiac silhouette size is stable and enlarged. There are cardiac leads. No pneumothorax. There is posterior blunting the costophrenic angles. Tech nique is apical lordotic. Old fracture of the distal clavicle is again noted. The osseous structures are remarkable for multiple anterior wedge compression deformities in the visualized spine. IMPRESSION: Suspect small pleural effusions and associated atelectasis. Additional findings above.
[2018-10-04 16:17] LABS: HCT 28.8 % (39.0-53.0); HGB 9.5 gm/dL (13.0-17.5); Hypochromasia Slight; MCH 28.4 pg (25.0-35.0); MCV 86.2 fL (80.0-100.0); Mean Platelet Volume 7.1; Platelet Count 131 k/uL (150-450); RBC 3.34 m/uL (4.30-5.90); RDW 15.5 % (11.5-15.5); WBC 5.3 k/uL (3.8-10.6)
[2018-10-04 16:41] LABS: Eosinophils # (M) 0.16 k/uL (0-0.7); Lymphocytes # (M) 1.22 k/uL (1.0-4.8); Monocytes # (M) 0.27 k/uL (0-1.0); Neutrophils # (M) 3.66 k/uL (1.3-7.7); Neutrophils % (M) 69 %; Nucleated Red Blood Cells 0 /100 WBC (0-0); Poikilocytosis (M) Present; Total Cells Counted 100
[2018-10-04] MEDS ORDERED: LORazepam 1 MG TAB PO PRN (17:58)
[2018-10-04] MEDS ORDERED: NITROGLYCERIN SL TABS 0.4 MG TAB SUBLINGUAL PRN (17:58)
[2018-10-04] MEDS: METOLAZONE 2.5 MG TAB PO SCH (19:27)
[2018-10-04] MEDS: APIXABAN 2.5 MG TABLET PO SCH (19:59)
[2018-10-04] MEDS: METOPROLOL TARTRATE 50 MG TAB PO SCH (19:59)
[2018-10-05] MEDS: FUROSEMIDE 10 MG/ML 4 ML VIAL IV SCH ×4 (01:16→22:56)
[2018-10-05 07:44] LABS: Calcium 8.6 mg/dL (8.4-10.2); Potassium 4.2 mmol/L (3.5-5.1)
[2018-10-05] MEDS: PANTOPRAZOLE 40 MG TABLET PO SCH (08:38)
[2018-10-05] MEDS: TAMSULOSIN 0.4 MG CAP.ER.24H PO SCH (08:38)
[2018-10-05] MEDS: METOPROLOL TARTRATE 50 MG TAB PO SCH ×2 (08:38→20:10)
--- NOTE | 2018-10-05 08:38 | HP ---
HISTORY AND PHYSICAL ATTENDING PHYSICIAN: Dr. Gerard Parrish CHIEF COMPLAINT: Shortness of breath. HISTORY OF PRESENT ILLNESS: This is an 83-year-old gentleman who was initially seen in the office for regular followup appointment. He has underlying history of chronic atrial fibrillation, chronic congestive cardiac failure with a previous TAVR for the aortic valve. The patient has had markedly increased edema and anasarca. Four days ago the had called saying the patient's legs were swollen and had recommended the patient's Lasix be increased. However, today at the time of evaluation, the patient still has 4+ edema of the lower extremities up to the mid thigh area and also has significant sacral edema. The patient is tachypneic. Does have some dyspnea with activity. Denies any orthopnea, however, clinically the patient does have left pleural effusion. He fallen and seen in the emergency room. Apparently recently he has had superficial cuts of the right forearm. No broken bones were noted. The patient is compliant with medications. He does have some underlying vascular dementia and has had a history of chronic ataxia. He falls at least 2-3 times a month. PAST MEDICAL HISTORY: Significant for: 1. Chronic atrial fibrillation. 2. 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 3. Aortic stenosis post TAVR. 4. Essential hypertension. 5. Chronic congestive cardiac failure secondary to diastolic dysfunction. 6. Cerebrovascular accident. 7. Peripheral embolization. 8. Degenerative arthritis. 9. Vascular dementia. PAST SURGICAL HISTORY: Significant for right brachial artery thrombectomy and TAVR. 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 PERSONAL HISTORY: Nonsmoker. Alcohol, heavy in the past, none now. SOCIAL HISTORY: Patient is , lives with his . FAMILY MEDICAL HISTORY: Two sons, 1 son has had a history of diabetes mellitus type 1 with pancreatic transplant and some associated complications. REVIEW OF SYSTEMS: NEURO: Denies any headaches. Has chronic dizziness, ataxia. Denies any double vision or blurred vision. PSYCH: Mild dementia. CARDIAC: Denies chest pain, angina, palpitation. RESPIRATORY: Some shortness of breath and constant grunting. Has mild cough. No hemoptysis/ GI: No nausea, vomiting. Has some chronic oropharyngeal dysphagia. No aspirations. No nausea, vomiting, abdominal pain, diarrhea, constipation, hematochezia, melena. : No symptoms of dysuria, hematuria, urgency, frequency. EXTREMITIES: Marked edema. NEUROLOGIC: Awake, alert, oriented to place and person. Moves both upper and lower extremities adequately while sitting or he is very unsteady when he stands and has ataxia. SKIN: Superficial lacerations, right forearm and a hematoma of the right elbow. PHYSICAL EXAMINATION: 83-year-old gentleman appears stated age. Vital signs reveals temperature 98.1, pulse 80, respirations 20, blood pressure 165/77, pulse ox 98% on room air. HEENT: Normocephalic. Neck has 3+ JVD. Pupils are reactive. Nostrils clear. Oral cavity moist. Ears reveal no drainage. NECK: No carotid bruits. No thyromegaly. 3+ JVD. CHEST EXAMINATION: Dullness on percussion left base. Generalized decreased air flow at the bases. Fine crackles at the bases. CARDIAC: Distant heart sounds S1, S2. No gallops. Irregularly, irregular rhythm. Systolic murmur 2/6 left sternal border. ABDOMEN: Mildly protuberant, soft. Bowel sounds active. No hepatic tenderness. EXTREMITIES: Reveal 4+ edema all the way up to mid thigh. The patient also had an amputation of the left greater and 2nd toe. NEUROLOGIC: Awake, alert, oriented x2. Moves both upper and lower extremities while sitting in the chair, but he has poor coordination. MEDICATIONS: At home includes: 1. Metoprolol tartrate 100 mg at HS. 2. Zaroxolyn 2.5 mg every 48 hours. 3. Ativan 1 mg p.r.n. b.i.d. 4. Eliquis 2.5 mg once a day. 5. Flomax 0.4 mg daily. 6. Myrbetriq 50 mg daily. 7. Atorvastatin 40 mg daily. 8. Lasix. The patient takes 40 mg in the morning and 20 mg in the afternoon. 9. Omeprazole 20 mg daily. 10.Metoprolol tartrate 50 mg in the morning and metoprolol tartrate 100 mg at bedtime. LABORATORY ASSESSMENT: Hemoglobin is 9.5, INR is normal. Platelets 131, BUN 28, creatinine 1.52, magnesium 2.5. Troponin negative. Albumin 3.2. Chest x-ray, pleural effusion, associated atelectasis. ASSESSMENT: 1. Acute on chronic congestive cardiac failure secondary to diastolic dysfunction. 2. Anemia secondary to chronic blood loss. 3. Thrombocytopenia. 4. Chronic atrial fibrillation. 5. Anticoagulated status. 6. History of TAVR. 7. Ataxia. 8. Multiple falls at home. 9. Mild vascular dementia. PLAN: Patient at present is stable. We will diurese the patient. Monitor electrolytes and renal status. The patient's general condition discussed with the patient and family. Prognosis remains guarded. MMODL / IJN: [id number] /
--- NOTE | 2018-10-05 12:19 | P.PN ---
Subjective Progress Note Date: 10/05/18 Principal diagnosis: Congestive cardiac failure History present illness: This 83-year-old gentleman was admitted to the hospital from the emergency room after being referred there. The patient seen in the office with shortness of breath and significant increased anasarca. He is also fallen couple of times prior to admission. The emergency room patient's evaluated. Chest x-ray does show some effusions. He has a history of chronic congestive cardiac failure secondary to diastolic dysfunction. The patient's previous atrial fibrillation and whatever. Patient also has chronic ataxia. He is noted to have significant JVD 3+ as well as anasarca with the edema left upper arm and edema sacral area and no way up to the thighs. The patient this morning is feeling fairly well. Review of system neuro denies any headaches dizziness psych no anxiety cardiac denies chest pain respiratory some shortness of breath and orthopnea but better today. As per previous request patient is a no code.. REVIEW OF SYSTEMS: Neuro: Denies any headaches dizziness. Psych: Denies anxiety depression feels oriented. Cardiac: Denies chest pain and angina palpitations. Respiratory: Shortness of breath and some orthopnea but improved denies cough. GI: Denies nausea vomiting or abdominal pain. No diarrhea or constipation, no bowel movement yet. : No dysuria hematuria, has frequency and urgency and incontinence Extremities: Denies pain decreased edema Skin: Superficial skin lacerations. Constitutional: No fever, chills. Objective - Vital Signs Vital signs: Vital Signs Temp 97.6 F 10/05/18 11:29 Pulse 92 10/05/18 11:29 Resp 20 10/05/18 11:29 BP 186/79 10/05/18 11:29 Pulse Ox 99 10/05/18 11:29 Intake & Output 10/04/18 10/05/18 10/05/18 18:59 06:59 18:59 Intake Total 240 0 Output Total 100 Balance 240 -100 Weight 72.575 kg 72.575 kg Intake: Oral 240 0 Output: Urine 100 Other: Voiding Method Urinal Urinal # Voids 2 2 PHYSICAL EXAMINATION: Cooperative, at present in no acute distress. HEENT: Neck decreased range of motion, 1+ JVD Chest: Clear to auscultation except for decreased airflow left base Cardiac: Normal S1-S2 with no gallops irregularly irregular rhythm, systolic murmur 2/6 left sternal border . Abdomen: Soft bowel sounds present. Extremities: 2+ edema improved no tenderness Neurologically: More alert was both upper extremities adequately, does have generalized increased tone - Labs CBC & Chem 7: 10/04/18 15:00 10/05/18 06:32 Labs: Abnormal Lab Results - Last 24 Hours (Table) 10/04/18 10/04/18 10/05/18 Range/Units 15:00 15:00 06:32 RBC 3.34 L (4.30-5.90) m/uL Hgb 9.5 L (13.0-17.5) gm/dL Hct 28.8 L (39.0-53.0) % Plt Count 131 L (150-450) k/uL Chloride 114 H 113 H (98-107) mmol/L BUN 28 H 26 H (9-20) mg/dL Creatinine 1.52 H 1.36 H (0.66-1.25) mg/dL Glucose 113 H (74-99) mg/dL Magnesium 2.5 H (1.6-2.3) mg/dL Albumin 3.2 L (3.5-5.0) g/dL Assessment and Plan Assessment: ASSESSMENT: 1. Acute on chronic congestive cardiac failure secondary to diastolic dysfunction. 2. Chronic atrial fibrillation rate controlled. 3. Aortic stenosis s/p TAVR. 4. Chronic ataxia. 5. Anemia. 6. Thrombo cytopenia. 7. Mild dementia. 8. Stable coronary artery disease. 9. Chronic kidney disease stage III PLAN: Continue present medical regimen. Patient is diuresing well renal function actually is improved. Lites and adequate range. Potential discharge Sunday or Sunday. Patient may require rehabilitation.
[2018-10-05] MEDS: APIXABAN 2.5 MG TABLET PO SCH (20:10)
[2018-10-06 07:04] LABS: Calcium 8.9 mg/dL (8.4-10.2); Potassium 4.1 mmol/L (3.5-5.1)
[2018-10-06] MEDS: FUROSEMIDE 10 MG/ML 4 ML VIAL IV SCH ×3 (09:00→23:41)
[2018-10-06] MEDS: METOPROLOL TARTRATE 50 MG TAB PO SCH ×2 (12:19→20:06)
[2018-10-06] MEDS: TAMSULOSIN 0.4 MG CAP.ER.24H PO SCH (12:19)
[2018-10-06] MEDS: PANTOPRAZOLE 40 MG TABLET PO SCH (12:19)
--- NOTE | 2018-10-06 13:42 | P.PN ---
Subjective Progress Note Date: 10/06/18 Principal diagnosis: Congestive cardiac failure This 83-year-old gentleman was admitted to the hospital because of shortness of breath and progressive edema. Patient has a history of chronic congestive cardiac failure secondary to diastolic dysfunction associated with chronic a trial fibrillation and previous TAVR, long-standing history of hypertension. Patient has been diuresed and feeling much better. His breathing has ceased he is not grunting anymore. The patient edema in the lower extremities is reduced. He does still have some edema in the buttocks. The weight hasn't changed however it is not accurate. Patient last night was restless and agitated. He required some Ativan. This morning his sleepy but aroused easily. He has had a previous history of CVA and has associated vascular dementia and dysphasia and mild dysphagia. Spouse at the bedside. Potential transfer to nursing facility for rehab as patient has had multiple falls at home. He is evidence of superficial skin lacerations both lower legs and arms. Patient on anticoagulation. REVIEW OF SYSTEMS: Neuro: Denies any headaches dizziness. Psych: Patient had some agitation last night. Cardiac: Denies chest pain and angina palpitations. Respiratory: Improved shortness of breath minimal cough. GI: Denies nausea vomiting or abdominal pain. No diarrhea or constipation, no bowel movement yet. : Denies any dysuria or hematuria. Has incontinence. Extremities: Denies pain. No edema. Skin: Multiple superficial lacerations healing. Constitutional: No fever, chills. Objective - Vital Signs Vital signs: Vital Signs Temp 97.5 F L 10/06/18 11:28 Pulse 73 10/06/18 11:28 Resp 20 10/06/18 11:28 BP 153/73 10/06/18 11:28 Pulse Ox 95 10/06/18 11:28 Intake & Output 10/05/18 10/06/18 10/06/18 18:59 06:59 18:59 Intake Total 805 0 Output Total 300 Balance 505 0 Weight 72.575 kg Intake: Oral 805 0 Output: Urine 300 Other: Voiding Method Urinal # Voids 1 2 2 # Bowel Movements 1 1 PHYSICAL EXAMINATION: Cooperative, at present in no acute distress. HEENT: Neck supple 1+ JVD Chest: Clear to auscultation minimal dullness left base Cardiac: Normal S1 and S2 with no gallops, irregularly irregular rhythm, systolic murmur 2/6 left sternal borde [. Abdomen: Soft bowel sounds present. Extremities: Minimal edema upper thighs no tenderness Neurologically: Awake alert oriented to person and place - Labs CBC & Chem 7: 10/04/18 15:00 10/06/18 05:59 Labs: Abnormal Lab Results - Last 24 Hours (Table) 10/06/18 Range/Units 05:59 BUN 25 H (9-20) mg/dL Creatinine 1.42 H (0.66-1.25) mg/dL Assessment and Plan Assessment: ASSESSMENT: 1. Acute on chronic congestive cardiac failure secondary to diastolic d ysfunction, improving 2. Chronic atrial fibrillation rate controlled. 3. Aortic stenosis s/p TAVR. 4. Chronic ataxia. 5. Anemia. 6. Thrombo cytopenia. 7. Mild dementia with intermittent agitation 8. Stable coronary artery disease. 9. Chronic kidney disease stage III PLAN: Continue present medical regimen. Patient is diuresing well renal function remains stable Lites in adequate range. Potential discharge Sunday or Sunday. Patient may require rehabilitation.
[2018-10-06] MEDS: METOLAZONE 2.5 MG TAB PO SCH (16:33)
[2018-10-06] MEDS: APIXABAN 2.5 MG TABLET PO SCH (20:06)
[2018-10-07 06:34] LABS: Calcium 8.7 mg/dL (8.4-10.2)
[2018-10-07] MEDS ORDERED: VERAPAMIL 2.5 MG/ML 2 ML AMP ONE (08:35)
[2018-10-07] MEDS ORDERED: LIDOCAINE 1% INJ 10MG/ML (20 ML MDV) ONE (08:35)
[2018-10-07] MEDS ORDERED: fentaNYL (PF) 50 MCG/ML 2 ML AMP ONE (08:38)
[2018-10-07] MEDS: PANTOPRAZOLE 40 MG TABLET PO SCH (09:08)
[2018-10-07] MEDS: METOPROLOL TARTRATE 50 MG TAB PO SCH ×2 (09:08→20:51)
[2018-10-07] MEDS: TAMSULOSIN 0.4 MG CAP.ER.24H PO SCH (09:09)
[2018-10-07] MEDS: LOSARTAN 50 MG TAB PO SCH (09:09)
[2018-10-07] MEDS: FUROSEMIDE 10 MG/ML 4 ML VIAL IV SCH ×2 (09:09→20:51)
[2018-10-07] MEDS: APIXABAN 2.5 MG TABLET PO SCH (20:51)
--- NOTE | 2018-10-08 00:13 | PN ---
PROGRESS NOTE DATE OF SERVICE: 10/07/2018. CHIEF COMPLAINT: Re-evaluation. HISTORY OF PRESENT ILLNESS: This is an 83-year-old gentleman who was admitted to the hospital with congestive cardiac failure. The patient is actually doing better. REVIEW OF SYSTEMS: NEURO: Denies any headaches or dizziness. PSYCH: No anxiety. CARDIAC: No chest pain or angina or palpitations. RESPIRATORY: Denies shortness of breath. His breathing has improved. He is not grunting anymore. GI: No nausea, vomiting, abdominal pain, diarrhea. Some difficulty swallowing which is chronic. : No symptoms of dysuria or hematuria. Has urgency incontinence. EXTREMITIES: Decreased edema. NEUROLOGIC: Decreased edema. CONSTITUTIONAL: No fevers or chills. SKIN: Drying up. No skin rashes or lacerations. PHYSICAL EXAMINATION: Pleasant gentleman at present, in no distress. VITAL SIGNS: Temperature 98, pulse 82, respirations 18, blood pressure 159/72, pulse ox 96% on room air. HEENT: Normocephalic. NECK: 1+ JVD. CHEST EXAMINATION: Clear to auscultation with minimal dullness at left base. CARDIAC: Normal S1, S2 with no gallops. Irregularly, irregular rhythm. Systolic murmur 2/6 left sternal border. ABDOMEN: Soft. No palpable masses. Bowel sounds normal. No organomegaly. No abdominal bruits. EXTREMITIES: Edema resolved. The sacral edema has also resolved. NEUROLOGIC: Awake, alert, oriented to place and person. Moves both upper and lower extremities adequately. Has generalize increased muscle tone. The patient does have speech issues and some difficulty swallowing which are chronic and sequelae of previous stroke. LABORATORY ASSESSMENT: Electrolytes are normal, CO2 up to 31, BUN 28, creatinine 1.45. ASSESSMENT: 1. Acute congestive cardiac failure secondary to diastolic dysfunction, improving. 2. Chronic kidney disease stage 3. 3. Chronic atrial fibrillation. 4. Anticoagulated status. 5. Sequelae of dysphagia post CVA. 6. Chronic anemia. 7. Chronic thrombocytopenia. PLAN: The patient is stable. Continue present medical regimen. Patient's condition discussed with the patient. Prognosis is guarded. Potential transfer to nursing facility for rehab. Discussed status with patient. MMODL / IJN: [id number] /
[2018-10-08 07:06] LABS: Calcium 8.6 mg/dL (8.4-10.2); Potassium 4.2 mmol/L (3.5-5.1)
[2018-10-08] MEDS: LOSARTAN 50 MG TAB PO SCH (10:18)
[2018-10-08] MEDS: FUROSEMIDE 10 MG/ML 4 ML VIAL IV SCH ×2 (10:18→21:10)
[2018-10-08] MEDS: METOPROLOL TARTRATE 50 MG TAB PO SCH ×2 (10:18→21:17)
[2018-10-08] MEDS: TAMSULOSIN 0.4 MG CAP.ER.24H PO SCH (10:18)
[2018-10-08] MEDS: PANTOPRAZOLE 40 MG TABLET PO SCH (10:18)
--- NOTE | 2018-10-08 12:46 | P.PN ---
Subjective Progress Note Date: 10/08/18 Principal diagnosis: Congestive cardiac failure This is an 83-year-old gentleman was admitted to the hospital because of shortness of breath and significant anasarca. He had 4+ edema. The patient has been diuresis. He has underlying history of chronic congestive cardiac failure secondary to diastolic dysfunction and associated chronic atrial fibrillation. The patient also has a previous stroke and has some residual dysphagia and dysphagia. The patient was seen by speech therapy and is on a special diet. At home he does not follow the diet regimen. The patient has had a vestibular toxicity from aminoglycosides and has chronic ataxia. He falls number of times. He is at risk of fall and injuries. The patient is currently transferred to nursing facility for rehab. He feels fairly well. His breathing is improved he is not grunting respiration. REVIEW OF SYSTEMS: Neuro: Denies any headaches dizziness. Psych: Denies anxiety depression feels oriented. Cardiac: Denies chest pain and angina palpitations. Respiratory: Denies shortness of breath has mild chronic cough. GI: Denies nausea vomiting or abdominal pain. No diarrhea or constipation, no bowel movement yet. : Frequency, incontinence and urgency Extremities: Denies pain. No edema. Skin: Multiple superficial lacerations from injuries. Constitutional: No fever, chills. Objective - Vital Signs Vital signs: Vital Signs Temp 99.1 F 10/08/18 06:28 Pulse 99 10/08/18 06:28 Resp 16 10/08/18 06:28 BP 142/67 10/08/18 06:28 Pulse Ox 94 L 10/08/18 06:28 Intake & Output 10/07/18 10/08/18 10/08/18 18:59 06:59 18:59 Intake Total 360 120 Balance 360 120 Weight 77 kg Intake: Oral 360 120 Other: Voiding Method Diaper Diaper Diaper # Voids 2 1 PHYSICAL EXAMINATION: Cooperative, at present in no acute distress. HEENT: Neck decreased range of motion, 1+ JVD Chest: Clear to auscultation minimal dullness left base Cardiac: Normal S1 and S2 with no gallops irregularly irregular rhythm, systolic murmur 2/6 left sternal border . Abdomen: Soft bowel sounds present. Extremities: No edema no tenderness Neurologically: Awake alert with mild chronic confusion. Moves both upper and lower extremities. He has generalized increased muscle tone. Skin: Healing superficial traumatic ulcerations with no suggestion of secondary infection - Labs CBC & Chem 7: 10/04/18 15:00 10/08/18 05:44 Labs: Abnormal Lab Results - Last 24 Hours (Table) 10/08/18 Range/Units 05:44 Carbon Dioxide 32 H (22-30) mmol/L BUN 36 H (9-20) mg/dL Creatinine 1.75 H (0.66-1.25) mg/dL Assessment and Plan Assessment: ASSESSMENT: 1. Acute on chronic congestive cardiac failure secondary to diastolic dysfunction, improving 2. Chronic atrial fibrillation rate controlled. 3. Aortic stenosis s/p TAVR. 4. Chronic ataxia. 5. Anemia. 6. Thrombo cytopenia. 7. Mild dementia with intermittent agitation 8. Stable coronary artery disease. 9. Chronic kidney disease stage III PLAN: Continue present medical regimen. Patient is diuresing well renal funct ion remains stable, and we'll continue to follow that at the nursing facility at least once a week. Patient is currently transferred from [facility] today for continued rehab. Prognosis remains guarded
[2018-10-08] MEDS ORDERED: SODIUM CHLORIDE 0.9% 500 ML 500 ML IV ONE (14:17)
[2018-10-08] MEDS ORDERED: ACETAMINOPHEN IV (For NPO) 1,000 MG in EMPTY BAG 1 BAG IVPB ONE (14:30)
--- NOTE | 2018-10-08 15:16 | XR ---
EXAMINATION TYPE: XR chest 1V DATE OF EXAM: 10/08/2018 COMPARISON: 10/24/2017 HISTORY: Concern for aspiration pneumonia. Cough. TECHNIQUE: Single frontal view of the chest is obtained. FINDINGS: There is a new retrocardiac density in comparison to the prior. Remainder the lungs are cl ear. No pleural effusion or pneumothorax. Single lead cardiac device is seen with enlarged cardiac me diastinal silhouette. There is generalized osseous demineralization and healed chronic bilateral rib fracture deformities. IMPRESSION: New retrocardiac consolidation may represent atelectasis however in the setting of possi ble aspiration, aspiration pneumonia should be considered.
[2018-10-08 15:22] LABS: HCT 30.9 % (39.0-53.0); HGB 9.9 gm/dL (13.0-17.5); MCH 27.8 pg (25.0-35.0); MCHC 32.2 g/dL (31.0-37.0); MCV 86.5 fL (80.0-100.0); Mean Platelet Volume 6.9; Platelet Count 137 k/uL (150-450); RBC 3.57 m/uL (4.30-5.90); RDW 15.1 % (11.5-15.5); WBC 8.1 k/uL (3.8-10.6)
[2018-10-08 16:03] LABS: Band Neutrophils % 1 %; Lymphocytes # (M) 1.22 k/uL (1.0-4.8); Monocytes # (M) 0.08 k/uL (0-1.0); Neutrophils % (M) 83 %; Nucleated Red Blood Cells 0 /100 WBC (0-0); Total Cells Counted 100
[2018-10-08 16:04] LABS: Poikilocytosis (M) Present
[2018-10-08] MEDS: PIPERACILLIN-TAZOBACTAM 3.375 GM in SODIUM CHLORIDE 0.9% 100 ML IVPB SCH ×2 (17:04→23:25)
[2018-10-08] MEDS: METOLAZONE 2.5 MG TAB PO SCH (17:43)
[2018-10-08] MEDS: SODIUM CHLORIDE 0.9% 1,000 ML IV SCH (17:46)
[2018-10-08 20:27] LABS: Appearance,Urine Clear (Clear); Bilirubin,Urine Negative (Negative); Blood,Urine Negative (Negative); Color,Urine Yellow; Glucose,Urine (UA) Negative (Negative); Ketones,Urine Negative (Negative); Leukocyte Esterase,Urine Negative (Negative); Nitrite,Urine Negative (Negative); Protein,Urine Negative (Negative); Specific Gravity,Urine 1.011 (1.001-1.035); Urobilinogen,Urine <2.0 mg/dL (<2.0)
[2018-10-08] MEDS: APIXABAN 2.5 MG TABLET PO SCH (21:18)
--- NOTE | 2018-10-08 22:50 | PN ---
PROGRESS NOTE CHIEF COMPLAINT: Re-evaluation. HISTORY OF PRESENT ILLNESS: This 83-year-old gentleman who was seen this morning, doing very well. He just had his breakfast. Denied any symptoms. His breathing was good. He had no fever. The patient was awaiting transfer to a nursing facility this afternoon. He suddenly had fever, became unresponsive. The patient became more obtunded. The patient's fever has come down. His workup suggests a possibility of left lower infiltrate. He did have a normal white count and was negative for influenza. Urine is pending. The patient was started on Zosyn with the possibility of aspiration pneumonia. The patient is re- evaluated this evening. He is pretty unresponsive. Pupils are small bilaterally and reactive. Neck has generalized rigidity, which is chronic. Chest examination reveals decreased air flow at the left base; otherwise clear. Abdomen is soft. Cardiac has irregular rhythm. The patient's status obviously is poor. Patient is NO CODE. Patient's condition was discussed with the patient's spouse and family, and they are vigilant at the bedside. Prognosis remains poor. We will continue present regimen, see how the patient does in the next 24 hours. As mentioned above, he had a temperature 101.9 axillary at 11:47. At the time of my evaluation, the patient's temperature is down 98.8, pulse 74, respirations 28, blood pressure 112/56, pulse ox 97% on 2 L. LABORATORY ASSESSMENT: White count 8.1, hemoglobin 9.9, platelets 137. unremarkable. ASSESSMENT: 1. Obtundation. 2. Left lower lung infiltrate. Possibility of pneumonia not ruled out. 3. Chronic atrial fibrillation. 4. Congestive cardiac failure secondary to diastolic dysfunction, improved. PLAN: Continue regimen. Prognosis guarded. Patient's condition was discussed with the patient's 3 sons, 2 [id number] and the patient and spouse. Prognosis remains guarded. He is NO CODE. Possibility of aspiration pneumonia not ruled out. Possibility of CVA not ruled out. If the patient does not show any improvement tomorrow, we will repeat a CT scan and chest x-ray. MMODL / IJN: [id number] /
[2018-10-09] MEDS ORDERED: ACETAMINOPHEN IV (For NPO) 1,000 MG in EMPTY BAG 1 BAG IVPB STA (02:44)
[2018-10-09] MEDS: PIPERACILLIN-TAZOBACTAM 3.375 GM in SODIUM CHLORIDE 0.9% 100 ML IVPB SCH ×2 (08:51→15:43)
[2018-10-09] MEDS: FUROSEMIDE 10 MG/ML 4 ML VIAL IV SCH ×2 (08:52→22:08)
[2018-10-09] MEDS: LOSARTAN 50 MG TAB PO SCH (08:52)
[2018-10-09] MEDS: METOPROLOL TARTRATE 50 MG TAB PO SCH ×2 (08:52→22:40)
[2018-10-09] MEDS: PANTOPRAZOLE 40 MG TABLET PO SCH (08:52)
[2018-10-09] MEDS: TAMSULOSIN 0.4 MG CAP.ER.24H PO SCH (08:52)
[2018-10-09] MEDS: SODIUM CHLORIDE 0.9% 1,000 ML IV SCH (18:24)
--- NOTE | 2018-10-09 22:21 | PN ---
PROGRESS NOTE CHIEF COMPLAINT: Re-evaluation. HISTORY OF PRESENT ILLNESS: This gentleman was admitted to the hospital with evidence of congestive cardiac failure secondary to diastolic dysfunction with significant anasarca, shortness of breath and grunting. The patient was doing fairly well. He was planned for discharge to a nursing facility for rehab. The patient, however, suddenly developed a significant fever and obtundation. The patient's chest x-ray suggested the possibility of an infiltrate, retrocardiac, left side. Prior to admission the patient clinically had suggestion of possible left pleural effusion on clinical examination, as he had some dullness to percussion and decreased air flow in the left base. However, at that time the x-ray did not show significant changes. The patient had temperature off and on yesterday. Influenza was negative. The patient's blood culture is so far negative. The patient this morning is back to his usual baseline status, though still somewhat lethargic but able to communicate as usual. REVIEW OF SYSTEMS: NEURO: Denies any headaches, dizziness. PSYCH: Cooperative. CARDIAC: Denies chest pain, palpitations. RESPIRATORY: Denies shortness of breath. Does have minimal cough. No chest pain with coughing. GI: No nausea, vomiting, abdominal pain, diarrhea. : No symptoms of dysuria or hematuria. Has an IDC. EXTREMITIES: No pain. Does have generalized increased muscle tone, which is chronic. CONSTITUTIONAL: Fever as mentioned above. No chills. PHYSICAL EXAMINATION: [id number]-old gentleman, at present in no distress. VITAL SIGNS: Temperature this morning was 100.6 and last night was 101.3 axillary. Respiration 30. Heart rate was in the 90s. Blood pressure 121/59, pulse ox of 97% on 2 L. There was a heart rate recorded of 30, which is probably a mistake. HEENT: Normocephalic. NECK: Decreased range of motion. One plus JVD. CHEST EXAMINATION: Decreased air flow at the bases, especially left base. CARDIAC: Distant heart sounds S1, S2 with no gallops. Irregular rhythm. Systolic murmur 2/6, left sternal border. ABDOMEN: Soft. Bowel sounds present. Extremities reveal no edema. Has well-healing superficial skin ulcerations from scratching and falling. LABORATORY ASSESSMENT: This morning white count was 8.1, hemoglobin 9.9. Urinalysis unremarkable. Electrolytes normal except CO2 of 32. BUN 36, creatinine 1.75. Those are labs from yesterday. No labs today. Blood cultures so far with no growth. ASSESSMENT: 1. Fever; source possibility of aspiration pneumonia. 2. History of dysphagia. 3. Dysphagia. 4. Chronic atrial fibrillation. 5. Acute on chronic congestive cardiac failure with improvement. 6. Obtundation with toxic encephalopathy, improved. PLAN: The patient at present is stable. Continue present medical regimen. He will be started back on oral feeds with pureed diet and thickened liquids. Patient's condition was discussed with his spouse this morning. Prognosis remains guarded. MMODL / IJN: [id number] /
[2018-10-09] MEDS: APIXABAN 2.5 MG TABLET PO SCH (22:40)
[2018-10-10] MEDS: PIPERACILLIN-TAZOBACTAM 3.375 GM in SODIUM CHLORIDE 0.9% 100 ML IVPB SCH ×3 (00:15→20:32)
[2018-10-10] MEDS: METOPROLOL TARTRATE 50 MG TAB PO SCH ×2 (09:04→20:31)
[2018-10-10] MEDS: PANTOPRAZOLE 40 MG TABLET PO SCH (09:05)
[2018-10-10] MEDS: TAMSULOSIN 0.4 MG CAP.ER.24H PO SCH (09:05)
[2018-10-10] MEDS: LOSARTAN 50 MG TAB PO SCH (09:05)
[2018-10-10 09:33] LABS: Calcium 8.3 mg/dL (8.4-10.2); Potassium 3.3 mmol/L (3.5-5.1)
--- NOTE | 2018-10-10 12:27 | XR ---
EXAMINATION TYPE: XR chest 2V DATE OF EXAM: 10/10/2018 COMPARISON: 10/08/2018 and 09/29/2017 HISTORY: 83-year-old male retrocardiac consolidation TECHNIQUE: Frontal and lateral views FINDINGS: Low lung volumes and crowded vascular markings. Heart remains borderline enlarged. Atherosclerotic ar ch calcifications. Diffuse interstitial prominence. Multiple old healed left-sided rib fracture defor mities. Small left pleural effusion. Some improved aeration in the retrocardiac region. Endovascular aortic valve replacement is present. Anterior wedging of a few lower thoracic vertebral bodies, 2 of these appear to be new from 09/29/2017. They were present on the 10/04/2018 exam. Left anterior chest w all pacemaker generator with right ventricular lead. IMPRESSION: 1. Hypoventilatory changes, borderline heart size, and possible mild pulmonary vascular congestion. 2. Improving retrocardiac aeration but lateral view showing a small left pleural effusion. 3. Further clinical correlation recommended. There are a few lower thoracic vertebra which show mild anterior wedging. 2 of these are new from 09/29/2017. These were present back on 10/04/2018.
[2018-10-10] MEDS ORDERED: POTASSIUM CHLORIDE 20 MEQ in WATER FOR INJECTION 1 100ML.BAG IVPB ONE (14:00)
[2018-10-10] MEDS: SODIUM CHLORIDE 0.9% 1,000 ML IV SCH (15:35)
[2018-10-10] MEDS: APIXABAN 2.5 MG TABLET PO SCH (20:31)
--- NOTE | 2018-10-10 23:49 | PN ---
PROGRESS NOTE DATE OF SERVICE: 10/10/2018. CHIEF COMPLAINT: Re-evaluation. HISTORY OF PRESENT ILLNESS: This is an 83-year-old gentleman was admitted to the hospital with congestive cardiac failure. The patient was doing fairly well with that and he was expected to be transferred to nursing facility for rehab when he suddenly spiked a fever and became obtunded. The patient was felt to have possible aspiration pneumonia. The patient was started on Zosyn and some hydration and the patient has actually improved significantly. He is continued to have some fevers, though improved. The patient's bladder evaluation however today reveals significant renal failure, suspect ATN. We will hydrate the patient and see how he does. The patient's blood cultures are negative so far. Repeat chest x-ray today showed improved retrocardiac aeration but still a persistent small left pleural effusion. REVIEW OF SYSTEMS: NEURO: Denies any headaches or dizziness. PSYCH: Cooperative. CARDIAC: Denies chest pain, palpitation. RESPIRATORY: Denies shortness of breath. He does have some cough. GI: No nausea or vomiting. Complains of thirst. The patient does have some difficulty swallowing. Denies abdominal pain. No diarrhea reported. : No symptoms of dysuria or hematuria. Has urgency. The patient does have some incontinence. EXTREMITIES: No pain. CONSTITUTIONAL: No fevers or chills. PHYSICAL EXAMINATION: Elderly gentleman at present in no distress. Vital signs revealed temperature 98.8, pulse 106, respirations 16, blood pressure 100/51, pulse ox 94% on room air. HEENT: Normocephalic. NECK: Decreased range of motion. Pupils reactive. Ears reveal no drainage. 1 to 2+ JVD. CHEST: Some decreased air flow left base. CARDIAC: Distant sounds S1, S2 with no gallops. Irregularly, irregular rhythm. Systolic murmur 2/6 left sternal border. ABDOMEN: Soft. Bowel sounds present. EXTREMITIES: No edema. NEUROLOGIC: Awake, alert, oriented to person. Moves both upper and lower extremities, though has generalized increased tone. LABORATORY ASSESSMENT: Sodium 146, potassium 3.3, chloride 108, CO2 of 29, BUN 63, creatinine 2.96, glucose 193. ASSESSMENT: 1. Probable left lung aspiration pneumonia. 2. Hypokalemia secondary to Zosyn use. 3. Acute kidney injury, probably possible ATN. 4. Chronic congestive cardiac failure secondary to diastolic dysfunction. 5. Chronic atrial fibrillation. PLAN: Continue present medical regimen. Patient's condition discussed with the patient. Discussed with the patient. Prognosis remains guarded. MMODL / IJN: [id number] /
[2018-10-11] MEDS: SODIUM CHLORIDE 0.9% 1,000 ML IV SCH ×2 (04:54→23:27)
[2018-10-11] MEDS: PIPERACILLIN-TAZOBACTAM 3.375 GM in SODIUM CHLORIDE 0.9% 100 ML IVPB SCH ×2 (08:17→21:43)
[2018-10-11] MEDS: PANTOPRAZOLE 40 MG TABLET PO SCH (08:18)
[2018-10-11] MEDS: METOPROLOL TARTRATE 50 MG TAB PO SCH ×2 (08:18→21:43)
[2018-10-11] MEDS: LOSARTAN 50 MG TAB PO SCH (08:18)
[2018-10-11] MEDS: TAMSULOSIN 0.4 MG CAP.ER.24H PO SCH (08:18)
[2018-10-11 09:22] LABS: Calcium 8.3 mg/dL (8.4-10.2); Potassium 3.5 mmol/L (3.5-5.1)
[2018-10-11 10:14] VITALS: BMI 24.2
[2018-10-11] MEDS: APIXABAN 2.5 MG TABLET PO SCH (21:42)
--- NOTE | 2018-10-12 04:38 | PN ---
PROGRESS NOTE DATE OF SERVICE: 10/11/2018. CHIEF COMPLAINT: Re-evaluation. HISTORY OF PRESENT ILLNESS: This gentleman admitted to the hospital because of shortness of breath and congestive cardiac failure. These symptoms have improved. However, the patient developed a fever and suspected aspiration pneumonia which is resolving. No further fever. Patient is on Zosyn. He also has developed acute renal failure and acute nonoliguric renal failure, probably related to an episode of ATN. He is actually clinically improving. Does have complaint of pain right knee joint. REVIEW OF SYSTEMS: Neuro: Denies any headaches, dizziness. Psych: Cooperative. Cardiac: No chest pain. Respiratory: No shortness of breath. GI: No nausea, vomiting, abdominal pain, diarrhea. : No symptoms of dysuria, hematuria. Does have some incontinence. Extremities: No pain except for the right knee. Constitutional: No fever or chills. PHYSICAL EXAMINATION: Pleasant gentleman at present in no distress. Vital signs reveals temperature 98.4, pulse 91, respirations 22, blood pressure 111/64, pulse ox 96 percent on room air. HEENT: Normocephalic. Neck: 1 to 2+ JVD. CHEST EXAMINATION: Decreased air flow at the left base. Cardiac: Distant sounds S1, S2 with no gallops. Irregular rhythm. Systolic murmur 2/6 left sternal border. ABDOMEN: Soft. Bowel sounds present. Extremities revealed no edema. Neurologically back to his usual mental status, cooperative, able to recognize who I am and knows he is in the hospital. The patient has significant aphasia. This is chronic. LABORATORY DATA: Sodium 145, potassium 3.5, chloride 112, CO2 content 24, anion gap 9, BUN 70, creatinine 3.22. Glucose 206. ASSESSMENT: 1. Acute kidney injury, probably due to ATN. 2. Aspiration pneumonia, improving. 3. Encephalopathy, resolved. 4. Acute on chronic congestive cardiac failure secondary to systolic and diastolic dysfunction. 5. Chronic atrial fibrillation. 6. Anemia, chronic. 7. Chronic thrombocytopenia. PLAN: Continue present medical regimen. Patient's condition discussed with the patient. Prognosis guarded. Continue present regimen. Once the renal function stabilizes, the patient will be transferred to nursing facility for rehab. I did discuss the case peer review with Dr. Beckwith at [facility] and he felt the patient was appropriate for continuation of hospitalization. MMODL / IJN: [id number] /
[2018-10-12] MEDS: METOPROLOL TARTRATE 50 MG TAB PO SCH ×2 (07:48→19:46)
[2018-10-12] MEDS: PIPERACILLIN-TAZOBACTAM 3.375 GM in SODIUM CHLORIDE 0.9% 100 ML IVPB SCH ×2 (07:48→19:46)
[2018-10-12] MEDS: PANTOPRAZOLE 40 MG TABLET PO SCH (07:49)
[2018-10-12] MEDS: TAMSULOSIN 0.4 MG CAP.ER.24H PO SCH (07:49)
[2018-10-12 08:38] LABS: Calcium 8.5 mg/dL (8.4-10.2); Potassium 3.5 mmol/L (3.5-5.1)
--- NOTE | 2018-10-12 11:42 | P.PN ---
Subjective Progress Note Date: 10/12/18 Principal diagnosis: Congestive cardiac failure 83-year-old gentleman admitted to the hospital because of congestive cardiac failure. Which is improved. The patient developed an aspiration pneumonia. He has since then improved. He has developed acute kidney failure due to probably ATN. He does have urine output. The patient denies any symptoms of dysuria hematuria. He is able to void and has incontinence. Patient denies much cough. He does have problems with swallowing and aspiration risk. His previous strokes with sequelae. Patient is alert to his usual status. When the patient had to aspiration and pneumonia he had become obtunded and unresponsive. Patient is alert as usual. Patient's spouse at the bedside and reviewed status. He has developed a blister on his right heel as an acute injury related to push himself in bed. Patient is on an appropriate hospital bed mattress. Heel protectors placed today. REVIEW OF SYSTEMS: Neuro: Denies any headaches dizziness. Psych: No anxiety or agitation Cardiac: Denies chest pain and angina palpitations. Respiratory: Denies shortness of breath or cough. He does choke on food and therefore is on a thickened liquids and pured foods. GI: Denies nausea vomiting or abdominal pain. No diarrhea or constipation, no bowel movement yet. : Has incontinence but denies any dysuria or hematuria Extremities: Pain right knee better today. Suspect possible gout Skin: Right heel breakdown. Constitutional: No fever, chills. Objective - Vital Signs Vital signs: Vital Signs Temp 98.9 F 10/11/18 23:40 Pulse 93 10/12/18 06:00 Resp 20 10/12/18 06:00 BP 99/60 10/12/18 06:00 Pulse Ox 96 10/12/18 06:00 Intake & Output 10/11/18 10/12/18 10/12/18 18:59 06:59 18:59 Intake Total 100 100 Balance 100 100 Weight 74.5 kg 78.5 kg Intake: IV 100 Piperacillin-Tazobactam 3 100 .375 gm In Sodium Chloride 0.9% 100 ml @ 25 mls/hr [facility]PB Q12HR [facility] Rx #:[id number] Oral 100 Other: Voiding Method Incontinent Diaper Incontinent # Voids 2 2 # Bowel Movements 4 3 2 PHYSICAL EXAMINATION: Cooperative, at present in no acute distress. HEENT: Neck decreased range of motion on the purpose JVD Chest: Mild decreased airflow left base no rhonchi or wheezing Cardiac: Normal S1-S2 with no gallops, irregularly irregular heart rate rate controlled. Systolic murmur 2/6 left sternal border and apex Abdomen: Soft ]bowel sounds present. Extremities: No edema mild tenderness right knee improved compared to yesterday. Right heel superficial blister dressed Neurologically: Awake and alert oriented to person generalized increased rigidity - Labs CBC & Chem 7: 10/08/18 14:25 10/12/18 08:00 Labs: Abnormal Lab Results - Last 24 Hours (Table) 10/12/18 Range/Units 08:00 Sodium 146 H (137-145) mmol/L Chloride 112 H (98-107) mmol/L BUN 74 H (9-20) mg/dL Creatinine 3.47 H (0.66-1.25) mg/dL Microbiology - Last 24 Hours (Table) 10/08/18 14:25 Blood Culture - Preliminary Blood No Growth after 72 hours Assessment and Plan Assessment: ASSESSMENT: 1. Acute on chronic congestive cardiac failure secondary to diastolic dysfunction, improving 2. Chronic atrial fibrillation rate controlled. 3. Aortic stenosis s/p TAVR. 4. Chronic ataxia. 5. Anemia. 6. Thrombo cytopenia. 7. Mild dementia with intermittent agitation 8. Stable coronary artery disease. 9. Chronic kidney disease stage III 10. Acute kidney injury probably secondary to ATN 11. Aspiration pneumonia improving 12. Encephalopathy, toxic resolved 13. Pressure injury right heel 14. Right knee pain probably gout PLAN: Continue present medical regimen. Patient's condition is discussed with the spouse. Right heel local wound care. Patient renal status seems to be stabilizing. We'll continue to monitor renal status. Prognosis remains guarded potential discharge by Sunday. Status discussed with his spouse
[2018-10-12] MEDS: SODIUM CHLORIDE 0.9% 1,000 ML IV SCH (19:31)
[2018-10-12] MEDS: APIXABAN 2.5 MG TABLET PO SCH (19:46)
[2018-10-13 08:27] LABS: Calcium 8.5 mg/dL (8.4-10.2); Potassium 3.9 mmol/L (3.5-5.1)
[2018-10-13] MEDS: TAMSULOSIN 0.4 MG CAP.ER.24H PO SCH (09:06)
[2018-10-13] MEDS: PANTOPRAZOLE 40 MG TABLET PO SCH (09:06)
[2018-10-13] MEDS: PIPERACILLIN-TAZOBACTAM 3.375 GM in SODIUM CHLORIDE 0.9% 100 ML IVPB SCH ×2 (09:06→20:36)
[2018-10-13] MEDS: METOPROLOL TARTRATE 50 MG TAB PO SCH ×2 (09:06→20:36)
--- NOTE | 2018-10-13 18:22 | PN ---
PROGRESS NOTE CHIEF COMPLAINT: Re-evaluation. HISTORY OF PRESENT ILLNESS: This is an 83-year-old gentleman admitted to the facility for CHF. The patient's CHF has improved. The patient had developed an aspiration pneumonia and that is resolving. The patient is feeling better. The patient's and family complained that his ability to extend his legs at the knees has decreased. The patient has generalized decreased muscle tone and has a history of chronic ataxia. The patient has pain with extension of the joints. He does have evidence of right knee inflammation, suspected gout. REVIEW OF SYSTEMS: Neuro: Denies any headaches or dizziness. Psych: No anxiety. Cardiac: No chest pain. Respiratory: No shortness of breath. GI: No nausea, vomiting, abdominal pain, diarrhea. : No symptoms of dysuria or hematuria. Does have frequency and incontinence. Extremities: No pain. of the right knee. Constitutional: No fever or chills. PHYSICAL EXAMINATION: Pleasant gentleman in no distress. Vital signs reveal temperature 98.7, pulse 92, respirations 20, blood pressure 137/82, pulse ox 98% on room air. HEENT: Normocephalic. NECK: Decreased range of motion. CHEST: Chest exam is clear to auscultation left base. Cardiac: Normal S1, S2 with no gallops. Systolic murmur 2/6 left sternal border. ABDOMEN: Soft. Bowel sounds present. EXTREMITIES: No edema. Right knee, some increased warmth and pain, which is better than the day before yesterday. He does have significant increased muscle tone in lower extremities and upper extremities as well. The patient has a blister right heel. ASSESSMENT: 1. Resolving left lower lobe pneumonia. 2. Acute renal failure/acute kidney injury due to ATN, improved, stabilizing. 3. Chronic atrial fibrillation. 4. Pain right knee. 5. Congestive cardiac failure secondary to diastolic dysfunction, stable. PLAN: Continue present medical regimen. Patient's condition discussed with the patient and family. Plan for transfer to nursing facility tomorrow. MMODL / IJN: [id number] /
[2018-10-13] MEDS: APIXABAN 2.5 MG TABLET PO SCH (20:36)
[2018-10-14] MEDS: SODIUM CHLORIDE 0.9% 1,000 ML IV SCH (02:56)
--- NOTE | 2018-10-14 08:03 | P.DS ---
Providers Date of admission: 10/04/18 16:33 Expected date of discharge: 10/14/18 Attending physician: Ed Parrish Primary care physician: Ed Parrish [facility] Course: Addendum to previous discharge summary This 83-year-old gentleman was admitted to the hospital with congestive cardiac failure symptoms had improved. The patient developed a fever and symptoms signs suggestive of an aspiration pneumonia. Patient placed on Zosyn. He has im proved. The patient was attended and was unresponsive for about 24 hours. Patient wasn't hypotensive. Patient's symptoms resolved and his mental status is back to his usual status. However with the hypotensive episode the patient did develop ATN. The kidney function has stabilized and in the process of improving. His diuretics are on hold his losartan is on hold,restarted Lasix 20 mg daily. depending on his status over the next few days will resume losartan and adjust Lasix dosing. Patient will continue on Augmentin for 3 more days completing a 7 day treatment for aspiration pneumonia. Patient has pain in the right knee suspected to be gout. He has some increased warmth. The pain in the knee is getting better. He was not given any NSAIDs or steroids because of the renal status. The patient will be placed on prednisone 20 mg daily for 3 days upon discharge. Patient has a blister on the right foot sole pertaining to him pushing himself in bed. Wound care continued protection continue with ankle braces . Final diagnosis: Addendum to the previous discharge summary 1. Aspiration pneumonia 2. Sepsis 3. Acute kidney injury secondary to ATN 4. Acute renal failure 5. Toxic Encephalopathy secondary to sepsis. 6. Soft tissue injury right heel 7. Right knee pain probably acute gout Plan - Discharge Summary New Discharge Prescriptions: New Amoxicillin/Potassium Clav [Augmentin 500-125 Tablet] 1 tab PO Q12HR #6 tab predniSONE 20 mg PO DAILY tab Continue Apixaban [Eliquis] 2.5 mg PO HS Omeprazole [PriLOSEC] 20 mg PO DAILY Metoprolol Tartrate [Lopressor] 100 mg PO HS Tamsulosin [Flomax] 0.4 mg PO DAILY cap.er.24h Mirabegron [Myrbetriq] 50 mg PO DAILY Metoprolol Tartrate [Lopressor] 50 mg PO QAM Nitroglycerin Sl Tabs [Nitrostat] 0.4 mg SUBLINGUAL Q5M PRN PRN Reason: Chest Pain Atorvastatin [Lipitor] 40 mg PO DAILY Changed Furosemide [Lasix] 20 mg PO DAILY #0 Discontinued Furosemide [Lasix] 20 mg PO DAILY@1500 Metolazone [Zaroxolyn] 2.5 mg PO Q48H Furosemide [Lasix] 40 mg PO QAM LORazepam [Ativan] 1 mg PO BID PRN PRN Reason: Anxiety Discharge Medication List Apixaban [Eliquis] 2.5 mg PO HS 11/02/15 [History] Omeprazole [PriLOSEC] 20 mg PO DAILY 02/08/17 [History] Metoprolol Tartrate [Lopressor] 100 mg PO HS 09/17/17 [History] Tamsulosin [Flomax] 0.4 mg PO DAILY cap.er.24h 01/13/18 [Rx] Metoprolol Tartrate [Lopressor] 50 mg PO QAM 04/15/18 [History] Mirabegron [Myrbetriq] 50 mg PO DAILY 04/15/18 [History] Atorvastatin [Lipitor] 40 mg PO DAILY 10/04/18 [History] Nitroglycerin Sl Tabs [Nitrostat] 0.4 mg SUBLINGUAL Q5M PRN 10/04/18 [History] Amoxicillin/Potassium Clav [Augmentin 500-125 Tablet] 1 tab PO Q12HR #6 tab 10/14/18 [Rx] Furosemide [Lasix] 20 mg PO DAILY #0 10/14/18 [Rx] predniSONE 20 mg PO DAILY tab 10/14/18 [Rx] Follow up Appointment(s)/Referral(s): Ed Parrish MD [Primary Care Provider] - 1-2 days Activity/Diet/Wound Care/Special Instructions: Jeanette
[2018-10-14] MEDS: PANTOPRAZOLE 40 MG TABLET PO SCH (08:25)
[2018-10-14] MEDS: predniSONE 20 MG TAB PO SCH (08:25)
[2018-10-14] MEDS: TAMSULOSIN 0.4 MG CAP.ER.24H PO SCH (08:25)
[2018-10-14] MEDS: METOPROLOL TARTRATE 50 MG TAB PO SCH ×2 (08:26→22:00)
[2018-10-14] MEDS: DEXTROSE 5% IN WATER 1,000 ML IV SCH (08:26)
[2018-10-14 09:44] LABS: Calcium 8.4 mg/dL (8.4-10.2); Potassium 4.5 mmol/L (3.5-5.1); Uric Acid 12.1 mg/dL (3.5-8.5)
[2018-10-14] MEDS: PIPERACILLIN-TAZOBACTAM 3.375 GM in SODIUM CHLORIDE 0.9% 100 ML IVPB SCH ×2 (10:25→16:35)
--- NOTE | 2018-10-14 11:13 | XR ---
EXAMINATION TYPE: XR chest 1V portable DATE OF EXAM: 10/14/2018 COMPARISON: 10/10/2018 HISTORY: Cough and lethargy TECHNIQUE: Single frontal view of the chest is obtained. FINDINGS: Heart is enlarged with aortic stent. Trace left pleural effusion is unchanged. No new foca l consolidation, pulmonary vascular congestion or pneumothorax. Strand-like atelectasis at the costop hrenic angle is noted. Old fracture deformities of the left ribs and right clavicle are healed. Gener alized osseous demineralization is present. Single lead cardiac device is seen. IMPRESSION: Left basilar atelectasis and hypoventilatory lungs are stable. Trace left pleural effusi on is unchanged.
[2018-10-14 11:46] LABS: HCT 30.1 % (39.0-53.0); HGB 9.6 gm/dL (13.0-17.5); Hypochromasia Moderate; MCH 27.9 pg (25.0-35.0); MCHC 31.8 g/dL (31.0-37.0); MCV 87.6 fL (80.0-100.0); Mean Platelet Volume 8.6; Platelet Count 194 k/uL (150-450); RBC 3.43 m/uL (4.30-5.90); RDW 14.8 % (11.5-15.5); WBC 6.5 k/uL (3.8-10.6)
[2018-10-14] MEDS: APIXABAN 2.5 MG TABLET PO SCH (22:01)
--- NOTE | 2018-10-15 00:28 | PN ---
PROGRESS NOTE ATTENDING PHYSICIAN: Dr. Paulette Parrish. CHIEF COMPLAINT: Re-evaluation. HISTORY OF PRESENT ILLNESS: This 83-year-old gentleman was admitted to this facility with congestive cardiac failure. Subsequently has developed aspiration pneumonia and symptoms are resolving. The patient was actually doing very well yesterday. Today is somewhat more lethargic and low-grade fever. No other symptoms. REVIEW OF SYSTEMS: NEURO: Denies any headaches. PSYCH: Lethargic. CARDIAC: No chest pain reported. RESPIRATORY: Some cough. No hemoptysis. GI: No nausea, vomiting, abdominal pain reported. : No symptoms. Has incontinence. EXTREMITIES: No pain. PHYSICAL EXAM: CONSTITUTIONAL: Low-grade fever. Temperature 100.5 axillary. Earlier temperature taken was 99.4 oral. Pulse 88, respirations 18, blood pressure 114/68, pulse ox 94% on room air. HEENT: Normocephalic. NECK: There is 1+ JVD. CHEST: Decreased air flow left base. CARDIAC: Distant sounds. S1, S2 with no gallop. Systolic murmur 2/6 left sternal border. ABDOMEN: Soft. Bowel sounds present. EXTREMITIES: No evidence of edema. Right knee increased warmth. NEUROLOGIC: Lethargic. Moves both upper extremities adequately. Has generalized decreased muscle tone. LABS: CBC with a white count of 6.5, hemoglobin 9.6, platelets 194,000. Electrolytes normal except chloride 113, BUN 72, creatinine 2.5, uric acid 12.1. ASSESSMENT: 1. Aspiration pneumonia, on treatment. 2. Congestive cardiac failure, improved. 3. Anemia. 4. Chronic pain, right knee. 5. Acute kidney injury. 6. Acute renal failure. 7. Chronic atrial fibrillation. PLAN: The patient is stable. Continue present medical regimen. Patient will be cautiously hydrated. The patient has been placed on prednisone to help his gouty symptoms. The patient has was planned for discharge today, however, it will be held. The patient's prognosis remains guarded. Plan is for transfer to nursing facility. MMODL / IJN: [id number] /
[2018-10-15] MEDS: PIPERACILLIN-TAZOBACTAM 3.375 GM in SODIUM CHLORIDE 0.9% 100 ML IVPB SCH ×2 (01:01→07:29)
[2018-10-15 07:05] VITALS: BP 147/72; PULSE 90; RESP 24; TEMP 98.4
[2018-10-15] MEDS: DEXTROSE 5% IN WATER 1,000 ML IV SCH (07:23)
[2018-10-15] MEDS: METOPROLOL TARTRATE 50 MG TAB PO SCH (07:29)
[2018-10-15] MEDS: predniSONE 20 MG TAB PO SCH (07:30)
[2018-10-15] MEDS: PANTOPRAZOLE 40 MG TABLET PO SCH (07:30)
[2018-10-15] MEDS: TAMSULOSIN 0.4 MG CAP.ER.24H PO SCH (07:30)
--- NOTE | 2018-10-15 08:19 | P.DS ---
Providers Date of admission: 10/04/18 16:33 Expected date of discharge: 10/15/18 Attending physician: Ed Parrish Primary care physician: Ed Parrish [facility] Course: addendum to the discharge summary done yesterday. Patient is doing much better no further fever. His right knee feels much improved. His uric acid was up to12.1. His renal status is improving patient's alert to his usual status. Review of system: Neuro no headaches dizziness Psych: No anxiety Cardiac: No chest pain palpitations Respiratory: Mild cough especially when he eats or drinks GI: No nausea vomiting abdominal pain diarrhea : Incontinence urine Extremities: Improved pain right knee no edema. Constitutional: No fever chills Physical examination: Vital signs stable as recorded Chest clear to auscultation with decreased airflow left base Cardiac normal S1-S2, irregularly irregular rhythm, systolic murmur 2/6 left sternal border. Abdomen: Soft bowel sounds active Extremities: Decreased effusion and warmth right knee. No edema Skin: Skin tears healing. Neuro: Awake alert to his usual status. Generalized rigidity symmetrical. Labs: Pending from today yesterday is showing improved renal status Assessment: 1. Acute kidney injury status improving secondary to ATN 2. Acute gout right knee improving 3. Aspiration pneumonia improving 4.chronic atrial fibrillation 5. Stable chronic congestive cardiac failure and diastolic dysfunction 6. 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 Patient continue pured diet and thickened liquids. Continue prednisone for 1 more day at 20 mg. Finish antibiotic treatment with Augmentin. Continue medications as ordered. Prognosis remains guarded. Have discussed with family patient is going to require long-term care after the initial rehab. End of dictation dictation done by Dr. Parrish Plan - Discharge Summary New Discharge Prescriptions: New Amoxicillin/Potassium Clav [Augmentin 500-125 Tablet] 1 tab PO Q12HR #6 tab predniSONE 20 mg PO DAILY tab Continue Apixaban [Eliquis] 2.5 mg PO HS Omeprazole [PriLOSEC] 20 mg PO DAILY Metoprolol Tartrate [Lopressor] 100 mg PO HS Tamsulosin [Flomax] 0.4 mg PO DAILY cap.er.24h Mirabegron [Myrbetriq] 50 mg PO DAILY Metoprolol Tartrate [Lopressor] 50 mg PO QAM Nitroglycerin Sl Tabs [Nitrostat] 0.4 mg SUBLINGUAL Q5M PRN PRN Reason: Chest Pain Atorvastatin [Lipitor] 40 mg PO DAILY Changed Furosemide [Lasix] 20 mg PO DAILY #0 Discontinued Furosemide [Lasix] 20 mg PO DAILY@1500 Metolazone [Zaroxolyn] 2.5 mg PO Q48H Furosemide [Lasix] 40 mg PO QAM LORazepam [Ativan] 1 mg PO BID PRN PRN Reason: Anxiety Discharge Medication List Apixaban [Eliquis] 2.5 mg PO HS 11/02/15 [History] Omeprazole [PriLOSEC] 20 mg PO DAILY 02/08/17 [History] Metoprolol Tartrate [Lopressor] 100 mg PO HS 09/17/17 [History] Tamsulosin [Flomax] 0.4 mg PO DAILY cap.er.24h 01/13/18 [Rx] Metoprolol Tartrate [Lopressor] 50 mg PO QAM 04/15/18 [History] Mirabegron [Myrbetriq] 50 mg PO DAILY 04/15/18 [History] Atorvastatin [Lipitor] 40 mg PO DAILY 10/04/18 [History] Nitroglycerin Sl Tabs [Nitrostat] 0.4 mg SUBLINGUAL Q5M PRN 10/04/18 [History] Amoxicillin/Potassium Clav [Augmentin 500-125 Tablet] 1 tab PO Q12HR #6 tab 10/14/18 [Rx] Furosemide [Lasix] 20 mg PO DAILY #0 10/14/18 [Rx] predniSONE 20 mg PO DAILY tab 10/14/18 [Rx] Follow up Appointment(s)/Referral(s): Ed Parrish MD [Primary Care Provider] - 1-2 days Activity/Diet/Wound Care/Special Instructions: [place] Discharge Disposition: TRANSFER TO SNF/ECF
== END 2018-10-15 13:00 | DRG 291 ==
LOC: EC 13:50 → 3SCARD 16:33 → 4MS4W 10-09 16:19
PROVIDERS: ADMIT Internal Medicine; ATTEND Internal Medicine
DX: I13.0 Hypertensive heart and chronic kidney disease with heart failure and stage 1 through stage 4 chronic kidney disease, or unspecified chronic kidney disease (principal); I50.33 Acute on chronic diastolic (congestive) heart failure; G92 Toxic encephalopathy; J69.0 Pneumonitis due to inhalation of food and vomit; N17.0 Acute kidney failure with tubular necrosis; A41.9 Sepsis, unspecified organism; D50.0 Iron deficiency anemia secondary to blood loss (chronic); D69.6 Thrombocytopenia, unspecified; E78.5 Hyperlipidemia, unspecified; E87.6 Hypokalemia; T36.0X5A Adverse effect of penicillins, initial encounter; F01.50 Vascular dementia, unspecified severity, without behavioral disturbance, psychotic disturbance, mood disturbance, and anxiety; G89.29 Other chronic pain; I25.10 Atherosclerotic heart disease of native coronary artery without angina pectoris; I25.2 Old myocardial infarction; I35.0 Nonrheumatic aortic (valve) stenosis; I45.10 Unspecified right bundle-branch block; I48.2 Chronic atrial fibrillation; I69.991 Dysphagia following unspecified cerebrovascular disease; R13.12 Dysphagia, oropharyngeal phase; L89.619 Pressure ulcer of right heel, unspecified stage; Z89.421 Acquired absence of other right toe(s); M10.9 Gout, unspecified; N18.3 Chronic kidney disease, stage 3 (moderate); R29.6 Repeated falls; R32 Unspecified urinary incontinence; S90.821A Blister (nonthermal), right foot, initial encounter; Z79.01 Long term (current) use of anticoagulants; Z79.899 Other long term (current) drug therapy; Z83.3 Family history of diabetes mellitus; Z87.11 Personal history of peptic ulcer disease; Z89.011 Acquired absence of right thumb; Z90.49 Acquired absence of other specified parts of digestive tract; Z91.81 History of falling; Z95.2 Presence of prosthetic heart valve; Z95.5 Presence of coronary angioplasty implant and graft; Z98.42 Cataract extraction status, left eye; Z98.41 Cataract extraction status, right eye; M19.90 Unspecified osteoarthritis, unspecified site
CPT/HCPCS: 36415; 71045; 71046; 80048; 80053; 81003; 83735; 83880; 84484; 84550; 85025; 85027; 85610; 85730; 87040; 87324; 87502; 93005; 96374; 99285